=== PATIENT | female | born 1950 | race Caucasian/White ===

== ENCOUNTER 2016-09-20 08:07 | Emergency (ER) | payer MEDICARE, BC ==
[2016-09-20] MEDS ORDERED: diPHENhydraMINE IV* 50 MG/ML 1 ml VIAL (BENADRYL) IV ONE (08:41)
[2016-09-20] MEDS ORDERED: Ketorolac INJ* 30 MG/ML 1 ML VIAL IV ONE (08:41)
[2016-09-20] MEDS ORDERED: NS 0.9% 1000 ML* 1,000 ML IV ONE (08:41)
[2016-09-20] MEDS ORDERED: Metoclopramide IV* 5 MG/ML 2 ML VIAL IV ONE (08:42)
--- NOTE | 2016-09-20 08:45 | ED ---
Headache - HPI Summary HPI Summary: 65 F w/ PMH of migraine presents with migraine for 2 days. The migraine is in its usually location in the front of the head and radiates to the neck which she states is typically of her headaches. She denies any neck stiffness or fever. She took toradol and benadryl at home last night which did not help. She denies any weakness, dizziness, photophobia, sinus pain, or ear pain. She states that the toradol usually helps but it did not last night. She states noises make it worst. She is followed by dr. Curtis for neurology. - History Of Current Complaint Chief Complaint: EDHeadache Stated Complaint: MIGRAINE Time Seen by Provider: 09/20/16 08:31 Hx Last Menstrual Period: post - Allergies/Home Medications Allergies/Adverse Reactions: Allergies Allergy/AdvReac Type Severity Reaction Status Date / Time Heparin Allergy Unknown See Comment Verified 09/20/16 08:23 Chlorpromazine AdvReac Severe Altered Verified 09/20/16 08:23 [From Thorazine] Mental Status Erythromycin AdvReac Intermediate Diarrhea Verified 09/20/16 08:23 Valproic Acid [From Depakote] AdvReac Intermediate Altered Verified 09/20/16 08: 23 Mental Status Cephalexin [From Keflex] AdvReac Mild Muscle Ache Verified 09/20/16 08:23 PMH/Surg Hx/FS Hx/Imm Hx Endocrine/Hematology History: Denies: Hx Diabetes, Hx Thyroid Disease Cardiovascular History: Reports: Hx Hypercholesterolemia, Hx Hypertension, Other Cardiovascular Problems/Disorders - heart burn Respiratory History: Denies: Hx Asthma, Hx Chronic Obstructive Pulmonary Disease (COPD) GI History: Reports: Hx Gastroesophageal Reflux Disease Denies: Hx Ulcer Musculoskeletal History: Reports: Hx Arthritis Sensory History: Reports: Hx Contacts or Glasses Denies: Hx Hearing Aid Opthamlomology History: Reports: Hx Contacts or Glasses Neurological History: Reports: Hx Migraine - Chronic migraine disease, Hx Seizures Psychiatric History: Reports: Hx Anxiety, Hx Depression - Cancer History Hx Chemotherapy: No Hx Radiation Therapy: No - Surgical History Surgery Procedure, Year, and Place: 1974, 1976, 1978 3 C Sections [place]. 1986 right elbow surgery [place]. LEFT breast biopsy [facility] [place]. 1999s x2 sinus surgery [facility]. 2006 appendectomy, [facility]. 2005 bladder surgery ( spot in bladder), [facility]. 2006 bilateral meniscus surgery, [facility]. 2005 OVARY REMOVED [facility]. 1981 HYSTERECTOMY,[facility]. 07/2013 LEFT TOE SURGERY [facility]. total replacement right knee; endoscopy left knee Hx Anesthesia Reactions: Yes - required mechanical ventilation for oversedation - Immunization History Date of Tetanus Vaccine: within the last 10 years Date of Influenza Vaccine: Fall 2014 Infectious Disease History: No Infectious Disease History: Reports: Hx Shingles - 2011, Traveled Outside the [place] in Last 30 Days - JOHN Denies: Hx Clostridium Difficile, Hx Hepatitis, Hx Human Immunodeficiency Virus (HIV), Hx of Known/Suspected MRSA, Hx Tuberculosis, Hx Known/Suspected VRE , Hx Known/Suspected VRSA, History Other Infectious Disease - Family History Known Family History: Positive: None - reviewed & noncontributory, Unknown, Cardiac Disease, Hypertension, Other - stroke: mom Negative: Diabetes - Social History Alcohol Use: Rare Alcohol Amount: 1 GLASS/MONTH Hx Substance Use: No Substance Use Type: Reports: None, Prescribed Substance Use Comment - Amount & Last Used: PERCOCET as needed for knee pain Hx Tobacco Use: No Smoking Status (MU): Never Smoked Tobacco Have You Smoked in the Last Year: No Review of Systems Negative: Fever Negative: Photophobia, Blurred Vision, Diplopia Negative: Chest Pain Negative: Shortness Of Breath Positive: Headache. Negative: Weakness All Other Systems Reviewed And Are Negative: Yes Physical Exam Triage Information Reviewed: Yes Vital Signs On Initial Exam: Initial Vitals Temp Pulse Resp BP Pulse Ox 98 F 63 15 126/79 100 09/20/16 08:17 09/20/16 08:17 09/20/16 08:17 09/20/16 08:17 09/20/16 08:17 Vital Signs Reviewed: Yes Appearance: Positive: Well-Appearing Skin: Positive: Warm, Dry Head/Face: Positive: Normal Head/Face Inspection Eyes: Positive: Normal, EOMI, [place], Conjunctiva Clear ENT: Positive: Normal ENT inspection, Pharynx normal, TMs normal Neck: Positive: Supple, No Lymphadenopathy, Other: - neg kernig or brudzenkis, tenderness to paraspinal muscle of neck. Negative: Nuchal Rigidity Respiratory/Lung Sounds: Positive: Clear to Auscultation, Breath Sounds Present Cardiovascular: Positive: Normal, RRR Neurological: Positive: Sensory/Motor Intact, Alert, Oriented to Person Place, Time, CN Intact II-III Diagnostics - Vital Signs Vital Signs Temp Pulse Resp BP Pulse Ox 09/20/16 08:17 98 F 63 15 126/79 100 - Laboratory Result Diagrams: 09/20/16 08:40 09/20/16 08:40 Lab Statement: Any lab studies that have been ordered have been reviewed, and results considered in the medical decision making process. Re-Evaluation - Re-Evaluation First Eval Re-Evaluation Time: 09:33 Change: Improved Comment: headache is resolved but states she still has typically neck pain that gets, full ROM of neck with no menigneal signs, tender to palpation of paraspinal muscles, requesting muscle relaxer Second Eval Re-Evaluation Time: 10:18 Change: Improved Comment: patient states neck pain resolved, requesting soma to go home with Headache Course/Dx - Course Course Of Treatment: 65 F presents with her typical migraine for 2 days. pain started in front of head and radiates to neck which is her typical symptoms, no meningitis signs on exam, neuro exam normal, will treat with normal medication uses when comes to ER, labs normal, states headache resolved with medication but still some mild neck pain that is typical of her migraine, request muscle relaxer which after taking states that neck pain resolved, requesting soma for at home states works best for her for neck pain, discussed that highly addicting and patient understands but states it has worked the best for her in the past, will return if headache returns and can not manage at home or if develop mengingeal symptoms, patient agrees with plan - Diagnoses Differential Diagnosis/HQI/PQRI: Meningitis, Migraine, Sinus Headache, Viral Syndrome Provider Diagnoses: Headache, Neck pain Discharge - Discharge Plan Condition: Good Disposition: HOME Prescriptions: Carisoprodol TAB* [Soma TAB*] 350 mg PO TID PRN #6 tab MDD 3 PRN Reason: Pain Patient Education Materials: Migraine Headache (ED) Referrals: Sherron Hood MD [Primary Care Provider] - Additional Instructions: Take muscle relaxers three times a day for 2 days as needed for neck pain Use ibuprofen or Tylenol for pain every 6 hours ice/heat neck, move as much as possible Follow up with neurology as scheduled Return to ED if develop any fever, neck stiffness, change in vision or develop any new or worsening symptoms
[2016-09-20 08:50] LABS: Hematocrit 40 % (35-47); Hemoglobin 13.3 g/dl (12.0-16.0); Mean Corpuscular HGB Conc 34 g/dl (31-36); Mean Corpuscular Hemoglobin 35 pg (27-31); Mean Corpuscular Volume 103 fL (80-97); Mean Platelet Volume 8 um3 (7.4-10.4); Red Blood Count 3.84 10^6/ul (4.0-5.4); Red Cell Distribution Width 13 % (10.5-15); White Blood Count 5.9 10^3/ul (3.5-10.8)
[2016-09-20 09:06] LABS: BUN/Creatinine Ratio 34.6 (8-20); Calcium 9.2 mg/dL (8.6-10.3); EGFR Non-African American 70.7 (>60); Globulin 2.7 g/dL (2-4); Potassium 4.4 mmol/L (3.5-5.0); Total Bilirubin 0.4 mg/dL (0.2-1.0); Total Protein 6.7 g/dL (6.4-8.9)
[2016-09-20] MEDS ORDERED: Cyclobenzaprine TAB* 10 MG PO ONE (09:32)
[2016-09-20 11:22] VITALS: BP 128/71
== END 2016-09-20 11:19 | disposition home or self-care (01) ==
LOC: ED 08:07
DX: G43.909 Migraine, unspecified, not intractable, without status migrainosus (principal); M54.2 Cervicalgia; I10 Essential (primary) hypertension; E78.00 Pure hypercholesterolemia, unspecified; K21.9 Gastro-esophageal reflux disease without esophagitis; F41.9 Anxiety disorder, unspecified; F32.9 Major depressive disorder, single episode, unspecified
CPT/HCPCS: 36415; 80053; 85025; 96360; 96365; 96374; 96375; 99284; A9270-GY; J1200; J1885; J2765

== ENCOUNTER 2016-10-07 11:02 | Emergency (ER) | payer MEDICARE, BC ==
[2016-10-07] MEDS ORDERED: Metoclopramide IV* 5 MG/ML 2 ML VIAL IV ONE (16:23)
[2016-10-07] MEDS ORDERED: diPHENhydraMINE IV* 50 MG/ML 1 ml VIAL (BENADRYL) IV ONE (16:23)
[2016-10-07] MEDS ORDERED: Ketorolac INJ* 30 MG/ML 1 ML VIAL IV ONE (16:23)
[2016-10-07 16:37] VITALS: BP 139/83
[2016-10-07 16:48] LABS: Urine Bilirubin Negative (Negative); Urine Glucose Negative (Negative); Urine Nitrite Negative (Negative)
[2016-10-07 16:50] LABS: Hematocrit 39 % (35-47); Hemoglobin 13.4 g/dl (12.0-16.0); Mean Corpuscular HGB Conc 34 g/dl (31-36); Mean Corpuscular Hemoglobin 34 pg (27-31); Mean Corpuscular Volume 101 fL (80-97); Mean Platelet Volume 8 um3 (7.4-10.4); Red Cell Distribution Width 12 % (10.5-15); White Blood Count 8.7 10^3/ul (3.5-10.8)
[2016-10-07 16:58] LABS: Albumin 4.2 g/dL (3.2-5.2); BUN/Creatinine Ratio 22.5 (8-20); Calcium 9.4 mg/dL (8.6-10.3); EGFR African American 105.9 (>60); EGFR Non-African American 82.4 (>60); Globulin 2.5 g/dL (2-4); Total Bilirubin 0.5 mg/dL (0.2-1.0); Total Protein 6.7 g/dL (6.4-8.9)
[2016-10-07 17:12] LABS: Potassium 4.1 mmol/L (3.5-5.0)
[2016-10-07 18:01] LABS: Erythrocyte Sed Rate 11 mm/Hr (0-40)
--- NOTE | 2016-10-07 22:29 | ED ---
Randal Collado Rebecca, scribed for Tony De La Rosa MD on 10/07/16 at 1603 . Headache - HPI Summary HPI Summary: Pt is a 65 y/o F who presents to ED c/o CASTRO. CASTRO began suddenly 3 days ago and has been constant since onset. Pain is diffuse, characterized as a typical migraine and currently ranked 7/10. Sx aggravated and alleviated by nothing. Additionally c/o malodorous urine. Denies fever, vomiting, numbness, tingling, weakness. Denies dysuria, hematuria, abd pain and back pain. PMHx migraines. Current episode is similar to prior episodes of migraines, which are typically resolved by administration of Benadryl, Toradol and Reglan. - History Of Current Complaint Chief Complaint: EDHeadache Stated Complaint: MIGRAINE HEADACHE Time Seen by Provider: 10/07/16 15:59 Hx Obtained From: Patient Hx Last Menstrual Period: post Onset/Duration: Sudden Onset, Started days ago - 3 days Initially Headache Was: Moderate Currently Pain Is: Current Pain Scale(0-10)= - 7/10, Moderate Timing: Constant Character: Migraine Location of Headache: Diffuse Aggravating Factor: Nothing Allevating Factors: Nothing Associated Signs And Symptoms: Other (Noted In Comments) - Malodorous urine Related History: Similar Episode/DX As: - Prior migraines - Allergies/Home Medications Allergies/Adverse Reactions: Allergies Allergy/AdvReac Type Severity Reaction Status Date / Time Heparin Allergy Unknown See Comment Verified 10/07/16 11:08 Chlorpromazine AdvReac Severe Altered Verified 10/07/16 11:08 [From Thorazine] Mental Status Erythromycin AdvReac Intermediate Diarrhea Verified 10/07/16 11:08 Valproic Acid [From Depakote] AdvReac Intermediate Altered Verified 10/07/16 11: 08 Mental Status Cephalexin [From Keflex] AdvReac Mild Muscle Ache Verified 10/07/16 11:08 PMH/Surg Hx/FS Hx/Imm Hx Endocrine/Hematology History: Denies: Hx Diabetes, Hx Thyroid Disease Cardiovascular History: Reports: Hx Hypercholesterolemia, Hx Hypertension, Other Cardiovascular Problems/Disorders - heart burn Respiratory History: Denies: Hx Asthma, Hx Chronic Obstructive Pulmonary Disease (COPD) GI History: Reports: Hx Gastroesophageal Reflux Disease Denies: Hx Ulcer Musculoskeletal History: Reports: Hx Arthritis Sensory History: Reports: Hx Contacts or Glasses Denies: Hx Hearing Aid Opthamlomology History: Reports: Hx Contacts or Glasses Neurological History: Reports: Hx Migraine - Chronic migraine disease, Hx Seizures Psychiatric History: Reports: Hx Anxiety, Hx Depression - Cancer History Hx Chemotherapy: No Hx Radiation Therapy: No - Surgical History Surgery Procedure, Year, and Place: 1974, 1976, 1978 3 C Sections [place]. 1986 right elbow surgery [place]. 1999s LEFT breast biopsy [facility] [place]. 1999s x2 sinus surgery [facility] [facility] [place]. 2006 appendectomy, [facility] [place]. 2004 bladder surgery ( spot in bladder), [facility] 2006 bilateral meniscus surgery, [facility]. 2004 OVARY REMOVED [facility]. 1980 HYSTERECTOMY,[facility]. 07/2013 LEFT TOE SURGERY [facility]. total replacement right knee; endoscopy left knee Hx Anesthesia Reactions: Yes - required mechanical ventilation for oversedation - Immunization History Date of Tetanus Vaccine: within the last 10 years Date of Influenza Vaccine: Fall 2014 Infectious Disease History: No Infectious Disease History: Reports: Hx Shingles - 2011 Denies: Hx Clostridium Difficile, Hx Hepatitis, Hx Human Immunodeficiency Virus (HIV), Hx of Known/Suspected MRSA, Hx Tuberculosis, Hx Known/Suspected VRE , Hx Known/Suspected VRSA, History Other Infectious Disease, Traveled Outside the in Last 30 Days - Family History Known Family History: Positive: Cardiac Disease, Hypertension, Other - stroke: mom Negative: Diabetes - Social History Alcohol Use: Rare Alcohol Amount: 1 GLASS/MONTH Hx Substance Use: No Substance Use Type: Reports: None, Prescribed Substance Use Comment - Amount & Last Used: PERCOCET as needed for knee pain Hx Tobacco Use: No Smoking Status (MU): Never Smoked Tobacco Have You Smoked in the Last Year: No Review of Systems Negative: Fever Negative: Abdominal Pain, Vomiting Positive: other - Malodorous urine. Negative: dysuria, hematuria Positive: Arthralgia - Denies back pain Neurological: Other - Denies tingling Positive: Headache - Migraine. Negative: Weakness, Numbness All Other Systems Reviewed And Are Negative: Yes Physical Exam - Summary Physical Exam Summary: General: Comfortable, pleasant, alert, NAD HEENT: Moist mucosa, PERRL Neck: soft, supple, no adenopathy, no edema, FROM, no nuchal rigidity Heart: S1, S2, RRR, no murmurs, rubs, or gallops Lungs: Clear to auscultation, breathing comfortable, no wheezes or rales Abdominal: Soft, flat, nontender, no suprapubic tenderness Extremities: No edema, no calf tenderness, no CVA tenderness Neuro: Alert and oriented x 3, no focal neurological deficits Psych: Logical, coherent Triage Information Reviewed: Yes Vital Signs On Initial Exam: Initial Vitals Temp Pulse Resp BP Pulse Ox 97.7 F 72 17 145/79 100 10/07/16 11:04 10/07/16 11:04 10/07/16 11:04 10/07/16 11:04 10/07/16 11:04 Vital Signs Reviewed: Yes Diagnostics - Vital Signs Vital Signs Temp Pulse Resp BP Pulse Ox 10/07/16 15:01 98.3 F 79 16 158/91 98 10/07/16 14:03 98.3 F 77 16 149/96 98 10/07/16 13:21 99 F 74 16 153/91 99 10/07/16 12:17 99 F 67 16 158/89 99 10/07/16 11:04 97.7 F 72 17 145/79 100 - Laboratory Lab Results: Lab Results 10/07/16 10/07/16 10/07/16 Range/Units 12:20 16:30 16:30 WBC 8.7 (3.5-10.8) 10^3/ul RBC 3.90 L (4.0-5.4) 10^6/ul Hgb 13.4 (12.0-16.0) g/dl Hct 39 (35-47) % MCV 101 H (80-97) fL MCH 34 H (27-31) pg MCHC 34 (31-36) g/dl RDW 12 (10.5-15) % Plt Count 238 (150-450) 10^3/ul MPV 8 (7.4-10.4) um3 Neut % (Auto) 55.0 (38-83) % Lymph % (Auto) 36.7 (25-47) % Gaines % (Auto) 4.5 (1-9) % Eos % (Auto) 2.8 (0-6) % Baso % (Auto) 1.0 (0-2) % Absolute Neuts (auto) 4.8 (1.5-7.7) 10^3/ul Absolute Lymphs (auto) 3.2 (1.0-4.8) 10^3/ul Absolute Monos (auto) 0.4 (0-0.8) 10^3/ul Absolute Eos (auto) 0.2 (0-0.6) 10^3/ul Absolute Basos (auto) 0.1 (0-0.2) 10^3/ul Absolute Nucleated RBC 0.02 10^3/ul Nucleated RBC % 0.3 ESR 11 (0-40) mm/Hr Sodium 139 (133-145) mmol/L Potassium 4.1 (3.5-5.0) mmol/L Chloride 107 (101-111) mmol/L Carbon Dioxide 25 (22-32) mmol/L Anion Gap 7 (2-11) mmol/L BUN 16 (6-24) mg/dL Creatinine 0.71 (0.51-0.95) mg/dL Est GFR ( Amer) 105.9 (>60) Est GFR (Non-Af Amer) 82.4 (>60) BUN/Creatinine Ratio 22.5 H (8-20) Glucose 95 (70-100) mg/dL Calcium 9.4 (8.6-10.3) mg/dL Total Bilirubin 0.50 (0.2-1.0) mg/dL AST 17 (13-39) U/L ALT 17 (7-52) U/L Alkaline Phosphatase 54 (34-104) U/L Total Protein 6.7 (6.4-8.9) g/dL Albumin 4.2 (3.2-5.2) g/dL Globulin 2.5 (2-4) g/dL Albumin/Globulin Ratio 1.7 (1-3) Urine Color Yellow Urine Appearance Clear Urine pH 5.0 (5-9) Ur Specific [place] 1.009 L (1.010-1.030) Urine Protein Negative (Negative) Urine Ketones Negative (Negative) Urine Blood Negative (Negative) Urine Nitrate Negative (Negative) Urine Bilirubin Negative (Negative) Urine Urobilinogen Negative (Negative) Ur Leukocyte Esterase Negative (Negative) Urine Glucose Negative (Negative) Result Diagrams: 10/07/16 16:30 10/07/16 16:30 Lab Statement: Any lab studies that have been ordered have been reviewed, and results considered in the medical decision making process. Headache Course/Dx - Course Assessment/Plan: We will place the p/t as a d/c disposition, as her CASTRO is similar to prior. She has no neurologic deficits, no signs of infection. We will await her lab work, but I doubt this is temporal arteritis. UA appears quite clean. She simply reported an abnormal odor. - Diagnoses Differential Diagnosis/HQI/PQRI: Epidural Hematoma, Subdural Hematoma, Meningitis, Migraine, Sinus Headache, Subarachnoid Hemorrhage, Temporal Arteritis, Tension Headache, Viral Syndrome Provider Diagnoses: Headache Discharge - Discharge Plan Condition: Good Disposition: HOME Patient Education Materials: General Headache (ED) Referrals: Sherron Hood MD [Primary Care Provider] - If Needed The documentation as recorded by the Randal ness Rebecca accurately reflects the service I personally performed and the decisions made by me, Tony De La Rosa MD.
== END 2016-10-07 17:58 | disposition home or self-care (01) ==
LOC: ED 11:02
DX: R51 Headache (principal)
CPT/HCPCS: 36415; 80053; 81003; 85025; 85652; 96374; 96375; 99283; J1200; J1885; J2765

== ENCOUNTER 2016-11-12 10:50 | Emergency (ER) | payer MEDICARE, BC ==
[2016-11-12 10:54] VITALS: BP 135/78
[2016-11-12] MEDS ORDERED: Ondansetron INJ* 2 MG/ML VIAL IV ONE (12:38)
[2016-11-12] MEDS ORDERED: diPHENhydraMINE IV* 50 MG/ML 1 ml VIAL (BENADRYL) IV ONE (12:38)
[2016-11-12] MEDS ORDERED: Ketorolac INJ* 30 MG/ML 1 ML VIAL IV PUSH ONE (12:38)
[2016-11-12] MEDS ORDERED: NS 0.9% 1000 ML* 1,000 ML IV ONE (12:39)
--- NOTE | 2016-11-12 13:07 | ED ---
Ricardo Collado Billy, scribed for Sandee Ponce MD on 11/12/16 at 1243 . Headache - HPI Summary HPI Summary: Patient is a 66 year-old female with a history of recurrent, frequent migraines coming to [facility] presenting with a migraine for the last 3 days. Patient was driven to the ED by her via private car. She states that her symptoms today feel typical of previous migraines. She describes a frontal headache that radiates to the occipital region. She also reports earache and photophobia; denies fevers, chills, or drainage from the ears. No fevers, chills, rash. She states that she has taken ibuprofen today and Toradol last night without improvement. Her last dose of Toradol was taken yesterday, and only ibuprofen was taken for her symptoms prior to arrival today. In the past, her migraines have been effectively treated with Toradol, Benadryl, and Zofran. Patient has had 2 previous migraines this month. Patient sees Dr. Curtis for her headaches; patient was seen by one of Dr. Curtis's associates approximately 6 weeks ago, and has scheduled her next appointment in 2 months. She denies any other complaints or symptoms at this time. - History Of Current Complaint Chief Complaint: EDHeadache Stated Complaint: MIGRAINE Time Seen by Provider: 11/12/16 12:03 Hx Obtained From: Patient Hx Last Menstrual Period: post Onset/Duration: Gradual Onset, Started days ago, Still Present Initially Headache Was: Moderate Currently Pain Is: Moderate Timing: Constant Character: Migraine Location of Headache: Frontal Radiates to: occipital Aggravating Factor: Bright Lights Allevating Factors: Rest Associated Signs And Symptoms: Other (Noted In Comments) - earache - Allergies/Home Medications Allergies/Adverse Reactions: Allergies Allergy/AdvReac Type Severity Reaction Status Date / Time Heparin Allergy Unknown See Comment Verified 10/07/16 11:08 Chlorpromazine AdvReac Severe Altered Verified 10/07/16 11:08 [From Thorazine] Mental Status Erythromycin AdvReac Intermediate Diarrhea Verified 10/07/16 11:08 Valproic Acid [From Depakote] AdvReac Intermediate Altered Verified 10/07/16 11: 08 Mental Status Cephalexin [From Keflex] AdvReac Mild Muscle Ache Verified 10/07/16 11:08 PMH/Surg Hx/FS Hx/Imm Hx Previously Healthy: Yes Endocrine/Hematology History: Denies: Hx Anticoagulant Therapy, Hx Diabetes, Hx Thyroid Disease Cardiovascular History: Reports: Hx Hypercholesterolemia, Hx Hypertension, Other Cardiovascular Problems/Disorders - heart burn Respiratory History: Denies: Hx Asthma, Hx Chronic Obstructive Pulmonary Disease (COPD) GI History: Reports: Hx Gastroesophageal Reflux Disease Denies: Hx Ulcer Musculoskeletal History: Reports: Hx Arthritis Sensory History: Reports: Hx Contacts or Glasses Denies: Hx Hearing Aid Opthamlomology History: Reports: Hx Contacts or Glasses Neurological History: Reports: Hx Migraine - Chronic migraine disease, Hx Seizures Psychiatric History: Reports: Hx Anxiety, Hx Depression - Cancer History Hx Chemotherapy: No Hx Radiation Therapy: No - Surgical History Surgery Procedure, Year, and Place: 1974, 1976, 1978 3 C Sections [place]. 1986 right elbow surgery [place]. LEFT breast biopsy [facility]. 1999s x2 sinus surgery [facility] [place]. 2006 appendectomy, [facility]. 2004 bladder surgery ( spot in bladder), [facility]. 2005 bilateral meniscus surgery, [facility]. 2004 OVARY REMOVED [facility]. 1980 HYSTERECTOMY,[facility]. 07/2013 LEFT TOE SURGERY [facility]. total replacement right knee; endoscopy left knee Hx Anesthesia Reactions: Yes - required mechanical ventilation for oversedation - Immunization History Date of Tetanus Vaccine: within the last 10 years Date of Influenza Vaccine: Fall 2014 Infectious Disease History: No Infectious Disease History: Reports: Hx Shingles - 2011 Denies: Hx Clostridium Difficile, Hx Hepatitis, Hx Human Immunodeficiency Virus (HIV), Hx of Known/Suspected MRSA, Hx Tuberculosis, Hx Known/Suspected VRE , Hx Known/Suspected VRSA, History Other Infectious Disease, Traveled Outside the in Last 30 Days - Family History Known Family History: Positive: Cardiac Disease, Hypertension, Other - stroke: mom Negative: Diabetes - Social History 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 Negative: Sore Throat, Nasal Discharge Negative: Chest Pain Negative: Shortness Of Breath Negative: Abdominal Pain, Vomiting, Diarrhea, Nausea Negative: Rash Positive: Headache Psychological: Normal All Other Systems Reviewed And Are Negative: Yes Physical Exam Triage Information Reviewed: Yes Vital Signs On Initial Exam: Initial Vitals Temp Pulse Resp BP Pulse Ox 97.7 F 75 18 135/78 97 11/12/16 10:50 11/12/16 10:50 11/12/16 10:50 11/12/16 10:50 11/12/16 10:50 Vital Signs Reviewed: Yes Appearance: Positive: Well-Appearing, No Pain Distress, Well-Nourished Skin: Positive: Warm, Skin Color Reflects Adequate Perfusion, Dry Eyes: Positive: Normal, EOMI ENT: Positive: Normal ENT inspection, Pharynx normal, TMs normal Neck: Positive: Supple, Nontender, No Lymphadenopathy Respiratory/Lung Sounds: Positive: Clear to Auscultation, Breath Sounds Present , Wheezes Cardiovascular: Positive: Normal, RRR, Murmur Abdomen Description: Positive: Nontender, No Organomegaly, Soft Bowel Sounds: Positive: Present Musculoskeletal: Positive: Normal, Strength/ROM Intact Neurological: Positive: Normal, Sensory/Motor Intact, Alert, Oriented to Person Place, Time Psychiatric: Positive: Normal AVPU Assessment: Alert - [place] Coma Scale Best Eye Response: 4 - Spontaneous Best Motor Response: 6 - Obeys Commands Best Verbal Response: 5 - Oriented Diagnostics - Vital Signs Vital Signs Temp Pulse Resp BP Pulse Ox 11/12/16 10:50 97.7 F 75 18 135/78 97 - Laboratory Lab Statement: Any lab studies that have been ordered have been reviewed, and results considered in the medical decision making process. Re-Evaluation - Re-Evaluation First Eval Re-Evaluation Time: 13:55 Change: Improved Comment: Pt states feel improved - requesting flexeril to help neck muscle relax. CASTRO resolved. at bedside will d/c home Headache Course/Dx - Course Assessment/Plan: Pt with recurrent migraine headache. will give toradol, benadryl, and zofran. no labs. non concerning exam - Diagnoses Provider Diagnoses: Migraine headache Discharge - Discharge Plan Condition: Improved Disposition: HOME Patient Education Materials: Migraine Headache (ED) Referrals: Sherron Hood MD [Primary Care Provider] - Additional Instructions: - stay well hydrated. Drink plenty of non-alcoholic, non-caffinated beverages - take your medications at home as previously prescribed for headaches - Contact your doctor to schedule a follow-up appointment. Contact your doctor or return with questions or concerns The documentation as recorded by the Ricardo ness Billy accurately reflects the service I personally performed and the decisions made by me, Sandee Ponce MD.
[2016-11-12] MEDS ORDERED: Cyclobenzaprine TAB* 10 MG PO ONE (13:56)
== END 2016-11-12 14:18 | disposition home or self-care (01) ==
LOC: ED 10:50
DX: G43.901 Migraine, unspecified, not intractable, with status migrainosus (principal); H92.09 Otalgia, unspecified ear
CPT/HCPCS: 96374; 96375; 99282; A9270-GY; J1200; J1885; J2405

== ENCOUNTER 2016-11-14 14:50 | Emergency (ER) | payer MEDICARE, BC ==
[2016-11-14] MEDS ORDERED: Ketorolac INJ* 30 MG/ML 1 ML VIAL IV PUSH ONE (15:28)
[2016-11-14] MEDS ORDERED: diPHENhydraMINE IV* 50 MG/ML 1 ml VIAL (BENADRYL) SLOW PUSH ONE (15:28)
[2016-11-14] MEDS ORDERED: Ondansetron INJ* 2 MG/ML VIAL IV ONE (15:28)
[2016-11-14] MEDS ORDERED: NS 0.9% 1000 ML* 1,000 ML IV ONE (15:28)
--- NOTE | 2016-11-14 15:48 | ED ---
Headache - HPI Summary HPI Summary: 66F presents with migraine. She states there is nothing different about this migraine. She states is starts behind her eyes and radiates down her neck. She has full ROM of her neck. She has tried toradol at home without relief yesterday. She has a treatment plan in place by her neurologist that does not include narcotics. She states she has had this migraine for a week. She is also requesting a muscle relaxer for her neck. She admits to photophobia. She denies any weakness, change in vision, or fevers. She denies any recent illness or neck stiffness. - History Of Current Complaint Chief Complaint: EDHeadache Stated Complaint: HEADACHE Time Seen by Provider: 11/14/16 15:21 Hx Last Menstrual Period: post - Allergies/Home Medications Allergies/Adverse Reactions: Allergies Allergy/AdvReac Type Severity Reaction Status Date / Time Heparin Allergy Unknown See Comment Verified 11/14/16 14:52 Chlorpromazine AdvReac Severe Altered Verified 11/14/16 14:52 [From Thorazine] Mental Status Erythromycin AdvReac Intermediate Diarrhea Verified 11/14/16 14:52 Valproic Acid [From Depakote] AdvReac Intermediate Altered Verified 11/14/16 14: 52 Mental Status Cephalexin [From Keflex] AdvReac Mild Muscle Ache Verified 11/14/16 14:52 PMH/Surg Hx/FS Hx/Imm Hx Endocrine/Hematology History: Denies: Hx Anticoagulant Therapy, Hx Diabetes, Hx Thyroid Disease Cardiovascular History: Reports: Hx Hypercholesterolemia, Hx Hypertension, Other Cardiovascular Problems/Disorders - heart burn Respiratory History: Denies: Hx Asthma, Hx Chronic Obstructive Pulmonary Disease (COPD) GI History: Reports: Hx Gastroesophageal Reflux Disease Denies: Hx Ulcer Musculoskeletal History: Reports: Hx Arthritis Sensory History: Reports: Hx Contacts or Glasses Denies: Hx Hearing Aid Opthamlomology History: Reports: Hx Contacts or Glasses Neurological History: Reports: Hx Migraine - Chronic migraine disease, Hx Seizures Psychiatric History: Reports: Hx Anxiety, Hx Depression - Cancer History Hx Chemotherapy: No Hx Radiation Therapy: No - Surgical History Surgery Procedure, Year, and Place: 1974, 1976, 1978 3 C Sections [place]. 1987 right elbow surgery [place]. LEFT breast [place] [facility] [place] 1999[place] x2 sinus surgery [facility] [place]. 2006 appendectomy, [facility] [place] 2005 bladder surgery ( spot in bladder), [facility]. 2006 bilateral meniscus surgery, [facility]. 2005 OVARY REMOVED [facility]. 1981 HYSTERECTOMY,PEDRIT[place]. 07/2013 LEFT TOE SURGERY [facility]. total replacement right knee; endoscopy left knee Hx Anesthesia Reactions: Yes - required mechanical ventilation for oversedation - Immunization History Date of Tetanus Vaccine: within the last 10 years Date of Influenza Vaccine: Fall 2014 Infectious Disease History: No Infectious Disease History: Reports: Hx Shingles - 2011 Denies: Hx Clostridium Difficile, Hx Hepatitis, Hx Human Immunodeficiency Virus (HIV), Hx of Known/Suspected MRSA, Hx Tuberculosis, Hx Known/Suspected VRE , Hx Known/Suspected VRSA, History Other Infectious Disease, Traveled Outside the [place] in Last 30 Days - Family History Known Family History: Positive: None - reviewed & noncontributory, Unknown, Cardiac Disease, Hypertension, Other - stroke: mom Negative: Diabetes - Social History Alcohol Use: Rare Alcohol Amount: 1 GLASS/MONTH Hx Substance Use: No Substance Use Type: Reports: None, Prescribed Substance Use Comment - Amount & Last Used: PERCOCET as needed for knee pain Hx Tobacco Use: No Smoking Status (MU): Never Smoked Tobacco Have You Smoked in the Last Year: No Review of Systems Negative: Fever Positive: Photophobia. Negative: Diplopia Negative: Chest Pain Negative: Shortness Of Breath Positive: Headache All Other Systems Reviewed And Are Negative: Yes Physical Exam Triage Information Reviewed: Yes Vital Signs On Initial Exam: Initial Vitals Temp Pulse Resp BP Pulse Ox 96.9 F 66 18 185/90 100 11/14/16 14:52 11/14/16 14:52 11/14/16 14:52 11/14/16 14:52 11/14/16 14:52 Vital Signs Reviewed: Yes Appearance: Positive: Well-Appearing Skin: Positive: Warm, Dry Head/Face: Positive: Normal Head/Face Inspection Eyes: Positive: Normal, EOMI, [place], Conjunctiva Clear ENT: Positive: Normal ENT inspection, Pharynx normal, TMs normal Neck: Positive: Supple, Nontender, No Lymphadenopathy Respiratory/Lung Sounds: Positive: Clear to Auscultation, Breath Sounds Present Cardiovascular: Positive: Normal, RRR Neurological: Positive: Sensory/Motor Intact, Alert, Oriented to Person Place, Time, CN Intact II-III - [place] Coma Scale Best Eye Response: 4 - Spontaneous Best Motor Response: 6 - Obeys Commands Best Verbal Response: 5 - Oriented Coma Scale Total: 15 Diagnostics - Vital Signs Vital Signs Temp Pulse Resp BP Pulse Ox 11/14/16 14:52 96.9 F 66 18 185/90 100 - Laboratory Result Diagrams: 11/14/16 17:00 11/14/16 17:00 Lab Statement: Any lab studies that have been ordered have been reviewed, and results considered in the medical decision making process. Re-Evaluation - Re-Evaluation First Eval Re-Evaluation Time: 17:48 Change: Improved Comment: patient feels better and would like to go home. would like muscle relaxer for neck pain Headache Course/Dx - Course Course Of Treatment: 66F presents with migraine for a week. she has taken her normal zofran and oral toradol without relieg yesterday. nothing is different about this migraine than her normal migraines. denies any weakness or change in vision, neuro exam normal. labs normal. gave toradol, zofran, and bendaryl and headache resolved. patient requesting muscle relaxer which gave. told to follow up with neurology. patient understands and agrees with plan - Diagnoses Differential Diagnosis/HQI/PQRI: Migraine, Sinus Headache, Tension Headache Provider Diagnoses: Headache Discharge - Discharge Plan Condition: Good Disposition: HOME Prescriptions: Cyclobenzaprine TAB* [Flexeril 10 MG TAB*] 10 mg PO TID PRN #9 tab PRN Reason: Pain Patient Education Materials: Migraine Headache (ED) Referrals: Sherron Hood MD [Primary Care Provider] - Additional Instructions: Take toradol, zofran and Benadryl if headache returns Take muscle relaxer three times a day for 3 days Follow up with neurology Return to ED if develop any new or worsening symptoms
[2016-11-14 17:12] LABS: Hematocrit 40 % (35-47); Hemoglobin 13.4 g/dl (12.0-16.0); Mean Corpuscular HGB Conc 34 g/dl (31-36); Mean Corpuscular Hemoglobin 34 pg (27-31); Mean Corpuscular Volume 101 fL (80-97); Mean Platelet Volume 8 um3 (7.4-10.4); Red Blood Count 3.93 10^6/ul (4.0-5.4); Red Cell Distribution Width 12 % (10.5-15); White Blood Count 6.4 10^3/ul (3.5-10.8)
[2016-11-14 17:27] LABS: Albumin 4.3 g/dL (3.2-5.2); BUN/Creatinine Ratio 17.6 (8-20); Calcium 9.9 mg/dL (8.6-10.3); EGFR African American 100.7 (>60); EGFR Non-African American 78.3 (>60); Potassium 3.8 mmol/L (3.5-5.0); Total Bilirubin 0.7 mg/dL (0.2-1.0); Total Protein 7.3 g/dL (6.4-8.9)
[2016-11-14] MEDS ORDERED: Cyclobenzaprine TAB* 10 MG PO ONE (17:46)
[2016-11-14 18:22] VITALS: BP 132/64
== END 2016-11-14 18:28 | disposition home or self-care (01) ==
LOC: ED 14:50
DX: R51 Headache (principal); I10 Essential (primary) hypertension; E78.00 Pure hypercholesterolemia, unspecified; K21.9 Gastro-esophageal reflux disease without esophagitis; F41.9 Anxiety disorder, unspecified
CPT/HCPCS: 36415; 80053; 85025; 96360; 96374; 96375; 99283; A9270-GY; J1200; J1885; J2405

== ENCOUNTER 2016-12-08 17:41 | Emergency (ER) | payer MEDICARE, BC ==
[2016-12-08] MEDS ORDERED: Ondansetron INJ* 2 MG/ML VIAL IV ONE (19:12)
[2016-12-08] MEDS ORDERED: NS 0.9% 1000 ML* 1,000 ML IV ONE (19:12)
[2016-12-08] MEDS ORDERED: diPHENhydraMINE IV* 50 MG/ML 1 ml VIAL (BENADRYL) IV ONE (19:12)
[2016-12-08] MEDS ORDERED: Ketorolac INJ* 30 MG/ML 1 ML VIAL IV ONE (19:12)
[2016-12-08] MEDS ORDERED: Cyclobenzaprine TAB* 10 MG PO ONE (19:13)
[2016-12-08 20:57] VITALS: BP 140/79
--- NOTE | 2016-12-08 21:01 | ED ---
Heaven, Doctor,Kristina, scribed for Carlotta Jauregui MD on 12/08/16 at 1923 . Headache - HPI Summary HPI Summary: 66 year old female arrived to [facility] c/o migraine beginning this morning. She describes her migraine as beginning under the eyes and in the middle of the forehead, and spreading down to the neck. She denies any vomiting. She has had multiple similar episodes in the past and her symptoms have been alleviated with medication; she has PMHx of hypertension as well. She lives with her and does not smoke or use drugs. - History Of Current Complaint Chief Complaint: EDHeadache Stated Complaint: HEADACHE Time Seen by Provider: 12/08/16 19:00 Hx Obtained From: Patient Hx Last Menstrual Period: post Onset/Duration: Gradual Onset Initially Headache Was: Moderate Currently Pain Is: Moderate Timing: Constant Character: Typical Headache, Migraine Location of Headache: Frontal - Allergies/Home Medications Allergies/Adverse Reactions: Allergies Allergy/AdvReac Type Severity Reaction Status Date / Time Heparin Allergy Unknown See Comment Verified 11/14/16 14:52 Chlorpromazine AdvReac Severe Altered Verified 11/14/16 14:52 [From Thorazine] Mental Status Erythromycin AdvReac Intermediate Diarrhea Verified 11/14/16 14:52 Valproic Acid [From Depakote] AdvReac Intermediate Altered Verified 11/14/16 14: 52 Mental Status Cephalexin [From Keflex] AdvReac Mild Muscle Ache Verified 11/14/16 14:52 PMH/Surg Hx/FS Hx/Imm Hx Endocrine/Hematology History: Denies: Hx Anticoagulant Therapy, Hx Diabetes, Hx Thyroid Disease Cardiovascular History: Reports: Hx Hypercholesterolemia, Hx Hypertension, Other Cardiovascular Problems/Disorders - heart burn Respiratory History: Denies: Hx Asthma, Hx Chronic Obstructive Pulmonary Disease (COPD) GI History: Reports: Hx Gastroesophageal Reflux Disease Denies: Hx Ulcer Musculoskeletal History: Reports: Hx Arthritis Sensory History: Reports: Hx Contacts or Glasses Denies: Hx Hearing Aid Opthamlomology History: Reports: Hx Contacts or Glasses Neurological History: Reports: Hx Migraine - Chronic migraine disease, Hx Seizures Psychiatric History: Reports: Hx Anxiety, Hx Depression - Cancer History Hx Chemotherapy: No Hx Radiation Therapy: No - Surgical History Surgery Procedure, Year, and Place: 1974, 1976, 1978 3 C Sections [place]. 1986 right elbow surgery [place]. 2000s LEFT breast biopsy [facility] [place]. 2000s x2 sinus surgery [facility] [place] 2006 appendectomy, [facility] [place]. 2005 bladder surgery ( spot in bladder), [facility] [place]. 2006 bilateral meniscus surgery, [facility] [place]. 2005 OVARY REMOVED [facility] [place]. 1981 HYSTERECTOMY,PEDRITO. 07/2013 LEFT TOE SURGERY [facility] [place]. total replacement right knee; endoscopy left knee Hx Anesthesia Reactions: Yes - required mechanical ventilation for oversedation - Immunization History Date of Tetanus Vaccine: within the last 10 years Date of Influenza Vaccine: Fall 2014 Infectious Disease History: Reports: Hx Shingles - 2011 Denies: Hx Clostridium Difficile, Hx Hepatitis, Hx Human Immunodeficiency Virus (HIV), Hx of Known/Suspected MRSA, Hx Tuberculosis, Hx Known/Suspected VRE , Hx Known/Suspected VRSA, History Other Infectious Disease, Traveled Outside the [place] in Last 30 Days - Family History Known Family History: Positive: Cardiac Disease, Hypertension, Other - stroke: mom; migraines Negative: Diabetes - Social History Occupation: Retired Lives: With Family - with Alcohol Use: Rare Alcohol Amount: 1 GLASS/MONTH Hx Substance Use: No Substance Use Type: Reports: None, Prescribed Substance Use Comment - Amount & Last Used: PERCOCET as needed for knee pain Hx Tobacco Use: No Smoking Status (MU): Never Smoked Tobacco Have You Smoked in the Last Year: No Review of Systems Negative: Fever Negative: Vomiting Positive: Other - headache that spread to the neck Positive: Headache All Other Systems Reviewed And Are Negative: Yes Physical Exam Triage Information Reviewed: Yes Vital Signs On Initial Exam: Initial Vitals Temp Pulse Resp BP Pulse Ox 98.2 F 69 16 155/87 100 12/08/16 17:43 12/08/16 17:43 12/08/16 17:43 12/08/16 17:43 12/08/16 17:43 Vital Signs Reviewed: Yes Appearance: Positive: Well-Appearing, No Pain Distress Skin: Positive: Warm, Skin Color Reflects Adequate Perfusion, Dry Eyes: Positive: EOMI, [place] ENT: Positive: Pharynx normal, TMs normal Neck: Positive: Supple, Nontender Respiratory/Lung Sounds: Positive: Clear to Auscultation, Breath Sounds Present. Negative: Rales, Rhonchi, Wheezes Cardiovascular: Positive: RRR. Negative: Murmur, Rub Abdomen Description: Positive: Nontender, Soft. Negative: Distended, Guarding Bowel Sounds: Positive: Present Musculoskeletal: Positive: Strength/ROM Intact. Negative: Edema Left, Edema Right Neurological: Positive: Sensory/Motor Intact, Alert, Oriented to Person Place, Time, CN Intact II-III Psychiatric: Positive: Affect/Mood Appropriate Diagnostics - Vital Signs Vital Signs Temp Pulse Resp BP Pulse Ox 12/08/16 17:43 98.2 F 69 16 155/87 100 - Laboratory Lab Statement: Any lab studies that have been ordered have been reviewed, and results considered in the medical decision making process. Headache Course/Dx - Course Course Of Treatment: pt comes in with migraine like her typical migraine with normal neurological exam, she describes doing well with iv toradol,benadryl and zofran and asked for a muscle relaxer which has been sent to her pharmacy. - Diagnoses Provider Diagnoses: Migraine, Headache Discharge - Discharge Plan Condition: Stable Disposition: HOME Prescriptions: Cyclobenzaprine TAB* [Flexeril 10 MG TAB*] 10 mg PO TID PRN #14 tab PRN Reason: Headache Patient Education Materials: Migraine Headache (ED) Referrals: Sherron Hood MD [Primary Care Provider] - The documentation as recorded by the Doctor ness Tahera accurately reflects the service I personally performed and the decisions made by me, Carlotta Jauregui MD.
[2016-12-08] MEDS ORDERED: Ondansetron ODT TAB* 4 MG PO ONE (21:16)
== END 2016-12-08 22:12 | disposition home or self-care (01) ==
LOC: ED 17:41
DX: R51 Headache (principal); Z53.21 Procedure and treatment not carried out due to patient leaving prior to being seen by health care provider
CPT/HCPCS: 99281; A9270-GY; J1200; J1885; J2405

== ENCOUNTER 2017-01-26 15:34 | Emergency (ER) | payer MEDICARE, BC ==
[2017-01-26 15:42] VITALS: BP 149/87
[2017-01-26] MEDS ORDERED: Ondansetron INJ* 2 MG/ML VIAL IV ONE (17:37)
[2017-01-26] MEDS ORDERED: Ketorolac INJ* 30 MG/ML 1 ML VIAL IV PUSH ONE (17:37)
[2017-01-26] MEDS ORDERED: NS 0.9% 1000 ML* 1,000 ML IV ONE (17:37)
[2017-01-26] MEDS ORDERED: diPHENhydraMINE IV* 50 MG/ML 1 ml VIAL (BENADRYL) IV ONE (17:37)
--- NOTE | 2017-01-26 18:35 | ED ---
I, Oh,Jo, scribed for Carlotta Jauregui MD on 01/26/17 at 1714 . Headache - HPI Summary HPI Summary: This 66 y/o female presents to ED for migraine CASTRO since yesterday. CASTRO is located parietal/occipital and has been constant. Positive photophobia. Negative focal weakness. PMHx does includes known migraine, HTN, and anxiety/ depression. Pt decided to visit ED when CASTRO persists on her second day and pt became concerned. Primary care involves Dr. Hood. - History Of Current Complaint Chief Complaint: EDHeadache Stated Complaint: MIGRAINE Time Seen by Provider: 01/26/17 16:20 Hx Obtained From: Patient, Medical Records Hx Last Menstrual Period: post Onset/Duration: Gradual Onset, Still Present Timing: Constant Character: Dull Location of Headache: Parietal, Occipital Aggravating Factor: Bright Lights Allevating Factors: Nothing - Allergies/Home Medications Allergies/Adverse Reactions: Allergies Allergy/AdvReac Type Severity Reaction Status Date / Time Heparin Allergy Unknown See Comment Verified 01/26/17 15:40 Chlorpromazine AdvReac Severe Altered Verified 01/26/17 15:40 [From Thorazine] Mental Status Erythromycin AdvReac Intermediate Diarrhea Verified 01/26/17 15:40 Valproic Acid [From Depakote] AdvReac Intermediate Altered Verified 01/26/17 15: 40 Mental Status Cephalexin [From Keflex] AdvReac Mild Muscle Ache Verified 01/26/17 15:40 PMH/Surg Hx/FS Hx/Imm Hx Endocrine/Hematology History: Denies: Hx Anticoagulant Therapy, Hx Diabetes, Hx Thyroid Disease Cardiovascular History: Reports: Hx Hypercholesterolemia, Hx Hypertension, Other Cardiovascular Problems/Disorders - heart burn Respiratory History: Denies: Hx Asthma, Hx Chronic Obstructive Pulmonary Disease (COPD) GI History: Reports: Hx Gastroesophageal Reflux Disease Denies: Hx Ulcer Musculoskeletal History: Reports: Hx Arthritis Sensory History: Reports: Hx Contacts or Glasses Denies: Hx Hearing Aid Opthamlomology History: Reports: Hx Contacts or Glasses Neurological History: Reports: Hx Migraine - Chronic migraine disease, Hx Seizures Psychiatric History: Reports: Hx Anxiety, Hx Depression - Cancer History Hx Chemotherapy: No Hx Radiation Therapy: No - Surgical History Surgery Procedure, Year, and Place: 1974, 1976, 1978 3 C Sections [place]. 1986 right elbow surgery [place]. LEFT breast biopsy [facility] [place] [place]. 2000s x2 sinus surgery [facility] [place] [place]. 2006 appendectomy, [facility] [place] [place]. 2005 bladder surgery ( spot in bladder), [facility] [place] [place] 2006 bilateral meniscus surgery, [facility] [place] [place]. 2005 OVARY REMOVED [facility] [place] [place]. 1981 HYSTERECTOMY,[place]RIT[place]. 07/2013 LEFT TOE SURGERY [facility] [place] [place]. total replacement right knee; endoscopy left knee Hx Anesthesia Reactions: Yes - required mechanical ventilation for oversedation - Immunization History Date of Tetanus Vaccine: within the last 10 years Date of Influenza Vaccine: Fall 2014 Infectious Disease History: No Infectious Disease History: Reports: Hx Shingles - 2011 Denies: Hx Clostridium Difficile, Hx Hepatitis, Hx Human Immunodeficiency Virus (HIV), Hx of Known/Suspected MRSA, Hx Tuberculosis, Hx Known/Suspected VRE , Hx Known/Suspected VRSA, History Other Infectious Disease, Traveled Outside the [place] in Last 30 Days - Family History Known Family History: Positive: Cardiac Disease, Hypertension, Other - stroke: mom; migraines Negative: Diabetes - Social History Alcohol Use: Rare Alcohol Amount: 1 GLASS/MONTH Hx Substance Use: No Substance Use Type: Reports: None, Prescribed Substance Use Comment - Amount & Last Used: PERCOCET as needed for knee pain Hx Tobacco Use: No Smoking Status (MU): Never Smoked Tobacco Have You Smoked in the Last Year: No Review of Systems Negative: Fever Positive: Photophobia Negative: Weakness All Other Systems Reviewed And Are Negative: Yes Physical Exam Triage Information Reviewed: Yes Vital Signs On Initial Exam: Initial Vitals Temp Pulse Resp BP Pulse Ox 98.6 F 64 16 149/87 99 01/26/17 15:40 01/26/17 15:40 01/26/17 15:40 01/26/17 15:40 01/26/17 15:40 Vital Signs Reviewed: Yes Appearance: Positive: Well-Appearing, No Pain Distress Skin: Positive: Warm, Skin Color Reflects Adequate Perfusion, Dry Head/Face: Positive: Normal Head/Face Inspection Eyes: Positive: EOMI, [place] Neck: Positive: Supple, Nontender Respiratory/Lung Sounds: Positive: Clear to Auscultation, Breath Sounds Present Cardiovascular: Positive: RRR, Pulses are Symmetrical in both Upper and Lower Extremities Musculoskeletal: Positive: Strength/ROM Intact Neurological: Positive: Sensory/Motor Intact, Alert, Oriented to Person Place, Time Psychiatric: Positive: Affect/Mood Appropriate AVPU Assessment: Alert - [place] Coma Scale Coma Scale Total: 15 Diagnostics - Vital Signs Vital Signs Temp Pulse Resp BP Pulse Ox 05/29/17 15:40 98.6 F 64 16 149/87 99 - Laboratory Lab Statement: Any lab studies that have been ordered have been reviewed, and results considered in the medical decision making process. Headache Course/Dx - Course Course Of Treatment: pt with her typical headache feels much better after meds - Diagnoses Provider Diagnoses: Intractable migraine Discharge - Discharge Plan Condition: Stable Disposition: HOME Patient Education Materials: Migraine Headache (ED) Referrals: Sherron Hood MD [Primary Care Provider] - 2 Days The documentation as recorded by the Maciej ness Soohyun accurately reflects the service I personally performed and the decisions made by , Carlotta Jauregui MD.
== END 2017-01-26 18:57 | disposition home or self-care (01) ==
LOC: ED 15:34
DX: G43.919 Migraine, unspecified, intractable, without status migrainosus (principal); I10 Essential (primary) hypertension; E78.00 Pure hypercholesterolemia, unspecified; K21.9 Gastro-esophageal reflux disease without esophagitis; Z88.8 Allergy status to other drugs, medicaments and biological substances
CPT/HCPCS: 96361; 96374; 96375; 99282; J1200; J1885; J2405

== ENCOUNTER 2017-02-06 17:04 | Emergency (ER) | payer MEDICARE, BC ==
[2017-02-06] MEDS ORDERED: NS 0.9% 1000 ML* 2,000 ML IV ONE (19:16)
[2017-02-06] MEDS ORDERED: Ketorolac INJ* 30 MG/ML 1 ML VIAL IV PUSH ONE (19:20)
[2017-02-06] MEDS ORDERED: diPHENhydraMINE IV* 50 MG/ML 1 ml VIAL (BENADRYL) IV ONE (19:20)
[2017-02-06] MEDS ORDERED: Metoclopramide IV* 5 MG/ML 2 ML VIAL IV ONE (19:20)
[2017-02-06] MEDS ORDERED: Metoclopramide IV* 5 MG/ML 2 ML VIAL ONE (20:08)
[2017-02-06] MEDS ORDERED: Cyclobenzaprine TAB* 10 MG PO ONE (20:48)
[2017-02-06 22:08] VITALS: BP 120/65
--- NOTE | 2017-02-07 03:00 | ED ---
Lisseth Collado Alok, scribed for Lai Coppola MD on 02/06/17 at 1953 . Headache - HPI Summary HPI Summary: 66F presents to the ED with a constant CASTRO since 3 days ago. Pt CASTRO is described as typical, and she states it began at the forehead before progressing to the top of the head and back of the neck. Pt took ibuprofen and toradol to alleviate pain with no effect. Pt notes photophobia. Pt denies nausea. Pt denies slurred speech or weakness of the arms or legs. Pt denies sinus tenderness. - History Of Current Complaint Chief Complaint: EDHeadache Stated Complaint: MIGRAINE Time Seen by Provider: 02/06/17 19:12 Hx Obtained From: Patient Hx Last Menstrual Period: post Onset/Duration: Started days ago, Still Present Initially Headache Was: Moderate Currently Pain Is: Moderate Timing: Constant Character: Typical Headache Location of Headache: Frontal, Occipital Aggravating Factor: Bright Lights Allevating Factors: Nothing - Allergies/Home Medications Allergies/Adverse Reactions: Allergies Allergy/AdvReac Type Severity Reaction Status Date / Time Heparin Allergy Unknown See Comment Verified 02/06/17 20:06 Chlorpromazine AdvReac Severe Altered Verified 02/06/17 20:06 [From Thorazine] Mental Status Erythromycin AdvReac Intermediate Diarrhea Verified 02/06/17 20:06 Valproic Acid [From Depakote] AdvReac Intermediate Altered Verified 02/06/17 20: 06 Mental Status Cephalexin [From Keflex] AdvReac Mild Muscle Ache Verified 02/06/17 20:06 PMH/Surg Hx/FS Hx/Imm Hx Endocrine/Hematology History: Denies: Hx Anticoagulant Therapy, Hx Diabetes, Hx Thyroid Disease Cardiovascular History: Reports: Hx Hypercholesterolemia, Hx Hypertension, Other Cardiovascular Problems/Disorders - heart burn Respiratory History: Denies: Hx Asthma, Hx Chronic Obstructive Pulmonary Disease (COPD) GI History: Reports: Hx Gastroesophageal Reflux Disease Denies: Hx Ulcer Musculoskeletal History: Reports: Hx Arthritis Sensory History: Reports: Hx Contacts or Glasses Denies: Hx Hearing Aid Opthamlomology History: Reports: Hx Contacts or Glasses Neurological History: Reports: Hx Migraine - Chronic migraine disease, Hx Seizures Psychiatric History: Reports: Hx Anxiety, Hx Depression - Cancer History Hx Chemotherapy: No Hx Radiation Therapy: No - Surgical History Surgery Procedure, Year, and Place: 1974, 1976, 1978 3 C Sections [place]. 1986 right elbow surgery [place]. 1999s LEFT breast biopsy [facility] [place]. 2000s x2 sinus surgery [facility] [place] [facility] [place]. 2005 appendectomy, [facility] [place]. 2004 bladder surgery ( spot in bladder), [facility] [place]. 2005 bilateral meniscus surgery, [facility] [place]. 2004 OVARY REMOVED [facility] [place]. 1981 HYSTERECTOMY,PEDRITO. 07/2013 LEFT TOE SURGERY [facility] [place]. total replacement right knee; endoscopy left knee Hx Anesthesia Reactions: Yes - required mechanical ventilation for oversedation - Immunization History Date of Tetanus Vaccine: within the last 10 years Date of Influenza Vaccine: Fall 2014 Infectious Disease History: No Infectious Disease History: Reports: Hx Shingles - 2011 Denies: Hx Clostridium Difficile, Hx Hepatitis, Hx Human Immunodeficiency Virus (HIV), Hx of Known/Suspected MRSA, Hx Tuberculosis, Hx Known/Suspected VRE , Hx Known/Suspected VRSA, History Other Infectious Disease, Traveled Outside the in Last 30 Days - Family History Known Family History: Positive: Cardiac Disease, Hypertension, Other - stroke: mom; migraines Negative: Diabetes - Social History Occupation: Retired Lives: With Family Alcohol Use: Rare Alcohol Amount: 1 GLASS/MONTH Hx Substance Use: No Substance Use Type: Reports: None, Prescribed Substance Use Comment - Amount & Last Used: PERCOCET as needed for knee pain Hx Tobacco Use: No Smoking Status (MU): Never Smoked Tobacco Have You Smoked in the Last Year: No Review of Systems Negative: Fever Positive: Photophobia Negative: Nasal Discharge Negative: Nausea Positive: Headache. Negative: Weakness, Slurred Speech All Other Systems Reviewed And Are Negative: Yes Physical Exam - Summary Physical Exam Summary: The patient is well-nourished in no acute distress and in no acute pain. The skin is warm and dry. The pt appears pale. HEENT: The head is normocephalic and atraumatic. The pupils are equal and reactive. The conjunctivae are clear and without drainage. Nares are patent and without drainage. Mouth reveals moist mucous membranes and the throat is without erythema and exudate. No rhinorrhea. No sinus tenderness. Neck is supple with full range of motion and non-tender. There are no carotid bruits. There is no neck vein distension. Respiratory: Chest is non-tender. Lungs are clear to auscultation and breath sounds are symmetrical and equal. Cardiovascular: Hear is regular rate and rhythm. There is no murmur or rub auscultated. There is no peripheral edema and pulses are symmetrical and equal. Abdomen: The abdomen is soft and non-tender. There are normal bowel sounds heard in all four quadrants and there is no organomegaly palpated. Musculoskeletal: There is no back pain noted. Extremities are non-tender with full range of motion. There is good capillary refill. There is no peripheral edema or calf tenderness elicited. Neurological: Patient is alert and oriented to person, place and time. The patient has symmetrical motor strength in all four extremities. Cranial nerves are grossly intact. Deep tendon reflexes are symmetrical and equal in all four extremities. Psychiatric: The patient appears flat affect and somewhat depressed. Triage Information Reviewed: Yes Vital Signs On Initial Exam: Initial Vitals Temp Pulse Resp BP Pulse Ox 98.6 F 64 20 124/88 100 02/06/17 17:10 02/06/17 17:10 02/06/17 17:10 02/06/17 17:10 02/06/17 17:10 Vital Signs Reviewed: Yes Diagnostics - Vital Signs Vital Signs Temp Pulse Resp BP Pulse Ox 02/06/17 17:12 98.0 F 63 20 124/88 100 02/06/17 17:10 98.6 F 64 20 124/88 100 - Laboratory Lab Statement: Any lab studies that have been ordered have been reviewed, and results considered in the medical decision making process. Re-Evaluation - Re-Evaluation First Eval Re-Evaluation Time: 20:48 Change: Improved Comment: Pt feels much improved following toradol/raglan/IV fluid treatment Headache Course/Dx - Course Course Of Treatment: Pt presents with typical headache. Will administer 30mg toradol, 10mg Raglan, and 2L IV fluid. Pt feels much improved following treatment and will discharge home with 10mg flexeril for 5 days. - Diagnoses Differential Diagnosis/HQI/PQRI: Migraine, Other - anxiety, acute cervical strain and sprain Provider Diagnoses: Chronic headache, Cervical muscle strain Discharge - Discharge Plan Condition: Stable Disposition: HOME Prescriptions: Cyclobenzaprine TAB* [Flexeril 10 MG TAB*] 10 mg PO TID PRN #15 tab PRN Reason: pain Patient Education Materials: General Headache (ED) Referrals: Sherron Hood MD [Primary Care Provider] - Additional Instructions: Please follow up with your primary care physician. The documentation as recorded by the Lisseth ness Alok accurately reflects the service I personally performed and the decisions made by me, Lai Coppola MD.
== END 2017-02-06 21:40 | disposition home or self-care (01) ==
LOC: ED 17:04
DX: S16.1XXA Strain of muscle, fascia and tendon at neck level, initial encounter (principal); R51 Headache; X58.XXXA Exposure to other specified factors, initial encounter; Y93.9 Activity, unspecified; Y92.9 Unspecified place or not applicable
CPT/HCPCS: 96374; 96375; 99283; A9270-GY; J1200; J1885

== ENCOUNTER 2017-02-09 16:42 | Emergency (ER) | payer MEDICARE, BC ==
[2017-02-09] MEDS ORDERED: NS 0.9% 1000 ML* 1,000 ML IV ONE (18:29)
[2017-02-09] MEDS ORDERED: Ketorolac INJ* 30 MG/ML 1 ML VIAL IV PUSH ONE (18:29)
[2017-02-09] MEDS ORDERED: Ondansetron INJ* 2 MG/ML VIAL IV ONE (18:29)
[2017-02-09] MEDS ORDERED: diPHENhydraMINE IV* 50 MG/ML 1 ml VIAL (BENADRYL) IV ONE (18:29)
--- NOTE | 2017-02-09 19:24 | ED ---
Headache - HPI Summary HPI Summary: 66F presents with typical migraine since Thursday. She states there is nothing different about this migraine except that it keeps persisting. She states that is goes across her entire head and into her neck. She has taken toradol, ibuprofen, and flexeril this morning. She has full ROM of her neck. She has a treatment plan in place by her neurologist that does not include narcotics. She states she has had this migraine for a week. She denies any photophobia. She denies any weakness, change in vision, or fevers. She denies any recent illness or neck stiffness. She denies any sinus pressure. - History Of Current Complaint Chief Complaint: EDHeadache Stated Complaint: MIGRAINE Time Seen by Provider: 02/09/17 18:28 Hx Last Menstrual Period: post - Allergies/Home Medications Allergies/Adverse Reactions: Allergies Allergy/AdvReac Type Severity Reaction Status Date / Time Heparin Allergy Unknown See Comment Verified 02/06/17 20:06 Chlorpromazine AdvReac Severe Altered Verified 02/06/17 20:06 [From Thorazine] Mental Status Erythromycin AdvReac Intermediate Diarrhea Verified 02/06/17 20:06 Valproic Acid [From Depakote] AdvReac Intermediate Altered Verified 02/06/17 20: 06 Mental Status Cephalexin [From Keflex] AdvReac Mild Muscle Ache Verified 02/06/17 20:06 PMH/Surg Hx/FS Hx/Imm Hx Endocrine/Hematology History: Denies: Hx Anticoagulant Therapy, Hx Diabetes, Hx Thyroid Disease Cardiovascular History: Reports: Hx Hypercholesterolemia, Hx Hypertension, Other Cardiovascular Problems/Disorders - heart burn Respiratory History: Denies: Hx Asthma, Hx Chronic Obstructive Pulmonary Disease (COPD) GI History: Reports: Hx Gastroesophageal Reflux Disease Denies: Hx Ulcer Musculoskeletal History: Reports: Hx Arthritis Sensory History: Reports: Hx Contacts or Glasses Denies: Hx Hearing Aid Opthamlomology History: Reports: Hx Contacts or Glasses Neurological History: Reports: Hx Migraine - Chronic migraine disease, Hx Seizures Psychiatric History: Reports: Hx Anxiety, Hx Depression - Cancer History Hx Chemotherapy: No Hx Radiation Therapy: No - Surgical History Surgery Procedure, Year, and Place: 1974, 1976, 1978 3 C Sections [place]. 1986 right elbow surgery [place]. LEFT breast biopsy [facility] [place]. 1999s x2 sinus surgery [facility] [place] [facility] [place]. 2006 appendectomy, [facility]. 2005 bladder surgery ( spot in bladder), [facility]. 2006 bilateral meniscus surgery, [facility]. 2005 OVARY REMOVED [facility]. 1981 HYSTERECTOMY,[facility]. 07/2013 LEFT TOE SURGERY [facility]. total replacement right knee; endoscopy left knee Hx Anesthesia Reactions: Yes - required mechanical ventilation for oversedation - Immunization History Date of Tetanus Vaccine: within the last 10 years Date of Influenza Vaccine: Fall 2014 Infectious Disease History: No Infectious Disease History: Reports: Hx Shingles - 2011 Denies: Hx Clostridium Difficile, Hx Hepatitis, Hx Human Immunodeficiency Virus (HIV), Hx of Known/Suspected MRSA, Hx Tuberculosis, Hx Known/Suspected VRE , Hx Known/Suspected VRSA, History Other Infectious Disease, Traveled Outside the [place] in Last 30 Days - Family History Known Family History: Positive: None - reviewed & noncontributory, Unknown, Cardiac Disease, Hypertension, Other - stroke: mom; migraines Negative: Diabetes - Social History Alcohol Use: Rare Alcohol Amount: 1 GLASS/MONTH Hx Substance Use: No Substance Use Type: Reports: None, Prescribed Substance Use Comment - Amount & Last Used: PERCOCET as needed for knee pain Hx Tobacco Use: No Smoking Status (MU): Never Smoked Tobacco Have You Smoked in the Last Year: No Review of Systems Negative: Fever Negative: Photophobia Negative: Chest Pain Negative: Shortness Of Breath Positive: Headache All Other Systems Reviewed And Are Negative: Yes Physical Exam Triage Information Reviewed: Yes Vital Signs On Initial Exam: Initial Vitals Temp Pulse Resp BP Pulse Ox 97.9 F 62 20 141/82 100 02/09/17 16:44 02/09/17 16:44 02/09/17 16:44 02/09/17 16:44 02/09/17 16:44 Vital Signs Reviewed: Yes Appearance: Positive: Well-Appearing Skin: Positive: Warm, Dry Head/Face: Positive: Normal Head/Face Inspection Eyes: Positive: Normal, EOMI, [place], Conjunctiva Clear ENT: Positive: Normal ENT inspection, Pharynx normal, TMs normal Respiratory/Lung Sounds: Positive: Clear to Auscultation, Breath Sounds Present Cardiovascular: Positive: Normal, RRR Neurological: Positive: Sensory/Motor Intact, Alert, Oriented to Person Place, Time, CN Intact II-III - [place] Coma Scale Best Eye Response: 4 - Spontaneous Best Motor Response: 6 - Obeys Commands Best Verbal Response: 5 - Oriented Diagnostics - Vital Signs Vital Signs Temp Pulse Resp BP Pulse Ox 02/09/17 17:51 98.4 F 65 20 137/78 98 02/09/17 16:46 97.4 F 65 20 141/82 99 02/09/17 16:44 97.9 F 62 20 141/82 100 - Laboratory Lab Statement: Any lab studies that have been ordered have been reviewed, and results considered in the medical decision making process. Re-Evaluation - Re-Evaluation First Eval Re-Evaluation Time: 20:00 Change: Improved Comment: feeling better Headache Course/Dx - Course Course Of Treatment: 66F presents with typical migraine. nothing different about the migraine except lenght of time presents. states not worst headache life. no fever. normal neuro exam. gave toradol, benadryl, and zofran and migraine resolved. told to follow up with primary/neurology. patient understands and agrees with plan - Diagnoses Differential Diagnosis/HQI/PQRI: Migraine, Sinus Headache, Tension Headache Provider Diagnoses: Migraine Discharge - Discharge Plan Condition: Good Disposition: HOME Patient Education Materials: Migraine Headache (ED) Referrals: Sherron Hood MD [Primary Care Provider] - Additional Instructions: Follow up with primary within 5 days Take toradol, Benadryl and zofran if headache returns Return to ED if develop any new or worsening symptoms
[2017-02-09 21:05] VITALS: BP 139/74
== END 2017-02-09 21:04 | disposition home or self-care (01) ==
LOC: ED 16:42
DX: G43.909 Migraine, unspecified, not intractable, without status migrainosus (principal)
CPT/HCPCS: 96361; 96374; 96375; 99282; J1200; J1885; J2405

== ENCOUNTER 2017-03-28 08:23 | Emergency (ER) | payer MEDICARE, BC ==
[2017-03-28] MEDS ORDERED: NS 0.9% 1000 ML* 2,000 ML IV ONE (08:52)
[2017-03-28] MEDS ORDERED: Ketorolac INJ* 30 MG/ML 1 ML VIAL IV PUSH ONE (08:52)
[2017-03-28] MEDS ORDERED: diPHENhydraMINE IV* 50 MG/ML 1 ml VIAL (BENADRYL) IV ONE (08:53)
[2017-03-28] MEDS ORDERED: Metoclopramide IV* 5 MG/ML 2 ML VIAL IV ONE (08:54)
[2017-03-28] MEDS ORDERED: Cyclobenzaprine TAB* 10 MG PO ONE (09:45)
[2017-03-28 11:39] VITALS: BP 125/76
--- NOTE | 2017-03-28 19:32 | ED ---
Eben Collado Auryana, scribed for Lai Coppola MD on 03/28/17 at 0912 . Headache - HPI Summary HPI Summary: 66 year old female presents with headache starting 3 days ago. She reports that the pain is located in the frontal area, radiates around the head and down to the neck/shoulders. She denies any vomiting. 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 Patient reports that this is her typical headache - reports 1 headache/month and improvement with Botox treatment. PMHx is significant for migraines (Dr. Cardenas). She is currently retired and in the process of selling her home. - History Of Current Complaint Chief Complaint: EDHeadache Stated Complaint: HEADACHE Time Seen by Provider: 03/28/17 09:29 Hx Obtained From: Patient Hx Last Menstrual Period: post Onset/Duration: Gradual Onset, Started days ago - 3, Still Present Initially Headache Was: Moderate Currently Pain Is: Moderate Timing: Constant Character: Typical Headache Location of Headache: Frontal Radiates to: to the back of the hea and down the neck/shoulder Allevating Factors: Nothing Associated Signs And Symptoms: Negative Related History: Similar Episode/DX As: - history of migraine CASTRO - Allergies/Home Medications Allergies/Adverse Reactions: Allergies Allergy/AdvReac Type Severity Reaction Status Date / Time Heparin Allergy Unknown See Comment Verified 03/28/17 08:35 Chlorpromazine AdvReac Severe Altered Verified 03/28/17 08:35 [From Thorazine] Mental Status Erythromycin AdvReac Intermediate Diarrhea Verified 03/28/17 08:35 Valproic Acid [From Depakote] AdvReac Intermediate Altered Verified 03/28/17 08: 35 Mental Status Cephalexin [From Keflex] AdvReac Mild Muscle Ache Verified 03/28/17 08:35 PMH/Surg Hx/FS Hx/Imm Hx Endocrine/Hematology History: Denies: Hx Anticoagulant Therapy, Hx Diabetes, Hx Thyroid Disease Cardiovascular History: Reports: Hx Hypercholesterolemia, Hx Hypertension, Other Cardiovascular Problems/Disorders - heart burn Respiratory History: Denies: Hx Asthma, Hx Chronic Obstructive Pulmonary Disease (COPD) GI History: Reports: Hx Gastroesophageal Reflux Disease Denies: Hx Ulcer Musculoskeletal History: Reports: Hx Arthritis Sensory History: Reports: Hx Contacts or Glasses Denies: Hx Hearing Aid Opthamlomology History: Reports: Hx Contacts or Glasses Neurological History: Reports: Hx Migraine - Chronic migraine disease, Hx Seizures Psychiatric History: Reports: Hx Anxiety, Hx Depression - Cancer History Hx Chemotherapy: No Hx Radiation Therapy: No - Surgical History Surgery Procedure, Year, and Place: 1974, 1976, 1978 3 C Sections [facility]. 1986 right elbow surgery [place]. LEFT breast biopsy [facility] [place]. 1999[place] x2 sinus surgery [facility] [place] [facility] [place]. 2006 appendectomy, [facility] [place] 2004 bladder surgery ( spot in bladder), [facility] [place]. 2005 bilateral meniscus surgery, [facility] [place]. 2004 OVARY REMOVED [facility] [place]. 1980 HYSTERECTOMY,[place]. 07/2013 LEFT TOE SURGERY [facility] [place]. total replacement right knee; endoscopy left knee Hx Anesthesia Reactions: Yes - required mechanical ventilation for oversedation - Immunization History Date of Tetanus Vaccine: within the last 10 years Date of Influenza Vaccine: Fall 2014 Infectious Disease History: No Infectious Disease History: Reports: Hx Shingles - 2011 Denies: Hx Clostridium Difficile, Hx Hepatitis, Hx Human Immunodeficiency Virus (HIV), Hx of Known/Suspected MRSA, Hx Tuberculosis, Hx Known/Suspected VRE , Hx Known/Suspected VRSA, History Other Infectious Disease, Traveled Outside the in Last 30 Days - Family History Known Family History: Positive: Cardiac Disease, Hypertension, Other - stroke: mom; migraines Negative: Diabetes - Social History Alcohol Use: Rare Alcohol Amount: 1 GLASS/MONTH Hx Substance Use: No Substance Use Type: Reports: None, Prescribed Substance Use Comment - Amount & Last Used: PERCOCET as needed for knee pain Hx Tobacco Use: No Smoking Status (MU): Never Smoked Tobacco Have You Smoked in the Last Year: No Review of Systems Constitutional: Negative Negative: Fever Eyes: Negative ENT: Negative Cardiovascular: Negative Respiratory: Negative Gastrointestinal: Negative Negative: Vomiting Genitourinary: Negative Musculoskeletal: Negative Skin: Negative Positive: Headache Psychological: Normal All Other Systems Reviewed And Are Negative: Yes Physical Exam - Summary Physical Exam Summary: The patient is well-nourished in no acute distress and in no acute pain. The skin is warm and dry and skin color reflects adequate perfusion. HEENT: The head is normocephalic and atraumatic. The pupils are equal and reactive. The conjunctivae are clear and without drainage. Nares are patent and without drainage. Mouth reveals moist mucous membranes and the throat is without erythema and exudate. The external ears are intact. The ear canals are patent and without drainage. The tympanic membranes are intact. Neck is supple with full range of motion and with mild tenderness. There are no carotid bruits. There is no neck vein distension. Respiratory: Chest is non-tender. Lungs are clear to auscultation and breath sounds are symmetrical and equal. Cardiovascular: Hear is regular rate and rhythm. There is no murmur or rub auscultated. There is no peripheral edema and pulses are symmetrical and equal. Abdomen: The abdomen is soft and non-tender. There are normal bowel sounds heard in all four quadrants and there is no organomegaly palpated. Musculoskeletal: There is no back pain noted. Extremities are non-tender with full range of motion. There is good capillary refill. There is no peripheral edema or calf tenderness elicited. Neurological: Patient is alert and oriented to person, place and time. The patient has symmetrical motor strength in all four extremities. Cranial nerves are grossly intact. Deep tendon reflexes are symmetrical and equal in all four extremities. Psychiatric: The patient has an appropriate affect and does not exhibit any anxiety or depression. Triage Information Reviewed: Yes Vital Signs On Initial Exam: Initial Vitals Temp Pulse Resp BP Pulse Ox 98.3 F 62 16 113/75 98 03/28/17 08:35 03/28/17 08:35 03/28/17 08:35 03/28/17 08:35 03/28/17 08:35 Vital Signs Reviewed: Yes Diagnostics - Vital Signs Vital Signs Temp Pulse Resp BP Pulse Ox 03/28/17 08:35 98.3 F 62 16 113/75 98 - Laboratory Lab Statement: Any lab studies that have been ordered have been reviewed, and results considered in the medical decision making process. Re-Evaluation - Re-Evaluation First Eval Re-Evaluation Time: 10:29 Change: Improved - reports improvement of symptoms Headache Course/Dx - Course Assessment/Plan: 66 year old female presents with headache starting 3 days ago. She reports that the pain is located in the frontal area, radiates around the head and down to the neck/shoulders. She denies any vomiting. 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 Patient reports that this is her typical headache - reports 1 headache/month and improvement with Botox treatment. PMHx is significant for migraines (Dr. Cardenas). She is currently retired and in the process of selling her home. In ED course, patient was given IV fluids, Toradol, Reglan, and Benadryl. On re-evaluation, the patient reports improvement of her symptoms and would like a prescription for Flexeril. Patient will be discharged home with flexeril prescription and diagnosis of acute exacerbation of chronic headache. Patient agrees with plan. Dx: acute exacerbation of chronic headache - Diagnoses Differential Diagnosis/HQI/PQRI: Migraine Provider Diagnoses: acute exacerbation of chronic headache Discharge - Discharge Plan Condition: Stable Disposition: HOME Prescriptions: Cyclobenzaprine TAB* [Flexeril 10 MG TAB*] 10 mg PO TID PRN #15 tab PRN Reason: spasm Patient Education Materials: Acute Headache (ED) Referrals: Sherron Hood MD [Primary Care Provider] - 2 Days The documentation as recorded by the Eben ness Auryana accurately reflects the service I personally performed and the decisions made by Abdon barry Drew, MD.
== END 2017-03-28 11:39 | disposition home or self-care (01) ==
LOC: ED 08:23
DX: R51 Headache (principal); G89.29 Other chronic pain; E78.00 Pure hypercholesterolemia, unspecified; I10 Essential (primary) hypertension; K21.9 Gastro-esophageal reflux disease without esophagitis; F41.9 Anxiety disorder, unspecified; F32.9 Major depressive disorder, single episode, unspecified
CPT/HCPCS: 96360; 96374; 96375; 99283; A9270-GY; J1200; J1885

== ENCOUNTER 2017-04-26 16:01 | Emergency (ER) | payer MEDICARE, BC ==
[2017-04-26] MEDS ORDERED: diPHENhydraMINE IV* 50 MG in NS 0.9% 50 ML* 50 ML IVPB ONE (16:38)
[2017-04-26] MEDS ORDERED: Ketorolac INJ* 30 MG/ML 1 ML VIAL IV PUSH ONE (16:38)
[2017-04-26] MEDS ORDERED: NS 0.9% 1000 ML* 1,000 ML IV ONE (16:38)
[2017-04-26] MEDS ORDERED: Metoclopramide IV* 5 MG/ML 2 ML VIAL IV SLOW PU ONE (16:38)
[2017-04-26] MEDS ORDERED: Magnesium Sulfate 2 GM IV* 2 GM/50 ML BAG IVPB ONE (18:03)
[2017-04-26] MEDS ORDERED: Dexamethasone IV* 4 MG/ML 1 ML (4 MG) IV SLOW PU ONE (18:03)
[2017-04-26] MEDS ORDERED: Cyclobenzaprine TAB* 10 MG PO ONE (18:03)
[2017-04-26 20:28] VITALS: BP 132/74
--- NOTE | 2017-05-02 21:54 | ED ---
Stephanie Collado Alfonso scribed for Camilo Holly MD on 04/26/17 at 1636 . Headache - HPI Summary HPI Summary: This patient is a 66 year old F presenting to [facility] with a chief complaint of migraine since 2 days ago. She states this is my usual migraine headache. The migraine starts in the front and then goes down to her neck. The patient rates the pain 7/10 in severity. Symptoms aggravated by light and noise. Symptoms alleviated by nothing. Patient denies neck stiffness and fever. PMHx include migraines, anxiety, and depression. - History Of Current Complaint Chief Complaint: EDHeadache Stated Complaint: HEADACHE Time Seen by Provider: 04/26/17 16:28 Hx Obtained From: Patient Onset/Duration: Sudden Onset, Started days ago - 2, Still Present Currently Pain Is: Current Pain Scale(0-10)= - 7/10 Timing: Constant Character: Migraine Location of Headache: Frontal - Then goes down to neck. Aggravating Factor: Bright Lights, Other - Noise Allevating Factors: Nothing Associated Signs And Symptoms: Negative - Allergies/Home Medications Allergies/Adverse Reactions: Allergies Allergy/AdvReac Type Severity Reaction Status Date / Time Heparin Allergy Unknown See Comment Verified 04/26/17 16:12 Chlorpromazine AdvReac Severe Altered Verified 04/26/17 16:12 [From Thorazine] Mental Status Erythromycin AdvReac Intermediate Diarrhea Verified 04/26/17 16:12 Valproic Acid [From Depakote] AdvReac Intermediate Altered Verified 04/26/17 16: 12 Mental Status Cephalexin [From Keflex] AdvReac Mild Muscle Ache Verified 04/26/17 16:12 PMH/Surg Hx/FS Hx/Imm Hx Endocrine/Hematology History: Denies: Hx Anticoagulant Therapy, Hx Diabetes, Hx Thyroid Disease Cardiovascular History: Reports: Hx Hypercholesterolemia, Hx Hypertension, Other Cardiovascular Problems/Disorders - heart burn Respiratory History: Denies: Hx Asthma, Hx Chronic Obstructive Pulmonary Disease (COPD) GI History: Reports: Hx Gastroesophageal Reflux Disease Denies: Hx Ulcer Musculoskeletal History: Reports: Hx Arthritis Sensory History: Reports: Hx Contacts or Glasses Denies: Hx Hearing Aid Opthamlomology History: Reports: Hx Contacts or Glasses Neurological History: Reports: Hx Migraine - Chronic migraine disease, Hx Seizures Psychiatric History: Reports: Hx Anxiety, Hx Depression - Cancer History Hx Chemotherapy: No Hx Radiation Therapy: No - Surgical History Surgery Procedure, Year, and Place: 1974, 1976, 1978 3 C Sections [place]. 1986 right elbow surgery [place]. 1999s LEFT breast biopsy [facility]. 1999s x2 sinus surgery [facility] [facility] [place]. 2005 appendectomy, [facility] 2004 bladder surgery ( spot in bladder), [facility]. 2006 bilateral meniscus surgery, [facility]. 2004 OVARY REMOVED [facility]. 1981 HYSTERECTOMY,PEDRITO. 07/2013 LEFT TOE SURGERY [facility]. total replacement right knee; endoscopy left knee Hx Anesthesia Reactions: Yes - required mechanical ventilation for oversedation - Immunization History Date of Tetanus Vaccine: within the last 10 years Date of Influenza Vaccine: Fall 2014 Infectious Disease History: No Infectious Disease History: Reports: Hx Shingles - 2011 Denies: Hx Clostridium Difficile, Hx Hepatitis, Hx Human Immunodeficiency Virus (HIV), Hx of Known/Suspected MRSA, Hx Tuberculosis, Hx Known/Suspected VRE , Hx Known/Suspected VRSA, History Other Infectious Disease, Traveled Outside the in Last 30 Days - Family History Known Family History: Positive: Cardiac Disease, Hypertension, Other - stroke: mom; migraines Negative: Diabetes - Social History Alcohol Use: Rare Alcohol Amount: 1 GLASS/MONTH Hx Substance Use: No Substance Use Type: Reports: None, Prescribed Substance Use Comment - Amount & Last Used: PERCOCET as needed for knee pain Hx Tobacco Use: No Smoking Status (MU): Never Smoked Tobacco Have You Smoked in the Last Year: No Review of Systems Negative: Fever, Chills Negative: Erythema Negative: Sore Throat Negative: Chest Pain Negative: Shortness Of Breath, Cough Negative: Abdominal Pain, Vomiting, Nausea Negative: dysuria, hematuria Positive: Other - Negative neck stiffness.. Negative: Myalgia, Edema Negative: Rash Neurological: Other - Migraine; Negative dizziness Psychological: Other All Other Systems Reviewed And Are Negative: Yes Physical Exam Triage Information Reviewed: Yes Vital Signs On Initial Exam: Initial Vitals Temp Pulse Resp BP Pulse Ox 98.3 F 65 16 152/87 100 04/26/17 16:12 04/26/17 16:12 04/26/17 16:12 04/26/17 16:12 04/26/17 16:12 Vital Signs Reviewed: Yes Appearance: Positive: Well-Appearing, No Pain Distress, Well-Nourished Skin: Positive: Warm, Dry Head/Face: Positive: Normal Head/Face Inspection Eyes: Positive: Other: - Photophobic. Negative: Conjunctiva Clear Neck: Positive: Other: - Musculoskeletal ROM normal neck. (-) JVD, (-) Stridor, (-) Tracheal deviation Respiratory/Lung Sounds: Positive: Other - Effort normal. (-) Respiratory distress, (-) Wheezes, (-) Rales Cardiovascular: Positive: Other - Rhythm regular, rate normal, Heart sounds normal; Intact distal pulses; The pedal pulses are 2+ and symmetric. Radial pulses are 2+ and symmetric. (-) Murmur Abdomen Description: Positive: Nontender, Soft, Other: - No rebound. Negative: Distended, Guarding Neurological: Positive: Other - Alert, Oriented x3, Strength normal, Cranial nerves II-XII are grossly intact. (-) Dysmetria, (-) Nystagmus, (-) Ataxia by finger to nose testing, (-) Sensory deficit. Psychiatric: Positive: Affect/Mood Appropriate Diagnostics - Vital Signs Vital Signs Temp Pulse Resp BP Pulse Ox 04/26/17 16:14 98.3 F 57 16 152/87 99 04/26/17 16:12 98.3 F 65 16 152/87 100 - Laboratory Lab Statement: Any lab studies that have been ordered have been reviewed, and results considered in the medical decision making process. Re-Evaluation - Re-Evaluation First Eval Re-Evaluation Time: 18:57 Change: Improved Comment: Pt migraine has resolved. Pt and her understand and agree with plan for discharge home and follow up. Headache Course/Dx - Course Assessment/Plan: This patient is a 66 year old F presenting to [facility] with a chief complaint of migraine since 2 days ago. She states this is my usual migraine headache. The migraine starts in the front and then goes down to her neck. The patient rates the pain 7/10 in severity. Symptoms aggravated by light and noise. Symptoms alleviated by nothing. Patient denies neck stiffness and fever. PMHx include migraines, anxiety, and depression. Patient will be discharged with prescriptions follow up from PCP. The patient is agreeable with this plan. - Diagnoses Provider Diagnoses: Migraine Discharge - Discharge Plan Condition: Stable Disposition: HOME Prescriptions: Cyclobenzaprine TAB* [Flexeril 10 MG TAB*] 10 mg PO TID PRN #15 tab PRN Reason: pain Ketorolac TAB * [Toradol TAB *] 10 mg PO Q6H PRN #20 tab PRN Reason: Pain Metoclopramide TAB* [Reglan TAB*] 10 mg PO Q8H PRN #15 tab MDD 3 PRN Reason: Headache/Discomfort Patient Education Materials: Migraine Headache (ED) Referrals: Sherron Hood MD [Primary Care Provider] - 3 Days Additional Instructions: RETURN TO THE EMERGENCY DEPARTMENT FOR CHANGING OR WORSENING SYMPTOMS The documentation as recorded by the Stephanie ness Alfonso accurately reflects the service I personally performed and the decisions made by Avni barry Jerry, MD.
== END 2017-04-26 20:25 | disposition home or self-care (01) ==
LOC: ED 16:01
DX: G43.909 Migraine, unspecified, not intractable, without status migrainosus (principal); F41.8 Other specified anxiety disorders
CPT/HCPCS: 96360; 96374; 96375; 99282; A9270-GY; J1100; J1200; J1885; J2765; J3475

== ENCOUNTER 2017-05-13 07:54 | Emergency (ER) | payer MEDICARE, BC ==
[2017-05-13] MEDS ORDERED: Metoclopramide IV* 5 MG/ML 2 ML VIAL IV ONE (08:08)
[2017-05-13] MEDS ORDERED: Ketorolac INJ* 30 MG/ML 1 ML VIAL IV ONE (08:08)
[2017-05-13] MEDS ORDERED: diPHENhydraMINE IV* 50 MG/ML 1 ml VIAL (BENADRYL) IV ONE (08:08)
[2017-05-13] MEDS ORDERED: NS 0.9% 1000 ML* 2,000 ML IV ONE (08:08)
[2017-05-13] MEDS ORDERED: Cyclobenzaprine TAB* 10 MG PO ONE (09:06)
[2017-05-13 10:00] VITALS: BP 108/54
--- NOTE | 2017-05-13 15:56 | ED ---
Bam Collado Angela, scribed for Lai Coppola MD on 05/13/17 at 0907 . Headache - HPI Summary HPI Summary: This pt is a 66 y/[facility]. Pt reports taking Toradol and Ibuprofen with no relief. She endorses photophobia and neck pain, which is typical when she gets migraines. Pt denies nausea, chest pain, SOB, abd pain. She states she usually get 2 headaches a month. Last time she was here in the ED was 3 weeks ago. - History Of Current Complaint Chief Complaint: EDHeadache Stated Complaint: HEADACHE Time Seen by Provider: 05/13/17 08:59 Hx Obtained From: Patient Hx Last Menstrual Period: post Onset/Duration: Started days ago Timing: Days Character: Migraine Associated Signs And Symptoms: Neck Pain - Allergies/Home Medications Allergies/Adverse Reactions: Allergies Allergy/AdvReac Type Severity Reaction Status Date / Time Heparin Allergy Unknown See Comment Verified 05/13/17 07:57 Chlorpromazine AdvReac Severe Altered Verified 05/13/17 07:57 [From Thorazine] Mental Status Erythromycin AdvReac Intermediate Diarrhea Verified 05/13/17 07:57 Valproic Acid [From Depakote] AdvReac Intermediate Altered Verified 05/13/17 07: 57 Mental Status Cephalexin [From Keflex] AdvReac Mild Muscle Ache Verified 05/13/17 07:57 PMH/Surg Hx/FS Hx/Imm Hx Endocrine/Hematology History: Denies: Hx Anticoagulant Therapy, Hx Diabetes, Hx Thyroid Disease Cardiovascular History: Reports: Hx Hypercholesterolemia, Hx Hypertension, Other Cardiovascular Problems/Disorders - heart burn Respiratory History: Denies: Hx Asthma, Hx Chronic Obstructive Pulmonary Disease (COPD) GI History: Reports: Hx Gastroesophageal Reflux Disease Denies: Hx Ulcer Musculoskeletal History: Reports: Hx Arthritis Sensory History: Reports: Hx Contacts or Glasses Denies: Hx Hearing Aid Opthamlomology History: Reports: Hx Contacts or Glasses Neurological History: Reports: Hx Migraine - Chronic migraine disease, Hx Seizures Psychiatric History: Reports: Hx Anxiety, Hx Depression - Cancer History Hx Chemotherapy: No Hx Radiation Therapy: No - Surgical History Surgery Procedure, Year, and Place: 1974, 1976, 1978 3 C Sections [place]. 1986 right elbow surgery [place]. LEFT breast biopsy [facility]. x2 sinus surgery [facility] [place]. 2006 appendectomy, [facility]. 2005 bladder surgery ( spot in bladder), [facility]. 2006 bilateral meniscus surgery, [facility]. 2005 OVARY REMOVED [facility]. 1981 HYSTERECTOMY,[place]. 07/2013 LEFT TOE SURGERY [facility]. total replacement right knee; endoscopy left knee Hx Anesthesia Reactions: Yes - required mechanical ventilation for oversedation - Immunization History Date of Tetanus Vaccine: within the last 10 years Date of Influenza Vaccine: Fall 2014 Infectious Disease History: No Infectious Disease History: Reports: Hx Shingles - 2011 Denies: Hx Clostridium Difficile, Hx Hepatitis, Hx Human Immunodeficiency Virus (HIV), Hx of Known/Suspected MRSA, Hx Tuberculosis, Hx Known/Suspected VRE , Hx Known/Suspected VRSA, History Other Infectious Disease, Traveled Outside the [place] in Last 30 Days - Family History Known Family History: Positive: Unknown, Cardiac Disease, Hypertension, Other - stroke: mom; migraines Negative: Diabetes - Social History Alcohol Use: Rare Alcohol Amount: 1 GLASS/MONTH Hx Substance Use: No Substance Use Type: Reports: None, Sedatives Substance Use Comment - Amount & Last Used: Valium - Anxiety Hx Tobacco Use: No Smoking Status (MU): Never Smoked Tobacco Have You Smoked in the Last Year: No Review of Systems Negative: Fever, Chills Positive: Photophobia ENT: Negative Cardiovascular: Negative Negative: Chest Pain Negative: Shortness Of Breath, Cough Negative: Abdominal Pain, Vomiting, Diarrhea, Nausea Genitourinary: Negative Positive: Other - neck pain Skin: Negative Neurological: Negative Positive: Headache All Other Systems Reviewed And Are Negative: Yes Physical Exam - Summary Physical Exam Summary: The patient is well-nourished in no acute distress and in no acute pain. The skin is warm and dry and skin color reflects adequate perfusion. HEENT: The head is normocephalic and atraumatic. The pupils are equal and reactive. The conjunctivae are clear and without drainage. Nares are patent and without drainage. Mouth reveals moist mucous membranes and the throat is without erythema and exudate. Neck is supple with full range of motion . There is tenderness over the spinal processes C6-C7. No nuchal rigidity. Respiratory: Chest is non-tender. Lungs are clear to auscultation and breath sounds are symmetrical and equal. Cardiovascular: Hear is regular rate and rhythm. There is no murmur or rub auscultated. There is no peripheral edema and pulses are symmetrical and equal. Abdomen: The abdomen is soft and non-tender. There are normal bowel sounds heard in all four quadrants and there is no organomegaly palpated. Musculoskeletal: There is no back pain noted. Extremities are non-tender with full range of motion. There is good capillary refill. There is no peripheral edema or calf tenderness elicited. Neurological: Patient is alert and oriented to person, place and time. The patient has symmetrical motor strength in all four extremities. There is motor strength weakness noted. Psychiatric: The patient has an appropriate affect and does not exhibit any anxiety or depression. Triage Information Reviewed: Yes Vital Signs On Initial Exam: Initial Vitals Temp Pulse Resp BP Pulse Ox 97.9 F 56 16 115/75 95 05/13/17 07:57 05/13/17 07:57 05/13/17 07:57 05/13/17 07:57 05/13/17 07:57 Vital Signs Reviewed: Yes - [place] Coma Scale Coma Scale Total: 15 Diagnostics - Vital Signs Vital Signs Temp Pulse Resp BP Pulse Ox 05/13/17 08:04 56 95 05/13/17 08:03 99.0 F 55 16 107/68 99 05/13/17 07:57 97.9 F 56 16 115/75 95 - Laboratory Lab Statement: Any lab studies that have been ordered have been reviewed, and results considered in the medical decision making process. Re-Evaluation - Re-Evaluation First Eval Re-Evaluation Time: 09:36 Comment: Pt is feeling much better. Headache Course/Dx - Course Assessment/Plan: Pt is a 66 y/o female [facility] x2 days. Pt reports taking Toradol and Ibuprofen with no relief. In the ED course pt was given IV fluids, Toradol, Reglan, Flexeril, and Benadryl. On re- evaluation, pt reports feeling much better. Pt will be discharged with rx Flexeril and Toradol. - Diagnoses Provider Diagnoses: Headache Discharge - Discharge Plan Condition: Stable Disposition: HOME Prescriptions: Cyclobenzaprine TAB* [Flexeril 10 MG TAB*] 10 mg PO TID PRN #15 tab PRN Reason: muscle spasm Ketorolac TAB * [Toradol TAB *] 10 mg PO Q6H #20 tab Patient Education Materials: General Headache (ED) Referrals: Sherron Hood MD [Primary Care Provider] - Additional Instructions: Please follow up with your primary care provider, Dr. Hood. The documentation as recorded by the Bam ness Angela accurately reflects the service I personally performed and the decisions made by me, Lai Coppola MD.
== END 2017-05-13 09:58 | disposition home or self-care (01) ==
LOC: ED 07:54
DX: H53.149 Visual discomfort, unspecified (principal); M54.2 Cervicalgia; R51 Headache
CPT/HCPCS: 96374; 96375; 99284; A9270-GY; J1200; J1885; J2765

== ENCOUNTER 2017-05-24 08:27 | Emergency (ER) | payer MEDICARE, BC ==
[2017-05-24] MEDS ORDERED: NS 0.9% 1000 ML* 1,000 ML IV ONE (08:57)
[2017-05-24] MEDS ORDERED: Ketorolac INJ* 30 MG/ML 1 ML VIAL IV ONE (08:57)
[2017-05-24] MEDS ORDERED: diPHENhydraMINE IV* 50 MG/ML 1 ml VIAL (BENADRYL) IV ONE (08:57)
[2017-05-24] MEDS ORDERED: Metoclopramide IV* 5 MG/ML 2 ML VIAL IV ONE (09:00)
[2017-05-24 09:35] LABS: Hematocrit 36 % (35-47); Hemoglobin 12.4 g/dl (12.0-16.0); Mean Corpuscular HGB Conc 34 g/dl (31-36); Mean Corpuscular Hemoglobin 35 pg (27-31); Mean Corpuscular Volume 103 fL (80-97); Mean Platelet Volume 8 um3 (7.4-10.4); Red Blood Count 3.54 10^6/ul (4.0-5.4); Red Cell Distribution Width 13 % (10.5-15); White Blood Count 4.9 10^3/ul (3.5-10.8)
[2017-05-24 09:52] LABS: Albumin 3.8 g/dL (3.2-5.2); BUN/Creatinine Ratio 26.3 (8-20); Calcium 8.8 mg/dL (8.6-10.3); EGFR Non-African American 71.5 (>60); Globulin 2.5 g/dL (2-4); Potassium 4.2 mmol/L (3.5-5.0); Total Bilirubin 0.4 mg/dL (0.2-1.0); Total Protein 6.3 g/dL (6.4-8.9)
[2017-05-24 10:42] VITALS: BP 112/69
[2017-05-24 11:38] LABS: Erythrocyte Sed Rate 11 mm/Hr (0-40)
--- NOTE | 2017-05-24 16:04 | ED ---
Stephanie Collado Alfonso, scribed for Shade Vicente MD on 05/24/17 at 0838 . Headache - HPI Summary HPI Summary: This patient is a 66 year old F presenting to [facility] accompanied by with a chief complaint of a migraine CASTRO since 3 days ago. The CC is described as similar to previous migraines, starting at the front and radiating to her posterior neck. The patient rates the pain 7/10 in severity. Symptoms aggravated by nothing. Symptoms alleviated by nothing. Patient reports neck pain. Patient denies N/V, blurry vision, and fever. - History Of Current Complaint Chief Complaint: EDHeadache Stated Complaint: HEADACHE Time Seen by Provider: 05/24/17 08:34 Hx Obtained From: Patient Hx Last Menstrual Period: post Onset/Duration: Sudden Onset, Started days ago - 3, Still Present Currently Pain Is: Current Pain Scale(0-10)= - 7, Moderate Timing: Constant Character: Migraine Location of Headache: Frontal Radiates to: posterior neck Aggravating Factor: Nothing Allevating Factors: Nothing Associated Signs And Symptoms: Other (Noted In Comments) - neck pain. Patient denies N/V, blurry vision, and fever. - Allergies/Home Medications Allergies/Adverse Reactions: Allergies Allergy/AdvReac Type Severity Reaction Status Date / Time Heparin Allergy Unknown See Comment Verified 05/24/17 08:31 Chlorpromazine AdvReac Severe Altered Verified 05/24/17 08:31 [From Thorazine] Mental Status Erythromycin AdvReac Intermediate Diarrhea Verified 05/24/17 08:31 Valproic Acid [From Depakote] AdvReac Intermediate Altered Verified 05/24/17 08: 31 Mental Status Cephalexin [From Keflex] AdvReac Mild Muscle Ache Verified 05/24/17 08:31 PMH/Surg Hx/FS Hx/Imm Hx Endocrine/Hematology History: Denies: Hx Anticoagulant Therapy, Hx Diabetes, Hx Thyroid Disease Cardiovascular History: Reports: Hx Hypercholesterolemia, Hx Hypertension, Other Cardiovascular Problems/Disorders - heart burn Respiratory History: Denies: Hx Asthma, Hx Chronic Obstructive Pulmonary Disease (COPD) GI History: Reports: Hx Gastroesophageal Reflux Disease Denies: Hx Ulcer Musculoskeletal History: Reports: Hx Arthritis Sensory History: Reports: Hx Contacts or Glasses Denies: Hx Hearing Aid Opthamlomology History: Reports: Hx Contacts or Glasses Neurological History: Reports: Hx Migraine - Chronic migraine disease, Hx Seizures Psychiatric History: Reports: Hx Anxiety, Hx Depression - Cancer History Hx Chemotherapy: No Hx Radiation Therapy: No - Surgical History Surgery Procedure, Year, and Place: 1974, 1976, 1978 3 C Sections [facility]. 1986 right elbow surgery [place]. LEFT breast [place] [facility] [place]. 1999[place] x2 sinus surgery [facility] [place] [facility] [place]. 2006 appendectomy, [facility] [place] 2004 bladder surgery ( spot in bladder), [facility] [place] 2005 bilateral meniscus surgery, [facility] [place] 2004 OVARY REMOVED [facility] [place]. 1980 HYSTERECTOMY,PEDRTIO. 07/2013 LEFT TOE SURGERY [facility] [place] total replacement right knee; endoscopy left knee Hx Anesthesia Reactions: Yes - required mechanical ventilation for oversedation - Immunization History Date of Tetanus Vaccine: within the last 10 years Date of Influenza Vaccine: Fall 2014 Infectious Disease History: No Infectious Disease History: Reports: Hx Shingles - 2011 Denies: Hx Clostridium Difficile, Hx Hepatitis, Hx Human Immunodeficiency Virus (HIV), Hx of Known/Suspected MRSA, Hx Tuberculosis, Hx Known/Suspected VRE , Hx Known/Suspected VRSA, History Other Infectious Disease, Traveled Outside the in Last 30 Days - Family History Known Family History: Positive: Cardiac Disease, Hypertension, Other - stroke: mom; migraines Negative: Diabetes - Social History Alcohol Use: Rare Alcohol Amount: 1 GLASS/MONTH Hx Substance Use: No Substance Use Type: Reports: None, Sedatives Substance Use Comment - Amount & Last Used: Valium - Anxiety Hx Tobacco Use: No Smoking Status (MU): Never Smoked Tobacco Have You Smoked in the Last Year: No Review of Systems Negative: Fever Negative: Blurred Vision Negative: Vomiting, Nausea Positive: Other - neck pain Positive: Headache All Other Systems Reviewed And Are Negative: Yes Physical Exam - Summary Physical Exam Summary: VITAL SIGNS: Reviewed. GENERAL: Patient is a well-developed and nourished FEMALE who is lying comfortable in the stretcher. Patient is not in any acute respiratory distress. HEAD AND FACE: No signs of trauma. No ecchymosis, hematomas or skull depressions. No sinus tenderness. EYES: PERRLA, EOMI x 2, No injected conjunctiva, no nystagmus. No photophobia. EARS: Hearing grossly intact. Ear canals and tympanic membranes are within normal limits. MOUTH: Oropharynx within normal limits. NECK: Supple, trachea is midline, no adenopathy, no JVD, no carotid bruit, no c- spine tenderness, neck with full ROM. No meningeal signs, no Kernig's or brudzinskis signs. CHEST: Symmetric, no tenderness at palpation LUNGS: Clear to auscultation bilaterally. No wheezing or crackles. CVS: Regular rate and rhythm, S1 and S2 present, no murmurs or gallops appreciated. ABDOMEN: Soft, non-tender. No signs of distention. No rebound no guarding, and no masses palpated. Bowel sounds are normal. EXTREMITIES: FROM in all major joints, no edema, no cyanosis or clubbing. NEURO: Alert and oriented x 3. No acute neurological deficits. Speech is normal and follows commands. SKIN: Dry and warm GCS: 15 Triage Information Reviewed: Yes Vital Signs On Initial Exam: Initial Vitals Temp Pulse Resp BP Pulse Ox 98.1 F 72 14 110/75 97 05/24/17 08:29 05/24/17 08:29 05/24/17 08:29 05/24/17 08:29 05/24/17 08:29 Vital Signs Reviewed: Yes Diagnostics - Vital Signs Vital Signs Temp Pulse Resp BP Pulse Ox 05/24/17 08:29 98.1 F 72 14 110/75 97 - Laboratory Lab Results: Lab Results 05/24/17 05/24/17 05/24/17 Range/Units 09:21 09:21 09:21 WBC 4.9 (3.5-10.8) 10^3/ul RBC 3.54 L (4.0-5.4) 10^6/ul Hgb 12.4 (12.0-16.0) g/dl Hct 36 (35-47) % MCV 103 H (80-97) fL MCH 35 H (27-31) pg MCHC 34 (31-36) g/dl RDW 13 (10.5-15) % Plt Count 232 (150-450) 10^3/ul MPV 8 (7.4-10.4) um3 Neut % (Auto) 46.0 (38-83) % Lymph % (Auto) 40.7 (25-47) % Morgan % (Auto) 8.8 (1-9) % Eos % (Auto) 3.7 (0-6) % Baso % (Auto) 0.8 (0-2) % Absolute Neuts (auto) 2.3 (1.5-7.7) 10^3/ul Absolute Lymphs (auto) 2.0 (1.0-4.8) 10^3/ul Absolute Monos (auto) 0.4 (0-0.8) 10^3/ul Absolute Eos (auto) 0.2 (0-0.6) 10^3/ul Absolute Basos (auto) 0 (0-0.2) 10^3/ul Absolute Nucleated RBC 0.01 10^3/ul Nucleated RBC % 0.1 ESR 11 (0-40) mm/Hr Carbon Monoxide Screen (<4.0) % Sodium 137 (133-145) mmol/L Potassium 4.2 (3.5-5.0) mmol/L Chloride 108 (101-111) mmol/L Carbon Dioxide 22 (22-32) mmol/L Anion Gap 7 (2-11) mmol/L BUN 21 (6-24) mg/dL Creatinine 0.80 (0.51-0.95) mg/dL Est GFR ( Amer) 92.0 (>60) Est GFR (Non-Af Amer) 71.5 (>60) BUN/Creatinine Ratio 26.3 H (8-20) Glucose 100 (70-100) mg/dL Lactic Acid 1.0 (0.5-2.0) mmol/L Calcium 8.8 (8.6-10.3) mg/dL Total Bilirubin 0.40 (0.2-1.0) mg/dL AST 19 (13-39) U/L ALT 19 (7-52) U/L Alkaline Phosphatase 60 (34-104) U/L Total Protein 6.3 L (6.4-8.9) g/dL Albumin 3.8 (3.2-5.2) g/dL Globulin 2.5 (2-4) g/dL Albumin/Globulin Ratio 1.5 (1-3) 05/24/17 Range/Units 10:00 WBC (3.5-10.8) 10^3/ul RBC (4.0-5.4) 10^6/ul Hgb (12.0-16.0) g/dl Hct (35-47) % MCV (80-97) fL MCH (27-31) pg MCHC (31-36) g/dl RDW (10.5-15) % Plt Count (150-450) 10^3/ul MPV (7.4-10.4) um3 Neut % (Auto) (38-83) % Lymph % (Auto) (25-47) % Morgan % (Auto) (1-9) % Eos % (Auto) (0-6) % Baso % (Auto) (0-2) % Absolute Neuts (auto) (1.5-7.7) 10^3/ul Absolute Lymphs (auto) (1.0-4.8) 10^3/ul Absolute Monos (auto) (0-0.8) 10^3/ul Absolute Eos (auto) (0-0.6) 10^3/ul Absolute Basos (auto) (0-0.2) 10^3/ul Absolute Nucleated RBC 10^3/ul Nucleated RBC % ESR (0-40) mm/Hr Carbon Monoxide Screen < 4 (<4.0) % Sodium (133-145) mmol/L Potassium (3.5-5.0) mmol/L Chloride (101-111) mmol/L Carbon Dioxide (22-32) mmol/L Anion Gap (2-11) mmol/L BUN (6-24) mg/dL Creatinine (0.51-0.95) mg/dL Est GFR ( Amer) (>60) Est GFR (Non-Af Amer) (>60) BUN/Creatinine Ratio (8-20) Glucose (70-100) mg/dL Lactic Acid (0.5-2.0) mmol/L Calcium (8.6-10.3) mg/dL Total Bilirubin (0.2-1.0) mg/dL AST (13-39) U/L ALT (7-52) U/L Alkaline Phosphatase (34-104) U/L Total Protein (6.4-8.9) g/dL Albumin (3.2-5.2) g/dL Globulin (2-4) g/dL Albumin/Globulin Ratio (1-3) Result Diagrams: 05/24/17 09:21 05/24/17 09:21 Lab Statement: Any lab studies that have been ordered have been reviewed, and results considered in the medical decision making process. Re-Evaluation - Re-Evaluation First Eval Re-Evaluation Time: 10:25 Change: Improved Comment: Headache is fully resolved. Headache Course/Dx - Course Assessment/Plan: This patient is a 66 year old F presenting to [facility] accompanied by with a chief complaint of a migraine CASTRO since 3 days ago. The CC is described as similar to previous migraines, starting at the front and radiating to her posterior neck. The patient rates the pain 7/10 in severity. Symptoms aggravated by nothing. Symptoms alleviated by nothing. Patient reports neck pain. Patient denies N/V, blurry vision, and fever. In the ED course the patient was given IV fluids, Toradol, Reglan, and Benadryl. The migraine has resolved in the ED course. Therefore, the patient will be discharged to home with PCP follow up. The patient is hemodynamically stable, alert and oriented x3. - Diagnoses Differential Diagnosis/HQI/PQRI: Migraine, Sinus Headache, Tension Headache Provider Diagnoses: Migraine Discharge - Discharge Plan Condition: Stable Disposition: HOME Patient Education Materials: Migraine Headache (ED) Referrals: Sherron Hood MD [Primary Care Provider] - 3 Days Additional Instructions: RETURN TO THE EMERGENCY DEPARTMENT FOR CHANGING OR WORSENING SYMPTOMS. The documentation as recorded by the Stephanie ness Alfonso accurately reflects the service I personally performed and the decisions made by , Shade Vicente MD.
== END 2017-05-24 11:00 | disposition home or self-care (01) ==
LOC: ED 08:27
DX: G43.909 Migraine, unspecified, not intractable, without status migrainosus (principal); M54.2 Cervicalgia
CPT/HCPCS: 36415; 80053; 82375; 83605; 85025; 85652; 96374; 96375; 99282; J1200; J1885; J2765

== ENCOUNTER 2017-06-10 10:42 | Emergency (ER) | payer MEDICARE, BC ==
[2017-06-10 11:13] VITALS: BP 120/70
--- NOTE | 2017-06-10 11:57 | RAD ---
Indication: Right knee injury and pain. 4 views of the right knee demonstrates bipolar right knee replacement in satisfactory position. No evidence of periprosthetic fracture or loosening is noted. IMPRESSION: Bipolar right knee replacement in satisfactory position without loosening or periprosthetic fracture.
--- NOTE | 2017-06-10 12:13 | UC ---
Knee Pain HPI - HPI Summary HPI Summary: RIGHT KNEE REPLACEMENT 2016, TWO WEEKS AGO FELL ON KNEE HAD PAIN AND INSTABILITY. FELL AGAIN THREE DAYS AGO. HAS APPOINTMENT WITH ORTHOPEDICS IN [place] PT REFERRAL NEXT WEEK. HOWEVER, PAIN IS WORSE SINCE SECOND INJURY AND WOULD LIKE TO GET IT CHECKED OUT. - History of Current Complaint Chief Complaint: UCLowerExtremity Stated Complaint: KNEE PAIN Time Seen by Provider: 06/10/17 11:22 Hx Obtained From: Patient Hx Last Menstrual Period: post Onset/Duration: Gradual Onset, Lasting Weeks, Worse Since - 3 DAYS AGO Severity Initially: Moderate Severity Currently: Moderate Character: Dull, Aching Aggravating Factor(s): Movement, Weight Bearing Associated Signs And Symptoms: Positive: Negative Able to Bear Weight: Yes - Risk Factors Septic Arthritis Risk Factor: Negative Gout Risk Factor: Negative - Allergies/Home Medications Allergies/Adverse Reactions: Allergies Allergy/AdvReac Type Severity Reaction Status Date / Time Heparin Allergy Unknown See Comment Verified 06/10/17 11:08 Chlorpromazine AdvReac Severe Altered Verified 06/10/17 11:08 [From Thorazine] Mental Status Erythromycin AdvReac Intermediate Diarrhea Verified 06/10/17 11:08 Valproic Acid [From Depakote] AdvReac Intermediate Altered Verified 06/10/17 11: 08 Mental Status Cephalexin [From Keflex] AdvReac Mild Muscle Ache Verified 06/10/17 11:08 PMH/Surg Hx/FS Hx/Imm Hx Previously Healthy: Yes Other History Of: Negative For: Anticoagulant Therapy - Surgical History Surgical History: Yes Surgery Procedure, Year, and Place: 1974, 1976, 1978 3 C Sections [place]. 1986 right elbow surgery [place]. LEFT breast [place] [facility] [place] x2 sinus surgery [facility] [place] [facility] [place] 2006 appendectomy, [facility] [place]. 2005 bladder surgery ( spot in bladder), [facility] [place] 2006 bilateral meniscus surgery, [facility] [place]. 2005 OVARY REMOVED [facility] [place]. 1980 HYSTERECTOMY,PEDRITO. 07/2013 LEFT TOE SURGERY [facility] [place]. total replacement right knee; endoscopy left knee - Family History Known Family History: Positive: None - reviewed & noncontributory, Unknown, Cardiac Disease, Hypertension, Other - stroke: mom; migraines Negative: Diabetes - Social History Occupation: Retired Lives: With Family Alcohol Use: Rare Alcohol Amount: 1 GLASS/MONTH Substance Use Type: None, Sedatives Substance Use Comment - Amount & Last Used: Valium - Anxiety Smoking Status (MU): Never Smoked Tobacco Have You Smoked in the Last Year: No - Immunization History Most Recent Influenza Vaccination: FALL 2015 Most Recent Tetanus Shot: at least 10 years ago per patient Most Recent Pneumonia Vaccination: 2003 Review of Systems Constitutional: Negative Skin: Negative Eyes: Negative ENT: Negative Respiratory: Negative Cardiovascular: Negative Gastrointestinal: Negative Genitourinary: Negative Motor: Negative Neurovascular: Negative Musculoskeletal: Arthralgia, Myalgia Neurological: Negative Psychological: Negative All Other Systems Reviewed And Are Negative: Yes Physical Exam Triage Information Reviewed: Yes Appearance: Well-Appearing, No Pain Distress, Well-Nourished Vital Signs: Initial Vital Signs Temp 98.8 F 06/10/17 11:09 Pulse 66 06/10/17 11:09 Resp 16 06/10/17 11:09 BP 120/70 06/10/17 11:09 Pulse Ox 100 06/10/17 11:09 Vital Signs Reviewed: Yes Eye Exam: Normal ENT Exam: Normal ENT: Positive: Normal ENT inspection Dental Exam: Normal Neck exam: Normal Neck: Positive: Supple, Nontender, No Lymphadenopathy Respiratory Exam: Normal Respiratory: Positive: Chest non-tender, Lungs clear, Normal breath sounds, No respiratory distress, No accessory muscle use Cardiovascular Exam: Normal Cardiovascular: Positive: RRR, No Murmur, Pulses Normal, Brisk Capillary Refill Abdominal Exam: Normal Musculoskeletal: Positive: No Edema, Strength Limited @ - RIGHT KNEE, ROM Limited @ - RIGHT KNEE Neurological Exam: Normal Psychological Exam: Normal Skin Exam: Normal Knee Pain Course/Dx - Differential Dx/Diagnosis Differential Diagnosis/HQI/PQRI: Fracture (Closed), Internal Derangement Of Knee , Sprain, Strain Provider Diagnoses: RIGHT KNEE SPRAIN; HISTORY OF RIGHT KNEE SURGERY Discharge - Discharge Plan Condition: Stable Disposition: HOME Patient Education Materials: Knee Sprain (ED), Knee Pain (ED) Referrals: Sherron Hood MD [Primary Care Provider] - Additional Instructions: PHYSICAL THERAPY REFERRAL: You have been prescribed physical therapy. Treatments may include stretching, exercise, application of heat or cold, and other modalities. After an injury, PT can reduce swelling and pain. In recovery, PT is used to restore mobility and strength. Your specific treatment goals are: Reduction of Swelling (EGS, US, ice as needed) _x____ Pain Reduction (EGS, US, ice as needed) TENS Pack Fitting and Instruction Wound Hydrotherapy ___x__ Preservation of Mobility _x____ Adventism of Mobility ___x__ Strength Adventism __x___ Work or Sports Hardening This instruction sheet also serves as your PHYSICAL THERAPY REFERRAL! Please take it with you to the therapist, so he/she will be aware of your diagnosis and treatment plan. You may see the physical therapist of your choice for these treatments, but may wish to check with your insurance to be sure the provider you select is covered. It's important to see the doctor to whom you have been referred for follow up.
== END 2017-06-10 12:14 | disposition home or self-care (01) ==
LOC: UCEAST 10:42
DX: S83.91XA Sprain of unspecified site of right knee, initial encounter (principal); W19.XXXA Unspecified fall, initial encounter; Y92.9 Unspecified place or not applicable
CPT/HCPCS: 99211; G0463

== ENCOUNTER → 2017-06-12 05:43 | Emergency (ER) | payer MEDICARE, BC ==
[~2017-06-12 05:43] MED LIST: Ketorolac INJ* 30 MG/ML 1 ML VIAL IV PUSH ONE; NS 0.9% 1000 ML* 1,000 ML IV ONE; PROCHLORPERAZINE INJ 5 MG/ML 2 ML VIAL IV ONE; PROCHLORPERAZINE INJ 5 MG/ML 2 ML VIAL IV PRN; diPHENhydraMINE IV* 50 MG/ML 1 ml VIAL (BENADRYL) IV ONE
[2017-06-12 09:14] VITALS: BP 125/67
--- NOTE | 2017-06-13 00:45 | ED ---
Bam Collado Angela, scribed for Kayla Jackson MD on 06/12/17 at 0642 . Headache - HPI Summary HPI Summary: This pt is a 66 y/o female presenting to [facility] c/o migraine headache since last night. Pt reports difficulty sleeping secondary to pain. She states her pain is aggravated by sitting up and bright lights. Her pain is alleviated when laying down. Pt has a PMHx of migraines. She denies seizure disorder. Pt notes she has chronic neck pain. She denies fever, chills, blurry vision, double vision. Pt states she comes to the ED once a month for migraines. She denies tobacco use. Allergies: keflex, Depakote, erythromycin, thorazine, heparin. PMHx: HTN, right knee surgery - History Of Current Complaint Chief Complaint: EDHeadache Stated Complaint: HEADACHE Hx Obtained From: Patient Hx Last Menstrual Period: post Onset/Duration: Started hours ago Initially Headache Was: Moderate Currently Pain Is: Moderate Timing: Hours Character: Migraine Location of Headache: Diffuse Aggravating Factor: Bright Lights, Other - sitting up Allevating Factors: Other (Noted In Comments) - laying down - Allergies/Home Medications Allergies/Adverse Reactions: Allergies Allergy/AdvReac Type Severity Reaction Status Date / Time Heparin Allergy Unknown See Comment Verified 06/12/17 05:50 Chlorpromazine AdvReac Severe Altered Verified 06/12/17 05:50 [From Thorazine] Mental Status Erythromycin AdvReac Intermediate Diarrhea Verified 06/12/17 05:50 Valproic Acid [From Depakote] AdvReac Intermediate Altered Verified 06/12/17 05: 50 Mental Status Cephalexin [From Keflex] AdvReac Mild Muscle Ache Verified 06/12/17 05:50 PMH/Surg Hx/FS Hx/Imm Hx Endocrine/Hematology History: Denies: Hx Anticoagulant Therapy, Hx Diabetes, Hx Thyroid Disease Cardiovascular History: Reports: Hx Hypercholesterolemia, Hx Hypertension, Other Cardiovascular Problems/Disorders - heart burn Respiratory History: Denies: Hx Asthma, Hx Chronic Obstructive Pulmonary Disease (COPD) GI History: Reports: Hx Gastroesophageal Reflux Disease Denies: Hx Ulcer Musculoskeletal History: Reports: Hx Arthritis Sensory History: Reports: Hx Contacts or Glasses Denies: Hx Hearing Aid Opthamlomology History: Reports: Hx Contacts or Glasses Neurological History: Reports: Hx Migraine - Chronic migraine disease, Hx Seizures Psychiatric History: Reports: Hx Anxiety, Hx Depression - Cancer History Hx Chemotherapy: No Hx Radiation Therapy: No - Surgical History Surgery Procedure, Year, and Place: 1974, 1976, 1978 3 C Sections [facility]. 1986 right elbow surgery [place]. [place] [facility] [place] [facility] [place] 2006 appendectomy[place] [facility] [place] bladder [place] ( spot in bladder[place] [facility] [place] bilateral [place] [facility] [place] [facility] [place] 1980 HYSTERECTOMY,[place]RIT[place]. 07/2013 [place] [facility] [place]; endoscopy left knee Hx Anesthesia Reactions: Yes - required mechanical ventilation for oversedation - Immunization History Date of Tetanus Vaccine: 2011 Date of Influenza Vaccine: 05/2017 Infectious Disease History: No Infectious Disease History: Reports: Hx Shingles - 2011 Denies: Hx Clostridium Difficile, Hx Hepatitis, Hx Human Immunodeficiency Virus (HIV), Hx of Known/Suspected MRSA, Hx Tuberculosis, Hx Known/Suspected VRE , Hx Known/Suspected VRSA, History Other Infectious Disease, Traveled Outside the in Last 30 Days - Family History Known Family History: Positive: Cardiac Disease, Hypertension, Other - stroke: mom; migraines Negative: Diabetes - Social History Alcohol Use: Rare Alcohol Amount: 1 GLASS/MONTH Hx Substance Use: No Substance Use Type: Reports: None, Sedatives Substance Use Comment - Amount & Last Used: Valium - Anxiety Hx Tobacco Use: No Smoking Status (MU): Never Smoked Tobacco Have You Smoked in the Last Year: No Review of Systems Negative: Fever, Chills Positive: Photophobia. Negative: Blurred Vision, Other - double vision Positive: Other - chronic neck pain Positive: Headache - migraine All Other Systems Reviewed And Are Negative: Yes Physical Exam Triage Information Reviewed: Yes Vital Signs On Initial Exam: Initial Vitals Temp Pulse Resp BP Pulse Ox 97.2 F 67 18 93/68 98 06/12/17 05:46 06/12/17 05:46 06/12/17 05:46 06/12/17 05:46 06/12/17 05:46 Vital Signs Reviewed: Yes Appearance: Positive: Well-Appearing, Well-Nourished Skin: Positive: Warm, Skin Color Reflects Adequate Perfusion, Dry Head/Face: Positive: Normal Head/Face Inspection Eyes: Positive: Normal ENT: Positive: Normal ENT inspection, Other - oral mucosa is dry Neck: Positive: Supple, Nontender Respiratory/Lung Sounds: Positive: Clear to Auscultation, Breath Sounds Present Cardiovascular: Positive: Normal, RRR Musculoskeletal: Positive: Normal Neurological: Positive: Normal, Sensory/Motor Intact, Alert, Oriented to Person Place, Time Psychiatric: Positive: Normal - [place] Coma Scale Coma Scale Total: 15 Diagnostics - Vital Signs Vital Signs Temp Pulse Resp BP Pulse Ox 06/12/17 05:46 97.2 F 67 18 93/68 98 - Laboratory Lab Statement: Any lab studies that have been ordered have been reviewed, and results considered in the medical decision making process. Headache Course/Dx - Course Assessment/Plan: Pt is a 66 y/o female who presents with migraine headache since last night. Pt has a hx of migraine headaches. In the ED course, the pt was given Benadryl, Compazine, toradol and IV fluids. Pt will be signed out to Dr. Vicente, pending disposition, awaiting re-evaluation. - Diagnoses Provider Diagnoses: Migraine Discharge - Discharge Plan Condition: Stable Disposition: OTHER Discharge Disposition Comment: signed out to Dr. Vicente, pending dispo, awaiting re-eval The documentation as recorded by the Bam ness Angela accurately reflects the service I personally performed and the decisions made by , Kayla Jackson MD.
--- NOTE | 2017-06-13 18:38 | ED ---
Tavo Collado Thomas, amadoribed for Shade Vicente MD on 06/12/17 at 0721 . Progress - Progress Note Progress Note: The patient is a sign out from Dr. Jackson at shift change pending re-evaluation and awaiting disposition. Her chief complaint is a migraine headache. At re-evaluation at 07:20, the patient is feeling a little better. She tells me that for her previous migraine exacerbations, she feels better with Toradol 3mg , Benadryl 50mg, and anti-nausea medication. PHYSICAL EXAM: VITAL SIGNS: Reviewed. GENERAL: Patient is a well-developed and nourished female is lying comfortable in the stretcher. Patient is not in any acute respiratory distress. HEAD AND FACE: No signs of trauma. No ecchymosis, hematomas or skull depressions. No sinus tenderness. EYES: PERRLA, EOMI x 2, No injected conjunctiva, no nystagmus. EARS: Hearing grossly intact. Ear canals and tympanic membranes are within normal limits. MOUTH: Oropharynx within normal limits. NECK: Supple, trachea is midline, no adenopathy, no JVD, no carotid bruit, no c- spine tenderness, neck with full ROM. CHEST: Symmetric, no tenderness at palpation LUNGS: Clear to auscultation bilaterally. No wheezing or crackles. CVS: Regular rate and rhythm, S1 and S2 present, no murmurs or gallops appreciated. ABDOMEN: Soft, non-tender. No signs of distention. No rebound no guarding, and no masses palpated. Bowel sounds are normal. EXTREMITIES: FROM in all major joints, no edema, no cyanosis or clubbing. NEURO: Alert and oriented x 3. No acute neurological deficits. Speech is normal and follows commands. SKIN: Dry and warm The patient is a sign out from Dr. Jackson. The patient came in with a migraine headache similar to her previous migraine headaches. In the ED course, the patient was hydrated, given Toradol, Compazine, and Benadryl. After these medications, the patient's symptoms improved and she requested to be discharged. The patient will be discharged home with follow up by primary care. The patient is stable. Course/Dx - Course Course Of Treatment: D/C home with F/U of PMD - Diagnoses Provider Diagnoses: Migraine headache The documentation as recorded by the Tavo ness Thomas accurately reflects the service I personally performed and the decisions made by me, Shade Vicente MD.
== END ==
LOC: ED 05:43
DX: G43.909 Migraine, unspecified, not intractable, without status migrainosus (principal); H53.149 Visual discomfort, unspecified
CPT/HCPCS: 96374; 96375; 99283; J0780; J1200; J1885

== ENCOUNTER 2017-06-14 20:49 | Emergency (ER) | payer MEDICARE, BC ==
[2017-06-14] MEDS ORDERED: NS 0.9% 1000 ML* 2,000 ML IV ONE (21:17)
[2017-06-14] MEDS ORDERED: Ketorolac INJ* 30 MG/ML 1 ML VIAL IV ONE (21:17)
[2017-06-14] MEDS ORDERED: diPHENhydraMINE IV* 50 MG/ML 1 ml VIAL (BENADRYL) IV ONE (21:17)
[2017-06-14] MEDS ORDERED: Cyclobenzaprine TAB* 10 MG PO ONE (21:18)
[2017-06-14] MEDS ORDERED: Metoclopramide IV* 5 MG/ML 2 ML VIAL IV SLOW PU ONE (21:18)
[2017-06-14 23:44] VITALS: BP 138/86
--- NOTE | 2017-06-15 00:07 | ED ---
Kimani Collado Nikita, scribed for Abdias Agee MD on 06/14/17 at 2120 . Headache - HPI Summary HPI Summary: This patient is a 66 year old F presenting to ED with a chief complaint of migraine CASTRO since yesterday. The CC is described as intermittent (yesterday, this morning and afternoon). The patient rates the pain 7-8/10 in severity. Symptoms aggravated by light, sound, and smells. Symptoms alleviated by Fioricet , Benadryl, and Toradol. Patient reports ear pain, neck pain, and nausea. Patient denies weakness, numbness, vomiting, chills, and fever. - History Of Current Complaint Chief Complaint: EDHeadache Stated Complaint: HEADACHE Time Seen by Provider: 06/14/17 21:10 Hx Obtained From: Patient Hx Last Menstrual Period: post Onset/Duration: Sudden Onset, Started days ago - yesterday, Still Present Currently Pain Is: Current Pain Scale(0-10)= - 7, Moderate Timing: Intermittent, Lasting: - since yesterday Character: Migraine Aggravating Factor: Bright Lights, Other - sound, smells Allevating Factors: Medication - Fioricet, Benadryl, and Toradol Associated Signs And Symptoms: Other (Noted In Comments) - Patient reports ear pain, neck pain, and nausea. Patient denies weakness, numbness, vomiting, chills , and fever. - Allergies/Home Medications Allergies/Adverse Reactions: Allergies Allergy/AdvReac Type Severity Reaction Status Date / Time Heparin Allergy Unknown See Comment Verified 06/12/17 05:50 Chlorpromazine AdvReac Severe Altered Verified 06/12/17 05:50 [From Thorazine] Mental Status Erythromycin AdvReac Intermediate Diarrhea Verified 06/12/17 05:50 Valproic Acid [From Depakote] AdvReac Intermediate Altered Verified 06/12/17 05: 50 Mental Status Cephalexin [From Keflex] AdvReac Mild Muscle Ache Verified 06/12/17 05:50 PMH/Surg Hx/FS Hx/Imm Hx Endocrine/Hematology History: Denies: Hx Anticoagulant Therapy, Hx Diabetes, Hx Thyroid Disease Cardiovascular History: Reports: Hx Hypercholesterolemia, Hx Hypertension, Other Cardiovascular Problems/Disorders - heart burn Respiratory History: Denies: Hx Asthma, Hx Chronic Obstructive Pulmonary Disease (COPD) GI History: Reports: Hx Gastroesophageal Reflux Disease Denies: Hx Ulcer Musculoskeletal History: Reports: Hx Arthritis Sensory History: Reports: Hx Contacts or Glasses Denies: Hx Hearing Aid Opthamlomology History: Reports: Hx Contacts or Glasses Neurological History: Reports: Hx Migraine - Chronic migraine disease, Hx Seizures Psychiatric History: Reports: Hx Anxiety, Hx Depression - Cancer History Hx Chemotherapy: No Hx Radiation Therapy: No - Surgical History Surgery Procedure, Year, and Place: 1974, 1976, 1978 3 C Sections [place]. 1986 right elbow surgery [place]. [place] [facility] [place] 1999[place] x2 sinus [place] [facility] [place] [facility] [place]. 2006 appendectomy, [facility] [place] 2005 bladder surgery ( spot in bladder), [facility] [place] 2006 bilateral meniscus surgery, [facility] [place] 2004 OVARY REMOVED [facility] [place]. 1980 HYSTERECTOMY,PEDRITO. 07/2013 LEFT [place]E SURG[place] [facility] [place]. total replacement right knee; endoscopy left knee Hx Anesthesia Reactions: Yes - required mechanical ventilation for oversedation - Immunization History Date of Tetanus Vaccine: within the last 10 years Date of Influenza Vaccine: Fall 2014 Infectious Disease History: No Infectious Disease History: Reports: Hx Shingles - 2011 Denies: Hx Clostridium Difficile, Hx Hepatitis, Hx Human Immunodeficiency Virus (HIV), Hx of Known/Suspected MRSA, Hx Tuberculosis, Hx Known/Suspected VRE , Hx Known/Suspected VRSA, History Other Infectious Disease, Traveled Outside the in Last 30 Days - Family History Known Family History: Positive: Cardiac Disease, Hypertension, Other - stroke: mom; migraines Negative: Diabetes - Social History Alcohol Use: Rare Alcohol Amount: 1 GLASS/MONTH Hx Substance Use: No Substance Use Type: Reports: None, Sedatives Substance Use Comment - Amount & Last Used: Valium - Anxiety Hx Tobacco Use: No Smoking Status (MU): Never Smoked Tobacco Have You Smoked in the Last Year: No Review of Systems Negative: Fever, Chills Positive: Other - neck pain, ear pain Positive: Nausea. Negative: Vomiting Positive: Headache. Negative: Weakness, Numbness All Other Systems Reviewed And Are Negative: Yes Physical Exam Triage Information Reviewed: Yes Vital Signs On Initial Exam: Initial Vitals Temp Pulse Resp BP Pulse Ox 97.5 F 65 16 146/94 94 06/14/17 20:57 06/14/17 20:57 06/14/17 20:57 06/14/17 20:57 06/14/17 20:57 Vital Signs Reviewed: Yes Appearance: Positive: Well-Appearing, No Pain Distress Skin: Positive: Warm, Skin Color Reflects Adequate Perfusion, Dry Head/Face: Positive: Normal Head/Face Inspection Eyes: Positive: EOMI, [place] ENT: Positive: Normal ENT inspection Neck: Positive: Supple, Nontender Respiratory/Lung Sounds: Positive: Clear to Auscultation, Breath Sounds Present Cardiovascular: Positive: RRR Abdomen Description: Positive: Nontender, Soft Bowel Sounds: Positive: Present Musculoskeletal: Positive: Normal, Strength/ROM Intact Neurological: Positive: Normal, Sensory/Motor Intact, Alert, Oriented to Person Place, Time, CN Intact II-III Psychiatric: Positive: Affect/Mood Appropriate Diagnostics - Vital Signs Vital Signs Temp Pulse Resp BP Pulse Ox 06/14/17 20:57 97.5 F 65 16 146/94 94 - Laboratory Lab Statement: Any lab studies that have been ordered have been reviewed, and results considered in the medical decision making process. Headache Course/Dx - Course Assessment/Plan: This patient is a 66 year old F presenting to ED with a chief complaint of migraine CASTRO since yesterday. The CC is described as intermittent ( yesterday, this morning and afternoon). The patient rates the pain 7-8/10 in severity. Symptoms aggravated by light, sound, and smells. Symptoms alleviated by Fioricet, Benadryl, and Toradol. Patient reports ear pain, neck pain, and nausea. Patient denies weakness, numbness, vomiting, chills, and fever. In the ED course, pt was given pain medication, nausea medication, and fluids. Medications reviewed. Allergies noted. BP noted and advised to follow up with PCP. Pt will be discharged. Pt is agreeable with this plan. IMPROVED IN ED WITH IVF, TORADOL 30MG, BENADRYL 50MG AND FLEXERIL 10MG. THE FLEXERIL IS FOR NECK PAIN. F/U PMD; RETURN IF WORSE. - Diagnoses Provider Diagnoses: Headache Discharge - Discharge Plan Condition: Stable Disposition: HOME Patient Education Materials: Migraine Headache (ED), Acute Neck Pain (ED) Referrals: Sherron Hood MD [Primary Care Provider] - Additional Instructions: FOLLOW UP WITH YOUR DOCTOR. RETURN TO THE EMERGENCY DEPARTMENT FOR ANY WORSENING OF YOUR CONDITION OR QUESTIONS OR CONCERNS. The documentation as recorded by the Kimani ness Nikita accurately reflects the service I personally performed and the decisions made by , Abdias Agee MD.
== END 2017-06-14 23:42 | disposition home or self-care (01) ==
LOC: ED 20:49
DX: R51 Headache (principal); H92.09 Otalgia, unspecified ear; M54.2 Cervicalgia; R11.0 Nausea; Z88.1 Allergy status to other antibiotic agents; Z88.8 Allergy status to other drugs, medicaments and biological substances; E78.00 Pure hypercholesterolemia, unspecified; I10 Essential (primary) hypertension; K21.9 Gastro-esophageal reflux disease without esophagitis; F41.9 Anxiety disorder, unspecified; F32.9 Major depressive disorder, single episode, unspecified
CPT/HCPCS: 96361; 96374; 96375; 99282; A9270-GY; J1200; J1885; J2765

== ENCOUNTER 2017-06-16 07:06 | Emergency (ER) | payer MEDICARE, BC ==
[2017-06-16] MEDS ORDERED: diPHENhydraMINE IV* 50 MG/ML 1 ml VIAL (BENADRYL) IV ONE (07:42)
[2017-06-16] MEDS ORDERED: Metoclopramide IV* 5 MG/ML 2 ML VIAL IV ONE (07:42)
[2017-06-16] MEDS ORDERED: NS 0.9% 1000 ML* 1,000 ML IV ONE (07:42)
[2017-06-16 08:32] LABS: Hematocrit 38 % (35-47); Hemoglobin 13.1 g/dl (12.0-16.0); Mean Corpuscular HGB Conc 34 g/dl (31-36); Mean Corpuscular Hemoglobin 35 pg (27-31); Mean Corpuscular Volume 102 fL (80-97); Mean Platelet Volume 7 um3 (7.4-10.4); Red Blood Count 3.74 10^6/ul (4.0-5.4); Red Cell Distribution Width 13 % (10.5-15); White Blood Count 5.9 10^3/ul (3.5-10.8)
[2017-06-16 08:50] LABS: ALT 22 U/L (7-52); Albumin 3.9 g/dL (3.2-5.2); Alkaline Phosphatase 55 U/L (34-104); BUN/Creatinine Ratio 25.9 (8-20); Blood Urea Nitrogen 22 mg/dL (6-24); CO2 Carbon Dioxide 23 mmol/L (22-32); Calcium 8.6 mg/dL (8.6-10.3); Chloride 107 mmol/L (101-111); EGFR African American 85.8 (>60); EGFR Non-African American 66.7 (>60); Globulin 2.7 g/dL (2-4); Glucose 116 mg/dL (70-100); Sodium 136 mmol/L (133-145); Total Protein 6.6 g/dL (6.4-8.9)
[2017-06-16 09:40] LABS: Erythrocyte Sed Rate 12 mm/Hr (0-40)
[2017-06-16 09:46] LABS: Anion Gap 6 mmol/L (2-11)
[2017-06-16 10:39] VITALS: BP 117/60
--- NOTE | 2017-06-17 18:47 | ED ---
Tavo Collado Thomas, scribed for Shade Vicente MD on 06/16/17 at 0744 . Headache - HPI Summary HPI Summary: The pt is a 66 y/o F presenting to the ED c/o a migraine headache. The pain is described as her typical migraine pain. The headache is located frontally and radiates across her head and into her neck. The pain is rated 7/10. The pain is aggravated by smells and light. It is alleviated by nothing. The patient has treated the pain with Toradol yesterday to no relief. Pt denies fevers. The patients neurologist is Dr. Cardenas. The patient is accompanied by her . 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 Hx Last Menstrual Period: post Onset/Duration: Still Present Currently Pain Is: Current Pain Scale(0-10)= - 7 Timing: Constant Character: Migraine Location of Headache: Frontal Radiates to: across head and into neck Aggravating Factor: Bright Lights, Other - Smells Allevating Factors: Nothing Associated Signs And Symptoms: Negative - Allergies/Home Medications Allergies/Adverse Reactions: Allergies Allergy/AdvReac Type Severity Reaction Status Date / Time Heparin Allergy Unknown See Comment Verified 06/12/17 05:50 Chlorpromazine AdvReac Severe Altered Verified 06/12/17 05:50 [From Thorazine] Mental Status Erythromycin AdvReac Intermediate Diarrhea Verified 06/12/17 05:50 Valproic Acid [From Depakote] AdvReac Intermediate Altered Verified 06/12/17 05: 50 Mental Status Cephalexin [From Keflex] AdvReac Mild Muscle Ache Verified 06/12/17 05:50 PMH/Surg Hx/FS Hx/Imm Hx Previously Healthy: No Endocrine/Hematology History: Denies: Hx Anticoagulant Therapy, Hx Diabetes, Hx Thyroid Disease Cardiovascular History: Reports: Hx Hypercholesterolemia, Hx Hypertension, Other Cardiovascular Problems/Disorders - heart burn Respiratory History: Denies: Hx Asthma, Hx Chronic Obstructive Pulmonary Disease (COPD) GI History: Reports: Hx Gastroesophageal Reflux Disease Denies: Hx Ulcer Musculoskeletal History: Reports: Hx Arthritis Sensory History: Reports: Hx Contacts or Glasses Denies: Hx Hearing Aid Opthamlomology History: Reports: Hx Contacts or Glasses Neurological History: Reports: Hx Migraine - Chronic migraine disease, Hx Seizures Psychiatric History: Reports: Hx Anxiety, Hx Depression - Cancer History Hx Chemotherapy: No Hx Radiation Therapy: No - Surgical History Surgery Procedure, Year, and Place: 1974, 1976, 1978 3 C Sections [facility]. 1986 right elbow surgery [place]. LEFT breast biopsy [facility] [place]. 1999s x2 sinus surgery [facility] [place] [facility] [place]. 2005 appendectomy, [facility] [place]. 2004 bladder surgery ( spot in bladder), [facility] [place]. 2005 bilateral meniscus surgery, [facility] [place]. 2004 OVARY REMOVED [facility] [place]. 1980 HYSTERECTOMY,PEDRITO. 07/2013 LEFT TOE SURGERY [facility] [place]. total replacement right knee; endoscopy left knee Hx Anesthesia Reactions: Yes - required mechanical ventilation for oversedation - Immunization History Date of Tetanus Vaccine: within the last 10 years Date of Influenza Vaccine: Fall 2014 Infectious Disease History: No Infectious Disease History: Reports: Hx Shingles - 2011 Denies: Hx Clostridium Difficile, Hx Hepatitis, Hx Human Immunodeficiency Virus (HIV), Hx of Known/Suspected MRSA, Hx Tuberculosis, Hx Known/Suspected VRE , Hx Known/Suspected VRSA, History Other Infectious Disease, Traveled Outside the in Last 30 Days - Family History Known Family History: Positive: Unknown, Cardiac Disease, Hypertension, Other - stroke: mom; migraines Negative: Diabetes - Social History Lives: With Family Alcohol Use: Rare Alcohol Amount: 1 GLASS/MONTH Hx Substance Use: No Substance Use Type: Reports: None, Sedatives Substance Use Comment - Amount & Last Used: Valium - Anxiety Hx Tobacco Use: No Smoking Status (MU): Never Smoked Tobacco Have You Smoked in the Last Year: No Review of Systems Negative: Fever Positive: Headache - migraine headache All Other Systems Reviewed And Are Negative: Yes Physical Exam - Summary Physical Exam Summary: VITAL SIGNS: Reviewed. GENERAL: Patient is a well-developed and nourished female who is lying comfortable in the stretcher. Patient is not in any acute respiratory distress. HEAD AND FACE: No signs of trauma. No ecchymosis, hematomas or skull depressions. No sinus tenderness. EYES: PERRLA, EOMI x 2, No injected conjunctiva, no nystagmus. EARS: Hearing grossly intact. Ear canals and tympanic membranes are within normal limits. MOUTH: Oropharynx within normal limits. NECK: Supple, trachea is midline, no adenopathy, no JVD, no carotid bruit, no c- spine tenderness, neck with full ROM. CHEST: Symmetric, no tenderness at palpation LUNGS: Clear to auscultation bilaterally. No wheezing or crackles. CVS: Regular rate and rhythm, S1 and S2 present, no murmurs or gallops appreciated. ABDOMEN: Soft, non-tender. No signs of distention. No rebound no guarding, and no masses palpated. Bowel sounds are normal. EXTREMITIES: FROM in all major joints, no edema, no cyanosis or clubbing. NEURO: Alert and oriented x 3. No acute neurological deficits. Speech is normal and follows commands. SKIN: Dry and warm Triage Information Reviewed: Yes Vital Signs On Initial Exam: Initial Vitals Temp Pulse Resp BP Pulse Ox 97.2 F 61 20 128/90 99 06/16/17 07:13 06/16/17 07:13 06/16/17 07:13 06/16/17 07:13 06/16/17 07:13 Vital Signs Reviewed: Yes - [place] Coma Scale Coma Scale Total: 15 Diagnostics - Vital Signs Vital Signs Temp Pulse Resp BP Pulse Ox 06/16/17 07:13 97.2 F 61 20 128/90 99 - Laboratory Result Diagrams: 06/16/17 08:20 06/16/17 08:20 Lab Statement: Any lab studies that have been ordered have been reviewed, and results considered in the medical decision making process. Headache Course/Dx - Course Assessment/Plan: The pt is a 66 y/o F presenting to the ED c/o a migraine headache. The pain is described as her typical migraine pain. The headache is located frontally and radiates across her head and into her neck. The pain is rated 7/10. The pain is aggravated by smells and light. It is alleviated by nothing. The patient has treated the pain with Toradol yesterday to no relief. Pt denies fevers. The patients neurologist is Dr. Cardenas. The patient is accompanied by her . Test results are without significant abnormality. In the ED course the patient was given IV fluids, Toradol, Reglan, and Benadryl , and her symptoms improved. At this point, the patient is asymptomatic and wants to go home. The neurological exam at discharge is normal; therefore, the patient will be discharged home with follow up with primary care. The patient is hemodynamically stable and alert and oriented x 3. - Diagnoses Provider Diagnoses: Migraine headache Discharge - Discharge Plan Condition: Stable Disposition: HOME Patient Education Materials: Acute Headache (ED) Referrals: Sherron Hood MD [Primary Care Provider] - 3 Days Additional Instructions: Follow up with your primary care provider in 2-3 days. Return to the emergency department for any new or worsening symptoms. The documentation as recorded by the Tavo ness Thomas accurately reflects the service I personally performed and the decisions made by , Shade Vicente MD.
== END 2017-06-16 10:38 | disposition home or self-care (01) ==
LOC: ED 07:06
DX: G43.909 Migraine, unspecified, not intractable, without status migrainosus (principal)
CPT/HCPCS: 36415; 80053; 82375; 85025; 85652; 96374; 96375; 99283; J1200; J2765

== ENCOUNTER 2017-09-03 13:50 | Emergency (ER) | payer MEDICARE, BC ==
--- OUTSIDE RECORDS SUMMARY | 2017-09-03 14:57 | XMS REPORT ---
:1950 External Reference #:[id number] Author Organization [facility] Address [address] [address] Phone [phone] Care Team Providers Name Role Phone Sherron Hood MD Primary Care Physician Unavailable Payers Type Date Identification Numbers Payment Provider Subscriber Medicare Primary Effective: Policy Number: Medicare Tatiana Ponce 2014 [id number] PayID: [id number] [address] [place] [address] Medigap Part B Effective: 2012 Policy Number: BS Facets Tatiana Ponce [id number] PayID: [id number] [address] [address] [place] [address] Problems Date Description Provider Status Onset: 09/11/2014 Spasm Manisha Cardenas M.D. Active Onset: 09/11/2014 Refractory migraine Manisha Cardenas M.D. Active Onset: 01/31/2015 Enthesopathy of knee Paulino Ramirez M.D. Active Onset: 02/07/2015 Anxiety disorder Manisha Cardenas M.D. 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 hours as needed for migraine. take with food. Cyclobenzaprine 01/09 Active Tablets 10mg 42tab take 1 Manisha HCL s tablet by Cowdery, mouth M.D. every 8 hours as need for muscle spasm Ondansetron HCL 07/18 Active Tablets 4mg 40tab one to two G43.919 Manisha s by mouth Cowdery, every 8 M.D. hours as needed for nausea, or severe migraine Botox 11/14 Active Solution 100Unit injected q Rec 3 months Cowdertom, for M.D. intractabl e migraines Tizanidine HCL 11/10 Active Capsules 4mg 60cap take 2 by Ana Lilia s mouth qhs. MD Mal[place] Cymbalta Active Caps DR 60mg 30cap 2 po qd Unknown /0000 Part s Topiramate Active Tablets 100mg 180ta 2 po qam Ramsey S. / bs Brooks Banda Lipitor Active Tablets 20mg 30tab one tab po Unknown /0000 s qam Nadolol Active Tablets 80mg 135ta take 1.5 Manisha / bs by mouth Cowdery, every M.D. morning Protonix Active Tablets DR 40mg 1 by mouth Unknown /0000 every day Diazepam Active Tablets 5mg 1 by mouth Unknown /0000 three times daily prn Ditropan XL Active Tablets ER 10mg 1 by mouth Unknown /0000 24HR every day Buspirone HCL Active Tablets 30mg 1 tab po Unknown /0000 qd Abilify Active Tablets 10mg 1 tab po Alejandro, /0000 qd MD Henok Onzetra Xsail 06/23 Hx Exhp 11mg/Nose 32uni 1 cap in pc ts each Gareth Banda nostril x1 M.D. 06/23 : december repeat dose x1 after 2 hours. Do not use more than 2x weekly. Onzetra Xsail 06/23 Hx Exhp 11mg/Nose 16uni Administer G43.919 pc ts 1 cap Gema, - intranasal MD 09/01 ly in each nostril x1 . December repeat dose x1. Tramadol HCL 08/09 Hx Tablets 50mg 10tab 1 tablets Manisha s every 6 Cowdery, - hours as M.D. 06/22 needed for severe migraine; not to exceed more than 2 doses a day, maximum 2 times a week Voltaren 03/27 Hx Gel 1% 1tube apply to 726.60 the knee Ashley, - as needed M.D. 09/01 for pain, maximum 3 times a day Prednisone 12/04 Hx Tablets 20mg 20tab 60mg by Jennifer s mouth x 3 Gnadt, LOCKER ROOM CLERK - days, then 12/12 40mg by mouth x 3 days, then 20mg x 3 days, then 10mg by mouth x 3 days, then stop. [place] 07/07 Hx Tablets 5-325mg 60tab take 1-2 s tabs at Ashley, - bedtime M.D. 09/01 for sleep Neurontin 03/10 Hx Capsules 300mg 60cap 2 by mouth s every Ashley, - night at M.D. 09/10 bedtime Ultram 01/25 Hx Tablets 50mg 40tab 1 tab po s bid prn Ashley, - M.D. 02/22 Percocet 12/09 Hx Tablets 5-325mg 60tab 1 to 2 s tabs by Ashley, - mouth once M.D. 09/06 a day as needed for pain Percocet 11/11 Hx Tablets 5-325mg 90tab take 1-2 s tabs po Ashley, - q4-6 hours M.D. 11/14 prn pain Coumadin 11/11 Hx Tablets 2.5mg 90tab 1-3 po s daily as Ashley, - directed M.D. 11/14 by doctor /2013 through visiting nurse orders [place] 11/11 Hx Tablets 5-325mg 60tab 1-2 tabs s by mouth q Ashley, - 4-6 hours M.D. 02/22 prn pain /2013 Hydrocodone/Acetam 07/04 Hx Tablets 5-500mg 60tab 2 tabs po s qhs prn Ashley, - pain M.D. 11/11 Prednisone 12/16 Hx Tablets 20mg 20tab take 3 po s qam x Ronald, - 3days, M.D. 02/10 then 2 po qam x3 days then 1 po qam x3 days then 1/2 po qam x3 days (take in am with food) Percocet 10/28 Hx Tablets 5-325mg 30tab 1-2 po bid s prn pain Ashley, - M.D. 02/10 Nadolol 08/12 Hx Tablets 80mg 60tab take 2 po s qday Ronald, - M.D. 07/06 Tizanidine HCL 07/02 Hx Tablets 2mg 120ta take 1 po bs qhs. December Ronald, - increase M.D. 11/10 by tablet q7 days to maximum 4 tablets po qhs Ketorolac 05/27 Hx Tablets 10mg 5tabs take 1 by Ramsey Taveras Tromethamine mouth Veronika, - every 8 M.D. /24 hours needed for migraine. take with food. maximum 2 days a week. do not take with other nsaid's Celebrex 04/09 Hx Capsules 200mg 60cap Take 1 s Capsule By Ashley, - Mouth M.D. 02/23 Twice Daily as Needed *Max 2/Day* Percocet 01/26 Hx Tablets 5-325mg 40tab 1-2 tab by s mouth Ashley, - every 4 M.D. 03/16 hours needed Vicodin 01/15 Hx Tablets 5-500mg 40tab 1-2 by s mouth qhs Ashley, - as needed M.D. 05/23 for pain Cardizem CD 01/18 Hx Capsules 180mg 30cap One qd s - 02/10 Hydrochlorothiazid 01/18 Hx Tablets 25mg 30tab Take One Unknown s Tablet - Daily 02/10 Prilosec 01/18 Hx Capsules 20mg 60cap One qd prn s - 11/11 Premarin 01/18 Hx Tablets 0.625mg 30tab One qd s - 02/10 Ditropan XL 01/18 Hx Tablets 2.5mg 60tab One tab po s qd - 02/23 Paxil 01/18 Hx Tablets 40mg 30tab One qd s - 02/10 Daniela Tabs 01/18 Hx Tablets 180mg 30tab One qd s - 02/10 Zyrtec 01/18 Hx Tablets 10mg 30tab One QHS s - 02/10 Cozaar 01/18 Hx 50mg 30uni One Daily ts - 02/10 Abilify 00/00 Hx Tablets 15mg 30tab 1 po qd Unknown / s - 01/09 Clonazepam 00/00 Hx Tablets 1mg 90tab 1 po tid Unknown /0000 s prn - 11/11 Vitamin D 00/00 Hx 1200mg 1 po daily Unknown / - 09/01 SMZ-TMP DS 0000 Hx Tablets 800-160mg 20tab 1 po bid Unknown /0000 s - 11/14 Vitamin B-12 CR 00/00 Hx Tablets ER 1000mcg 1 po qd Unknown /0000 - 06/22 Clonazepam 00/00 Hx Tablets 1mg 30tab take 1 po Unknown /0000 s tid, prn - anxiety 01/30 Buspirone HCL 00/00 Hx Tablets 15mg take one Unknown /0000 tablet by - mouth 02/23 twice a /2015 day Abilify 00/00 Hx Tablets 10mg 1 by mouth Unknown /0000 each day - 01/08 Injection Active Injection Manisha Richmondulinumtoxin / Gertrude Cardenas, 1 Unit M.D. Medications Administered in Office Medication Date Status Form Strength Qnty SIG Indications Ordering Provider Injection 05/01 Administered Injection Manisha Richmondulinumtoxin /2016 Gertrude Cardenas, 1 Unit M.D. Injection 01/09 Administered Injection Manisha Onabotulinumtoxin /2016 Cowdery, A, 1 Unit M.D. Injection 09/29 Administered Injection Ramsey S. Onabotulinumtoxin /2016 Veronika, A, 1 Unit M.D. Injection 06/23 Administered Injection Ramsey S. Onabotulinumtoxin /2015 Lawtons, A, 1 Unit M.D. Injection 02/24 Administered Injection Manisha Onabotulinumtoxin /2015 Cowdery, A, 1 Unit M.D. Injection 11/05 Administered Injection Manisha Onabotulinumtoxin /2015 Cowdery, A, 1 Unit M.D. Depomedrol 40MG 09/06 Administered Injection Tabitha /2016 TORO Luna Depomedrol 80MG 06/27 Administered Injection Tabitha TORO Luna Injection 06/27 Administered Injection Jennifer Onabotulinumtoxin /2014 Gnadt, LOCKER ROOM CLERK A, 1 Unit Injection 03/28 Administered Injection Jennifer Onabotulinumtoxin /2014 Gnadt, LOCKER ROOM CLERK A, 1 Unit Injection 12/13 Administered Injection Jennifer Onabotulinumtoxin /2014 Gnadt, LOCKER ROOM CLERK A, 1 Unit Injection 09/11 Administered Injection Manisha Onabotulinumtoxin /2014 Cowdery, A, 1 Unit M.D. Depomedrol 80MG 07/07 Administered Injection Tabitha /2014 TORO Luna Injection 06/29 Administered Injection Manisha Onabotulinumtoxin /2013 Cowdery, A, 1 Unit M.D. Injection 02/22 Administered Injection Manisha Onabotulinumtoxin /2013 Cowdery, A, 1 Unit M.D. Injection 11/14 Administered Injection Manisha Onabotulinumtoxin /2013 Cowdery, A, 1 Unit M.D. Synvisc Or 08/11 Administered Injection Paulino Synvisc-One Ashley, Injection 1 MG M.D. Synvisc Or 07/20 Administered Injection Kody Synvisc-One H. Injection 1 MG Mckeithen, R.P.A.-C Injection 05/23 Administered Injection Manisha Onabotulinumtoxin /2012 Cowdery, A, 1 Unit M.D. Depomedrol 80MG 03/16 Administered Injection Ashley, M.D. Depomedrol 80MG 03/16 Administered Injection Brooks Ramirez Injection 02/10 Administered Injection Manisha Onabotulinumtoxin /2012 Cowdery, A, 1 Unit M.DKendy Injection 11/10 Administered Injection Manisha Onabotulinumtoxin /2012 Cowdery, A, 1 Unit M.D. Depomedrol 80MG 10/28 Administered Injection Brooks Ramirez Depomedrol 80MG 10/28 Administered Injection Brooks Ramirez Injection 08/12 Administered Injection Manisha Onabotulinumtoxin /2011 Cowdery, A, 1 Unit M.D. Depomedrol 80MG 06/16 Administered Injection Brooks Ramirez Depomedrol 80MG 12/11 Administered Injection Yara Alvarez Depomedrol 80MG 06/25 Administered Injection Radha ANIBAL Oneil Depomedrol 80MG 06/03 Administered Injection Brooks Ramirez Depomedrol 80MG 03/04 Administered Injection Radha ANIBAL Oneil Vital Signs Date Vital Result Comment 08/05/2017 Height 62 inches 5'2" Weight 160.00 lb Heart Rate 72 /min BP Systolic Sitting 112 mmHg BP Diastolic Sitting 70 mmHg Respiratory Rate 16 /min BMI (Body Mass Index) 29.3 kg/m2 06/17/2017 Height 62 inches 5'2" Weight 160.00 lb Heart Rate 62 /min BP Systolic Sitting 162 mmHg BP Diastolic Sitting 98 mmHg Respiratory Rate 16 /min BMI (Body Mass Index) 29.3 kg/m2 05/01/2017 Height 62 inches 5'2" Weight 155.25 lb Heart Rate 60 /min BP Systolic 102 mmHg BP Diastolic 60 mmHg BMI (Body Mass Index) 28.4 kg/m2 01/09/2017 Height 62 inches 5'2" Weight 161.00 lb Heart Rate 72 /min BP Systolic Sitting 132 mmHg BP Diastolic Sitting 84 mmHg Respiratory Rate 14 /min BMI (Body Mass Index) 29.4 kg/m2 09/29/2016 Height 62 inches 5'2" Weight 150.00 lb Heart Rate 78 /min BP Systolic Sitting 120 mmHg BP Diastolic Sitting 80 mmHg Respiratory Rate 17 /min BMI (Body Mass Index) 27.4 kg/m2 06/23/2016 Height 62 inches 5'2" Weight 157.00 lb Heart Rate 78 /min BP Systolic Sitting 118 mmHg BP Diastolic Sitting 78 mmHg BMI (Body Mass Index) 28.7 kg/m2 02/25/2016 Height 62 inches 5'2" Weight 170.00 lb Heart Rate 64 /min BP Systolic Sitting 132 mmHg BP Diastolic Sitting 84 mmHg Respiratory Rate 16 /min BMI (Body Mass Index) 31.1 kg/m2 11/06/2015 Height 62 inches 5'2" Weight 160.00 lb Heart Rate 64 /min BP Systolic Sitting 132 mmHg BP Diastolic Sitting 88 mmHg BMI (Body Mass Index) 29.3 kg/m2 09/06/2015 Height 62 inches 5'2" Weight 162.00 lb Pain Level 6 BMI (Body Mass Index) 29.6 kg/m2 07/18/2015 Height 62 inches 5'2" Weight 166.00 lb Heart Rate 76 /min BP Systolic Sitting 128 mmHg BP Diastolic Sitting 74 mmHg Respiratory Rate 16 /min BMI (Body Mass Index) 30.4 kg/m2 06/27/2015 Height 62 inches 5'2" Weight 162.00 lb Heart Rate 68 /min BP Systolic Sitting 134 mmHg BP Diastolic Sitting 76 mmHg Respiratory Rate 16 /min BMI (Body Mass Index) 29.6 kg/m2 06/27/2015 Height 62 inches 5'2" Weight 162.00 lb Pain Level 6 BMI (Body Mass Index) 29.6 kg/m2 03/28/2015 Height 62 inches 5'2" Weight 160.00 lb Heart Rate 80 /min BP Systolic Sitting 140 mmHg BP Diastolic Sitting 80 mmHg Respiratory Rate 17 /min BMI (Body Mass Index) 29.3 kg/m2 03/27/2015 Height 62 inches 5'2" Weight 160.00 lb Pain Level 7 BMI (Body Mass Index) 29.3 kg/m2 02/07/2015 Height 62 inches 5'2" Weight 160.00 lb Heart Rate 66 /min BP Systolic Sitting 120 mmHg BP Diastolic Sitting 80 mmHg Respiratory Rate 17 /min BMI (Body Mass Index) 29.3 kg/m2 01/31/2015 Height 62 inches 5'2" Weight 160.00 lb Pain Level 7 mainly when active/increases at night BMI (Body Mass Index) 29.3 kg/m2 12/13/2014 Height 62 inches 5'2" Heart Rate 68 /min BP Systolic Sitting 126 mmHg BP Diastolic Sitting 72 mmHg Respiratory Rate 16 /min 12/06/2014 Height 62 inches 5'2" Weight 160.00 lb Pain Level 5 BMI (Body Mass Index) 29.3 kg/m2 09/11/2014 Height 62 inches 5'2" Weight 162.00 lb Heart Rate 60 /min BP Systolic Sitting 120 mmHg BP Diastolic Sitting 72 mmHg Respiratory Rate 16 /min BMI (Body Mass Index) 29.6 kg/m2 09/06/2014 Height 62 inches 5'2" Heart Rate 63 /min BP Systolic 132 mmHg BP Diastolic 91 mmHg 07/07/2014 Height 62 inches 5'2" Heart Rate 60 /min BP Systolic 159 mmHg BP Diastolic 92 mmHg 07/05/2014 Height 62 inches 5'2" Heart Rate 55 /min BP Systolic 63 mmHg BP Diastolic 48 mmHg 06/29/2014 Height 62 inches 5'2" Weight 155.00 lb Heart Rate 60 /min BP Systolic Sitting 118 mmHg BP Diastolic Sitting 80 mmHg Respiratory Rate 16 /min BMI (Body Mass Index) 28.3 kg/m2 05/19/2014 Height 62 inches 5'2" Heart Rate 58 /min BP Systolic 150 mmHg BP Diastolic 88 mmHg 04/28/2014 Height 62 inches 5'2" Weight 160.00 lb Heart Rate 57 /min BP Systolic 115 mmHg BP Diastolic 86 mmHg BMI (Body Mass Index) 29.3 kg/m2 03/24/2014 Height 62 inches 5'2" Heart Rate 70 /min BP Systolic 122 mmHg BP Diastolic 84 mmHg 03/10/2014 Height 62 inches 5'2" Heart Rate 59 /min BP Systolic 154 mmHg BP Diastolic 113 mmHg 02/22/2014 Height 62 inches 5'2" Weight 160.00 lb Heart Rate 68 /min BP Systolic Sitting 112 mmHg BP Diastolic Sitting 78 mmHg Respiratory Rate 16 /min BMI (Body Mass Index) 29.3 kg/m2 02/22/2014 Height 62 inches 5'2" Weight 180.00 lb Heart Rate 67 /min BMI (Body Mass Index) 32.9 kg/m2 02/01/2014 Height 62 inches 5'2" Heart Rate 70 /min BP Systolic 123 mmHg BP Diastolic 83 mmHg 12/21/2013 Height 62 inches 5'2" Heart Rate 84 /min BP Systolic 165 mmHg BP Diastolic 103 mmHg 11/14/2013 Heart Rate 66 /min BP Systolic Sitting 120 mmHg BP Diastolic Sitting 70 mmHg Respiratory Rate 16 /min 11/11/2013 Height 62 inches 5'2" Weight 180.00 lb Heart Rate 60 /min BP Systolic 139 mmHg BP Diastolic 105 mmHg BMI (Body Mass Index) 32.9 kg/m2 10/21/2013 Heart Rate 59 /min BP Systolic 159 mmHg BP Diastolic 99 mmHg 05/23/2013 Heart Rate 64 /min BP Systolic Sitting 118 mmHg BP Diastolic Sitting 76 mmHg Respiratory Rate 12 /min 02/10/2013 Heart Rate 60 /min BP Systolic Sitting 122 mmHg BP Diastolic Sitting 80 mmHg Respiratory Rate 12 /min 11/26/2010 Height 62 inches 5'2" Weight 170.00 lb Heart Rate 63 /min BP Systolic 123 mmHg BP Diastolic 85 mmHg BMI (Body Mass Index) 31.1 kg/m2 Results Test Date Test Result H/L Range Note CBC Auto Diff 12/03/2015 White Blood Count 6.1 10^3/uL 3.5-10.8 Red Blood Count 3.74 10^6/uL Low 4.0-5.4 Hemoglobin 13.0 g/dL 12.0-16.0 Hematocrit 38 % 35-47 Mean Corpuscular Volume 102 fL High 80-97 Mean Corpuscular Hemoglobin 35 pg High 27-31 Mean Corpuscular HGB Conc 34 g/dL 31-36 Red Cell Distribution Width 13 % 10.5-15 Platelet Count 252 10^3/uL 150-450 Mean Platelet Volume 8 um3 7.4-10.4 Abs Neutrophils 3.1 10^3/uL 1.5-7.7 Abs Lymphocytes 2.3 10^3/uL 1.0-4.8 Abs Monocytes 0.5 10^3/uL 0-0.8 Abs Eosinophils 0.1 10^3/uL 0-0.6 Abs Basophils 0 10^3/uL 0-0.2 Abs Nucleated RBC 0.01 10^3/uL Granulocyte % 50.6 % 38-83 Lymphocyte % 37.9 % 25-47 Monocyte % 8.5 % 1-9 Eosinophil % 2.2 % 0-6 Basophil % 0.8 % 0-2 Nucleated Red Blood Cells % 0.1 Comp Metabolic Panel 12/03/2015 Sodium 138 mmol/L 133-145 Potassium 3.8 mmol/L 3.5-5.0 Chloride 108 mmol/L 101-111 Co2 Carbon Dioxide 24 mmol/L 22-32 Anion Gap 6 mmol/L 2-11 Glucose 113 mg/dL High 70-100 Blood Urea Nitrogen 19 mg/dL 6-24 Creatinine 0.93 mg/dL 0.51-0.95 BUN/Creatinine Ratio 20.4 High 8-20 Calcium 9.2 mg/dL 8.6-10.3 Total Protein 6.7 g/dL 6.4-8.9 Albumin 4.1 g/dL 3.2-5.2 Globulin 2.6 g/dL 2-4 Albumin/Globulin Ratio 1.6 1-3 Total Bilirubin 0.50 mg/dL 0.2-1.0 Alkaline Phosphatase 55 U/L 34-104 Alt 11 U/L 7-52 Ast 12 U/L Low 13-39 Egfr Non- 60.3 >60 Egfr 77.6 >60 1 Laboratory test finding 12/03/2015 Vitamin B12 340 pg/mL 180-914 2 Hemoglobin A1c (Glyco HGB) 5.6 % Less than 6.0 3 CBC Auto Diff 11/19/2015 White Blood Count 4.3 10^3/uL 3.5-10.8 Red Blood Count 3.59 10^6/uL Low 4.0-5.4 Hemoglobin 12.4 g/dL 12.0-16.0 Hematocrit 38 % 35-47 Mean Corpuscular Volume 105 fL High 80-97 Mean Corpuscular Hemoglobin 35 pg High 27-31 Mean Corpuscular HGB Conc 33 g/dL 31-36 Red Cell Distribution Width 13 % 10.5-15 Platelet Count 275 10^3/uL 150-450 Mean Platelet Volume 8 um3 7.4-10.4 Abs Neutrophils 2.2 10^3/uL 1.5-7.7 Abs Lymphocytes 1.7 10^3/uL 1.0-4.8 Abs Monocytes 0.3 10^3/uL 0-0.8 Abs Eosinophils 0.1 10^3/uL 0-0.6 Abs Basophils 0 10^3/uL 0-0.2 Abs Nucleated RBC 0 10^3/uL Granulocyte % 52.0 % 38-83 Lymphocyte % 38.9 % 25-47 Monocyte % 6.1 % 1-9 Eosinophil % 2.1 % 0-6 Basophil % 0.9 % 0-2 Nucleated Red Blood Cells % 0.1 Comp Metabolic Panel 11/19/2015 Sodium 138 mmol/L 133-145 Potassium 4.4 mmol/L 3.5-5.0 Chloride 108 mmol/L 101-111 Co2 Carbon Dioxide 23 mmol/L 22-32 Anion Gap 7 mmol/L 2-11 Glucose 87 mg/dL 70-100 Blood Urea Nitrogen 21 mg/dL 6-24 Creatinine 0.87 mg/dL 0.51-0.95 BUN/Creatinine Ratio 24.1 High 8-20 Calcium 9.5 mg/dL 8.6-10.3 Total Protein 6.6 g/dL 6.4-8.9 Albumin 4.3 g/dL 3.2-5.2 Globulin 2.3 g/dL 2-4 Albumin/Globulin Ratio 1.9 1-3 Total Bilirubin 0.40 mg/dL 0.2-1.0 Alkaline Phosphatase 57 U/L 34-104 Alt 13 U/L 7-52 Ast 13 U/L 13-39 Egfr Non- 65.1 >60 Egfr 83.8 >60 4 Lipid Profile (Trig/Chol/HDL) 11/19/2015 Triglycerides 127 mg/dL 5 Cholesterol 165 mg/dL 6 HDL Cholesterol 56.4 mg/dL 7 LDL Cholesterol 83 mg/dL 8 Laboratory test finding 11/19/2015 Creatine Kinase(CK) 62 U/L 10-223 TSH (Thyroid Stim Horm) 1.17 ?IU/mL 0.34-5.60 Free T4 (Free Thyroxine) 0.85 ng/dL 0.61-1.12 Vitamin B12 387 pg/mL 180-914 9 Vitamin D Total 25(Oh) 19.9 ng/mL Low 30-50 Hemoglobin A1c 5.8 % Less than 6.0 10 Laboratory test finding 01/08/2015 TSH (Thyroid Stimulating 1.39 ?IU/mL 0.34-5.60 Horm) Vitamin B12 456 pg/mL 180-914 11 Vitamin D Total 25(Oh) 18.4 ng/mL Low 30-50 Hemoglobin A1c 5.8 % Less than 6.0 12 Lipid Profile (Trig/Chol/HDL) 01/08/2015 Triglycerides 141 mg/dL 13 Cholesterol 183 mg/dL 14 HDL Cholesterol 57.6 mg/dL 15 LDL Cholesterol 97 mg/dL 16 Comp Metabolic Panel 01/08/2015 Sodium 137 mmol/L 133-145 Potassium 4.2 mmol/L 3.5-5.0 Chloride 106 mmol/L 101-111 Co2 Carbon Dioxide 22 mmol/L 22-32 Anion Gap 9 mmol/L 2-11 Glucose 101 mg/dL High 70-100 Blood Urea Nitrogen 17 mg/dL 6-24 Creatinine 0.78 mg/dL 0.51-0.95 BUN/Creatinine Ratio 21.8 High 8-20 Calcium 9.7 mg/dL 8.6-10.3 Total Protein 6.9 g/dL 6.4-8.9 Albumin 4.6 g/dL 3.2-5.2 Globulin 2.3 g/dL 2-4 Albumin/Globulin Ratio 2.0 1-3 Total Bilirubin 0.60 mg/dL 0.2-1.0 Alkaline Phosphatase 71 U/L 34-104 Alt 20 U/L 7-52 Ast 15 U/L 13-39 Egfr Non- 74.1 >60 Egfr 95.3 >60 17 CBC Auto Diff 01/08/2015 White Blood Count 7.3 10^3/uL 4.8-10.8 Red Blood Count 4.12 10^6/uL 4.0-5.4 Hemoglobin 14.3 g/dL 12.0-16.0 Hematocrit 43 % 35-47 Mean Corpuscular Volume 104 fL High 80-97 Mean Corpuscular Hemoglobin 35 pg High 27-31 Mean Corpuscular HGB Conc 33 g/dL 31-36 Red Cell Distribution Width 13 % 10.5-15 Platelet Count 347 10^3/uL 150-450 Mean Platelet Volume 8 um3 7.4-10.4 Abs Neutrophils 4.5 10^3/uL 1.5-7.7 Abs Lymphocytes 2.2 10^3/uL 1.0-4.8 Abs Monocytes 0.5 10^3/uL 0-0.8 Abs Eosinophils 0.1 10^3/uL 0-0.6 Abs Basophils 0 10^3/uL 0-0.2 Abs Nucleated RBC 0.02 10^3/uL Granulocyte % 61.0 % 38-83 Lymphocyte % 29.8 % 25-47 Monocyte % 6.8 % 1-9 Eosinophil % 1.9 % 0-6 Basophil % 0.5 % 0-2 Nucleated Red Blood Cells % 0.2 Urinalysis 11/11/2013 Urine Color Yellow Urine Appearance Clear Urine Specific [place] 1.010 1.010-1.030 Urine Esterase Trace Negative Urine Nitrate Negative Negative Urine Urobilinogen Negative E.U./dL Negative Urine Protein Negative mg/dL Negative Urine pH 7.0 5-9 Urine Blood Negative Negative Urine Ketones Negative mg/dL Negative Urine Bilirubin Negative Negative Urine Glucose Negative mg/dL Negative Urine Microscopic 11/11/2013 Urine WBC 1+ (<10 /hpf) None Seen Urine RBC None Seen None Seen Urine Epithelial Cells 1+ Squamous /hpf None Seen Bacteria Urine 3+ None Seen CBC No Diff 11/11/2013 White Blood Count 7.0 10^3/uL 4.8-10.8 Red Blood Count 3.84 10^6/uL Low 4.0-5.4 Hemoglobin 13.0 g/dL 12.0-16.0 Hematocrit 39 % 35-47 Mean Corpuscular Volume 101 fL High 80-97 Mean Corpuscular Hemoglobin 34 pg High 27-31 Mean Corpuscular HGB Conc 33 g/dL 31-36 Red Cell Distribution Width 13 % 10.5-15 Platelet Count 264 10^3/uL 150-450 Mean Platelet Volume 8 um3 7.4-10.4 Basic Metabolic Panel 11/11/2013 Sodium 139 mmol/L 133-145 Potassium 4.1 mmol/L 3.7-5.6 Chloride 107 mmol/L 101-111 Co2 Carbon Dioxide 25 mmol/L 22-32 Anion Gap 7 mmol/L 2-11 Glucose 88 mg/dL 70-100 Blood Urea Nitrogen 19 mg/dL 6-24 Creatinine 0.83 mg/dL 0.51-0.95 BUN/Creatinine Ratio 22.9 High 8-20 Calcium 9.3 mg/dL 8.6-10.3 Egfr Non- 69.2 >60 Egfr 89.0 >60 18 Type & Screen 11/11/2013 Patient Blood Type O Negative Antibody Screen NEGATIVE Comp Metabolic Panel 12/18/2012 Sodium 139 mmol/L 133-145 Potassium 4.1 mmol/L 3.5-5.0 Chloride 113 mmol/L High 101-111 Co2 Carbon Dioxide 20.0 mmol/L Low 22-32 Anion Gap 6.0 mmol/L 2-11 Glucose 98 mg/dL 70-100 Blood Urea Nitrogen 16 mg/dL 6-24 Creatinine 1.00 mg/dL 0.50-1.40 BUN/Creatinine Ratio 16.0 8-20 Calcium 8.8 mg/dL 8.1-9.9 Total Protein 6.1 g/dL Low 6.2-8.1 Albumin 3.6 g/dL 3.2-5.2 Globulin 2.5 g/dL 2-4 Albumin/Globulin Ratio 1.4 1-3 Total Bilirubin 0.7 mg/dL 0.4-1.5 Alkaline Phosphatase 49 U/L 30-110 Alt 20 U/L 14-54 Ast 21 U/L 12-42 Egfr Non- 56.0 >60 Egfr 72.0 >60 19 Urine Culture & 02/04/2012 M <SEE 20 Sensitivi NOTE> Myasthenia Gravis 02/03/2012 Ach Receptor 0.00 nmol/L <=0.0 (MG), Adult Binding AB 2 Ach Receptor Modulating AB 0 % () 21 Striational AB Negative titer <1:60 22 1 Because ethnic data is not always readily available, this report includes an eGFR for both -Americans and non- Americans. The National Kidney Disease Education Program (NKDEP) does not endorse the use of the MDRD equation for patients that are not between the ages of 18 and 70, are , have extremes of body size, muscle mass, or nutritional status, or are non- or non-. According to the National Kidney Foundation, irrespective of diagnosis, the stage of the disease is based on the level of kidney function: Stage Description GFR(mL/min/1.73 m(2)) 1 Kidney damage with normal or decreased GFR 90 2 Kidney damage with mild decrease in GFR 60-89 3 Moderate decrease in GFR 30-59 4 Severe decrease in GFR 15-29 5 Kidney failure <15 (or dialysis) 2 Normal Range 180 to 914 Indeterminate Range 145 to 180 Deficient Range <145 3 Therapeutic target for the treatment of diabetes Mellitus patients is <7% HBA1C, and in selective patients <6.0%.Please refer to [place] [employer] Diabetic care guidelines for further information. 4 Because ethnic data is not always readily available, this report includes an eGFR for both -Americans and non- Americans. The National Kidney Disease Education Program (NKDEP) does not endorse the use of the MDRD equation for patients that are not between the ages of 18 and 70, are , have extremes of body size, muscle mass, or nutritional status, or are non- or non-. According to the National Kidney Foundation, irrespective of diagnosis, the stage of the disease is based on the level of kidney function: Stage Description GFR(mL/min/1.73 m(2)) 1 Kidney damage with normal or decreased GFR 90 2 Kidney damage with mild decrease in GFR 60-89 3 Moderate decrease in GFR 30-59 4 Severe decrease in GFR 15-29 5 Kidney failure <15 (or dialysis) 5 Desirable <150 Borderline high 150-199 High 200-499 Very High >500 6 Desirable <200 Borderline high 200-239 High >239 7 Low <40 Desirable: 40-60 High: >60 8 Desirable: <100 mg/dL Near Optimal: 100-129 mg/dL Borderline High: 130-159 mg/dL High: 160-189 mg/dL Very High: >189 mg/dL 9 Normal Range 180 to 914 Indeterminate Range 145 to 180 Deficient Range <145 10 Therapeutic target for the treatment of diabetes Mellitus patients is <7% HBA1C, and in selective patients <6.0%.Please refer to [place] [employer] Diabetic care guidelines for further information. 11 Normal Range 180 to 914 Indeterminate Range 145 to 180 Deficient Range <145 12 Therapeutic target for the treatment of diabetes Mellitus patients is <7% HBA1C, and in selective patients <6.0%.Please refer to [place] [employer] Diabetic care guidelines for further information. 13 Desirable <150 Borderline high 150-199 High 200-499 Very High >500 14 Desirable <200 Borderline high 200-239 High >239 15 Low <40 Desirable: 40-60 High: >60 16 Desirable: <100 mg/dL Near Optimal: 100-129 mg/dL Borderline High: 130-159 mg/dL High: 160-189 mg/dL Very High: >189 mg/dL 17 Because ethnic data is not always readily available, this report includes an eGFR for both -Americans and non- Americans. The National Kidney Disease Education Program (NKDEP) does not endorse the use of the MDRD equation for patients that are not between the ages of 18 and 70, are , have extremes of body size, muscle mass, or nutritional status, or are non- or non-. According to the National Kidney Foundation, irrespective of diagnosis, the stage of the disease is based on the level of kidney function: Stage Description GFR(mL/min/1.73 m(2)) 1 Kidney damage with normal or decreased GFR 90 2 Kidney damage with mild decrease in GFR 60-89 3 Moderate decrease in GFR 30-59 4 Severe decrease in GFR 15-29 5 Kidney failure <15 (or dialysis) 18 Because ethnic data is not always readily available, this report includes an eGFR for both -Americans and non- Americans. The National Kidney Disease Education Program (NKDEP) does not endorse the use of the MDRD equation for patients that are not between the ages of 18 and 70, are , have extremes of body size, muscle mass, or nutritional status, or are non- or non-. According to the National Kidney Foundation, irrespective of diagnosis, the stage of the disease is based on the level of kidney function: Stage Description GFR(mL/min/1.73 m(2)) 1 Kidney damage with normal or decreased GFR 90 2 Kidney damage with mild decrease in GFR 60-89 3 Moderate decrease in GFR 30-59 4 Severe decrease in GFR 15-29 5 Kidney failure <15 (or dialysis) 19 Because ethnic data is not always readily available, this report includes an eGFR for both -Americans and non- Americans. The National Kidney Disease Education Program (NKDEP) does not endorse the use of the MDRD equation for patients that are not between the ages of 18 and 70, are , have extremes of body size, muscle mass, or nutritional status, or are non- or non-. According to the National Kidney Foundation, irrespective of diagnosis, the stage of the disease is based on the level of kidney function: Stage Description GFR(mL/min/1.73 m(2)) 1 Kidney damage with normal or decreased GFR 90 2 Kidney damage with mild decrease in GFR 60-89 3 Moderate decrease in GFR 30-59 4 Severe decrease in GFR 15-29 5 Kidney failure <15 (or dialysis) 20 RUN DATE: 02/06/12 [facility] NMI LIVE PAGE 1 RUN TIME: 837 Specimen Inquiry RUN USER: INTERFACE Name: SHAHLATATIANA Schroeder Status: DIS IN Re02/01/12 Age/Sex: 61/F Unit#: [id number] Location: [address] [place] [address]. : 48 SPEC #: [id number] JAH: 02/04/12 STATUS: COMP REQ #: [id number] RECD: 02/04/[address] [facility] [address]: Milana SILVERMAN,Pola Rodriguez SOURCE: URINE ENTR: 02/04/[address] [facility] [address]: Erwin [facility]ILVERMAN, [facility]ccurdy DO ORDERED: URINE C S Procedure Result Verified Site > URINE CULTURE SENSITIVI Final -0838 ML Organism 1 ESCHERICHIA COLI COLONY COUNT >100,000 ORGANISMS/ML (MANY) 1. ESCHERICHIA COLI RX ------ PIPERACILLIN/TAZOBACTAM KB S 1. ESCHERICHIA COLI RX M.I.C. ------ --------- AMIKACIN S <=2 LEVOFLOXACIN R >=8 AMPICILLIN R >=32 CEFAZOLIN S <=4 CEFTRIAXONE S <=1 CIPROFLOXACIN R >=4 GENTAMICIN S <=1 TIGECYCLINE S <=0.5 CEFTAZIDIME S <=1 IMIPENEM S <=1 NITROFURANTOIN S <=16 TRIMETH-SULFA R >=320 *These antibiotics are not available in the [facility] Formulary. Contact the Microbiology Department for any additional antibiotic reporting. [facility] State Permit #[id number] [address] [place] [id number] DEPARTMENT OF PATHOLOGY, [address] [place] [id number] [facility] Permit #[id number] Graham Lacy M.D. Director Bradley Lennon M.D. Gate Cutter 21 -- REFERENCE VALUE -- 0-20% (reported as _% loss of AChR) 22 Test Performed by: [address] [address] Shrimp Header: Calin Solorio III, M.D. Procedures Date CPT Code Description Status 05/01/2017 60043 Chemodenervation Of Muscles Innervated By Facial Completed Nerves, Bilat 01/09/2017 24773 Chemodenervation Of Muscles Innervated By Facial Completed Nerves, Bilat 09/29/2016 43888 Chemodenervation Of Muscles Innervated By Facial Completed Nerves, Bilat 06/23/2016 06664 Chemodenervation Of Muscles Innervated By Facial Completed Nerves, Bilat 02/25/2016 73186 Chemodenervation Of Muscles Innervated By Facial Completed Nerves, Bilat 11/06/2015 71914 Chemodenervation Of Muscles Innervated By Facial Completed Nerves, Bilat 09/06/2015 40604 Inject/Drain Joint/Bursa Major Completed 06/27/2015 94274 Chemodenervation Of Muscles Innervated By Facial Completed Nerves, Bilat 06/27/2015 64049 Inject/Drain Joint/Bursa Major Completed 03/28/2015 47209 Chemodenervation Of Muscles Innervated By Facial Completed Nerves, Bilat 12/13/2014 30673 Chemodenervation Of Muscles Innervated By Facial Completed Nerves, Bilat 09/11/2014 77514 Chemodenervation Of Muscles Innervated By Facial Completed Nerves, Bilat 07/07/2014 15925 Inject/Drain Joint/Bursa Major Completed 06/29/2014 78556 Chemodenervation Of Muscles Innervated By Facial Completed Nerves, Bilat 02/22/2014 68379 Chemodenervation Of Muscles Innervated By Facial Completed Nerves, Bilat 12/21/2013 98141 Xray Knee 3 Views Completed 11/24/2013 49497 Open TX Of Tibial FX,Proximal Plateau;Unicondylar Incl Completed Fixation 11/24/2013 56898 TKR Total Knee Replacement Completed 11/24/2013 14015 TKR Total Knee Replacement Completed 11/14/2013 16563 Chemodenervation Of Muscles Innervated By Facial Completed Nerves, Bilat 10/21/2013 01992 Xray Knee 3 Views Completed 10/21/2013 31027 Xray Knee 3 Views Completed 08/11/201389090 Inject/Drain Joint/Bursa Major Completed 07/20/201376180 Inject/Drain Joint/Bursa Major Completed 05/23/2013 74192 Chemodenervation Of Muscles Innervated By Facial Completed Nerves, Bilat 03/16/201344002 Inject/Drain Joint/Bursa Major Completed 03/16/2013 Inject/Drain Joint/Bursa Intermediate Completed 03/16/2013 Inject/Drain Joint/Bursa Intermediate Completed 02/10/2013 64476 Chemodenervation Of Muscles Innervated By Facial Completed Nerves, Bilat 12/15/2012 44963 Rad Exam; Knee, Ap&L Completed 12/15/2012 54514 Rad Exam; Knee, Ap&L Completed 12/15/2012 67313 Xray Knee 3 Views Completed 12/15/2012 13835 Xray Knee 3 Views Completed 11/10/2012 63578 Chemodenervation Of Muscles Innervated By Facial Completed Nerves, Bilat 10/28/201297480 Inject/Drain Joint/Bursa Major Completed 10/28/201213731 Inject/Drain Joint/Bursa Major Completed 08/12/2012 86306 Destruction W/Neurolytic Agent,Neck Muscles Completed 08/12/2012 54810 Destruction W/Neurolytic Agent, Facial Nerve Muscle, Completed Unilateral 06/16/2012 Inject/Drain Joint/Bursa Major Completed 06/16/2012 Inject/Drain Joint/Bursa Major Completed 12/12/2011 Inject/Drain Joint/Bursa Major Completed 12/12/2011 Inject/Drain Joint/Bursa Major Completed 08/17/2011 08465 EKG, Interpretation Only Completed 06/25/2011 Inject/Drain Joint/Bursa Major Completed 06/03/2011 Inject/Drain Joint/Bursa Major Completed 06/03/2011 36011 Xray Knee 3 Views Completed 03/04/2011 Inject/Drain Joint/Bursa Major Completed 12/30/2010 52110 Arthroscopy,Knee,Meniscectomy Medial Or Lateral Completed 12/30/2010 50627 Arthroscopy,Knee,Meniscectomy Medial Or Lateral Completed 11/26/2010 37673 Xray Knee 3 Views Completed 01/04/2008 39660 Color Flow Doppler/Interp & Reprt Completed 01/04/2008 55011 Pulse Wave/Continuous-Interp.RPT Completed 01/04/2008 72347 Pulse Wave/Continuous-Interp.RPT Completed 01/04/2008 38913 Echocardiogram Completed 03/27/2005 00136 EKG, Interpretation Only Completed 12/27/2002 47086 Treadmill Interp/Report Only Completed 12/27/2002 56708 Stress Test Supervsn W/Out I/R Completed 12/08/2002 55351 Color Doppler Completed 12/08/2002 33959 Pulse Doppler & Continuous Wave Completed 12/08/2002 47396 Echocardiogram Completed Encounters Type Date Location Provider CPT E/M Dx Office Visit 06/17/2017 [facility] Manisha Cardenas M.D. 02671 G43.919 8:15a Services Of Senior Estimator Office Visit 01/09/2017 [facility] Manisha Cardenas M.D. 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 ANP-C M17.12 Office Visit 07/18/2015 11:00a [facility] Manisha Cardenas M.D. 56858 G43.919 Services Of Senior Estimator G21.11 Office Visit 03/27/2015 9:00a [facility] Of Tabitha Luna, 04366 726.60 C.M.A. ANP-C Office Visit 02/07/2015 2:00p [facility] Manisha Cardenas M.D. 80695 346.91 Services Of Senior Estimator 300.00 Office Visit 01/31/2015 11:30a [facility] Of Paulino Ramirez, 64175 726.60 C.M.A. M.Marco Antonio 728.89 V43.65 Office Visit 12/06/2014 2:00p [facility] Of Tabitha Luna, 48081 715.96 C.M.A. ANP-C Office Visit 09/06/2014 10:45a [facility] Paulino Ramirez, 64664 719.46 C.M.A. M.D. Office Visit 07/07/2014 8:45a [facility] Of Tabitha Luna 11241 719.46 C.M.A. ANP-C 715.96 V54.81 V43.65 Office Visit 05/19/2014 2:45p [facility] Of Paulino Ramirez 86418 715.96 C.M.A. M.D. Office Visit 04/28/2014 11:15a [facility] Of Tabitha Luna 02845 715.96 C.M.A. ANP-C Office Visit 03/10/2014 10:00a [facility] Of Paulino Ramirez 87983 715.96 C.M.A. M.D. Office Visit 11/27/2013 3:34p [facility] Assoc,pc Aisha Abdi, 09959 458.9 Hospitalists Brooks 285.1 453.9 V43.65 Office Visit 11/26/2013 3:33p [facility], Aisha Abdi, 08468 458.9 Hospitalists Brooks 285.1 V43.65 Office Visit 11/14/2013 1:00p [facility] Manisha Cardenas M.D. 12347 346.91 Services Of Senior Estimator 780.09 E935.2 Office Visit 10/21/2013 3:45p [facility] Paulino Ramirez M.D. 72688 715.96 Of C.M.A. Office Visit 05/18/2013 9:30a [facility] Paulino Ramirez M.D. 82795 715.96 Of C.M.A. Office Visit 03/16/2013 8:45a [facility] Paulino Ramirez M.D. 51298 715.96 Of C.M.A. Office Visit 12/15/2012 8:15a [facility] Kody Rodriguez 26921 715.96 Of Yara Segovia Office Visit 11/10/2012 11:15a [facility] Manisha Cardenas M.D. 12255 346.91 Services Of Senior Estimator Office Visit 10/28/2012 8:30a [facility] Paulino Ramirez M.D. 35781 715.96 Of C.M.A. Office Visit 08/12/2012 8:30a [facility] Manisha Cardenas M.D. 28660 346.91 Services Of Senior Estimator 793.0 Office Visit 06/16/2012 8:30a [facility] Paulino Ramirez M.D. 62340 715.96 Of C.M.A. Office Visit 05/26/2012 3:30p [facility] Manisha Cardenas M.D. 94574 346.91 Services Of Senior Estimator Office Visit 12/12/2011 1:30p [facility] Kody Rodriguez 99812 715.96 Of Kavitha SegoviaC 716.96 Office Visit 06/25/2011 2:00p [facility] ANIBAL Castillo 13882 715.96 Of C.MKendyAKendy 716.96 Office Visit 06/03/2011 10:00a [facility] Of Paulino Ramirez, 92205 715.96 C.M.A. M.D. Office Visit 04/29/2011 9:30a [facility] Paulino Ramirez, 12182 719.46 C.M.A. M.D. Office Visit 12/27/2010 9:00a [facility] Paulino Ramirez, 23042 836.0 C.M.A. M.D. Office Visit 11/26/2010 10:45a [facility] Ramirez, 36165 717.3 C.M.A. M.D. Office Visit 02/01/2010 1:30a [facility], Miladis Castaneda, 88266 784.0 Hospitalists M.D. Office Visit 02/01/2010 12:15a [facility], Jose Guerrero, 27943 346.91 Hospitalists M.DKendy 345.90 530.81 311 Office Visit 01/31/2010 2:[facility]a [facility], Jose Guerrero, 48671 784.0 Hospitalists M.DKendy 345.90 311 Office Visit 01/12/2010 1:45a [facility] Jose Guerrero, 24473 786.50 Assoc, Hospitalists MBeth 300.00 Office Visit 01/11/2010 3:00a [facility], Raffi Dow M.D. 01325 786.50 Hospitalists 346.91 Office Visit 09/27/2009 1:30a [facility] Matthew Dillon, 85788 346.90 Assoc, Hospitalists M.D. Office Visit 09/26/2009 1:00a [facility] Matthew Dillon, 99422 346.90 Assoc, Hospitalists M.D. Office Visit 09/25/2009 1:00a [facility] Nydia Kevin, 71875 346.90 Assoc, Hospitalists M.D. Office Visit 03/02/2009 2:00a [facility] Juan Pablo Stanton, 83905 346.91 Assoc, Hospitalists M.D. Office Visit 03/01/2009 12:30a [facility] Garett Cahse M.D. 43259 346.91 Assoc, Hospitalists Plan of Care Future Appointment(s):02/10/2018 9:00 am - Manisha Cardenas M.D. at [facility]11/06/2017 10:00 am - Manisha Cardenas M.D. at [facility]08/05/2017 - Manisha Cardenas M.D.G43.919 Migraine, unsp , intractable, without status migrainosusFollow up:3 months botox.
[2017-09-03 14:58] VITALS: BP 125/84
--- OUTSIDE RECORDS SUMMARY | 2017-09-03 14:58 | XMS REPORT ---
:1950 External Reference #:[id number] Author Organization [facility] Address [address] [address] Phone [phone] Care Team Providers Name Role Phone Sherron Hood MD Primary Care Physician Unavailable Payers Type Date Identification Numbers Payment Provider Subscriber Medicare Primary Effective: Policy Number: Medicare Tatiana Ponce 2014 [id number] PayID: [id number] [address] [place] [address] Medigap Part B Effective: 2012 Policy Number: BS Facets Tatiana Ponce [id number] PayID: [id number] [address] [address] [place] [address] Problems Date Description Provider Status Onset: 09/11/2014 [...] by Jennifer s mouth x 3 Gnadt, DOWEL INSPECTOR - days, then 12/12 40mg by mouth x 3 days, then 20mg x 3 days, then 10mg by mouth x 3 days, then stop. [place] 07/07 Hx Tablets 5-325mg 60tab take 1-2 [...] by doctor /2013 through visiting nurse orders Brow[place] 11/11 Hx Tablets 5-325mg 60tab 1-2 tabs s by mouth q Ashley, - 4-6 hours M.D. 02/22 prn pain /2013 Hydrocodone/Acetam 07/04 Hx Tablets 5-500mg 60tab 2 tabs po s qhs prn Ashley, - pain M.D. 11/11 Prednisone 12/16 Hx Tablets 20mg 20tab take 3 po s qam x Ronadl, - 3days, M.D. 02/10 then 2 po [...] 06/23 Administered Injection Ramsey S. Onabotulinumtoxin /2015 [place], A, 1 Unit M.D. Injection 02/24 Administered Injection Manisha Onabotulinumtoxin /2015 [place], A, 1 Unit M.D. Injection 11/05 Administered Injection Manisha Onabotulinumtoxin /2015 [place], A, 1 Unit M.D. Depomedrol 40MG 09/06 Administered Injection Tabitha /2016 TORO Luna Depomedrol 80MG 06/27 Administered Injection Tabitha TORO Luna Injection 06/27 Administered Injection Jennifer Onabotulinumtoxin /2014 Gnadt, DOWEL INSPECTOR A, 1 Unit Injection 03/28 Administered Injection Jennifer Onabotulinumtoxin /2014 Gnadt, DOWEL INSPECTOR A, 1 Unit Injection 12/13 Administered Injection Jennifer Onabotulinumtoxin /2014 Gnadt, DOWEL INSPECTOR A, 1 Unit Injection 09/11 Administered Injection [...] Color Yellow Urine Appearance Clear Urine Specific [place] 1.010 1.010-1.030 Urine Esterase Trace Negative Urine [...] and in selective patients <6.0%.Please refer to [place] [employer] Diabetic care guidelines for further [...] and in selective patients <6.0%.Please refer to [place] [employer] Diabetic care guidelines for further information. 11 Normal Range 180 to 914 Indeterminate Range 145 to 180 Deficient Range <145 12 Therapeutic target for the treatment of diabetes Mellitus patients is <7% HBA1C, and in selective patients <6.0%.Please refer to [place] [employer] Diabetic care guidelines for further [...] <15 (or dialysis) 20 RUN DATE: 02/06/12 [facility] NMI LIVE PAGE 1 RUN TIME: 837 Specimen Inquiry RUN USER: INTERFACE Name: SHAHLATATIANA Schroeder Status: DIS IN Re02/01/12 Age/Sex: 61/F Unit#: [id number] Location: [address] [place] [address]. : 48 SPEC #: [id number] JAH: 02/04/12 STATUS: COMP REQ #: [id number] RECD: 02/04/[address] [facility] [address]: Milana SILVERMAN,Pola Rodriguez SOURCE: URINE ENTR: 02/04/12 [facility] DR: Erwin SILVERMAN, [facility] James Mccurdy DO ORDERED: URINE [...] *These antibiotics are not available in the [facility] Formulary. Contact the Microbiology Department for any additional antibiotic reporting. [facility] State Permit #[id number] [address] [place] [address] DEPARTMENT OF PATHOLOGY, [address] [place] [address] [facility] Permit #[id number] Graham Lacy M.D. Director Bradley Lennon M.D. Engineer Automated Equipment 21 -- REFERENCE VALUE -- 0-20% (reported as _% loss of AChR) 22 Test Performed by: [address] [address] Medical Data Analyst: Calin Solorio III, M.D. Procedures Date CPT Code Description Status 05/01/2017 76436 Chemodenervation Of Muscles Innervated By Facial Completed Nerves, Bilat 01/09/2017 50980 Chemodenervation Of Muscles Innervated By Facial Completed Nerves, Bilat 09/29/2016 82986 Chemodenervation Of Muscles Innervated By Facial Completed Nerves, Bilat 06/23/2016 35369 Chemodenervation Of Muscles Innervated By Facial Completed Nerves, Bilat 02/25/2016 12879 Chemodenervation Of Muscles Innervated By Facial Completed Nerves, Bilat 11/06/2015 21050 Chemodenervation Of Muscles Innervated By Facial Completed Nerves, Bilat 09/06/2015 65549 Inject/Drain Joint/Bursa Major Completed 06/27/2015 69956 Chemodenervation Of Muscles Innervated By Facial Completed Nerves, Bilat 06/27/2015 35984 Inject/Drain Joint/Bursa Major Completed 03/28/2015 98891 Chemodenervation Of Muscles Innervated By Facial Completed Nerves, Bilat 12/13/2014 08072 Chemodenervation Of Muscles Innervated By Facial Completed Nerves, Bilat 09/11/2014 83820 Chemodenervation Of Muscles Innervated By Facial Completed Nerves, Bilat 07/07/2014 88676 Inject/Drain Joint/Bursa Major Completed 06/29/2014 23198 Chemodenervation Of Muscles Innervated By Facial Completed Nerves, Bilat 02/22/2014 40985 Chemodenervation Of Muscles Innervated By Facial Completed Nerves, Bilat 12/21/2013 74141 Xray Knee 3 Views Completed 11/24/2013 11231 Open TX Of Tibial FX,Proximal Plateau;Unicondylar Incl Completed Fixation 11/24/2013 61188 TKR Total Knee Replacement Completed 11/24/2013 67459 TKR Total Knee Replacement Completed 11/14/2013 27795 Chemodenervation Of Muscles Innervated By Facial Completed Nerves, Bilat 10/21/2013 30277 Xray Knee 3 Views Completed 10/21/2013 30084 Xray Knee 3 Views Completed 08/11/201314775 Inject/Drain Joint/Bursa Major Completed 07/20/201386555 Inject/Drain Joint/Bursa Major Completed 05/23/2013 12741 Chemodenervation Of Muscles Innervated By Facial Completed Nerves, Bilat 03/16/201370581 Inject/Drain Joint/Bursa Major Completed 03/16/2013 Inject/Drain Joint/Bursa Intermediate Completed 03/16/2013 Inject/Drain Joint/Bursa Intermediate Completed 02/10/2013 45679 Chemodenervation Of Muscles Innervated By Facial Completed Nerves, Bilat 12/15/2012 55113 Rad Exam; Knee, Ap&L Completed 12/15/2012 06772 Rad Exam; Knee, Ap&L Completed 12/15/2012 96796 Xray Knee 3 Views Completed 12/15/2012 22339 Xray Knee 3 Views Completed 11/10/2012 62200 Chemodenervation Of Muscles Innervated By Facial Completed Nerves, Bilat 10/28/201208864 Inject/Drain Joint/Bursa Major Completed 10/28/201252002 Inject/Drain Joint/Bursa Major Completed 08/12/2012 49745 Destruction W/Neurolytic Agent,Neck Muscles Completed 08/12/2012 12367 Destruction W/Neurolytic Agent, Facial Nerve Muscle, Completed Unilateral 06/16/2012 Inject/Drain Joint/Bursa Major Completed 06/16/2012 Inject/Drain Joint/Bursa Major Completed 12/12/2011 Inject/Drain Joint/Bursa Major Completed 12/12/2011 Inject/Drain Joint/Bursa Major Completed 08/17/2011 99607 EKG, Interpretation Only Completed 06/25/2011 Inject/Drain Joint/Bursa Major Completed 06/03/2011 Inject/Drain Joint/Bursa Major Completed 06/03/2011 82106 Xray Knee 3 Views Completed 03/04/2011 Inject/Drain Joint/Bursa Major Completed 12/30/2010 35498 Arthroscopy,Knee,Meniscectomy Medial Or Lateral Completed 12/30/2010 11313 Arthroscopy,Knee,Meniscectomy Medial Or Lateral Completed 11/26/2010 28290 Xray Knee 3 Views Completed 01/04/2008 97668 Color Flow Doppler/Interp & Reprt Completed 01/04/2008 91529 Pulse Wave/Continuous-Interp.RPT Completed 01/04/2008 54663 Pulse Wave/Continuous-Interp.RPT Completed 01/04/2008 12259 Echocardiogram Completed 03/27/2005 06421 EKG, Interpretation Only Completed 12/27/2002 42789 Treadmill Interp/Report Only Completed 12/27/2002 88896 Stress Test Supervsn W/Out I/R Completed 12/08/2002 87333 Color Doppler Completed 12/08/2002 80008 Pulse Doppler & Continuous Wave Completed 12/08/2002 17870 Echocardiogram Completed Encounters Type Date Location Provider CPT E/M Dx Office Visit 06/17/2017 [facility] Manisha Cardenas M.D. 40385 G43.919 8:15a Services Of Clerical Car Checker Office Visit 01/09/2017 [facility] Manisha Cardenas M.D. 72593 G43.919 1:30p Services Of Clerical Car Checker G21.11 Office Visit 12/05/2015 [facility] Leanne Green, 91478 G43.811 1:44p Assoc,pc DOWEL INSPECTOR Hospitalists F41.9 E66.9 Office Visit 12/03/2015 1:42p [facility] Celeste Starks, 80736 G43.811 Assoc,pc Hospitalists DOWEL INSPECTOR F41.9 E66.9 Office Visit 09/06/2015 10:[facility]a [facility] Tabitha Luna, 83645 Z96.651 Of C.M.A. ANP-C M17.12 Office Visit 07/18/2015 11:00a [facility] Manisha Cardenas M.D. 20956 G43.919 Services Of Clerical Car Checker G21.11 Office Visit 03/27/2015 9:00a [facility] Of Tabitha Luna, 30230 726.60 C.M.A. ANP-C Office Visit 02/07/2015 2:00p [facility] Manisha Cardenas M.D. 38851 346.91 Services Of Clerical Car Checker 300.00 Office Visit 01/31/2015 11:30a [facility] Of Paulino Ramirez, 91295 726.60 C.M.A. M.Marco Antonio 728.89 V43.65 Office Visit 12/06/2014 2:00p [facility] Of Tabitha Luna, 01645 715.96 C.M.A. ANP-C Office Visit 09/06/2014 10:45a [facility] Of Paulino Ramirez, 39848 719.46 C.M.A. M.D. Office Visit 07/07/2014 8:45a [facility] Of Tabitha Luna 83750 719.46 C.M.A. ANP-C 715.96 V54.81 V43.65 Office Visit 05/19/2014 2:45p [facility] Of Paulino Ramirez 57805 715.96 C.M.A. M.D. Office Visit 04/28/2014 11:15a [facility] Of Tabitha Luna 26283 715.96 C.M.A. ANP-C Office Visit 03/10/2014 10:00a [facility] Of Paulino Ramirez 36349 715.96 C.M.A. M.D. Office Visit 11/27/2013 3:34p [facility] Assoc,pc Aisha Abdi, 89208 458.9 Hospitalists [place] 285.1 453.9 V43.65 Office Visit 11/26/2013 3:33p [facility]oc, Aisha Abdi, 80992 458.9 Hospitalists [place] 285.1 V43.65 Office Visit 11/14/2013 1:00p [facility] Manisha Cardenas M.D. 84700 346.91 Services Of Clerical Car Checker 780.09 E935.2 Office Visit 10/21/2013 3:45p [facility] Paulino Ramirez M.D. 69413 715.96 Of C.M.A. Office Visit 05/18/2013 9:30a [facility] Paulino Ramirez M.D. 46214 715.96 Of C.M.A. Office Visit 03/16/2013 8:45a [facility] Paulino Ramirez M.D. 50128 715.96 Of C.M.A. Office Visit 12/15/2012 8:15a [facility] Kody Rodriguez 79602 715.96 Of Yara Segovia Office Visit 11/10/2012 11:15a [facility] Mansiha Cardenas M.D. 93926 346.91 Services Of Clerical Car Checker Office Visit 10/28/2012 8:30a [facility] Paulino Ramirez M.D. 45753 715.96 Of C.M.A. Office Visit 08/12/2012 8:30a [facility] Manisha Cardenas M.D. 86426 346.91 Services Of Clerical Car Checker 793.0 Office Visit 06/16/2012 8:30a [facility] Paulino Ramirez M.D. 69032 715.96 Of C.M.A. Office Visit 05/26/2012 3:30p [facility] Manisha Cardenas M.D. 20584 346.91 Services Of Clerical Car Checker Office Visit 12/12/2011 1:30p [facility] Kody Rodriguez 06703 715.96 Of Kavitha SegoviaC 716.96 Office Visit 06/25/2011 2:00p [facility] ANIBAL Castillo 52281 715.96 Of C.MKendyAKendy 716.96 Office Visit 06/03/2011 10:00a [facility] Of Paulino Ramirez, 59634 715.96 C.M.A. M.D. Office Visit 04/29/2011 9:30a [facility] Paulino Ramirez, 89632 719.46 C.M.A. M.D. Office Visit 12/27/2010 9:00a [facility] Paulino Ramirez, 93760 836.0 C.M.A. M.D. Office Visit 11/26/2010 10:45a [facility] Paulino Ramirez, 87896 717.3 C.M.A. M.D. Office Visit 02/01/2010 1:30a [facility] Assoc, Miladis Castaneda, 67950 784.0 Hospitalists M.D. Office Visit 02/01/2010 12:15a [facility] Assoc, Jose Guerrero, 37303 346.91 Hospitalists M.DKendy 345.90 530.81 311 [facility]2010 [facility] 05385 784.0 Hospitalists M.DKendy 345.90 311 Office Visit 01/12/2010 1:45a [facility] Jose Guerrero, 70054 786.50 Assoc, Hospitalists MBeth 300.00 Office Visit 01/11/2010 [facility] Raffi Dow M.[facility]. 94444 786.50 Hospitalists 346.91 Office Visit 09/27/2009 1:30a [facility] Matthew Dillon, 52552 346.90 Assoc, Hospitalists M.D. Office Visit 09/26/2009 1:00a [facility] Matthew Dillon, 88623 346.90 Assoc, Hospitalists M.D. Office Visit 09/25/2009 1:00a [facility] Nydia Kevin, 81576 346.90 Assoc, Hospitalists M.D. Office Visit 03/02/2009 2:00a [facility] Juan Pablo Stanton, 94857 346.91 Assoc, Hospitalists M.D. Office Visit 03/01/2009 12:30a [facility] Garett Chase M.D. 26039 346.91 Assoc, Hospitalists Plan of Care Future Appointment(s):11/06/2017 10:00 am - Manisha Cardenas M.D. at [facility]08/05/2017 - Manisha Cardenas M.D.G43.919 Migraine, unsp , intractable, without status migrainosusFollow up:3 months botox.
--- NOTE | 2017-09-03 16:09 | UC ---
Respiratory Complaint HPI - HPI Summary HPI Summary: 66yo NA female c/o dry cough but worsening cough x 1 week after flu-like sx have resolved. - History of Current Complaint Chief Complaint: UCRespiratory Stated Complaint: CONGESTION COUGH Time Seen by Provider: 09/03/17 15:17 Hx Obtained From: Patient Hx Last Menstrual Period: post ?: No Onset/Duration: Gradual Onset Timing: Intermittent Episodes Severity Initially: Moderate Severity Currently: Moderate Pain Intensity: 0 Pain Scale Used: 0-10 Numeric Character: Cough: Nonproductive Aggravating Factors: Nothing Associated Signs And Symptoms: Positive: Negative. Negative: Dyspnea, Fever, Chills, Pleuritic Chest Pain - Allergies/Home Medications Allergies/Adverse Reactions: Allergies Allergy/AdvReac Type Severity Reaction Status Date / Time Heparin Allergy Unknown See Comment Verified 09/03/17 14:58 Chlorpromazine AdvReac Severe Altered Verified 09/03/17 14:58 [From Thorazine] Mental Status Erythromycin AdvReac Intermediate Diarrhea Verified 09/03/17 14:58 Valproic Acid [From Depakote] AdvReac Intermediate Altered Verified 09/03/17 14: 58 Mental Status Cephalexin [From Keflex] AdvReac Mild Muscle Ache Verified 09/03/17 14:58 PMH/Surg Hx/FS Hx/Imm Hx Other History Of: Negative For: Anticoagulant Therapy - Surgical History Surgical History: Yes Surgery Procedure, Year, and Place: 1974, 1976, 1978 3 C Sections [place]. 1986 right elbow surgery [place]. 1999s LEFT breast biopsy [facility] [place] 1999[place] x2 sinus surgery [facility] [place] 2006 appendectomy, [facility] [place] 2005 bladder surgery ( spot in bladder), [facility] [place] 2006 bilateral meniscus surgery, [facility] [place] 2004 OVARY REMOVED [facility] [place]. 07/2013 LEFT TOE SURGERY [facility] [place]. total replacement right knee; endoscopy left knee - Family History Known Family History: Positive: None - reviewed & noncontributory, Unknown, Cardiac Disease, Hypertension, Other - stroke: mom; migraines Negative: Diabetes - Social History Alcohol Use: Rare Alcohol Amount: 1 GLASS/MONTH Substance Use Type: None Substance Use Comment - Amount & Last Used: Valium - Anxiety Smoking Status (MU): Never Smoked Tobacco Have You Smoked in the Last Year: No - Immunization History Most Recent Influenza Vaccination: FALL 2015 Most Recent Tetanus Shot: at least 10 years ago per patient Most Recent Pneumonia Vaccination: 2003 Review of Systems Constitutional: Negative Skin: Negative Eyes: Negative ENT: Negative Respiratory: Cough - DRY Cardiovascular: Negative Gastrointestinal: Negative Genitourinary: Negative Motor: Negative Neurovascular: Negative Musculoskeletal: Negative Neurological: Negative Psychological: Negative All Other Systems Reviewed And Are Negative: Yes Physical Exam Triage Information Reviewed: Yes Appearance: No Pain Distress Vital Signs: Initial Vital Signs Temp 36.9 C 09/03/17 14:50 Pulse 70 09/03/17 14:50 Resp 18 09/03/17 14:50 BP 125/84 09/03/17 14:50 Pulse Ox 100 09/03/17 14:50 Eye Exam: Normal ENT Exam: Normal Dental Exam: Normal Neck exam: Normal Neck: Positive: 1 Respiratory: Positive: Lungs clear. Negative: Crackles, Rhonchi, Stridor, Wheezing Cardiovascular Exam: Normal Abdominal Exam: Normal Musculoskeletal Exam: Normal Neurological Exam: Normal Psychological Exam: Normal Skin Exam: Normal UC Diagnostic Evaluation - Laboratory O2 Sat by Pulse Oximetry: 100 Respiratory Course/Dx - Differential Dx/Diagnosis Provider Diagnoses: upper airway cough syndrome Discharge - Discharge Plan Condition: Stable Disposition: HOME Prescriptions: Guaifenesin/DM (SUGAR FREE)* [Diabetic Tussin DM*] 10 ml PO Q6H 6 Days #240 ml Patient Education Materials: Cold Symptoms (ED) Referrals: Sherron Hood MD [Primary Care Provider] - Additional Instructions: as tolerated
== END 2017-09-03 16:01 | disposition home or self-care (01) ==
LOC: UCEAST 13:50
DX: R09.82 Postnasal drip (principal); R05 Cough; Z88.8 Allergy status to other drugs, medicaments and biological substances; Z88.1 Allergy status to other antibiotic agents
CPT/HCPCS: 99212; G0463

== ENCOUNTER 2017-09-06 09:05 | Emergency (ER) | payer MEDICARE, BC ==
--- NOTE | 2017-09-06 09:20 | ED ---
Throat Pain/Nasal Congestion - HPI Summary HPI Summary: 66 female presents to ED with complaints of sore throat, headache and cough that has been ongoing for the past 2 days. Sore throat and cough have been ongoing for a week, headache for 2 days. States she has chronic headaches and has at home medications however has run out of some of her meds, including toradol that she takes as needed for headache. Patient denies vision changes, abnormal symptoms, trauma/injury, nausea, vomiting and aura. Patient states her headache is 7/10 and nothing makes it better or worse. Took 800mg of toradol yesterday, has not taken anything today. States throat is sore when swallowing. Denies fever/chills. Cough is productive at times. Has been taking OTC cough medication without significant relief. PMHX includes HTN. No other complaints. States there is a protocol here for patients headache treatment. - History of Current Complaint Chief Complaint: EDThroatPain Time Seen by Provider: 09/06/17 09:18 Hx Obtained From: Patient Onset/Duration: Sudden Onset Severity: Mild Associated Signs And Symptoms: Positive: Dysphagia, Nasal Discharge Cough: Productive - Allergies/Home Medications Allergies/Adverse Reactions: Allergies Allergy/AdvReac Type Severity Reaction Status Date / Time Heparin Allergy Unknown See Comment Verified 09/06/17 09:12 Chlorpromazine AdvReac Severe Altered Verified 09/06/17 09:12 [From Thorazine] Mental Status Erythromycin AdvReac Intermediate Diarrhea Verified 09/06/17 09:12 Valproic Acid [From Depakote] AdvReac Intermediate Altered Verified 09/06/17 09: 12 Mental Status Cephalexin [From Keflex] AdvReac Mild Muscle Ache Verified 09/06/17 09:12 PMH/Surg Hx/FS Hx/Imm Hx Endocrine/Hematology History: Denies: Hx Anticoagulant Therapy, Hx Diabetes, Hx Thyroid Disease Cardiovascular History: Reports: Hx Hypercholesterolemia, Hx Hypertension, Other Cardiovascular Problems/Disorders - heart burn Respiratory History: Denies: Hx Asthma, Hx Chronic Obstructive Pulmonary Disease (COPD) GI History: Reports: Hx Gastroesophageal Reflux Disease Denies: Hx Ulcer Musculoskeletal History: Reports: Hx Arthritis Sensory History: Reports: Hx Contacts or Glasses Denies: Hx Hearing Aid Opthamlomology History: Reports: Hx Contacts or Glasses Neurological History: Reports: Hx Migraine - Chronic migraine disease, Hx Seizures Psychiatric History: Reports: Hx Anxiety, Hx Depression - Cancer History Hx Chemotherapy: No Hx Radiation Therapy: No - Surgical History Surgery Procedure, Year, and Place: 1974, 1976, 1978 3 C Sections [facility]. 1986 right elbow surgery [place]. LEFT breast biopsy [facility] [place]. 1999s x2 sinus surgery [facility] [place] [facility] [place]. 2006 appendectomy, [facility] [place]. 2005 bladder surgery ( spot in bladder), [facility] [place]. 2006 bilateral meniscus surgery, [facility] [place]. 2004 OVARY REMOVED [facility] [place]. 1980 HYSTERECTOMY,PEDRITO. 07/2013 LEFT TOE SURGERY [facility] [place]. total replacement right knee; endoscopy left knee Hx Anesthesia Reactions: Yes - required mechanical ventilation for oversedation - Immunization History Date of Tetanus Vaccine: within the last 10 years Date of Influenza Vaccine: Fall 2014 Infectious Disease History: No Infectious Disease History: Reports: Hx Shingles - 2011 Denies: Hx Clostridium Difficile, Hx Hepatitis, Hx Human Immunodeficiency Virus (HIV), Hx of Known/Suspected MRSA, Hx Tuberculosis, Hx Known/Suspected VRE , Hx Known/Suspected VRSA, History Other Infectious Disease, Traveled Outside the in Last 30 Days - Family History Known Family History: Positive: None - reviewed & noncontributory, Unknown, Cardiac Disease, Hypertension, Other - stroke: mom; migraines Negative: Diabetes - Social History Alcohol Use: Rare Alcohol Amount: 1 GLASS/MONTH Hx Substance Use: No Substance Use Type: Reports: None Substance Use Comment - Amount & Last Used: Valium - Anxiety Hx Tobacco Use: No Smoking Status (MU): Never Smoked Tobacco Have You Smoked in the Last Year: No Review of Systems Constitutional: Negative Eyes: Negative Positive: Sore Throat, Nasal Discharge Cardiovascular: Negative Positive: Cough Gastrointestinal: Negative Musculoskeletal: Negative Skin: Negative Positive: Headache All Other Systems Reviewed And Are Negative: Yes Physical Exam Triage Information Reviewed: Yes Vital Signs On Initial Exam: Initial Vitals Temp Pulse Resp BP Pulse Ox 98.1 F 65 16 113/73 100 09/06/17 09:10 09/06/17 09:10 09/06/17 09:10 09/06/17 09:10 09/06/17 09:10 Vital Signs Reviewed: Yes Appearance: Positive: Well-Appearing, No Pain Distress, Well-Nourished Skin: Positive: Warm, Skin Color Reflects Adequate Perfusion, Dry. Negative: Cold, Cyanosis @, Pale, Erythema @ Head/Face: Positive: Normal Head/Face Inspection. Negative: Scalp Eyes: Positive: Normal, EOMI, [place], Conjunctiva Clear ENT: Positive: Normal ENT inspection, Hearing grossly normal, Pharyngeal erythema, Nasal congestion, TMs normal, Uvula midline - no sign of peritonsillar abscess, airway patent. Negative: Tonsillar swelling, Tonsillar exudate Neck: Positive: Supple, Nontender, No Lymphadenopathy Respiratory/Lung Sounds: Positive: Clear to Auscultation, Breath Sounds Present. Negative: Rales, Rhonchi, Wheezes Cardiovascular: Positive: Normal, RRR, Pulses are Symmetrical in both Upper and Lower Extremities. Negative: Murmur, Rub Abdomen Description: Positive: Nontender, Soft Bowel Sounds: Positive: Present Musculoskeletal: Positive: Normal, Strength/ROM Intact. Negative: Limited @, Interruption @, Abnormal @, Pain @ Neurological: Positive: Normal - memory and concentration intact, normal neuro exam, Sensory/Motor Intact, Alert, Oriented to Person Place, Time, CN Intact II- III, Reflexes Intact, NV Bundle Intact Distally, Normal Gait, Finger to Nose - normal, Facial Symmetry, Speech Normal Psychiatric: Positive: Affect/Mood Appropriate - [place] Coma Scale Best Eye Response: 4 - Spontaneous Best Motor Response: 6 - Obeys Commands Best Verbal Response: 5 - Oriented Diagnostics - Vital Signs Vital Signs Temp Pulse Resp BP Pulse Ox 09/06/17 09:10 98.1 F 65 16 113/73 100 - Laboratory Lab Statement: Any lab studies that have been ordered have been reviewed, and results considered in the medical decision making process. Re-Evaluation - Re-Evaluation First Eval Re-Evaluation Time: 11:30 Change: Improved - had relief after medications, updated on plan, ready to be d.c EENT Course/Dx - Course Course Of Treatment: patient is here frequently for her chronic headaches. protocol written for patient due to frequent visits for headache relief. given fluids, toradol, reglan and benadryl. patient had relief. rest, increase fluid intake. follow up with PCP. will give tessalon pearls to help with cough, encouraged OTC symptomatic relief such as decongestants for sore throat/cough. Chloraseptic spray. Aware of new/worsening symptoms. Normal vitals throughout stay. No other concerns/etiologies at this time. Strep culture negative. - Differential Diagnoses Differential Diagnoses: Pharyngitis, Sinusitis, Tonsilitis, URI/Bronchitis, Other - headache, migraine - Diagnoses Provider Diagnoses: Chronic headaches, URI (upper respiratory infection) Discharge - Discharge Plan Condition: Stable Disposition: HOME Patient Education Materials: Upper Respiratory Infection (ED), Acute Headache ( ED) Referrals: Sherron Hood MD [Primary Care Provider] - Additional Instructions: Take prescribed medication to help with cough, especially at bedtime. Increase fluid intake, try OTC decongestants such as mucinex. Chloraseptic spray to soothe sore throat. Rest, salt water gargles. Hot showers, humidifier and warm compresses. Already prescribed medication for chronic headaches. Follow up with PCP/neuro for recheck and refills. Any new or worsening symptoms please seek medical attention promptly, as discussed.
[2017-09-06] MEDS ORDERED: Ketorolac INJ* 30 MG/ML 1 ML VIAL IV PUSH ONE (09:50)
[2017-09-06] MEDS ORDERED: Metoclopramide IV* 5 MG/ML 2 ML VIAL IV ONE (09:50)
[2017-09-06] MEDS ORDERED: diPHENhydraMINE IV* 50 MG/ML 1 ml VIAL (BENADRYL) IV ONE (09:50)
[2017-09-06] MEDS ORDERED: diPHENhydraMINE IV* 50 MG in NS 0.9% 50 ML* 50 ML IVPB ONE (09:50)
[2017-09-06] MEDS ORDERED: NS 0.9% 1000 ML* 1,000 ML IV ONE (09:55)
[2017-09-06 13:27] VITALS: BP 125/73
== END 2017-09-06 13:26 | disposition home or self-care (01) ==
LOC: ED 09:05
DX: J06.9 Acute upper respiratory infection, unspecified (principal); J02.9 Acute pharyngitis, unspecified; R51 Headache; R05 Cough; R13.10 Dysphagia, unspecified
CPT/HCPCS: 87651; 96374; 96375; 99283; J1200; J1885; J2765

== ENCOUNTER 2017-09-13 13:19 | Emergency (ER) | payer MEDICARE, BC ==
[2017-09-13 14:24] VITALS: BP 135/94
--- NOTE | 2017-09-13 14:30 | ED ---
Throat Pain/Nasal Congestion - HPI Summary HPI Summary: 66 YO F C/O SORE THROAT X 2 WEEKS. ALSO YELLOW RHINORRHEA AND FRONTAL SINUS PRESSURE. DENIES WHEEZING/CHEST CONGESTION. - History of Current Complaint Chief Complaint: UCRespiratory Time Seen by Provider: 09/13/17 14:16 Hx Obtained From: Patient Onset/Duration: Lasting Weeks Severity: Mild Associated Signs And Symptoms: Positive: Sinus Discomfort, Nasal Discharge Cough: Nonproductive - Epiglottits Risk Factors Epiglottis Risk Factors: Negative - Allergies/Home Medications Allergies/Adverse Reactions: Allergies Allergy/AdvReac Type Severity Reaction Status Date / Time Heparin Allergy Unknown See Comment Verified 09/13/17 14:14 Chlorpromazine AdvReac Severe Altered Verified 09/13/17 14:14 [From Thorazine] Mental Status Erythromycin AdvReac Intermediate Diarrhea Verified 09/13/17 14:14 Valproic Acid [From Depakote] AdvReac Intermediate Altered Verified 09/13/17 14: 14 Mental Status Cephalexin [From Keflex] AdvReac Mild Muscle Ache Verified 09/13/17 14:14 PMH/Surg Hx/FS Hx/Imm Hx Previously Healthy: No Endocrine/Hematology History: Denies: Hx Anticoagulant Therapy, Hx Diabetes, Hx Thyroid Disease Cardiovascular History: Reports: Hx Hypercholesterolemia, Hx Hypertension, Other Cardiovascular Problems/Disorders - heart burn Respiratory History: Denies: Hx Asthma, Hx Chronic Obstructive Pulmonary Disease (COPD) GI History: Reports: Hx Gastroesophageal Reflux Disease Denies: Hx Ulcer Musculoskeletal History: Reports: Hx Arthritis Sensory History: Reports: Hx Contacts or Glasses Denies: Hx Hearing Aid Opthamlomology History: Reports: Hx Contacts or Glasses Neurological History: Reports: Hx Migraine - Chronic migraine disease, Hx Seizures Psychiatric History: Reports: Hx Anxiety, Hx Depression - Cancer History Hx Chemotherapy: No Hx Radiation Therapy: No - Surgical History Surgery Procedure, Year, and Place: 1974, 1976, 1978 3 C Sections [place]. 1986 right elbow surgery [place]. LEFT breast biopsy [facility] [place]. 1999s x2 sinus surgery [facility] [place] [facility] [place]. 2006 appendectomy, [facility] [place]. 2005 bladder surgery ( spot in bladder), [facility] [place] 2006 bilateral meniscus surgery, [facility] [place]. 2005 OVARY REMOVED [facility] [place]. 1980 HYSTERECTOMY,[place]. 07/2013 LEFT TOE SURGERY [facility] [place]. total replacement right knee; endoscopy left knee Hx Anesthesia Reactions: Yes - required mechanical ventilation for oversedation - Immunization History Date of Tetanus Vaccine: within the last 10 years Date of Influenza Vaccine: Fall 2014 Infectious Disease History: No Infectious Disease History: Reports: Hx Shingles - 2011, Traveled Outside the [place] in Last 30 Days - [place] Denies: Hx Clostridium Difficile, Hx Hepatitis, Hx Human Immunodeficiency Virus (HIV), Hx of Known/Suspected MRSA, Hx Tuberculosis, Hx Known/Suspected VRE , Hx Known/Suspected VRSA, History Other Infectious Disease - Family History Known Family History: Positive: None - reviewed & noncontributory, Unknown, Cardiac Disease, Hypertension, Other - stroke: mom; migraines Negative: Diabetes - Social History Alcohol Use: Rare Alcohol Amount: 1 GLASS/MONTH Hx Substance Use: No Substance Use Type: Reports: None Substance Use Comment - Amount & Last Used: Valium - Anxiety Hx Tobacco Use: No Smoking Status (MU): Never Smoked Tobacco Have You Smoked in the Last Year: No Review of Systems Positive: Fatigue Eyes: Negative Positive: Sore Throat, Nasal Discharge Cardiovascular: Negative Respiratory: Negative Gastrointestinal: Negative Genitourinary: Negative Musculoskeletal: Negative Skin: Negative Neurological: Negative Psychological: Normal All Other Systems Reviewed And Are Negative: Yes Physical Exam Triage Information Reviewed: Yes Vital Signs On Initial Exam: Initial Vitals Temp Pulse Resp BP Pulse Ox 99.3 F 72 18 135/94 97 09/13/17 14:19 09/13/17 14:19 09/13/17 14:19 09/13/17 14:19 09/13/17 14:19 Vital Signs Reviewed: Yes Appearance: Positive: Well-Appearing, No Pain Distress Skin: Positive: Warm, Skin Color Reflects Adequate Perfusion Eyes: Positive: EOMI, [place], Conjunctiva Clear ENT: Positive: Pharyngeal erythema, Nasal congestion, Nasal drainage, TMs normal Neck: Positive: Supple, Nontender, No Lymphadenopathy Respiratory/Lung Sounds: Positive: Clear to Auscultation Cardiovascular: Positive: RRR Abdomen Description: Positive: Nontender Bowel Sounds: Positive: Present Musculoskeletal: Positive: Normal Neurological: Positive: Normal Psychiatric: Positive: Normal AVPU Assessment: Alert Diagnostics - Vital Signs Vital Signs Temp Pulse Resp BP Pulse Ox 09/13/17 14:19 99.3 F 72 18 135/94 97 - Laboratory Lab Statement: Any lab studies that have been ordered have been reviewed, and results considered in the medical decision making process. EENT Course/Dx - Diagnoses Provider Diagnoses: Sinusitis, Hypertension Discharge - Discharge Plan Condition: Stable Disposition: HOME Prescriptions: Amoxicillin/Clavulanate TAB* [Augmentin TAB 875*] 875 mg PO BID #20 tab Patient Education Materials: Sinusitis (ED), Hypertension (ED) Referrals: Sherron Hood MD [Primary Care Provider] - Additional Instructions: FOLLOW UP WITH YOUR DOCTOR. GET RECHECKED FOR ANY WORSENING OF YOUR CONDITION OR QUESTIONS OR CONCERNS.
== END 2017-09-13 14:30 | disposition home or self-care (01) ==
LOC: UCEAST 13:19
DX: J32.9 Chronic sinusitis, unspecified (principal); I10 Essential (primary) hypertension; Z77.22 Contact with and (suspected) exposure to environmental tobacco smoke (acute) (chronic); F19.10 Other psychoactive substance abuse, uncomplicated
CPT/HCPCS: 99212; G0463

== ENCOUNTER 2017-09-21 18:09 | Emergency (ER) | payer MEDICARE, BC ==
[2017-09-21] MEDS ORDERED: diPHENhydraMINE IV* 50 MG/ML 1 ml VIAL (BENADRYL) IV ONE (22:04)
[2017-09-21] MEDS ORDERED: Ketorolac INJ* 30 MG/ML 1 ML VIAL IM ONE (22:04)
[2017-09-21] MEDS ORDERED: Metoclopramide IV* 5 MG/ML 2 ML VIAL IV ONE (22:04)
[2017-09-21] MEDS ORDERED: NS 0.9% 1000 ML* 1,000 ML IV ONE (22:05)
--- NOTE | 2017-09-21 22:06 | ED ---
Headache - HPI Summary HPI Summary: 66 female presents to ED with complaints of headache that has been ongoing for the past 7 days intermittently. States she has been suffering from a sinus infection and has a lot of pressure behind her eyes triggering headache. Has been taking augmentin for sinus infection with relief. States she has chronic headaches and has at home medications however has run out of some of her meds, including toradol that she takes as needed for headache. Does have flexeril that Dr Hauser sent however does not have toradol. Patient denies vision changes , abnormal symptoms, trauma/injury, nausea, vomiting and aura. Admits to light and smell sensitivity. Patient states her headache is 7/10 and nothing makes it better or worse. It comes and goes randomly. Took ibuprofen today with last dose at noon without relief, has not taken anything else today. Denies fever/ chills. PMHX includes HTN. No other complaints. States there is a protocol here for her headache treatment. - History Of Current Complaint Chief Complaint: EDHeadache Stated Complaint: MIGRAINE Time Seen by Provider: 09/21/17 21:12 Hx Obtained From: Patient Hx Last Menstrual Period: post Onset/Duration: Sudden Onset, Started weeks ago - 1, Still Present Initially Headache Was: Initial Pain Scale(0-10)= - 7 Currently Pain Is: Current Pain Scale(0-10)= - 7 Timing: Intermittent, Lasting: - minutes to hours Character: Pressure, Typical Headache, Migraine Location of Headache: Diffuse Aggravating Factor: Bright Lights Allevating Factors: Nothing Associated Signs And Symptoms: Sinus Pressure, Other (Noted In Comments) - photosensitivy, sensitive to smells - Allergies/Home Medications Allergies/Adverse Reactions: Allergies Allergy/AdvReac Type Severity Reaction Status Date / Time Heparin Allergy Unknown See Comment Verified 09/13/17 14:14 Chlorpromazine AdvReac Severe Altered Verified 09/13/17 14:14 [From Thorazine] Mental Status Erythromycin AdvReac Intermediate Diarrhea Verified 09/13/17 14:14 Valproic Acid [From Depakote] AdvReac Intermediate Altered Verified 09/13/17 14: 14 Mental Status Cephalexin [From Keflex] AdvReac Mild Muscle Ache Verified 09/13/17 14:14 PMH/Surg Hx/FS Hx/Imm Hx Endocrine/Hematology History: Denies: Hx Anticoagulant Therapy, Hx Diabetes, Hx Thyroid Disease Cardiovascular History: Reports: Hx Hypercholesterolemia, Hx Hypertension, Other Cardiovascular Problems/Disorders - heart burn Respiratory History: Denies: Hx Asthma, Hx Chronic Obstructive Pulmonary Disease (COPD) GI History: Reports: Hx Gastroesophageal Reflux Disease Denies: Hx Ulcer Musculoskeletal History: Reports: Hx Arthritis Sensory History: Reports: Hx Contacts or Glasses Opthamlomology History: Reports: Hx Contacts or Glasses Neurological History: Reports: Hx Migraine - Chronic migraine disease, Hx Seizures Psychiatric History: Reports: Hx Anxiety, Hx Depression - Cancer History Hx Chemotherapy: No Hx Radiation Therapy: No - Surgical History Surgery Procedure, Year, and Place: 1974, 1976, 1978 3 C Sections [place]. 1986 right elbow surgery [place]. LEFT breast biopsy [facility] [place]. x2 sinus surgery [facility] [place] [facility] [place]. 2005 appendectomy, [facility] [place]. 2004 bladder surgery ( spot in bladder), [facility] [place] 2005 bilateral meniscus surgery, [facility] [place]. 2004 OVARY REMOVED [facility] [place]. 1980 HYSTERECTOMY,[facility]. 07/2013 LEFT TOE SURGERY [facility] [place]. total replacement right knee; endoscopy left knee Hx Anesthesia Reactions: Yes - required mechanical ventilation for oversedation - Immunization History Date of Tetanus Vaccine: within the last 10 years Date of Influenza Vaccine: Fall 2014 Infectious Disease History: No Infectious Disease History: Reports: Hx Shingles - 2011 Denies: Hx Clostridium Difficile, Hx Hepatitis, Hx Human Immunodeficiency Virus (HIV), Hx of Known/Suspected MRSA, Hx Tuberculosis, Hx Known/Suspected VRE , Hx Known/Suspected VRSA, History Other Infectious Disease, Traveled Outside the in Last 30 Days - Family History Known Family History: Positive: None - reviewed & noncontributory, Unknown, Cardiac Disease, Hypertension, Other - stroke: mom; migraines Negative: Diabetes - Social History Alcohol Use: Rare Alcohol Amount: 1 GLASS/MONTH Hx Substance Use: No Substance Use Type: Reports: None Substance Use Comment - Amount & Last Used: Valium - Anxiety Hx Tobacco Use: No Smoking Status (MU): Never Smoked Tobacco Have You Smoked in the Last Year: No Review of Systems Constitutional: Negative Positive: Nasal Discharge Cardiovascular: Negative Respiratory: Negative Positive: Headache All Other Systems Reviewed And Are Negative: Yes Physical Exam Triage Information Reviewed: Yes Vital Signs On Initial Exam: Initial Vitals Temp Pulse Resp BP Pulse Ox 97.2 F 72 18 140/93 95 09/21/17 18:13 09/21/17 18:13 09/21/17 18:13 09/21/17 18:13 09/21/17 18:13 Vital Signs Reviewed: Yes Appearance: Positive: Well-Appearing - lying comfortably in stretcher, No Pain Distress, Well-Nourished Skin: Positive: Warm, Skin Color Reflects Adequate Perfusion, Dry, Cold. Negative: Numb, Tender, Cyanosis @ Head/Face: Positive: Normal Head/Face Inspection. Negative: Scalp Eyes: Positive: Normal, EOMI, [place], Conjunctiva Clear ENT: Positive: Hearing grossly normal, Pharynx normal, TMs normal Dental: Positive: Percussion Tenderness @ - maxillary b/l Neck: Positive: Supple, Nontender, No Lymphadenopathy Respiratory/Lung Sounds: Positive: Clear to Auscultation, Breath Sounds Present. Negative: Rales, Rhonchi, Wheezes Cardiovascular: Positive: Normal, RRR, Pulses are Symmetrical in both Upper and Lower Extremities. Negative: Murmur, Rub Abdomen Description: Positive: Nontender, No Organomegaly, Soft Bowel Sounds: Positive: Present Musculoskeletal: Positive: Normal, Strength/ROM Intact Neurological: Positive: Normal - memory and cocentration intact, no new or abnormal symptoms, normal neuro exam, Sensory/Motor Intact, Alert, Oriented to Person Place, Time, CN Intact II-III, Reflexes Intact, NV Bundle Intact Distally , Normal Gait Psychiatric: Positive: Affect/Mood Appropriate - [place] Coma Scale Best Eye Response: 4 - Spontaneous Best Motor Response: 6 - Obeys Commands Best Verbal Response: 5 - Oriented Coma Scale Total: 15 Diagnostics - Vital Signs Vital Signs Temp Pulse Resp BP Pulse Ox 09/21/17 21:30 65 139/93 95 09/21/17 21:16 66 96 09/21/17 21:14 153/87 09/21/17 18:13 97.2 F 72 18 140/93 95 - Laboratory Lab Statement: Any lab studies that have been ordered have been reviewed, and results considered in the medical decision making process. Re-Evaluation - Re-Evaluation First Eval Re-Evaluation Time: 23:00 Change: Improved - had little relief after first dose of medication Second Eval Re-Evaluation Time: 00:00 Change: Improved - had relief patient ready to be d/c Headache Course/Dx - Course Course Of Treatment: given migraine protocol medications including reglan, toradol, fluids and benadryl. patient had relief. no other complaints. no other concerns. appears sinusitis is exacerbating headache. normal vitals and physical exam. no abnormal symptoms, patient states symptoms are typical. no trauma or injury. no need for further work up at this time. patient just ran out of her toradol and needed it to abort migraine. symptoms improved. will be d /c with close follow up and calling neurolgist, dr hauser for medication. aware of worsening signs and symptoms to watch out for. - Diagnoses Differential Diagnosis/HQI/PQRI: Migraine, Sinus Headache Provider Diagnoses: Chronic migraine Discharge - Discharge Plan Condition: Stable Disposition: HOME Patient Education Materials: Migraine Headache (ED) Referrals: Sherron Hood MD [Primary Care Provider] - Additional Instructions: Already prescribed medication for chronic headaches. Follow up with PCP/neuro for recheck and refills. Any new or worsening symptoms please seek medical attention promptly, as discussed.
[2017-09-21] MEDS ORDERED: Ketorolac INJ* 30 MG/ML 1 ML VIAL IV PUSH ONE ×2 (22:26→23:09)
[2017-09-21] MEDS ORDERED: diPHENhydraMINE IV* 25 MG in NS 0.9% 50 ML* 50 ML IVPB ONE (23:09)
[2017-09-22 00:08] VITALS: BP 125/86
== END 2017-09-22 | disposition home or self-care (01) ==
LOC: ED 18:09
DX: G43.709 Chronic migraine without aura, not intractable, without status migrainosus (principal); E78.00 Pure hypercholesterolemia, unspecified; I10 Essential (primary) hypertension; K21.9 Gastro-esophageal reflux disease without esophagitis; M19.90 Unspecified osteoarthritis, unspecified site; F41.9 Anxiety disorder, unspecified; F32.9 Major depressive disorder, single episode, unspecified; Z90.89 Acquired absence of other organs; Z90.710 Acquired absence of both cervix and uterus; Z96.651 Presence of right artificial knee joint; Z88.1 Allergy status to other antibiotic agents; Z88.8 Allergy status to other drugs, medicaments and biological substances
CPT/HCPCS: 96374; 96375; 96376; 99282; J1200; J1885; J2765

== ENCOUNTER 2017-10-16 08:00 | Emergency (ER) | payer MEDICARE, BC ==
[2017-10-16] MEDS ORDERED: NS 0.9% 1000 ML* 1,000 ML IV ONE (08:26)
[2017-10-16] MEDS ORDERED: Metoclopramide IV* 5 MG/ML 2 ML VIAL IV ONE (08:26)
[2017-10-16] MEDS ORDERED: diPHENhydraMINE IV* 50 MG/ML 1 ml VIAL (BENADRYL) IV ONE (08:26)
[2017-10-16] MEDS ORDERED: Ketorolac INJ* 30 MG/ML 1 ML VIAL IV ONE (08:26)
[2017-10-16 08:57] LABS: ABS Basophils 0.1 10^3/ul (0-0.2); ABS Eosinophils 0.2 10^3/ul (0-0.6); ABS Lymphocytes 2.1 10^3/ul (1.0-4.8); ABS Monocytes 0.3 10^3/ul (0-0.8); ABS Neutrophils 2.2 10^3/ul (1.5-7.7); ABS Nucleated RBC 0 10^3/ul; Eosinophil % 4.5 % (0-6); Hematocrit 40 % (35-47); Hemoglobin 13.4 g/dl (12.0-16.0); Lymphocyte % 42.6 % (25-47); Mean Corpuscular HGB Conc 33 g/dl (31-36); Mean Corpuscular Hemoglobin 34 pg (27-31); Mean Corpuscular Volume 103 fL (80-97); Mean Platelet Volume 8 um3 (7.4-10.4); Nucleated Red Blood Cells % 0.1; Platelet Count 231 10^3/ul (150-450); Red Blood Count 3.91 10^6/ul (4.0-5.4); Red Cell Distribution Width 13 % (10.5-15); White Blood Count 4.9 10^3/ul (3.5-10.8)
[2017-10-16 09:08] LABS: EGFR Non-African American 65.8 (>60)
[2017-10-16 09:24] LABS: Urine Appearance Clear; Urine Blood Negative (Negative); Urine Color Straw; Urine Ketones Negative (Negative); Urine Protein Negative (Negative); Urine Specific Gravity 1.004 (1.010-1.030); Urine Urobilinogen Negative (Negative)
[2017-10-16] MEDS ORDERED: diPHENhydraMINE PO* 25 MG PO ONE (10:16)
[2017-10-16] MEDS ORDERED: methylPREDNISolone 125 MG* 2 ML VIAL IV ONE (10:16)
[2017-10-16 10:56] VITALS: BP 137/85
--- NOTE | 2017-10-16 17:01 | ED ---
Tavo Colldao Thomas, scribed for Shade Vicente MD on 10/16/17 at 0823 . Headache - HPI Summary HPI Summary: The patient is a 66 year old female with a history of migraine headaches complaining of a migraine headache that began last night. She says this is her normal headache. The patient rates the pain 8/10. She took prescribed Toradol yesterday at 21:0. The patient additionally complains of photophobia and neck pain. The patient denies fevers, nausea, and vomiting. - History Of Current Complaint Chief Complaint: EDHeadache Stated Complaint: HEADACHE Hx Obtained From: Patient Hx Last Menstrual Period: post Onset/Duration: Started days ago - 1, Still Present Currently Pain Is: Current Pain Scale(0-10)= - 8, Severe Timing: Constant Character: Migraine Allevating Factors: Nothing Associated Signs And Symptoms: Negative - fever, nausea, vomiting, Other (Noted In Comments) - Photophobia, neck pain Related History: Similar Episode/DX As: - prior migraines - Allergies/Home Medications Allergies/Adverse Reactions: Allergies Allergy/AdvReac Type Severity Reaction Status Date / Time heparin Allergy See Comment Verified 10/16/17 09:25 chlorpromazine AdvReac Intermediate Altered Verified 10/16/17 09:25 Mental Status erythromycin base AdvReac Intermediate Diarrhea Verified 10/16/17 09:25 valproic acid AdvReac Intermediate Altered Verified 10/16/17 09:25 Mental Status cephalexin AdvReac Mild Muscle Ache Verified 10/16/17 09:25 PMH/Surg Hx/FS Hx/Imm Hx Endocrine/Hematology History: Denies: Hx Anticoagulant Therapy, Hx Diabetes, Hx Thyroid Disease Cardiovascular History: Reports: Hx Hypercholesterolemia, Hx Hypertension, Other Cardiovascular Problems/Disorders - heart burn Respiratory History: Denies: Hx Asthma, Hx Chronic Obstructive Pulmonary Disease (COPD) GI History: Reports: Hx Gastroesophageal Reflux Disease Denies: Hx Ulcer Musculoskeletal History: Reports: Hx Arthritis Sensory History: Reports: Hx Contacts or Glasses Opthamlomology History: Reports: Hx Contacts or Glasses Neurological History: Reports: Hx Migraine - Chronic migraine disease, Hx Seizures Psychiatric History: Reports: Hx Anxiety, Hx Depression - Cancer History Hx Chemotherapy: No Hx Radiation Therapy: No - Surgical History Surgery Procedure, Year, and Place: 1974, 1976, 1978 3 C Sections [place]. 1986 right elbow surgery [place]. [place] [facility] [place] x2 sinus surgery [facility] [place] [facility] [place] 2006 appendectomy, [facility] [place] 2004 bladder surgery ( spot in bladder), [facility] [place] 2005 bilateral meniscus surgery, [facility] [place] 2004 OVARY REMOVED [facility] [place]. 1980 HYSTERECTOMY,PEDRITO. 07/2013 LEFT TOE SURGERY [facility] [place] right knee; endoscopy left knee Hx Anesthesia Reactions: Yes - required mechanical ventilation for oversedation - Immunization History Date of Tetanus Vaccine: within the last 10 years Date of Influenza Vaccine: Fall 2014 Infectious Disease History: No Infectious Disease History: Reports: Hx Shingles - 2011 Denies: Hx Clostridium Difficile, Hx Hepatitis, Hx Human Immunodeficiency Virus (HIV), Hx of Known/Suspected MRSA, Hx Tuberculosis, Hx Known/Suspected VRE , Hx Known/Suspected VRSA, History Other Infectious Disease, Traveled Outside the in Last 30 Days - Family History Known Family History: Positive: Cardiac Disease, Hypertension, Other - stroke: mom; migraines Negative: Diabetes - Social History Alcohol Use: Rare Alcohol Amount: 1 GLASS/MONTH Hx Substance Use: No Substance Use Type: Reports: None Substance Use Comment - Amount & Last Used: Valium - Anxiety Hx Tobacco Use: No Smoking Status (MU): Never Smoked Tobacco Have You Smoked in the Last Year: No Review of Systems Negative: Fever Positive: Photophobia Negative: Vomiting, Nausea Positive: Other - Neck pain Positive: Headache - migraine All Other Systems Reviewed And Are Negative: Yes Physical Exam - Summary Physical Exam Summary: VITAL SIGNS: Reviewed. GENERAL: Patient is a well-developed and nourished female who is lying comfortable in the stretcher. Patient is not in any acute respiratory distress. HEAD AND FACE: No signs of trauma. No ecchymosis, hematomas or skull depressions. No sinus tenderness. EYES: PERRLA, EOMI x 2, No injected conjunctiva, no nystagmus. EARS: Hearing grossly intact. Ear canals and tympanic membranes are within normal limits. MOUTH: Oropharynx within normal limits. NECK: Supple, trachea is midline, no adenopathy, no JVD, no carotid bruit, no c- spine tenderness, neck with full ROM. CHEST: Symmetric, no tenderness at palpation LUNGS: Clear to auscultation bilaterally. No wheezing or crackles. CVS: Regular rate and rhythm, S1 and S2 present, no murmurs or gallops appreciated. ABDOMEN: Soft, non-tender. No signs of distention. No rebound no guarding, and no masses palpated. Bowel sounds are normal. EXTREMITIES: FROM in all major joints, no edema, no cyanosis or clubbing. NEURO: Alert and oriented x 3. No acute neurological deficits. Speech is normal and follows commands. SKIN: Dry and warm Triage Information Reviewed: Yes Vital Signs On Initial Exam: Initial Vitals Temp Pulse Resp BP Pulse Ox 97.5 F 66 20 159/89 97 10/16/17 08:01 10/16/17 08:01 10/16/17 08:01 10/16/17 08:01 10/16/17 08:01 Vital Signs Reviewed: Yes Diagnostics - Vital Signs Vital Signs Temp Pulse Resp BP Pulse Ox 10/16/17 08:11 66 98 10/16/17 08:09 138/75 10/16/17 08:01 97.5 F 66 20 159/89 97 - Laboratory Result Diagrams: 10/16/17 08:44 10/16/17 08:44 Lab Statement: Any lab studies that have been ordered have been reviewed, and results considered in the medical decision making process. Headache Course/Dx - Course Assessment/Plan: The patient is a 66 year old female with a history of migraine headaches complaining of a migraine headache that began last night. She says this is her normal headache. The patient rates the pain 8/10. She took prescribed Toradol yesterday at 21:0. The patient additionally complains of photophobia and neck pain. Test results are without significant abnormalities. Urinalysis is negative for UTI. Urine toxicology is positive for barbiturates and benzodiazepines. The patient was given Solu-Medrol, IV fluids, Benadryl, Reglan, and Toradol for the pain. After these medications, the patients symptoms improved. The patient will be discharged home to follow up with primary care. The patient is hemodynamically stable and alert and oriented x 3. Her pain is 0/10. - Diagnoses Provider Diagnoses: Migraine headache Discharge - Discharge Plan Condition: Stable Disposition: HOME Patient Education Materials: Migraine Headache (ED) Referrals: Sherron Hood MD [Primary Care Provider] - 3 Days Additional Instructions: Follow up with your primary care physician in three days. Return to the emergency department for any new or worsening symptoms. The documentation as recorded by the Tavo ness Thomas accurately reflects the service I personally performed and the decisions made by me, Shade Vicente MD.
== END 2017-10-16 10:56 | disposition home or self-care (01) ==
LOC: ED 08:00
DX: G43.909 Migraine, unspecified, not intractable, without status migrainosus (principal); Z88.3 Allergy status to other anti-infective agents; Z88.8 Allergy status to other drugs, medicaments and biological substances
CPT/HCPCS: 36415; 80053; 80307; 81003; 81015; 82375; 83605; 85025; 85652; 87086; 96361; 96374; 96375; 99283; A9270-GY; J1200; J1885; J2765; J2930

== ENCOUNTER 2017-10-22 18:05 | Emergency (ER) | payer MEDICARE, BC ==
[2017-10-22] MEDS ORDERED: Ketorolac INJ* 30 MG/ML 1 ML VIAL IV ONE (20:36)
[2017-10-22] MEDS ORDERED: NS 0.9% 1000 ML* 1,000 ML IV ONE (20:36)
[2017-10-22 20:47] LABS: ABS Basophils 0.1 10^3/ul (0-0.2); ABS Eosinophils 0.3 10^3/ul (0-0.6); ABS Lymphocytes 3.2 10^3/ul (1.0-4.8); ABS Monocytes 0.6 10^3/ul (0-0.8); ABS Neutrophils 3.4 10^3/ul (1.5-7.7); ABS Nucleated RBC 0 10^3/ul; Eosinophil % 3.4 % (0-6); Hematocrit 40 % (35-47); Hemoglobin 13.5 g/dl (12.0-16.0); Lymphocyte % 42.1 % (25-47); Mean Corpuscular HGB Conc 34 g/dl (31-36); Mean Corpuscular Hemoglobin 35 pg (27-31); Mean Corpuscular Volume 102 fL (80-97); Mean Platelet Volume 7 um3 (7.4-10.4); Nucleated Red Blood Cells % 0.1; Platelet Count 277 10^3/ul (150-450); Red Cell Distribution Width 13 % (10.5-15); White Blood Count 7.6 10^3/ul (3.5-10.8)
[2017-10-22] MEDS ORDERED: diPHENhydraMINE IV* 50 MG in NS 0.9% 50 ML* 50 ML IVPB ONE (20:47)
[2017-10-22] MEDS ORDERED: diPHENhydraMINE IV* 50 MG/ML 1 ml VIAL (BENADRYL) ONE (20:49)
[2017-10-22 21:02] LABS: EGFR Non-African American 67.6 (>60)
[2017-10-22 21:06] LABS: INR 0.87 (0.77-1.02)
--- NOTE | 2017-10-22 21:38 | RAD ---
INDICATION: Headaches COMPARISON: CT brain February 28, 2012 TECHNIQUE: Noncontrast axial source images were acquired from the skull base to the vertex. FINDINGS: Ventricles/sulci: The ventricles and cisterns are normal in size and configuration for age. Brain parenchyma: There is no acute focal parenchymal finding, evidence of intracranial mass, or intracranial mass effect. There is a tiny, remote lacunar type infarct in the right lentiform nucleus. Intracranial hemorrhage:None. Extra-axial spaces: There are no abnormal extra axial fluid collections or evidence of extra-axial mass. Calvarium: There is no calvarial fracture or other calvarial abnormality. Scalp: There is no evidence of scalp or extracalvarial soft tissue abnormality. Paranasal sinuses/mastoid: The frontal cells are hypoplastic. There is chronic right maxillary and right ethmoid sinusitis, unchanged. Other: None. IMPRESSION: No acute intracranial findings sinusitis.
[2017-10-22] MEDS ORDERED: diPHENhydraMINE IV* 50 MG/ML 1 ml VIAL (BENADRYL) IV ONE (21:57)
[2017-10-22] MEDS ORDERED: Butalb/Acetamin/Caff TAB* 1 TAB PO ONE (21:57)
--- NOTE | 2017-10-22 22:41 | ED ---
Bam Collado Angela, scribed for Erik Sims on 10/22/17 at 2034 . Headache - HPI Summary HPI Summary: This pt is a 66 y/o female [facility] c/o headache since yesterday afternoon. Pt reports her headache has been constant. She additionally notes intermittent double vision. She has a history of migraine and this headache feels like one. Pt states this is not the worst headache of her life. Pt denies neck stiffness, fever, chest pain, SOB. She does not know when was her last cat scan. Pt is not anticoagulated. - History Of Current Complaint Chief Complaint: EDHeadache Stated Complaint: HEADACHE Time Seen by Provider: 10/22/17 20:24 Hx Obtained From: Patient Hx Last Menstrual Period: post Onset/Duration: Started days ago, Still Present Currently Pain Is: Moderate Timing: Constant Character: Migraine Location of Headache: Diffuse Aggravating Factor: Nothing Allevating Factors: Nothing Associated Signs And Symptoms: Visual Changes - double vision intermittently - Allergies/Home Medications Allergies/Adverse Reactions: Allergies Allergy/AdvReac Type Severity Reaction Status Date / Time heparin Allergy See Comment Verified 10/16/17 09:25 chlorpromazine AdvReac Intermediate Altered Verified 10/16/17 09:25 Mental Status erythromycin base AdvReac Intermediate Diarrhea Verified 10/16/17 09:25 valproic acid AdvReac Intermediate Altered Verified 10/16/17 09:25 Mental Status cephalexin AdvReac Mild Muscle Ache Verified 10/16/17 09:25 PMH/Surg Hx/FS Hx/Imm Hx Endocrine/Hematology History: Denies: Hx Anticoagulant Therapy, Hx Diabetes, Hx Thyroid Disease Cardiovascular History: Reports: Hx Hypercholesterolemia, Hx Hypertension, Other Cardiovascular Problems/Disorders - heart burn Respiratory History: Denies: Hx Asthma, Hx Chronic Obstructive Pulmonary Disease (COPD) GI History: Reports: Hx Gastroesophageal Reflux Disease Denies: Hx Ulcer Musculoskeletal History: Reports: Hx Arthritis Sensory History: Reports: Hx Contacts or Glasses Opthamlomology History: Reports: Hx Contacts or Glasses Neurological History: Reports: Hx Migraine - Chronic migraine disease, Hx Seizures Psychiatric History: Reports: Hx Anxiety, Hx Depression - Cancer History Hx Chemotherapy: No Hx Radiation Therapy: No - Surgical History Surgery Procedure, Year, and Place: 1974, 1976, 1978 3 C [facility]. 1986 right elbow surgery [place]. 2000s LEFT breast biopsy [facility] [place]. 2000s x2 sinus surgery [facility] [facility] [place]. 2006 appendectomy, [facility]. 2005 bladder surgery ( spot in bladder), [facility] [place] 2006 bilateral meniscus surgery, [facility] [place]. [address] [facility] [place]. 1980 HYSTERECTOMY,PEDRITO. 07/2013 LEFT TOE SURGERY [facility]. total replacement right knee; endoscopy left knee Hx Anesthesia Reactions: Yes - required mechanical ventilation for oversedation - Immunization History Date of Tetanus Vaccine: within the last 10 years Date of Influenza Vaccine: Fall 2014 Infectious Disease History: No Infectious Disease History: Reports: Hx Shingles - 2011 Denies: Hx Clostridium Difficile, Hx Hepatitis, Hx Human Immunodeficiency Virus (HIV), Hx of Known/Suspected MRSA, Hx Tuberculosis, Hx Known/Suspected VRE , Hx Known/Suspected VRSA, History Other Infectious Disease, Traveled Outside the [place] in Last 30 Days - Family History Known Family History: Positive: Cardiac Disease, Hypertension, Other - stroke: mom; migraines Negative: Diabetes - Social History Alcohol Use: Rare Alcohol Amount: 1 GLASS/MONTH Hx Substance Use: No Substance Use Type: Reports: None Substance Use Comment - Amount & Last Used: Valium - Anxiety Hx Tobacco Use: No Smoking Status (MU): Never Smoked Tobacco Have You Smoked in the Last Year: No Review of Systems Negative: Fever, Chills Positive: Diplopia - intermittently Negative: Chest Pain Negative: Shortness Of Breath Negative: Other - neck stiffness Positive: Headache All Other Systems Reviewed And Are Negative: Yes Physical Exam - Summary Physical Exam Summary: Appearance: Well appearing, no pain distress Skin: warm, dry, reflects adequate perfusion Head/face: normal Eyes: EOMI, [place] ENT: normal Neck: supple, nontender Respiratory: CTA, breath sounds present Cardiovascular: RRR, pulses symmetrical Abdomen: nontender, soft Bowel: present Musculoskeletal: normal, strength/ROM intact Neuro: normal, sensory motor intact, A&Ox3 Triage Information Reviewed: Yes Vital Signs On Initial Exam: Initial Vitals Temp Pulse Resp BP Pulse Ox 98.7 F 67 16 136/88 98 10/22/17 18:31 10/22/17 18:31 10/22/17 18:31 10/22/17 18:31 10/22/17 18:31 Vital Signs Reviewed: Yes - [place] Coma Scale Best Eye Response: 4 - Spontaneous Best Motor Response: 6 - Obeys Commands Best Verbal Response: 5 - Oriented Coma Scale Total: 15 Diagnostics - Vital Signs Vital Signs Temp Pulse Resp BP Pulse Ox 10/22/17 18:31 98.7 F 67 16 136/88 98 - Laboratory Lab Results: Lab Results 10/22/17 10/22/17 10/22/17 Range/Units 20:31 20:31 20:31 WBC 7.6 (3.5-10.8) 10^3/ul RBC 3.90 L (4.0-5.4) 10^6/ul Hgb 13.5 (12.0-16.0) g/dl Hct 40 (35-47) % MCV 102 H (80-97) fL MCH 35 H (27-31) pg MCHC 34 (31-36) g/dl RDW 13 (10.5-15) % Plt Count 277 (150-450) 10^3/ul MPV 7 L (7.4-10.4) um3 Neut % (Auto) 45.5 (38-83) % Lymph % (Auto) 42.1 (25-47) % [place] % (Auto) 8.0 H (0-7) % Eos % (Auto) 3.4 (0-6) % Baso % (Auto) 1.0 (0-2) % Absolute Neuts (auto) 3.4 (1.5-7.7) 10^3/ul Absolute Lymphs (auto) 3.2 (1.0-4.8) 10^3/ul Absolute Monos (auto) 0.6 (0-0.8) 10^3/ul Absolute Eos (auto) 0.3 (0-0.6) 10^3/ul Absolute Basos (auto) 0.1 (0-0.2) 10^3/ul Absolute Nucleated RBC 0 10^3/ul Nucleated RBC % 0.1 INR (Anticoag Therapy) 0.87 (0.77-1.02) APTT 31.3 (26.0-36.3) seconds Sodium 137 (133-145) mmol/L Potassium 4.0 (3.5-5.0) mmol/L Chloride 106 (101-111) mmol/L Carbon Dioxide 24 (22-32) mmol/L Anion Gap 7 (2-11) mmol/L BUN 23 (6-24) mg/dL Creatinine 0.84 (0.51-0.95) mg/dL Est GFR ( Amer) 87.0 (>60) Est GFR (Non-Af Amer) 67.6 (>60) BUN/Creatinine Ratio 27.4 H (8-20) Glucose 97 (70-100) mg/dL Calcium 9.7 (8.6-10.3) mg/dL Total Bilirubin 0.40 (0.2-1.0) mg/dL AST 16 (13-39) U/L ALT 16 (7-52) U/L Alkaline Phosphatase 66 (34-104) U/L Total Protein 7.7 (6.4-8.9) g/dL Albumin 4.5 (3.2-5.2) g/dL Globulin 3.2 (2-4) g/dL Albumin/Globulin Ratio 1.4 (1-3) Result Diagrams: 10/22/17 20:31 10/22/17 20:31 Lab Statement: Any lab studies that have been ordered have been reviewed, and results considered in the medical decision making process. - CT Brain CT CT Interpretation: No Acute Changes - IMPRESSION: No acute intracranial findings. Sinusitis. Dr. Sims has reviewed this radiology report. CT Interpretation Completed By: Radiologist Re-Evaluation - Re-Evaluation First Eval Re-Evaluation Time: 21:52 Comment: I reviewed the CT results with the pt. She reports she feels better after medications. Headache Course/Dx - Course Course Of Treatment: Pt is a 66 y/o female, with hx of migraines, who presents with a headache since yesterday afternoon. She additionally reports intermittent double vision. Bloodwork and CT brain were obtained. Brain CT is negative. In the ED course the pt was given Benadryl, Fioricet, and Toradol. She states she feels better after medications. Pt will be discharged to home. She will be given a prescription for Fioricet and Bactrim. - Diagnoses Differential Diagnosis/HQI/PQRI: Epidural Hematoma, Subdural Hematoma, Migraine , Sinus Headache, Tension Headache Provider Diagnoses: Headache, Sinusitis Discharge - Discharge Plan Condition: Stable Disposition: HOME Prescriptions: Butalb/Acetamin/Caff TAB* [Fioricet TAB*] 1 tab PO Q6H PRN #15 tab MDD 3 PRN Reason: Pain Sulfamethox/Trimethoprim DS* [Bactrim DS 800/160 TAB*] 1 tab PO BID #20 tab Patient Education Materials: Sinusitis (ED), General Headache (ED) Referrals: Sherron Hood MD [Primary Care Provider] - 3 Days Additional Instructions: Please follow up with your primary care provider in 3 days. RETURN TO THE ED FOR ANY WORSENING SYMPTOMS. The documentation as recorded by the Bam ness Angela accurately reflects the service I personally performed and the decisions made by Bethany barry Emmanuel.
[2017-10-22 23:09] VITALS: BP 128/67
== END 2017-10-22 23:10 | disposition home or self-care (01) ==
LOC: ED 18:05
DX: R51 Headache (principal); J32.9 Chronic sinusitis, unspecified; Z88.3 Allergy status to other anti-infective agents; Z88.8 Allergy status to other drugs, medicaments and biological substances
CPT/HCPCS: 36415; 70450; 80053; 85025; 85610; 85730; 96361; 96374; 96375; 99283; A9270-GY; J1200; J1885

== ENCOUNTER 2017-10-28 16:17 | Emergency (ER) | payer MEDICARE, BC ==
[2017-10-28] MEDS ORDERED: NS 0.9% 1000 ML* 1,000 ML IV ONE (19:35)
[2017-10-28] MEDS ORDERED: Ondansetron INJ* 2 MG/ML VIAL IV ONE (19:35)
[2017-10-28] MEDS ORDERED: Ketorolac INJ* 30 MG/ML 1 ML VIAL IV ONE (19:35)
[2017-10-28] MEDS ORDERED: diPHENhydraMINE IV* 50 MG/ML 1 ml VIAL (BENADRYL) IV ONE ×2 (19:35→21:08)
[2017-10-28] MEDS ORDERED: Metoclopramide IV* 5 MG/ML 2 ML VIAL IV ONE (21:08)
--- NOTE | 2017-10-28 21:15 | ED ---
Tavo Collado Thomas, scribed for Abdias Agee MD on 10/28/17 at 1952 . Headache - HPI Summary HPI Summary: The patient is a 66 year old female presenting to the emergency department complaining of a migraine headache. The headache is located frontally and radiates back, which is her normal headache. The pain is rated 8/10. She denies nausea, fever, chills, focal weakness, and numbness. The pain is aggravated by lights and smells. The patient notes she has been stressed recently because she is moving soon. This is her fifth visit in two weeks to [facility] for migraine headaches. - History Of Current Complaint Chief Complaint: EDHeadache Stated Complaint: HEADACHE Time Seen by Provider: 10/28/17 19:10 Hx Obtained From: Patient Hx Last Menstrual Period: post Onset/Duration: Still Present Currently Pain Is: Current Pain Scale(0-10)= - 8 Timing: Constant Character: Migraine Location of Headache: Frontal Radiates to: Back Aggravating Factor: Bright Lights, Other - Smells Allevating Factors: Nothing Associated Signs And Symptoms: Negative - nausea, fever, chills, focal weakness , numbness - Allergies/Home Medications Allergies/Adverse Reactions: Allergies Allergy/AdvReac Type Severity Reaction Status Date / Time heparin Allergy See Comment Verified 10/16/17 09:25 chlorpromazine AdvReac Intermediate Altered Verified 10/16/17 09:25 Mental Status erythromycin base AdvReac Intermediate Diarrhea Verified 10/16/17 09:25 valproic acid AdvReac Intermediate Altered Verified 10/16/17 09:25 Mental Status cephalexin AdvReac Mild Muscle Ache Verified 10/16/17 09:25 PMH/Surg Hx/FS Hx/Imm Hx Endocrine/Hematology History: Denies: Hx Anticoagulant Therapy, Hx Diabetes, Hx Thyroid Disease Cardiovascular History: Reports: Hx Hypercholesterolemia, Hx Hypertension, Other Cardiovascular Problems/Disorders - heart burn Respiratory History: Denies: Hx Asthma, Hx Chronic Obstructive Pulmonary Disease (COPD) GI History: Reports: Hx Gastroesophageal Reflux Disease Denies: Hx Ulcer Musculoskeletal History: Reports: Hx Arthritis Sensory History: Reports: Hx Contacts or Glasses Opthamlomology History: Reports: Hx Contacts or Glasses Neurological History: Reports: Hx Migraine - Chronic migraine disease, Hx Seizures Psychiatric History: Reports: Hx Anxiety, Hx Depression - Cancer History Hx Chemotherapy: No Hx Radiation Therapy: No - Surgical History Surgery Procedure, Year, and Place: 1974, 1976, 1978 3 C [facility]. 1986 right elbow surgery [place]. 1999[place] LEFT breast [place] [facility] [place] x2 sinus [place] [facility] [place] [facility] [place] 2006 appendectomy, [facility] [place] 2004 bladder surgery ( spot in bladder), [facility] [place]. 2006 bilateral meniscus surgery, [facility] [place]. 2004 OVARY REMOVED [facility] [place]. 1981 HYSTERECTOMY,[place]. 07/2013 LEFT TOE SURGERY [facility] [place]. total replacement right knee; endoscopy left knee Hx Anesthesia Reactions: Yes - required mechanical ventilation for oversedation - Immunization History Date of Tetanus Vaccine: within the last 10 years Date of Influenza Vaccine: Fall 2014 Infectious Disease History: No Infectious Disease History: Reports: Hx Shingles - 2011 Denies: Hx Clostridium Difficile, Hx Hepatitis, Hx Human Immunodeficiency Virus (HIV), Hx of Known/Suspected MRSA, Hx Tuberculosis, Hx Known/Suspected VRE , Hx Known/Suspected VRSA, History Other Infectious Disease, Traveled Outside the in Last 30 Days - Family History Known Family History: Positive: Cardiac Disease, Hypertension, Other - stroke: mom; migraines Negative: Diabetes - Social History Alcohol Use: Rare Alcohol Amount: 1 GLASS/MONTH Hx Substance Use: No Substance Use Type: Reports: None Substance Use Comment - Amount & Last Used: Valium - Anxiety Hx Tobacco Use: No Smoking Status (MU): Never Smoked Tobacco Have You Smoked in the Last Year: No Review of Systems Negative: Fever, Chills Negative: Nausea Positive: Headache. Negative: Weakness - focal, Numbness All Other Systems Reviewed And Are Negative: Yes Physical Exam - Summary Physical Exam Summary: General: well-appearing, no pain distress Skin: warm, color reflects adequate perfusion, dry Head: normal Eyes: EOMI, [place] ENT: normal Neck: supple, nontender Respiratory: CTA, breath sounds present Cardiovascular: RRR Abdomen: soft, nontender Bowel: present Musculoskeletal: normal, strength/ROM intact Neurological: normal, sensory/motor intact, A&O x3 Psychological: affect/mood appropriate Triage Information Reviewed: Yes Vital Signs On Initial Exam: Initial Vitals Temp Pulse Resp BP Pulse Ox 97.8 F 70 15 169/92 99 10/28/17 16:42 10/28/17 16:42 10/28/17 16:42 10/28/17 16:42 10/28/17 16:42 Vital Signs Reviewed: Yes Diagnostics - Vital Signs Vital Signs Temp Pulse Resp BP Pulse Ox 10/28/17 18:16 98.3 F 74 14 168/91 99 10/28/17 16:42 97.8 F 70 15 169/92 99 - Laboratory Lab Statement: Any lab studies that have been ordered have been reviewed, and results considered in the medical decision making process. Headache Course/Dx - Course Course Of Treatment: Medications reviewed. Allergies noted. BP noted and patient urged to follow up with primary care. CASTRO IMPROVED IN ED - Diagnoses Provider Diagnoses: Uncontrolled hypertension, Migraine headache Discharge - Discharge Plan Condition: Stable Disposition: HOME Patient Education Materials: Migraine Headache (ED) Referrals: Sherron Hood MD [Primary Care Provider] - Manisha Cardenas MD [Medical Doctor] - Additional Instructions: FOLLOW UP WITH YOUR DOCTOR. RETURN TO THE EMERGENCY DEPARTMENT FOR ANY WORSENING OF YOUR CONDITION OR QUESTIONS OR CONCERNS. YOUR BLOOD PRESSURE WAS ELEVATED TODAY; FOLLOW UP WITH YOUR PRIMARY CARE DOCTOR WITHIN THE NEXT 1 WEEK. The documentation as recorded by the Tavo ness Thomas accurately reflects the service I personally performed and the decisions made by , Abdias Agee MD.
[2017-10-28 21:54] VITALS: BP 127/76
== END 2017-10-28 21:54 | disposition home or self-care (01) ==
LOC: ED 16:17
DX: G43.909 Migraine, unspecified, not intractable, without status migrainosus (principal); I10 Essential (primary) hypertension
CPT/HCPCS: 99282; J1200; J1885; J2405; J2765

== ENCOUNTER 2017-10-31 08:06 | Observation (INO) | payer MEDICARE, BC ==
[2017-10-31] MEDS ORDERED: Ketorolac INJ* 30 MG/ML 1 ML VIAL IV ONE (08:48)
[2017-10-31] MEDS ORDERED: Metoclopramide IV* 5 MG/ML 2 ML VIAL IV ONE (08:48)
[2017-10-31] MEDS ORDERED: NS 0.9% 1000 ML* 1,000 ML IV ONE (08:48)
[2017-10-31] MEDS: diPHENhydraMINE PO* 50 MG PO ONE ×2 (09:21→09:25)
[2017-10-31] MEDS ORDERED: diPHENhydraMINE IV* 50 MG/ML 1 ml VIAL (BENADRYL) IV ONE (09:24)
[2017-10-31] MEDS ORDERED: LORazepam INJ* 2 MG/ML 1 ML VIAL IV ONE (11:28)
[2017-10-31] MEDS ORDERED: Magnesium Sulfate 1 GM IV* 1 GM/100 ML BAG IV ONE (11:28)
[2017-10-31] MEDS ORDERED: Acetaminophen TAB* 325 MG PO PRN (14:39)
[2017-10-31] MEDS ORDERED: Cyclobenzaprine TAB* 10 MG PO PRN (14:41)
--- NOTE | 2017-10-31 15:42 | ED ---
Jose Collado Stephanie, scribed for Dandre Olea MD on 10/31/17 at 0859 . Headache - HPI Summary HPI Summary: The pt is a 66 y/o F presenting to the ED with c/o migraine that began on at 19:00. The pt was advised to take Toradol and Tylenol for CASTRO after visit to [facility] on 10/28/17. The pt states this is a typical migraine. She states a hx of migraines. The pt has had treatment with Botox which has helped alleviate migraines in the past. The pt states her CASTRO have become accustomed to Benadryl. - History Of Current Complaint Chief Complaint: EDHeadache Stated Complaint: HEADACHE Time Seen by Provider: 10/31/17 08:31 Hx Obtained From: Patient Hx Last Menstrual Period: post Onset/Duration: Gradual Onset, Started days ago - 2, Still Present Timing: Constant Character: Migraine Location of Headache: Diffuse Aggravating Factor: Nothing Allevating Factors: Nothing - Allergies/Home Medications Allergies/Adverse Reactions: Allergies Allergy/AdvReac Type Severity Reaction Status Date / Time sulfamethoxazole Allergy Intermediate GI Upset Verified 10/31/17 08:13 [From Bactrim] trimethoprim [From Bactrim] Allergy Intermediate GI Upset Verified 10/31/17 08: 13 heparin Allergy See Comment Verified 10/31/17 08:13 chlorpromazine AdvReac Intermediate Altered Verified 10/31/17 08:13 Mental Status erythromycin base AdvReac Intermediate Diarrhea Verified 10/31/17 08:13 valproic acid AdvReac Intermediate Altered Verified 10/31/17 08:13 Mental Status cephalexin AdvReac Mild Muscle Ache Verified 10/31/17 08:13 Home Medications: Home Medications ARIPiprazole TAB* [Abilify TAB*] 10 mg PO DAILY 10/31/17 [History Confirmed 11/15] DULoxetine DR CAP* [Cymbalta CAP*] 60 mg PO DAILY 10/31/17 [History Confirmed ] busPIRone TAB* [Buspar *] 30 mg PO QAM 10/31/17 [History Confirmed 10/31/17] celeCOXIB CAP* [CeleBREX CAP*] 200 mg PO DAILY PRN 10/31/17 [History Confirmed 10/31/17] PMH/Surg Hx/FS Hx/Imm Hx Endocrine/Hematology History: Denies: Hx Anticoagulant Therapy, Hx Diabetes, Hx Thyroid Disease Cardiovascular History: Reports: Hx Hypercholesterolemia, Hx Hypertension, Other Cardiovascular Problems/Disorders - heart burn Respiratory History: Denies: Hx Asthma, Hx Chronic Obstructive Pulmonary Disease (COPD) GI History: Reports: Hx Gastroesophageal Reflux Disease Denies: Hx Ulcer Musculoskeletal History: Reports: Hx Arthritis Sensory History: Reports: Hx Contacts or Glasses Opthamlomology History: Reports: Hx Contacts or Glasses Neurological History: Reports: Hx Migraine - Chronic migraine disease, Hx Seizures Psychiatric History: Reports: Hx Anxiety, Hx Depression - Cancer History Hx Chemotherapy: No Hx Radiation Therapy: No - Surgical History Surgery Procedure, Year, and Place: 1974, 1976, 1978 3 C Sections [facility]. 1986 right elbow surgery [place]. LEFT breast biopsy [facility] [place]. x2 sinus surgery [facility] [place] [facility]. 2005 appendectomy, [facility] [place]. 2004 bladder surgery ( spot in bladder), [facility] [place] 2006 bilateral meniscus surgery, [facility] [place]. 2004 OVARY REMOVED [facility] [place]. 1980 HYSTERECTOMY,PEDRITO. 07/2013 LEFT TOE SURGERY [facility] [place]. total replacement right knee; endoscopy left knee Hx Anesthesia Reactions: Yes - required mechanical ventilation for oversedation - Immunization History Date of Tetanus Vaccine: within the last 10 years Date of Influenza Vaccine: Fall 2014 Infectious Disease History: No Infectious Disease History: Reports: Hx Shingles - 2011 Denies: Hx Clostridium Difficile, Hx Hepatitis, Hx Human Immunodeficiency Virus (HIV), Hx of Known/Suspected MRSA, Hx Tuberculosis, Hx Known/Suspected VRE , Hx Known/Suspected VRSA, History Other Infectious Disease, Traveled Outside the in Last 30 Days - Family History Known Family History: Positive: Cardiac Disease, Hypertension, Other - stroke: mom; migraines Negative: Diabetes - Social History Occupation: Retired Lives: With Family Alcohol Use: Rare Alcohol Amount: 1 GLASS/MONTH Hx Substance Use: No Substance Use Type: Reports: None Substance Use Comment - Amount & Last Used: Valium - Anxiety Hx Tobacco Use: No Smoking Status (MU): Never Smoked Tobacco Have You Smoked in the Last Year: No Review of Systems Negative: Fever Positive: Headache - migraine All Other Systems Reviewed And Are Negative: Yes Physical Exam - Summary Physical Exam Summary: Appearance: The patient is well-nourished in no acute distress and in no acute pain. Skin: The skin is warm and dry and skin color reflects adequate perfusion. HEENT: The head is normocephalic and atraumatic. The pupils are equal and reactive. The conjunctivae are clear and without drainage. Nares are patent and without drainage. Mouth reveals moist mucous membranes and the throat is without erythema and exudate. The external ears are intact. The ear canals are patent and without drainage. The tympanic membranes are intact. Neck: the neck is supple with full range of motion and non-tender. There are no carotid bruits. There is no neck vein distension. Respiratory: Chest is non-tender. Lungs are clear to auscultation and breath sounds are symmetrical and equal. Cardiovascular: Heart is regular rate and rhythm. There is no murmur or rub auscultated. There is no peripheral edema and pulses are symmetrical and equal. Abdomen: The abdomen is soft and non-tender. There are normal bowel sounds heard in all four quadrants and there is no organomegaly palpated. Musculoskeletal: There is no back tenderness noted. Extremities are non-tender with full range of motion. There is good capillary refill. There is no peripheral edema or calf tenderness elicited. Neurological: Patient is alert and oriented to person, place and time. The patient has symmetrical motor strength in all four extremities. Cranial nerves are grossly intact. Deep tendon reflexes are symmetrical and equal in all four extremities. Psychiatric: The patient has an appropriate affect and does not exhibit any anxiety or depression. Triage Information Reviewed: Yes Vital Signs On Initial Exam: Initial Vitals Temp Pulse Resp BP Pulse Ox 97.3 F 71 14 138/80 98 10/31/17 08:08 10/31/17 08:08 10/31/17 08:08 10/31/17 08:08 10/31/17 08:08 Vital Signs Reviewed: Yes Diagnostics - Vital Signs Vital Signs Temp Pulse Resp BP Pulse Ox 10/31/17 08:08 97.3 F 71 14 138/80 98 - Laboratory Lab Statement: Any lab studies that have been ordered have been reviewed, and results considered in the medical decision making process. Headache Course/Dx - Course Course Of Treatment: Ms. Ponce presented with an intractable migraine. We tried a GI cocktail here without much relief and then ativan and magnesium with no real change. I spoke with Dr. Cardenas who recommended admission. - Diagnoses Provider Diagnoses: Intractable migraine Discharge - Discharge Plan Condition: Stable Disposition: ADMITTED TO [facility] Referrals: Sherron Hood MD [Primary Care Provider] - The documentation as recorded by the Jose ness Stephanie accurately reflects the service I personally performed and the decisions made by me, Dandre Olea MD.
[2017-10-31 15:56] LABS: ABS Basophils 0.1 10^3/ul (0-0.2); ABS Eosinophils 0.2 10^3/ul (0-0.6); ABS Lymphocytes 2.5 10^3/ul (1.0-4.8); ABS Monocytes 0.4 10^3/ul (0-0.8); ABS Neutrophils 2.4 10^3/ul (1.5-7.7); ABS Nucleated RBC 0 10^3/ul; Eosinophil % 3.3 % (0-6); Hematocrit 36 % (35-47); Hemoglobin 12.3 g/dl (12.0-16.0); Lymphocyte % 45.4 % (25-47); Mean Corpuscular HGB Conc 34 g/dl (31-36); Mean Corpuscular Hemoglobin 35 pg (27-31); Mean Corpuscular Volume 101 fL (80-97); Mean Platelet Volume 7 um3 (7.4-10.4); Nucleated Red Blood Cells % 0.1; Platelet Count 204 10^3/ul (150-450); Red Blood Count 3.54 10^6/ul (4.0-5.4); Red Cell Distribution Width 13 % (10.5-15); White Blood Count 5.4 10^3/ul (3.5-10.8)
[2017-10-31 16:20] LABS: EGFR Non-African American 66.7 (>60)
[2017-10-31] MEDS: diPHENhydraMINE IV* 50 MG/ML 1 ml VIAL (BENADRYL) IV SCH ×2 (16:58→23:27)
[2017-10-31] MEDS: Ketorolac INJ* 30 MG/ML 1 ML VIAL IV PUSH PRN ×2 (16:58→23:28)
[2017-10-31] MEDS: NS 0.9% 1000 ML* 1,000 ML IV SCH (16:59)
[2017-10-31] MEDS: Enoxaparin(*) 40 MG/0.4 ML SYR SUBCUT SCH (17:42)
[2017-10-31] MEDS ORDERED: Ondansetron TAB* 4 MG PO PRN (18:24)
[2017-10-31] MEDS: Topiramate TAB(*) 100 MG PO SCH (20:26)
[2017-10-31] MEDS: LORazepam INJ* 2 MG/ML 1 ML VIAL IV PUSH PRN (20:27)
[2017-10-31] MEDS ORDERED: tiZANidine TAB* 2 MG PO SCH (21:00)
[2017-10-31] MEDS ORDERED: Heparin VIAL(*) 5000 UNITS/ML VIAL (FIVE THOUSAND) SUBCUT SCH (22:00)
--- NOTE | 2017-10-31 23:23 | HP ---
CC: Dr. Cardenas; Dr. Hood* HISTORY AND PHYSICAL: DATE OF ADMISSION: 10/31/17 PRIMARY CARE PROVIDER: Dr. Hood. CHIEF COMPLAINT: Headache. HISTORY OF PRESENT ILLNESS: Tatiana Ponce is a 66-year-old female with history of chronic migraines, who had been seen in the emergency department for migraine 8 times for the past 2 months only. Patient also stated that in addition to the 8 times being seen this hospital, she was seen multiple times in the hospital in [place] and another hospital in [place]. She stated that the headache had been continuing and in the past, she had good results with Toradol and Benadryl at 75 mg every 8 hours. The patient also is in the process of moving in her house, is being placed in the market. Apparently for the time being, she does not have an alternative location for housing and she is very stressed out about it. She is going to be placed on overnight observation with a diagnosis of injectable migraine. PAST MEDICAL HISTORY: 1. Intractable migraines and chronic migraine disorder with multiple hospitalizations and ER visits in the past. 2. History of obesity. 3. History of seizure disorder. Last seizure was several years ago, approximately 10 years ago. 4. Gastroesophageal reflux disease. 5. Hypertension. 6. Anxiety. 7. Depression. 8. History of recent upper respiratory infection syndrome/sinusitis for which she was placed on azithromycin. The last dose she received a couple of days ago. 9. Depression. 10. History of acute respiratory failure secondary to oversedation with benzodiazepines and narcotics while being treated for migraine headache in 2011. 11. Peripheral vascular disease. 12. Hyperlipidemia. 13. The patient has a history of ischemic CVA noted in the past on an MRI, but never was actually clinically diagnosed of CVA or had symptoms of such. MEDICATIONS: Current medications at home include: 1. Celebrex 200 mg daily p.r.n. 2. BuSpar 30 mg daily. 3. Fioricet on a p.r.n. basis. 4. Lipitor 20 mg daily. 5. Abilify 10 mg daily. 6. Toradol 10 mg every 6 hours p.r.n. 7. Ibuprofen 800 mg every 8 hours p.r.n. 8. Valium 5 mg up to 4 times a day p.r.n. 9. Cymbalta 60 mg daily. 10. Flexeril 10 mg 3 times a day p.r.n. 11. Zanaflex 8 mg at bedtime. 12. Topamax 100 mg daily. 13. Protonix 40 mg daily. 14. Ditropan XL 10 mg daily. 15. Nadolol 120 mg daily. 16. Reglan 10 mg every 8 hours p.r.n. ALLERGIES: BACTRIM causes GI upset. HEPARIN, the patient does not have a real allergy to, but she stated that her brother of complications of HIT after heparin was used for heart attack for him. Apparently, her sister is also allergic to heparin and on the basis of that, patient requested not to get heparin. CHLORPROMAZINE causes altered mental status. ERYTHROMYCIN causes diarrhea. VALPROIC ACID causes altered mental status. CEPHALEXIN causes muscle aches. FAMILY HISTORY: Positive for coronary artery disease in both parents. Brother of a heart attack at the age of 60 and from this what patient explained was the allergy to heparin. I suspect it was heparin-induced thrombocytopenia. SOCIAL HISTORY: The patient denies any alcohol, tobacco use, or drug use. 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 Currently , she is in the process of moving. REVIEW OF SYSTEMS: Please see history of present illness. In addition to the above mentioned, the patient stated that her ankles had been swollen more for the past several weeks. She stated that she gets diplopia with her headache from time to time. Her headache is frontal and then radiates to the back her neck. She usually gets Botox injections for her migraine and last Botox she received was 3 months ago. She is due for it in 5 days. All the remaining 12 systems were reviewed with the patient and were otherwise negative. PHYSICAL EXAMINATION GENERAL: The patient is a very pleasant 66-year-old female, who is in no acute distress. Alert, awake, and oriented x3. VITAL SIGNS: Blood pressure of 153/83, heart rate of 72 and regular, respiratory rate 16, oxygen saturation 94% on room air, temperature 97.3. HEENT: Head: Atraumatic, normocephalic. Eyes: Pupils equal, round, and reactive to light and accommodation. Oropharynx clear. Mucosa moist. NECK: Supple. No JVD. No bruits bilaterally. RESPIRATORY: Clear to auscultation bilaterally. CARDIOVASCULAR: Regular rate and rhythm. No murmur. ABDOMEN: Soft, nontender. Bowel sounds presents in all 4 quadrants. EXTREMITIES: There is no edema. Pulses +2 bilaterally. No clubbing, cyanosis. NEUROLOGIC: Speech clear. Cranial nerves II through XII grossly intact. Motor strength is 5/5 bilaterally. SKIN: On evaluation of the skin, no ecchymotic areas or rashes noted. DIAGNOSTIC STUDIES/LABORATORY DATA: Laboratory data was not performed currently. Laboratory data from 10/22/17 was reviewed, was grossly unremarkable. ASSESSMENT AND PLAN: 1. For intractable migraine headache, the patient is going to be placed on Benadryl 75 mg IV every 8 hours together with Toradol at 30 mg every 8 hours. We will use Ativan IV on a p.r.n. basis. We will start oral non-steroidal anti - inflammatory medications for the time being. 2. For the patient's history of depression, her outpatient antidepressants are going to be continued. 3. For DVT prophylaxis, the patient will be placed on Lovenox keeping in mind, the patient has strong family of heparin-induced thrombocytopenia and heparin sensitivity. 4. For dyslipidemia, the patient is going to be continued on her statin. 5. For the patient's code status, patient's code status is full and her surrogate is her . TIME SPENT: Approximately 60 minutes were spent on admission of this patient; more than half that time was spent [id number] with the patient during the interview and physical exam. [id number]/[facility] #: [id number] MTDD
[2017-11-01] MEDS: LORazepam INJ* 2 MG/ML 1 ML VIAL IV PUSH PRN ×2 (03:12→10:13)
--- NOTE | 2017-11-01 03:31 | CONS ---
CC: Dr. Allen CONSULTATION REPORT: DATE OF CONSULT: REASON FOR CONSULT: Intractable migraine. HISTORY OF PRESENT ILLNESS: Tatiana Ponce is a 66-year-old woman with a longstanding history of intractable migraine for which she is on multiple prophylactic medications as an outpatient including Botox with superimposed mood disorder including anxiety and depression. In the past, we have noticed profound increase in headaches in the setting of destabilization of mood disorder. Tatiana has been in and out of the ER many times and recently increased both here and when she is traveling in the setting of profound stress. They are moving from the area and are putting the house in the market, and this week is the week to pack all their personal belongings away. This is very difficult for her. She has found that although the treatment in the ER has been helpful, her headache has returned. Tatiana's history with migraine is complicated. She has had focal symptoms with her migraines in the past. She had an episode of loss of consciousness. There have been nonspecific white matter changes on the MRI, previous abnormal EEG, and during course of treatment, she was found to have a new right basal ganglion gliosis consistent with stroke and therefore we avoid DHE and other vasoconstrictors. She has been seen at more than one subspecialty headache clinic. As an outpatient, a resting tremor was noted intermittently. Patient is on Abilify. She is currently on topiramate, nadolol, and Botox particularly for headache prophylaxis; however, is also on multiple mood alternating medications, which may be helpful including buspirone and Cymbalta. She also has at home muscle relaxants including tizanidine, cyclobenzaprine, ketorolac used sparingly, ondansetron for nausea. Of note, her headache on today's visit runs from the occiput to the anterior frontal region on the right hand side. It is an aching sensation and 6/10. Nausea is under good control at this time. She has noticed more difficulty in the occipital region. MEDICATIONS: Include: 1. Acetaminophen 650 mg p.o. q.4 hours p.r.n. fever or pain. 2. Abilify 10 mg p.o. q. day. 3. Lipitor 20 mg p.o. q. day. 4. BuSpar 30 mg q.a.m. 5. Flexeril 10 mg p.o. t.i.d. p.r.n. muscle spasm. 6. Benadryl 75 mg IV q.8 hours. 7. Cymbalta 60 mg p.o. q. day. 8. Lovenox 40 mg subcu q.24 hours. 9. Toradol 30 mg IV q.8 hours p.r.n. pain. 10. Ativan 0.5 mg IV push q.4 hours p.r.n. anxiety. 11. Nadolol 120 mg p.o. q. day. 12. Prilosec 20 mg p.o. q. day. 13. Zofran 4 mg p.o. q.6 hours p.r.n. nausea. 14. Ditropan 10 mg p.o. q. day. 15. Sodium chloride at 70 mL an hour. 16. Zanaflex 8 mg p.o. q.p.m. 17. Topiramate 100 mg p.o. b.i.d. REVIEW OF SYSTEMS: She is working with Dr. Allen and he is considering lithium. In the past, we have noticed some parkinsonian findings, on Abilify, none of these were noted today. She has had some double vision, she tells me in the last 2 weeks, which tends to be in far gaze, she is unclear whether it goes away when she closes one eye and she will check on this; it is intermittent. There have been some feelings of being off balance at times when she is on her feet. There has been no shortness of breath, chest pain. No recent illnesses. No Gi upset. No new change in bowel or bladder function. No new skin lesions. PHYSICAL EXAM: Tatiana's most recent temperature was 98.6 degrees Fahrenheit, her pulse was 67, respiratory rate 18, saturation was 99%, blood pressure was elevated at 166/92. She had regular cardiac rhythm. Her lungs are clear to auscultation. She appeared tired. There was no peripheral edema and peripheral pulses were intact. Her pupils were equal and responsive to light. Her fundi on the left was flat. She had full extraocular movements with no nystagmus. Full grace to confrontation. Her facial expression, sensation, hearing were equal. Palate was upgoing. Tongue was midline. Sternocleidomastoid and trapezius were 5/5 in strength. There was normal bulk and tone. No pronator drift. Full strength in the upper and lower extremities with normal finger-to- nose and mgqk-aw-jpnn movements. Reflexes were 2+ and symmetric with flexor response to the toes. Vibration was decreased by about 20 seconds in the large toes. There was no asymmetry to pinprick, cold, or light touch. Her Romberg was negative. She walked to and fro 4 steps with the IV with no difficulty. She appeared tired. LABORATORY DATA: Includes CBC with normal white count, hemoglobin, hematocrit, platelets. Complete metabolic with elevated YLS-zj-akzrebeaxn ratio at 21.2. Her MCV and MCH were elevated at 101 and 35. In looking back in her chemistry, she has vitamin B12 in March 2017, which was 404. IMPRESSION: Tatiana Ponce is a 66-year-old woman with intractable migraines, who has been followed through years and is on many different prophylactic medications including Botox for which she is due in the near future. I will suggest switching her topiramate to b.i.d. dosing to see if this helps in much better fashion. Dr. Allen's help in control of mood in this very trying period of time is very much appreciated. While in hospital, she will be hydrated, Benadryl is being provided every 8 hours at 75 mg along with ketorolac 30 mg IV, and I will make sure there is ondansetron to use as needed as well as she has Ativan to use as needed. Hopefully, with [id number]-[id number] treatment, and relief of the stress of have not having to pack this weekend, we will see breaking of this headache. Tatiana asked about medical marijuana and we spoke about the data and lack of data for dosing of medical marijuana with headaches, and we can discuss this further as an outpatient. [id number]/[facility] #: [id number] MTDD
[2017-11-01] MEDS ORDERED: Omeprazole CAP* 20 MG PO SCH (06:00)
[2017-11-01] MEDS: Ketorolac INJ* 30 MG/ML 1 ML VIAL IV PUSH PRN ×2 (06:25→14:52)
[2017-11-01] MEDS: NS 0.9% 1000 ML* 1,000 ML IV SCH (06:25)
[2017-11-01] MEDS: diPHENhydraMINE IV* 50 MG/ML 1 ml VIAL (BENADRYL) IV SCH ×2 (06:25→14:52)
[2017-11-01] MEDS ORDERED: Atorvastatin* 20 MG TAB PO SCH (09:00)
[2017-11-01] MEDS ORDERED: Oxybutynin XL TAB* 5 MG PO SCH (09:00)
[2017-11-01] MEDS ORDERED: ARIPiprazole TAB* 5 MG PO SCH (09:00)
[2017-11-01] MEDS ORDERED: Topiramate TAB(*) 100 MG PO SCH (09:00)
[2017-11-01] MEDS ORDERED: Nadolol TAB* 40 MG PO SCH (09:00)
[2017-11-01] MEDS ORDERED: busPIRone TAB* 30 MG PO SCH (09:00)
[2017-11-01] MEDS ORDERED: DULoxetine DR CAP* 60 MG CAP.DR PO SCH (09:00)
[2017-11-01] MEDS: Topiramate TAB(*) 100 MG PO SCH (09:57)
[2017-11-01] MEDS: Enoxaparin(*) 40 MG/0.4 ML SYR SUBCUT SCH (14:49)
[2017-11-01 16:02] VITALS: BP 147/81
--- NOTE | 2017-11-02 01:50 | PN ---
PROGRESS NOTE: DATE OF FOLLOWUP: 11/01/17 HISTORY OF PRESENT ILLNESS: Tatiana Ponce is a 66-year-old woman with history of intractable headaches in the setting of significant anxiety, depression, following with Dr. Allen, who has frequently been seen in the emergency room recently in the setting of profound stress. She was admitted for headache control and with regular dosing of Toradol and Benadryl has seen improvement, with this morning her headache is at 1/10, now increasing to 3/10. PHYSICAL EXAMINATION: Her blood pressure was 155/90, other blood pressures during admission through the night were improved. She had pulse of 18, saturation 98% on room air, temperature 97.4 degrees Fahrenheit. She had a regular cardiac rhythm. Her lungs were clear to auscultation. She appeared nervous. She has full extraocular movements with no nystagmus. Her facial expression was symmetric. There was no dysarthria. There is normal bulk and tone. No pronator drift. Good strength in upper and lower extremities with normal jmtjfy-el-czgx and xnqn-kj-saiq movements. MAR was reviewed and she continues on Benadryl, Toradol on a regular schedule for of headaches, has p.r.n. lorazepam. IMPRESSION: Intractable headaches, markedly improved this morning with regular dosing of Benadryl and Toradol IV. She is having some increase in headache this morning compared to initial headache and registers a component of anxiety. She is written for lorazepam and dose was given to her. She is hoping she can sleep. At home, she does get regular diazepam dosing. As an outpatient, she will be seen at the end of the week for Botox and followup care. TIME SPENT: Over 15 minutes was spent on direct vaad-gw-jlqw patient care, over 50% of the time was spent in education counseling regarding headaches, medication, medication benefit, medication side effect. All questions were answered. [id number]/[facility] #: [id number] ANTOINE
--- NOTE | 2017-11-02 02:07 | DS ---
CC: Dr. Hood; Dr. Cardenas* DISCHARGE SUMMARY: DATE OF ADMISSION: 10/31/17 DATE OF DISCHARGE: 11/01/17 PRIMARY CARE PROVIDER: Dr. Hood. NEUROLOGIST: Dr. Cardenas. DISCHARGE DIAGNOSIS: Intractable migraine headache. SECONDARY DIAGNOSES: 1. History of intractable migraines and chronic migraine disorder with multiple hospitalizations. 2. History of obesity. 3. History of seizure disorder. 4. Gastroesophageal reflux disease. 5. Hypertension. 6. Anxiety. 7. Depression. 8. History of recent upper respiratory infection syndrome with sinusitis, treated with azithromycin. 9. Depression. 10. History of acute respiratory failure secondary to oversedation with benzodiazepines and narcotics while being treated for migraine headache in 2012. 11. Peripheral vascular disease. 12. Hyperlipidemia. 13. History of ischemic CVA that was noted incidentally on MRI. MEDICATIONS AT DISCHARGE: Unchanged from admission and includes: 1. Celebrex 200 mg daily. 2. BuSpar 30 mg daily. 3. Fioricet on a p.r.n. basis. 4. Lipitor 20 mg daily. 5. Abilify 10 mg daily. 6. Toradol 10 mg every 6 hours p.r.n. The patient was given a prescription for a total of 12 tablets. 7. Ibuprofen on a p.r.n. basis. 8. Valium 5 mg every 4 hours p.r.n. 9. Cymbalta 60 mg daily. 10. Flexeril 10 mg 3 times a day p.r.n. 11. Zanaflex 8 mg at bedtime. 12. Topamax 100 mg daily. 13. Protonix 40 mg daily. 14. Ditropan XL 10 mg daily. 15. Nadolol 120 mg daily. 16. Reglan 10 mg every 8 hours p.r.n. The patient is instructed not to take ibuprofen or Celebrex while taking Toradol. HOSPITALIZATION COURSE: Tatiana Ponce is a 66-year-old female, well known to our emergency department, who presents with recurrent and intractable migraine headaches. This was her fourth time in the emergency department and she was brought in for overnight observation for treatment with Benadryl 25 mg IV every 8 hours together with Toradol 30 mg IV every [address] Cardenas saw the patient in consultation from Neurology and please refer to her consultation for further details. Shortly, the patient was observed. Her headache by the time of discharge was 1/. She feels much better. She is going to be given Toradol 12 tablets total to go home with. She is instructed not to take other nonsteroidal medications when she is taking Toradol. Her exam is unremarkable and unchanged from admission. Please note that this is a short summary of the patient's hospitalization, please refer to further medical records for details. [id number]/[facility] #: [id number] ANTOINE
== END 2017-11-01 14:25 | disposition home or self-care (01) ==
LOC: ED 08:06 → MED 14:37
PROVIDERS: ADMIT Internal Medicine; ATTEND Internal Medicine
DX: G43.909 Migraine, unspecified, not intractable, without status migrainosus (principal); E66.9 Obesity, unspecified; G40.909 Epilepsy, unspecified, not intractable, without status epilepticus; K21.9 Gastro-esophageal reflux disease without esophagitis; I10 Essential (primary) hypertension; F41.9 Anxiety disorder, unspecified; F32.9 Major depressive disorder, single episode, unspecified; I73.9 Peripheral vascular disease, unspecified; E78.5 Hyperlipidemia, unspecified; Z86.73 Personal history of transient ischemic attack (TIA), and cerebral infarction without residual deficits; Z79.899 Other long term (current) drug therapy; Z88.8 Allergy status to other drugs, medicaments and biological substances
CPT/HCPCS: 36415; 80048; 85025; 96365; 96372; 96375; 96376; 99284; A9270-GY; G0378; J1200; J1650; J1885; J2060; J2765; J3475

== ENCOUNTER 2017-12-09 06:25 | Emergency (ER) | payer MEDICARE, BC ==
[2017-12-09] MEDS ORDERED: diPHENhydraMINE IV* 50 MG/ML 1 ml VIAL (BENADRYL) IV ONE (07:17)
[2017-12-09] MEDS ORDERED: NS 0.9% 1000 ML* 1,000 ML IV ONE (07:17)
[2017-12-09] MEDS ORDERED: Ketorolac INJ* 30 MG/ML 1 ML VIAL IV ONE (07:17)
[2017-12-09 07:44] LABS: ABS Basophils 0 10^3/ul (0-0.2); ABS Eosinophils 0.2 10^3/ul (0-0.6); ABS Lymphocytes 1.8 10^3/ul (1.0-4.8); ABS Monocytes 0.4 10^3/ul (0-0.8); ABS Neutrophils 1.9 10^3/ul (1.5-7.7); ABS Nucleated RBC 0 10^3/ul; Eosinophil % 3.6 % (0-6); Hematocrit 41 % (35-47); Hemoglobin 14.4 g/dl (12.0-16.0); Lymphocyte % 41.2 % (25-47); Mean Corpuscular HGB Conc 35 g/dl (31-36); Mean Corpuscular Hemoglobin 35 pg (27-31); Mean Corpuscular Volume 101 fL (80-97); Mean Platelet Volume 7.3 um3 (7.4-10.4); Nucleated Red Blood Cells % 0.1; Platelet Count 244 10^3/ul (150-450); Red Blood Count 4.09 10^6/ul (4.0-5.4); Red Cell Distribution Width 13 % (10.5-15); White Blood Count 4.2 10^3/ul (3.5-10.8)
[2017-12-09 09:29] LABS: Urine Appearance Clear; Urine Blood Negative (Negative); Urine Color Straw; Urine Ketones Negative (Negative); Urine Protein Negative (Negative); Urine Specific Gravity 1.005 (1.010-1.030); Urine Urobilinogen Negative (Negative)
[2017-12-09 09:49] VITALS: BP 137/78
--- NOTE | 2017-12-10 11:59 | ED ---
Bam Collado Angela, scribed for Shade Vicente MD on 12/09/17 at 0745 . Headache - HPI Summary HPI Summary: This pt is a 67 y/o female presenting to [facility] c/o migraine headache x3 days. She has hx of migraine headaches. Pt reports she also has some neck pain and photophobia, similar to episodes of her migraine headaches. She states she has been taking Toradol and Benadryl without relief. Pt denies fever, nausea, vomiting, blurry vision. - History Of Current Complaint Chief Complaint: EDHeadache Stated Complaint: HEADACHE Time Seen by Provider: 12/09/17 07:17 Hx Obtained From: Patient Hx Last Menstrual Period: post Onset/Duration: Started days ago, Still Present Currently Pain Is: Current Pain Scale(0-10)= - 8, Severe Timing: Days Character: Migraine Location of Headache: Diffuse Aggravating Factor: Nothing Allevating Factors: Nothing Associated Signs And Symptoms: Neck Pain, Other (Noted In Comments) - POS: photophobia. NEG: fever, nausea, vomiting, blurry vision - Allergies/Home Medications Allergies/Adverse Reactions: Allergies Allergy/AdvReac Type Severity Reaction Status Date / Time sulfamethoxazole Allergy Intermediate GI Upset Verified 10/31/17 08:13 [From Bactrim] trimethoprim [From Bactrim] Allergy Intermediate GI Upset Verified 10/31/17 08: 13 heparin Allergy See Comment Verified 10/31/17 08:13 chlorpromazine AdvReac Intermediate Altered Verified 10/31/17 08:13 Mental Status erythromycin base AdvReac Intermediate Diarrhea Verified 10/31/17 08:13 valproic acid AdvReac Intermediate Altered Verified 10/31/17 08:13 Mental Status cephalexin AdvReac Mild Muscle Ache Verified 10/31/17 08:13 PMH/Surg Hx/FS Hx/Imm Hx Endocrine/Hematology History: Denies: Hx Anticoagulant Therapy, Hx Diabetes, Hx Thyroid Disease Cardiovascular History: Reports: Hx Hypercholesterolemia, Hx Hypertension, Other Cardiovascular Problems/Disorders - heart burn Respiratory History: Denies: Hx Asthma, Hx Chronic Obstructive Pulmonary Disease (COPD) GI History: Reports: Hx Gastroesophageal Reflux Disease Denies: Hx Ulcer Musculoskeletal History: Reports: Hx Arthritis Sensory History: Reports: Hx Contacts or Glasses Denies: Hx Hearing Aid Opthamlomology History: Reports: Hx Contacts or Glasses Neurological History: Reports: Hx Migraine - Chronic migraine disease, Hx Seizures Psychiatric History: Reports: Hx Anxiety, Hx Depression - Cancer History Hx Chemotherapy: No Hx Radiation Therapy: No - Surgical History Surgery Procedure, Year, and Place: 1974, 1976, 1978 3 C Sections [facility]. 1986 right elbow surgery [place]. LEFT breast [place] [facility] [place]. 1999s x2 sinus surgery [facility] [place]. 2005 appendectomy, [facility] [place] bladder surgery ( spot in bladder), [facility] [place] 2005 bilateral meniscus surgery, [facility] [place] 2004 OVARY REMOVED [facility] [place]. 1980 HYSTERECTOMY,PEDRITO. 07/2013 LEFT TOE SURGERY [facility] [place]. total replacement right knee; endoscopy left knee Hx Anesthesia Reactions: Yes - required mechanical ventilation for oversedation - Immunization History Date of Tetanus Vaccine: within the last 10 years Date of Influenza Vaccine: Fall 2014 Infectious Disease History: No Infectious Disease History: Reports: Hx Shingles - 2011 Denies: Hx Clostridium Difficile, Hx Hepatitis, Hx Human Immunodeficiency Virus (HIV), Hx of Known/Suspected MRSA, Hx Tuberculosis, Hx Known/Suspected VRE , Hx Known/Suspected VRSA, History Other Infectious Disease, Traveled Outside the in Last 30 Days - Family History Known Family History: Positive: Cardiac Disease, Hypertension, Other - stroke: mom; migraines Negative: Diabetes - Social History Alcohol Use: Rare Alcohol Amount: 1 GLASS/MONTH Hx Substance Use: No Substance Use Type: Reports: None Substance Use Comment - Amount & Last Used: Valium - Anxiety Hx Tobacco Use: No Smoking Status (MU): Never Smoked Tobacco Have You Smoked in the Last Year: No Review of Systems Negative: Fever, Chills Positive: Photophobia. Negative: Blurred Vision Negative: Vomiting, Nausea Musculoskeletal: Other - neck pain Positive: Headache All Other Systems Reviewed And Are Negative: Yes Physical Exam - Summary Physical Exam Summary: VITAL SIGNS: Reviewed. GENERAL: Patient is a well-developed and nourished female who is lying comfortable in the stretcher. Patient is not in any acute respiratory distress. HEAD AND FACE: No signs of trauma. No ecchymosis, hematomas or skull depressions. No sinus tenderness. EYES: PERRLA, EOMI x 2, No injected conjunctiva, no nystagmus. EARS: Hearing grossly intact. Ear canals and tympanic membranes are within normal limits. MOUTH: Oropharynx within normal limits. NECK: Supple, trachea is midline, no adenopathy, no JVD, no carotid bruit, no c- spine tenderness, neck with full ROM. CHEST: Symmetric, no tenderness at palpation LUNGS: Clear to auscultation bilaterally. No wheezing or crackles. CVS: Regular rate and rhythm, S1 and S2 present, no murmurs or gallops appreciated. ABDOMEN: Soft, non-tender. No signs of distention. No rebound no guarding, and no masses palpated. Bowel sounds are normal. EXTREMITIES: FROM in all major joints, no edema, no cyanosis or clubbing. NEURO: Alert and oriented x 3. No acute neurological deficits. Speech is normal and follows commands. SKIN: Dry and warm Triage Information Reviewed: Yes Vital Signs On Initial Exam: Initial Vitals Temp Pulse Resp BP Pulse Ox 98.4 F 81 18 148/95 99 12/09/17 06:32 12/09/17 06:32 12/09/17 06:32 12/09/17 06:32 12/09/17 06:32 Vital Signs Reviewed: Yes Diagnostics - Vital Signs Vital Signs Temp Pulse Resp BP Pulse Ox 12/09/17 06:32 98.4 F 81 18 148/95 99 - Laboratory Result Diagrams: 12/09/17 07:25 12/09/17 07:25 Lab Statement: Any lab studies that have been ordered have been reviewed, and results considered in the medical decision making process. Headache Course/Dx - Course Assessment/Plan: This pt is a 67 y/o female presenting to [facility] c/o migraine headache x3 days. She has hx of migraine headaches. Pt reports she also has some neck pain and photophobia, similar to episodes of her migraine headaches. She states she has been taking Toradol and Benadryl without relief. Pt denies fever, nausea, vomiting, blurry vision. Test results without any significant abnormalities except for glucose for 113. In the ED course the pt was given IV fluids, Benadryl and Toradol. After these medications the pt is feeling better, her headache has resolved. Therefore she will be discharged to home with follow up from her PCP. I discussed all the findings and test results with the patient. All questions were answered to patient satisfaction. There were no further complaints or concerns. She is instructed to return to the ED for any worsening or new symptoms. Pt is hemodynamically stable, alert and oriented x3. Prior to discharge pt is neurologically intact. - Diagnoses Provider Diagnoses: Migraine headache Discharge - Sign-Out/Discharge Documenting (check all that apply): Discharge - discharge to home - Discharge Plan Condition: Stable Disposition: HOME Patient Education Materials: Migraine Headache (ED) Referrals: Sherron Hood MD [Primary Care Provider] - 3 Days Additional Instructions: Please follow up with your primary care provider. RETURN TO THE ED FOR ANY NEW OR WORSENING SYMPTOMS. The documentation as recorded by the Bam ness Angela accurately reflects the service I personally performed and the decisions made by Jules barry Walter, MD.
== END 2017-12-09 09:55 | disposition home or self-care (01) ==
LOC: ED 06:25
DX: G43.909 Migraine, unspecified, not intractable, without status migrainosus (principal); I10 Essential (primary) hypertension; E78.00 Pure hypercholesterolemia, unspecified; K21.9 Gastro-esophageal reflux disease without esophagitis; F41.9 Anxiety disorder, unspecified; F32.9 Major depressive disorder, single episode, unspecified; Z88.1 Allergy status to other antibiotic agents; Z88.2 Allergy status to sulfonamides; Z88.8 Allergy status to other drugs, medicaments and biological substances
CPT/HCPCS: 36415; 80053; 81003; 81015; 82375; 85025; 87086; 96374; 96375; 99283; J1200; J1885

== ENCOUNTER 2018-01-28 18:55 | Emergency (ER) | payer MEDICARE, BC ==
[2018-01-28] MEDS ORDERED: diPHENhydraMINE IV* 50 MG/ML 1 ml VIAL (BENADRYL) IV ONE (22:01)
[2018-01-28] MEDS ORDERED: Ketorolac INJ* 30 MG/ML 1 ML VIAL IV PUSH ONE (22:01)
[2018-01-28] MEDS ORDERED: NS 0.9% 1000 ML* 1,000 ML IV ONE (22:01)
[2018-01-28] MEDS ORDERED: Dexamethasone IV* 4 MG/ML 1 ML (4 MG) IV SLOW PU ONE (22:02)
[2018-01-28] MEDS ORDERED: Metoclopramide IV* 5 MG/ML 2 ML VIAL IV SLOW PU ONE (22:02)
[2018-01-28] MEDS ORDERED: Magnesium Sulfate 2 GM IV* 2 GM/50 ML BAG IVPB ONE (22:03)
[2018-01-28] MEDS ORDERED: Carisoprodol TAB* 350 MG PO ONE ×2 (22:03→23:54)
--- NOTE | 2018-01-28 23:58 | ED ---
Ricco Collado Tiffany, scribed for Rene Real MD on 01/28/18 at 2212 . Headache - HPI Summary HPI Summary: 67 year old F presenting to [facility] complains of headache since this afternoon. Pt rates the pain 7/10 in severity. Pain radiates to neck and down her back. Symptoms aggravated by light. Symptoms alleviated by nothing. Reports nausea, photophobia, neck pain. Denies vomiting. Pt has hx migraines. Has treated the pain with Torodol, Benadryl and ibuprofen [employer]WORK[employer] without relief. - History Of Current Complaint Chief Complaint: EDHeadache Stated Complaint: HEADACHE Time Seen by Provider: 01/28/18 21:22 Hx Obtained From: Patient Hx Last Menstrual Period: post Onset/Duration: Started hours ago - this afternoon, Still Present Radiates to: Neck and down back Aggravating Factor: Bright Lights Allevating Factors: Nothing Associated Signs And Symptoms: Negative - vomiting, Other (Noted In Comments) - nausea, photophobia, neck pain - Allergies/Home Medications Allergies/Adverse Reactions: Allergies Allergy/AdvReac Type Severity Reaction Status Date / Time sulfamethoxazole Allergy Intermediate GI Upset Verified 10/31/17 08:13 [From Bactrim] trimethoprim [From Bactrim] Allergy Intermediate GI Upset Verified 10/31/17 08: 13 heparin Allergy See Comment Verified 10/31/17 08:13 morphine Allergy Headache Verified 01/28/18 19:04 chlorpromazine AdvReac Intermediate Altered Verified 10/31/17 08:13 Mental Status erythromycin base AdvReac Intermediate Diarrhea Verified 10/31/17 08:13 valproic acid AdvReac Intermediate Altered Verified 10/31/17 08:13 Mental Status cephalexin AdvReac Mild Muscle Ache Verified 10/31/17 08:13 Home Medications: Home Medications ARIPiprazole TAB* [Abilify TAB*] 10 mg PO DAILY 01/28/18 [History Confirmed ] Atorvastatin* [Lipitor*] 20 mg PO DAILY 01/28/18 [History Confirmed 01/28/18] Carisoprodol TAB* [Soma TAB*] 350 mg PO TID PRN MDD 3 tablets 01/28/18 [ History Confirmed 01/28/18] Cyclobenzaprine TAB* [Flexeril 10 MG TAB*] 10 mg PO TID PRN 01/28/18 [History Confirmed 01/28/18] Diazepam TAB(*) [Valium TAB(*)] 5 mg PO QID PRN 01/28/18 [History Confirmed ] Ibuprofen TAB* [Motrin TAB* 800 MG] 800 mg PO Q8H PRN 01/28/18 [History Confirmed 01/28/18] Ketorolac TAB * [Toradol TAB *] 10 mg PO Q8H PRN 01/28/18 [History Confirmed ] Nadolol TAB* [Corgard TAB*] 160 mg PO DAILY 01/28/18 [History Confirmed 01/28/18 ] Oxybutynin XL TAB* [Ditropan XL TAB*] 10 mg PO DAILY 01/28/18 [History Confirmed 01/28/18] Pantoprazole TAB (NF) [Protonix TAB (NF)] 40 mg PO DAILY 01/28/18 [History Confirmed 01/28/18] Topiramate TAB(*) [Topamax 100 mg tab] 100 mg PO DAILY 01/28/18 [History Confirmed 01/28/18] tiZANidine TAB* [Zanaflex TAB*] 8 mg PO BEDTIME 01/28/18 [History Confirmed ] PMH/Surg Hx/FS Hx/Imm Hx Previously Healthy: No Endocrine/Hematology History: Denies: Hx Anticoagulant Therapy, Hx Diabetes, Hx Thyroid Disease Cardiovascular History: Reports: Hx Hypercholesterolemia, Hx Hypertension, Other Cardiovascular Problems/Disorders - heart burn Respiratory History: Denies: Hx Asthma, Hx Chronic Obstructive Pulmonary Disease (COPD) GI History: Reports: Hx Gastroesophageal Reflux Disease Denies: Hx Ulcer Musculoskeletal History: Reports: Hx Arthritis Sensory History: Reports: Hx Contacts or Glasses Denies: Hx Hearing Aid Opthamlomology History: Reports: Hx Contacts or Glasses Neurological History: Reports: Hx Migraine - Chronic migraine disease, Hx Seizures Psychiatric History: Reports: Hx Anxiety, Hx Depression - Cancer History Hx Chemotherapy: No Hx Radiation Therapy: No - Surgical History Surgery Procedure, Year, and Place: 1974, 1976, 1978 3 C Sections [facility]. 1986 right elbow surgery [place]. LEFT breast biopsy [facility] [place]. 1999s x2 sinus surgery [facility] [place] [facility] [place]. 2005 appendectomy, [facility] 2004 bladder surgery ( spot in bladder), [facility] 2005 bilateral meniscus surgery, [facility]. 2004 OVARY REMOVED [facility]. 1980 HYSTERECTOMY,PEDRITO. 07/2013 LEFT TOE SURGERY [facility]. total replacement right knee; endoscopy left knee Hx Anesthesia Reactions: Yes - required mechanical ventilation for oversedation - Immunization History Date of Tetanus Vaccine: within the last 10 years Date of Influenza Vaccine: Fall 2014 Infectious Disease History: No Infectious Disease History: Reports: Hx Shingles - 2011 Denies: Hx Clostridium Difficile, Hx Hepatitis, Hx Human Immunodeficiency Virus (HIV), Hx of Known/Suspected MRSA, Hx Tuberculosis, Hx Known/Suspected VRE , Hx Known/Suspected VRSA, History Other Infectious Disease, Traveled Outside the [place] in Last 30 Days - Family History Known Family History: Positive: Cardiac Disease, Hypertension, Other - stroke: mom; migraines Negative: Diabetes - Social History Alcohol Use: Rare Alcohol Amount: 1 GLASS/MONTH Hx Substance Use: Yes Substance Use Comment - Amount & Last Used: Valium - Anxiety Hx Tobacco Use: No Smoking Status (MU): Never Smoked Tobacco Have You Smoked in the Last Year: No Review of Systems Positive: Photophobia Positive: Nausea. Negative: Vomiting Positive: Other - Neck pain Positive: Headache All Other Systems Reviewed And Are Negative: Yes Physical Exam - Summary Physical Exam Summary: VITAL SIGNS: Reviewed. GENERAL: Patient is a well-developed and nourished female who is lying comfortable in the stretcher. Patient is not in any acute respiratory distress. Pt has photophobia. HEAD AND FACE: No signs of trauma. No ecchymosis, hematomas or skull depressions. No sinus tenderness. EYES: PERRLA, EOMI x 2, No injected conjunctiva, no nystagmus. EARS: Hearing grossly intact. Ear canals and tympanic membranes are within normal limits. MOUTH: Oropharynx within normal limits. NECK: Supple, trachea is midline, no adenopathy, no JVD, no carotid bruit, no c- spine tenderness, neck with full ROM. CHEST: Symmetric, no tenderness at palpation LUNGS: Clear to auscultation bilaterally. No wheezing or crackles. CVS: Regular rate and rhythm, S1 and S2 present, no murmurs or gallops appreciated. ABDOMEN: Soft, non-tender. No signs of distention. No rebound no guarding, and no masses palpated. Bowel sounds are normal. EXTREMITIES: FROM in all major joints, no edema, no cyanosis or clubbing. NEURO: Alert and oriented x 3. No acute neurological deficits. Speech is normal and follows commands. SKIN: Dry and warm Triage Information Reviewed: Yes Vital Signs On Initial Exam: Initial Vitals Temp Pulse Resp BP Pulse Ox 97.4 F 72 16 118/77 99 01/28/18 19:00 01/28/18 19:00 01/28/18 19:00 01/28/18 19:00 01/28/18 19:00 Vital Signs Reviewed: Yes Diagnostics - Vital Signs Vital Signs Temp Pulse Resp BP Pulse Ox 01/28/18 19:00 97.4 F 72 16 118/77 99 - Laboratory Lab Statement: Any lab studies that have been ordered have been reviewed, and results considered in the medical decision making process. Re-Evaluation - Re-Evaluation First Eval Re-Evaluation Time: 23:54 Change: Improved Comment: Pt feels better after cocktail. Is agreeable to discharge. Headache Course/Dx - Course Course Of Treatment: 67 year [facility] F [facility] complains of headache since this afternoon. Pt given cocktail in ED. Feels better, would like to go home. Pt will be discharged with f/u from PCP. - Diagnoses Provider Diagnoses: Migraine Discharge - Sign-Out/Discharge Documenting (check all that apply): Discharge/Admit/Transfer - Discharge Plan Condition: Stable Disposition: HOME Patient Education Materials: Migraine Headache (ED) Referrals: Sherron Hood MD [Primary Care Provider] - 2 Days Additional Instructions: Follow up with your primary care provider in 1-2 days. Return to the Emergency Department for any new or worsening symptoms. The documentation as recorded by the Ricco ness Tiffany accurately reflects the service I personally performed and the decisions made by , Rene Real MD.
[2018-01-29 00:05] VITALS: BP 117/80
== END 2018-01-29 00:05 | disposition home or self-care (01) ==
LOC: ED 18:55
DX: G43.909 Migraine, unspecified, not intractable, without status migrainosus (principal); M54.2 Cervicalgia; H53.149 Visual discomfort, unspecified
CPT/HCPCS: 96374; 96375; 99283; A9270-GY; J1100; J1200; J1885; J2765; J3475

== ENCOUNTER 2018-02-04 06:18 | Emergency (ER) | payer MEDICARE, BC ==
[2018-02-04] MEDS ORDERED: NS 0.9% 1000 ML* 1,000 ML IV ONE (06:55)
[2018-02-04] MEDS ORDERED: Dexamethasone IV* 4 MG/ML 5 ML VIAL (20 MG) IVPB ONE (06:55)
[2018-02-04] MEDS ORDERED: Metoclopramide IV* 5 MG/ML 2 ML VIAL IV ONE (06:55)
[2018-02-04] MEDS ORDERED: diPHENhydraMINE IV* 50 MG/ML 1 ml VIAL (BENADRYL) IV ONE (06:55)
[2018-02-04] MEDS ORDERED: Ketorolac INJ* 30 MG/ML 1 ML VIAL IV PUSH ONE (06:55)
--- NOTE | 2018-02-04 07:04 | ED ---
Headache - HPI Summary HPI Summary: Patient is well known to the ED and presents with recurrence of acute migraine x 2 days. She reports 8 out of 10 pain. Her headache is felt over her central for head cold over the top of her head down into her neck and back. This is quite typical of her average migraines. She has mild photophobia and nausea however no vomiting, chest pain, shortness of breath, abdominal pain, numbness, tingling, weakness. She recently received a prescription for medical marijuana (CBD oil 2 mg per dose). She tried 4 mg in addition to her by mouth Benadryl and Toradol for rescue of migraine without relief. She is scheduled for Botox later this month. She follows with Dr. Mina. Reports she's been to many headache specialist throughout the country over her lifetime of migraines and has seen a physical therapist who prescribes neck exercises for her. She reports she's tried these as well without relief. Patient takes multiple medications, some for mental health issues. Her chart also reveals history of possible stroke/seizure. She appears to be a little groggy this morning with subtly deliberate speech but patient's reports this is baseline for her at this time of day. - History Of Current Complaint Chief Complaint: EDHeadache Stated Complaint: HEADACHE Time Seen by Provider: 02/04/18 06:35 Hx Obtained From: Patient, Family/Face Worker - Hx Last Menstrual Period: post - Allergies/Home Medications Allergies/Adverse Reactions: Allergies Allergy/AdvReac Type Severity Reaction Status Date / Time heparin Allergy See Comment Verified 02/04/18 06:33 chlorpromazine AdvReac Intermediate Altered Verified 02/04/18 06:33 Mental Status erythromycin base AdvReac Intermediate Diarrhea Verified 02/04/18 06:33 sulfamethoxazole AdvReac Intermediate GI Upset Verified 02/04/18 07:14 [From Bactrim] trimethoprim [From Bactrim] AdvReac Intermediate GI Upset Verified 02/04/18 07: 14 valproic acid AdvReac Intermediate Altered Verified 02/04/18 06:33 Mental Status cephalexin AdvReac Mild Muscle Ache Verified 02/04/18 06:33 morphine AdvReac Headache Verified 02/04/18 07:14 Home Medications: Home Medications Butalb/Acetamin/Caff TAB* [Fioricet TAB*] 1 tab PO Q6H PRN 02/04/18 [History Confirmed 02/04/18] DULoxetine DR CAP* [Cymbalta CAP*] 120 mg PO DAILY 02/04/18 [History Confirmed 02/04/18] Ergocalciferol CAP* [Drisdol CAP*] 50,000 unit PO Q7D 02/04/18 [History Confirmed 02/04/18] busPIRone TAB* [Buspar *] 30 mg PO DAILY 02/04/18 [History Confirmed 02/04/18] celeCOXIB CAP* [CeleBREX CAP*] 200 mg PO DAILY 02/04/18 [History Confirmed 02/04] PMH/Surg Hx/FS Hx/Imm Hx Previously Healthy: No - chronic migraines, polypharmacy Endocrine/Hematology History: Denies: Hx Anticoagulant Therapy, Hx Diabetes, Hx Thyroid Disease Cardiovascular History: Reports: Hx Hypercholesterolemia, Hx Hypertension, Other Cardiovascular Problems/Disorders - heart burn Respiratory History: Denies: Hx Asthma, Hx Chronic Obstructive Pulmonary Disease (COPD) GI History: Reports: Hx Gastroesophageal Reflux Disease Denies: Hx Ulcer Musculoskeletal History: Reports: Hx Arthritis Sensory History: Reports: Hx Contacts or Glasses Denies: Hx Hearing Aid Opthamlomology History: Reports: Hx Contacts or Glasses Neurological History: Reports: Hx Migraine - Chronic migraine disease, Hx Seizures Psychiatric History: Reports: Hx Anxiety, Hx Depression - Cancer History Hx Chemotherapy: No Hx Radiation Therapy: No - Surgical History Surgery Procedure, Year, and Place: 1974, 1976, 1978 3 C Sections [place]. 1986 right elbow surgery [place]. LEFT breast biopsy [facility] [place]. x2 sinus surgery [facility] [place] [facility] [place]. 2006 appendectomy, [facility] [place] 2005 bladder surgery ( spot in bladder), [facility] [place]. 2006 bilateral meniscus surgery, [facility] [place]. 2005 OVARY REMOVED [facility] [place]. 1980 HYSTERECTOMYPEDRITO. 07/2013 LEFT TOE SURGERY [facility] [place]. total replacement right knee; endoscopy left knee Hx Anesthesia Reactions: Yes - required mechanical ventilation for oversedation - Immunization History Date of Tetanus Vaccine: within the last 10 years Date of Influenza Vaccine: Fall 2014 Infectious Disease History: No Infectious Disease History: Reports: Hx Shingles - 2011 Denies: Hx Clostridium Difficile, Hx Hepatitis, Hx Human Immunodeficiency Virus (HIV), Hx of Known/Suspected MRSA, Hx Tuberculosis, Hx Known/Suspected VRE , Hx Known/Suspected VRSA, History Other Infectious Disease, Traveled Outside the [place] in Last 30 Days - Family History Known Family History: Positive: Cardiac Disease, Hypertension, Other - stroke: mom; migraines Negative: Diabetes - Social History Occupation: Retired Lives: With Family Alcohol Use: Rare Alcohol Amount: 1 GLASS/MONTH Hx Substance Use: Yes Substance Use Type: Reports: Other Substance Use Comment - Amount & Last Used: Valium - Anxiety Hx Tobacco Use: No Smoking Status (MU): Never Smoked Tobacco Have You Smoked in the Last Year: No Review of Systems Constitutional: Negative Positive: Photophobia - mild. Negative: Blurred Vision, Diplopia, Drainage, Erythema ENT: Negative Negative: Dental Pain Cardiovascular: Negative Negative: Chest Pain Respiratory: Negative Negative: Shortness Of Breath Positive: Nausea. Negative: Abdominal Pain, Vomiting, Diarrhea Genitourinary: Negative Positive: Arthralgia, Myalgia. Negative: Decreased ROM Skin: Negative Positive: Headache. Negative: Weakness, Paresthesia, Numbness, Syncope, Slurred Speech Psychological: Normal - reports anxiety may be playing a role but appears calm All Other Systems Reviewed And Are Negative: Yes Physical Exam Triage Information Reviewed: Yes Vital Signs On Initial Exam: Initial Vitals Temp Pulse Resp BP Pulse Ox 97.9 F 74 16 99/71 95 02/04/18 06:20 02/04/18 06:20 02/04/18 06:20 02/04/18 06:20 02/04/18 06:20 Vital Signs Reviewed: Yes Appearance: Positive: Well-Appearing, Well-Nourished, Pain Distress - mild Skin: Positive: Warm, Skin Color Reflects Adequate Perfusion, Dry Head/Face: Positive: Normal Head/Face Inspection Eyes: Positive: Normal, EOMI, [place] - minimally - equal B/L; no photophobia observed w/ light exam but is reported, Conjunctiva Clear. Negative: Conjunctiva Inflammed, Discharge ENT: Positive: Normal ENT inspection, Hearing grossly normal, Pharynx normal - mucosa dry, TMs normal, Uvula midline. Negative: Nasal congestion, Nasal drainage, Tonsillar swelling, Tonsillar exudate, Trismus, Muffled voice, Hoarse voice, Sinus tenderness Dental: Negative: Dental Fracture @, Abscess @ Neck: Positive: Supple, No Lymphadenopathy, Tenderness @ - paracervical mm, trapezius mm TTP Respiratory/Lung Sounds: Positive: Clear to Auscultation, Breath Sounds Present Cardiovascular: Positive: Normal, RRR, S1, S2. Negative: Murmur, Rub, Leg Edema Left, Leg Edema Right Abdomen Description: Positive: Nontender, No Organomegaly, Soft Bowel Sounds: Positive: Present Musculoskeletal: Positive: Normal, Strength/ROM Intact, Other - SLR B/L exacerbates CASTRO sx Neurological: Positive: Sensory/Motor Intact, Alert, Oriented to Person Place, Time, CN Intact II-III, Other - I can understand the pt's articulation however she is slightly deliberate w/ speech - pt's states this is baseline for her at this time of day Diagnostics - Vital Signs Vital Signs Temp Pulse Resp BP Pulse Ox 02/04/18 06:20 97.9 F 74 16 99/71 95 - Laboratory Lab Statement: Any lab studies that have been ordered have been reviewed, and results considered in the medical decision making process. Headache Course/Dx - Course Course Of Treatment: Pt presents w/ recurrent migraine presenting as frontal forehead pain going over the dome of the skull and back into her neck and shoulders. A migraine cocktail of toradol, decadron, NS and reglan was ordered and pt reports pain reduced from 8/10 to 4/10. She admits she continues to have neck pain and requested a muscle relaxer however upon reviewing her vitals, she was hypoxic at 92% on RA and still has low BP of systolic 106. Pt also continued to have deliberate speech concerning for [employer] depression on some level. We went through a series of diaphragm breathing exercises and the pt's pulse ox improved to 98% on RA. She also reported some improvement in her neck pain and appears more alert. Conversation w/ pt and about intentionally breathing exercises throughout the day as some of her medications can lead to resp depression, causing her fatigue and hypoxia. They are aware and agree w/ plan to make an effort to implement these exercises. They will also consider DO consult for OMM to better address her RUBY issues around her migraines. Pt and are interested to try this approach. And if appropriate, may consider reducing some of her med doses/discharging medications that can worsen fatigue - this needs to be done through her prescribing physician as deemed to be appropriate and safe - pt will not reduce or d/c meds on her own. Reviewed danger s/sx of when to return to the ED. - Diagnoses Provider Diagnoses: Tension headache, Cervical paraspinal muscle spasm, Stress Discharge - Sign-Out/Discharge Documenting (check all that apply): Discharge/Admit/Transfer - Discharge Plan Condition: Stable Disposition: HOME Patient Education Materials: Tension Headache (ED), Relaxation and Meditation ( ED), Breathing Techniques (ED) Referrals: Sherron Hood MD [Primary Care Provider] - Sherron Knowles DO [Doctor of Osteopathy] - Additional Instructions: Continue care with your neurologist for your migraines. You may discuss with both your neurologist and your PCP reducing or eliminating certain medications to address your depressed nervous system resulting today in reduced breathing and low oxygen level. You were able to bring your oxygen level back up with intentional diaphragm breathing, a practice you may continue throughout the day. Implement breathing in the morning before getting out of bed, during commercials while watching TV and while lying in bed before falling asleep. This may also help to reduce anxiety and muscle tightness in your neck and back. Additionally, you may benefit from a consult with an osteopathic physician as you appear to have a muscloskeletal component to your pain syndrome. Dr. Bedolla and Dr. Knowles are 2 local osteopathic physicians - contact information provided here. Call to schedule an appointment. Be sure to bring your medical history with you for safest care plan. *If you develop worsening of symptoms in the meantime, return to the ED. - Billing Disposition and Condition Condition: STABLE Disposition: Home
[2018-02-04 08:55] VITALS: BP 107/79
== END 2018-02-04 08:54 | disposition home or self-care (01) ==
LOC: ED 06:18
DX: G44.209 Tension-type headache, unspecified, not intractable (principal); M62.830 Muscle spasm of back; F43.9 Reaction to severe stress, unspecified; Z88.3 Allergy status to other anti-infective agents; Z88.2 Allergy status to sulfonamides; Z88.8 Allergy status to other drugs, medicaments and biological substances; Z88.5 Allergy status to narcotic agent
CPT/HCPCS: 96374; 96375; 99283; J1100; J1200; J1885; J2765

== ENCOUNTER 2018-02-05 17:44 | Emergency (ER) | payer MEDICARE, BC ==
[2018-02-05] MEDS ORDERED: Ketorolac INJ* 30 MG/ML 1 ML VIAL IV PUSH ONE (20:14)
[2018-02-05] MEDS ORDERED: diPHENhydraMINE IV* 50 MG/ML 1 ml VIAL (BENADRYL) IV ONE (20:14)
[2018-02-05] MEDS ORDERED: Metoclopramide IV* 5 MG/ML 2 ML VIAL IV SLOW PU ONE (20:14)
[2018-02-05] MEDS ORDERED: NS 0.9% 1000 ML* 1,000 ML IV ONE (20:15)
[2018-02-05] MEDS ORDERED: Cyclobenzaprine TAB* 10 MG PO ONE (20:15)
[2018-02-05] MEDS ORDERED: Carisoprodol TAB* 350 MG PO ONE (21:30)
[2018-02-05 22:16] VITALS: BP 140/82
--- NOTE | 2018-02-07 03:00 | ED ---
Joana Collado Jade, scribed for Rene Real MD on 02/05/18 at 2020 . Headache - HPI Summary HPI Summary: Pt is a 67 y/o female who presents to the ED c/o migraine since 17:55. She was here yesterday for the same complaint, but the migraine has not resolved and is intermittent in nature. Pt states the pain goes over her eyes, top of head, and down the back of her neck. Pt took Ibuprofen, Fioricet, and Benadryl today which mildly relieved the pain, but the headache became worse again. She has frequent visits to the ED for the same complaint and she presents requesting 75 mg Benadryl. - History Of Current Complaint Chief Complaint: EDHeadache Stated Complaint: MIGRAINE Time Seen by Provider: 02/05/18 20:07 Hx Obtained From: Patient Hx Last Menstrual Period: post Onset/Duration: Gradual Onset, Started hours ago, Still Present Currently Pain Is: Severe - 8/10 Timing: Intermittent, Lasting: - On and off Location of Headache: Other: - Over eyes, top of head, and back of neck Aggravating Factor: Bright Lights, Other - Smells Allevating Factors: Medication - Fioricet, Benedryl, Ibuprofen give mild relief - Allergies/Home Medications Allergies/Adverse Reactions: Allergies Allergy/AdvReac Type Severity Reaction Status Date / Time divalproex sodium Allergy Hallucinati Verified 02/05/18 17:54 [From Depakote] ons heparin Allergy See Comment Verified 02/05/18 17:54 chlorpromazine AdvReac Intermediate Altered Verified 02/05/18 17:54 Mental Status erythromycin base AdvReac Intermediate Diarrhea Verified 02/05/18 17:54 sulfamethoxazole AdvReac Intermediate GI Upset Verified 02/05/18 17:54 [From Bactrim] trimethoprim [From Bactrim] AdvReac Intermediate GI Upset Verified 02/05/18 17: 54 valproic acid AdvReac Intermediate Altered Verified 02/05/18 17:54 Mental Status cephalexin AdvReac Mild Muscle Ache Verified 02/05/18 17:54 morphine AdvReac Headache Verified 02/05/18 17:54 PMH/Surg Hx/FS Hx/Imm Hx Endocrine/Hematology History: Denies: Hx Anticoagulant Therapy, Hx Diabetes, Hx Thyroid Disease Cardiovascular History: Reports: Hx Hypercholesterolemia, Hx Hypertension, Other Cardiovascular Problems/Disorders - heart burn Respiratory History: Denies: Hx Asthma, Hx Chronic Obstructive Pulmonary Disease (COPD) GI History: Reports: Hx Gastroesophageal Reflux Disease Denies: Hx Ulcer Musculoskeletal History: Reports: Hx Arthritis Sensory History: Reports: Hx Contacts or Glasses Denies: Hx Hearing Aid Opthamlomology History: Reports: Hx Contacts or Glasses Neurological History: Reports: Hx Migraine - Chronic migraine disease, Hx Seizures Psychiatric History: Reports: Hx Anxiety, Hx Depression - Cancer History Hx Chemotherapy: No Hx Radiation Therapy: No - Surgical History Surgery Procedure, Year, and Place: 1974, 1976, 1978 3 C Sections [place]. 1986 right elbow surgery [place]. LEFT breast biopsy [facility] [place]. x2 sinus surgery [facility] [place]. 2005 appendectomy, [facility] [place]. 2004 bladder surgery ( spot in bladder), [facility] [place] 2005 bilateral meniscus surgery, [facility] [place]. 2004 OVARY REMOVED [facility] [place]. 1980 HYSTERECTOMY,[place]. 07/2013 LEFT TOE SURGERY [facility] [place]. total replacement right knee; endoscopy left knee Hx Anesthesia Reactions: Yes - required mechanical ventilation for oversedation - Immunization History Date of Tetanus Vaccine: within the last 10 years Date of Influenza Vaccine: Fall 2014 Infectious Disease History: No Infectious Disease History: Reports: Hx Shingles - 2011 Denies: Hx Clostridium Difficile, Hx Hepatitis, Hx Human Immunodeficiency Virus (HIV), Hx of Known/Suspected MRSA, Hx Tuberculosis, Hx Known/Suspected VRE , Hx Known/Suspected VRSA, History Other Infectious Disease, Traveled Outside the in Last 30 Days - Family History Known Family History: Positive: Cardiac Disease, Hypertension, Other - stroke: mom; migraines Negative: Diabetes - Social History Alcohol Use: Rare Alcohol Amount: 1 GLASS/MONTH Hx Substance Use: Yes Substance Use Type: Reports: Other Substance Use Comment - Amount & Last Used: Valium - Anxiety Hx Tobacco Use: No Smoking Status (MU): Never Smoked Tobacco Have You Smoked in the Last Year: No Review of Systems Negative: Fever Positive: Photophobia Positive: Headache - Over eyes, top of head, and back of neck All Other Systems Reviewed And Are Negative: Yes Physical Exam - Summary Physical Exam Summary: VITAL SIGNS: Reviewed. GENERAL: ~Patient is a well-developed and nourished female who is lying comfortable in the stretcher. Patient is not in any acute respiratory distress. HEAD AND FACE: No signs of trauma. No ecchymosis, hematomas or skull depressions. No sinus tenderness. EYES: PERRLA, EOMI x 2, No injected conjunctiva, no nystagmus. EARS: Hearing grossly intact. Ear canals and tympanic membranes are within normal limits. MOUTH: Oropharynx within normal limits. NECK: Supple, trachea is midline, no adenopathy, no JVD, no carotid bruit, no c- spine tenderness, neck with full ROM. CHEST: Symmetric, no tenderness at palpation LUNGS: Clear to auscultation bilaterally. No wheezing or crackles. CVS: Regular rate and rhythm, S1 and S2 present, no murmurs or gallops appreciated. ABDOMEN: Soft, non-tender. No signs of distention. No rebound no guarding, and no masses palpated. Bowel sounds are normal. EXTREMITIES: FROM in all major joints, no edema, no cyanosis or clubbing. NEURO: Alert and oriented x 3. No acute neurological deficits. Speech is normal and follows commands. SKIN: Dry and warm Triage Information Reviewed: Yes Vital Signs On Initial Exam: Initial Vitals Temp Pulse Resp BP Pulse Ox 97.9 F 64 16 150/85 99 02/05/18 17:54 02/05/18 17:54 02/05/18 17:54 02/05/18 17:54 02/05/18 17:54 Vital Signs Reviewed: Yes Diagnostics - Vital Signs Vital Signs Temp Pulse Resp BP Pulse Ox 02/05/18 19:24 98.7 F 67 16 141/89 95 02/05/18 17:54 97.9 F 64 16 150/85 99 - Laboratory Lab Statement: Any lab studies that have been ordered have been reviewed, and results considered in the medical decision making process. Headache Course/Dx - Course Course Of Treatment: Pt is a 67 y/o female who presents to the ED c/o intermittent migraine since 17:55, and was here yesterday for the same complaint. Pt states the pain goes over her eyes, top of head, and down the back of her neck. Pt took Ibuprofen, Fioricet, and Benadryl today which only mildly relieved the pain. She has frequent visits to the ED for the same complaint and she presents requesting 75 mg Benadryl. In the ED course, pt was given Soma, Flexeril, Benadryl, Toradol, Reglan, and fluids. Patient will be discharged with a final Dx of migraine headache. Pt is agreeable with this plan. Allergies noted. - Diagnoses Provider Diagnoses: Migraine headache Discharge - Sign-Out/Discharge Documenting (check all that apply): Discharge/Admit/Transfer - Discharge - Discharge Plan Condition: Stable Disposition: HOME Patient Education Materials: Migraine Headache (ED) Referrals: Sherron Hood MD [Primary Care Provider] - 3 Days Additional Instructions: RETURN TO EMERGENCY DEPARTMENT FOR ANY NEW OR WORSENING SYMPTOMS The documentation as recorded by the Joana ness Jade accurately reflects the service I personally performed and the decisions made by Addie barry Abdul, MD.
== END 2018-02-05 22:15 | disposition home or self-care (01) ==
LOC: ED 17:44
DX: G43.909 Migraine, unspecified, not intractable, without status migrainosus (principal); Z88.3 Allergy status to other anti-infective agents; Z88.8 Allergy status to other drugs, medicaments and biological substances; Z88.2 Allergy status to sulfonamides; Z88.5 Allergy status to narcotic agent; E78.00 Pure hypercholesterolemia, unspecified; I10 Essential (primary) hypertension; F32.9 Major depressive disorder, single episode, unspecified; E66.3 Overweight; Z79.899 Other long term (current) drug therapy
CPT/HCPCS: 96374; 96375; 99284; A9270-GY; J1200; J1885; J2765

== ENCOUNTER 2018-02-22 10:28 | Emergency (ER) | payer MEDICARE, BC ==
[2018-02-22 11:47] VITALS: BP 127/76
--- NOTE | 2018-02-22 12:01 | UC ---
Throat Pain/Nasal Dusty HPI - HPI Summary HPI Summary: Started getting sick with ST and PND 7 days ago. Saw PCP 3 days later and was diagnosed with sinusitis and prescribed augmentin. pt is here for re-eval because now she is coughing a lot and not feeling better. Continues to feel fullness in throat, unable to talk for long periods of time due to coughing. Denies fever or wheezing. Has CASTRO from all the coughing, denies facial pain. - History of Current Complaint Chief Complaint: UCRespiratory Stated Complaint: SORE THROAT Time Seen by Provider: 02/22/18 11:53 Hx Obtained From: Patient Hx Last Menstrual Period: post ?: No Onset/Duration: Gradual Onset, Lasting Days Severity: Moderate Pain Intensity: 6 Cough: Productive Associated Signs & Symptoms: Positive: Hoarseness, Nasal Discharge. Negative: Wheezing, Fever, Vomiting - Allergies/Home Medications Allergies/Adverse Reactions: Allergies Allergy/AdvReac Type Severity Reaction Status Date / Time divalproex sodium Allergy Hallucinati Verified 02/22/18 11:48 [From Depakote] ons heparin Allergy See Comment Verified 02/22/18 11:48 chlorpromazine AdvReac Intermediate Altered Verified 02/22/18 11:48 Mental Status erythromycin base AdvReac Intermediate Diarrhea Verified 02/22/18 11:48 sulfamethoxazole AdvReac Intermediate GI Upset Verified 02/22/18 11:48 [From Bactrim] trimethoprim [From Bactrim] AdvReac Intermediate GI Upset Verified 02/22/18 11: 48 valproic acid AdvReac Intermediate Altered Verified 02/22/18 11:48 Mental Status cephalexin AdvReac Mild Muscle Ache Verified 02/22/18 11:48 morphine AdvReac Headache Verified 02/22/18 11:48 Home Medications: Home Medications Amoxicillin/Clavulanate TAB* [Augmentin TAB 875*] 1 tab PO BID 02/22/18 [ History Confirmed 02/22/18] PMH/Surg Hx/FS Hx/Imm Hx Cardiovascular History: Hypertension Other Neurological History: restless leg Psychological History: Anxiety Other Psychological History: chronic pain Other History Of: Negative For: Anticoagulant Therapy - Surgical History Surgical History: Yes Surgery Procedure, Year, and Place: 1974, 1976, 1978 3 C Sections [place]. 1986 right elbow surgery [place]. LEFT [place] [facility] [place] sinus surgery [facility] [place] 2006 appendectomy, [facility] [place] bladder surgery ( spot in bladder[place] [facility] [place] bilateral meniscus surgery, [facility] [place] 2005 OVARY REMOVED [facility] [place] HYSTERECTOMY,[place]RITO. 07/2013 LEFT TOE SURGERY [facility] [place] total replacement right knee; endoscopy left knee - Family History Known Family History: Positive: Unknown, Cardiac Disease, Hypertension, Other - stroke: mom; migraines Negative: Diabetes - Social History Occupation: Retired Lives: With Family Alcohol Use: Rare Alcohol Amount: 1 GLASS/MONTH Substance Use Type: Prescribed, Other Substance Use Comment - Amount & Last Used: Valium - Anxiety Smoking Status (MU): Never Smoked Tobacco Have You Smoked in the Last Year: No - Immunization History Most Recent Influenza Vaccination: FALL 2015 Most Recent Tetanus Shot: at least 10 years ago per patient Most Recent Pneumonia Vaccination: 2003 Review of Systems Constitutional: Negative Skin: Negative Eyes: Negative ENT: Sore Throat, Nasal Discharge Respiratory: Cough Cardiovascular: Negative Gastrointestinal: Negative Genitourinary: Negative Motor: Negative Neurovascular: Negative Musculoskeletal: Negative Neurological: Headache Psychological: Negative Is Patient Immunocompromised?: No All Other Systems Reviewed And Are Negative: Yes Physical Exam Triage Information Reviewed: Yes Appearance: No Pain Distress, Obese Vital Signs: Initial Vital Signs Temp 98.3 F 02/22/18 11:44 Pulse 81 02/22/18 11:44 Resp 18 02/22/18 11:44 BP 127/76 02/22/18 11:44 Pulse Ox 99 02/22/18 11:44 Vital Signs Reviewed: Yes Eye Exam: Normal Eyes: Positive: Conjunctiva Clear ENT: Positive: Hearing grossly normal, Nasal congestion, TMs normal, Other - very dry mucus membranes. Negative: TM bulging, TM dull, TM red Neck exam: Normal Neck: Positive: Supple, Nontender, No Lymphadenopathy Respiratory Exam: Normal, Other - no cough noted Respiratory: Positive: Chest non-tender, Lungs clear, Normal breath sounds, No respiratory distress, No accessory muscle use Cardiovascular Exam: Normal Cardiovascular: Positive: RRR, No Murmur Musculoskeletal Exam: Normal Musculoskeletal: Positive: Strength Intact Neurological Exam: Normal Neurological: Positive: Alert Psychological Exam: Normal Skin Exam: Normal Throat Pain/Nasal Course/Dx - Course Course Of Treatment: Discussed continued use of augmentin, I encouraged her to finish it if it makes her feel better, but she can stop after 5 days if she wants. - Differential Dx/Diagnosis Differential Diagnosis/HQI/PQRI: Influenza, Laryngitis, URI Provider Diagnoses: URI, likely viral Discharge - Sign-Out/Discharge Documenting (check all that apply): Discharge/Admit/Transfer - Discharge Plan Condition: Stable Disposition: HOME Prescriptions: Acetaminop/Codeine 30 MG TAB* [Tylenol/Codeine 30 MG TAB*] 1 tab PO Q6H PRN #15 tab MDD 4 PRN Reason: Cough Benzonatate CAP* [Tessalon 100 MG CAP*] 100 - 200 mg PO TID PRN #40 cap PRN Reason: Cough guaiFENesin [Mucus-ER Max] 1,200 mg PO BID #20 tab.er.12h Patient Education Materials: Upper Respiratory Infection (ED) Referrals: Sherron Hood MD [Primary Care Provider] - If Needed Additional Instructions: UPPER RESPIRATORY ILLNESS: You have a viral infection of the respiratory passages -- a "cold." This common infection causes nasal congestion, drainage, and often sore throat and cough. It is highly contagious. The disease usually worsens for 3-5 days, then resolves after about 10 to 14 days. It is very common to have some residual cough or nasal congestion for another week or so. There is no "cure" for the viral infection -- it must run its course. If there is a complication, such as bacterial infection in the nose, sinuses, middle ear, or bronchial tubes, antibiotics may be required. The antibiotics won't affect the virus. Drink plenty of fluids. A humidifier may help. An expectorant medication or decongestant may make you more comfortable. Use acetaminophen or ibuprofen for fever or aches. Please call or return if you develop difficulty breathing, fever over 100F , sudden worsening, or failure to improve at all for 4 or more days. - Billing Disposition and Condition Condition: STABLE Disposition: Home
== END 2018-02-22 12:29 | disposition home or self-care (01) ==
LOC: UCEAST 10:28
DX: J06.9 Acute upper respiratory infection, unspecified (principal); I10 Essential (primary) hypertension; G89.29 Other chronic pain; Z88.8 Allergy status to other drugs, medicaments and biological substances; Z88.1 Allergy status to other antibiotic agents; Z88.2 Allergy status to sulfonamides; Z88.5 Allergy status to narcotic agent
CPT/HCPCS: 99212; G0463

== ENCOUNTER 2018-02-23 17:48 | Emergency (ER) | payer MEDICARE, BC ==
[2018-02-23] MEDS ORDERED: Albuterol 2.5 MG/3 ML NEB.SOL* (0.083%) INH ONE (18:16)
[2018-02-23] MEDS ORDERED: methylPREDNISolone 125 MG* 2 ML VIAL IV ONE (18:16)
[2018-02-23] MEDS ORDERED: diPHENhydraMINE IV* 50 MG/ML 1 ml VIAL (BENADRYL) IV ONE (18:21)
[2018-02-23] MEDS ORDERED: Metoclopramide IV* 5 MG/ML 2 ML VIAL IV ONE (18:22)
--- OUTSIDE RECORDS SUMMARY | 2018-02-23 18:47 | XMS REPORT ---
:1950 External Reference #:[id number] Author Organization [facility] Address [address] [place] [address] [place] [address] Phone [phone] Care Team Providers Name Role Phone Sherron Hood MD Primary Care Physician Unavailable Payers Type Date Identification Numbers Payment Provider Subscriber Medicare Primary Effective: Policy Number: Medicare Tatiana Ponce 2014 [id number] PayID: [id number] [address] [place] [address] [place] Part B Effective: 2012 Policy Number: BS Facets Tatiana Ponce [id number] PayID: [id number] [address] [address] [place] [address] Problems Date Description Provider Status Onset: 09/11/2014 [...] take 1 by Manisha Tromethamine s mouth every Cowdery, 8 hours, as M.D. needed severe migraine (take with food) Cyclobenzaprine 01/09 Active Tablets 10mg 90tab take 1 Manisha HCL s tablet by Cowdery, mouth every M.D. 8 hours as need for muscle spasm Ondansetron HCL 07/18 Active Tablets 4mg 40tab one to two G43.919 Manisha s by mouth Cowdery, every 8 M.D. hours as needed for nausea, or severe migraine Botox 11/14 Active Solution 100Unit injected q Rec 3 months Cowdery, for M.D. intractable migraines Tizanidine HCL 11/10 Active Capsules 4mg 270ca take 1 by ps mouth as Cowdery, needed for M.D. neck pain, and 2 by mouth at bedtime. Cymbalta Active Caps DR 60mg 30cap 2 po qd Part s Topiramate Active Tablets 100mg 180ta 1 by mouth Manisha bs twice a day Brooks Cardenas Lipitor Active Tablets 20mg 30tab one tab po s qam Nadolol Active Tablets 80mg 135ta take 1.5 by Manisha bs mouth every Cowder, morning M.D. Protonix Active Tablets 40mg [address] every day Diazepam Active Tablets 5mg 1 by mouth three times daily prn Ditropan XL Active Tablets 10mg 1 by mouth ER 24HR every day Buspirone HCL Active Tablets 30mg twice a day-pt unsure of dose Abilify Active Tablets 10mg 1 tab po qd Alejandro, / MD Henok Onzetra Xsail 06/23 Hx Exhp 11mg/Nose 32uni 1 cap in pc ts each Veronika, - nostril x1 M.D. 06/23 : december repeat dose x1 after 2 hours. Do not use more than 2x weekly. Onzetra Xsail 06/23 Hx Exhp 11mg/Nose 16uni Administer G43.919 pc ts 1 lacy Ribeiro, - intranasall 09/01 y in nostril x1 . December repeat dose x1. Tramadol HCL 08/09 Hx Tablets 50mg 10tab 1 tablets Manisha s every 6 Cowdery, - hours as M.D. 06/22 needed for severe migraine; not to exceed more than 2 doses a day, maximum 2 times a week Voltaren 03/27 Hx Gel 1% 1tube apply to 726.60 the knee as Ashley, - needed for M.D. 09/01 pain, maximum 3 times a day Prednisone 12/04 Hx Tablets 20mg 20tab 60mg by Jennifer s mouth x 3 Gnadt, CHART READER - days, then 12/12 40mg by mouth x 3 days, then 20mg x 3 days, then 10mg by mouth x 3 days, then stop. Thaxton 07/07 Hx Tablets 5-325mg 60tab take 1-2 s tabs at Ashley, - bedtime for M.D. 09/01 sleep Neurontin 03/10 Hx Capsules 300mg 60cap 2 by mouth s every night Ashley, - at bedtime M.D. 09/10 Ultram 01/25 Hx Tablets 50mg 40tab 1 tab po s bid prn Ashley, - M.D. 02/22 Percocet 12/09 Hx Tablets 5-325mg 60tab 1 to 2 tabs s by mouth Ashley, - once a day M.D. 09/06 as needed for pain Percocet 11/11 Hx Tablets 5-325mg 90tab take 1-2 s tabs po Ashley, - q4-6 hours M.D. 11/14 prn pain Coumadin 11/11 Hx Tablets 2.5mg 90tab 1-3 po s daily as Ashley, - directed by M.D. 11/14 doctor /2013 through visiting nurse orders Thaxton 11/11 Hx Tablets 5-325mg 60tab 1-2 tabs by s mouth q 4-6 Ashley, - hours prn M.D. 02/22 pain Hydrocodone/Acetam 07/04 Hx Tablets 5-500mg 60tab 2 tabs po s qhs prn Ashley, - pain M.D. 11/11 Prednisone 12/16 Hx Tablets 20mg 20tab take 3 po s qam x Cowdery, - 3days, then M.D. 02/10 2 po qam x3 days then 1 [...] po bs qhs. December Ronald, - increase by M.D. 11/10 1 tablet q7 days to maximum 4 tablets po qhs Ketorolac 05/27 Hx Tablets 10mg 5tabs take 1 by Ramsey Taveras Tromethamine mouth every Veronika, - 8 hours as M.D. 06/23 needed migraine. take with food. maximum 2 days a week. do not take with other nsaid's Celebrex 04/09 Hx Capsules 200mg 60cap Take 1 s Capsule By Ashley, - Mouth Twice M.D. 02/23 Daily as Needed *Max 2/Day* Percocet 01/26 Hx Tablets 5-325mg 40tab 1-2 tab by Paulino s mouth every Ashley, - 4 hours as M.D. 03/16 needed Vicodin 01/15 Hx Tablets 5-500mg 40tab [...] Tablets 15mg 30tab 1 po qd Unknown /0000 s - 01/09 Clonazepam 00/00 Hx Tablets 1mg 90tab 1 po tid Unknown /0000 s prn - 11/11 Vitamin D 00/00 Hx 1200mg 1 po daily Unknown /0000 - 09/01 SMZ-TMP DS 00/00 Hx Tablets 800-160mg 20tab 1 po bid Unknown /0000 s - 11/14 Vitamin B-12 CR 00/00 Hx Tablets 1000mcg 1 po qd Unknown /0000 ER - 06/22 Clonazepam 00/00 Hx Tablets 1mg 30tab take 1 po Unknown /0000 s tid, prn - anxiety 01/30 Buspirone HCL 00/00 Hx Tablets 15mg take one Unknown /0000 tablet by - mouth twice 02/23 a /2015 Abilify 00/00 Hx Tablets 10mg 1 by mouth Unknown /0000 each day - 01/08 Medications Administered in Office Medication Date Status Form Strength Qnty SIG Indications Ordering Provider Injection 11/06 Administered Injection Manisha Onabotulinumtoxin /Gertrude Nelson 1 Unit M.D. Injection 08/05 Administered Injection Manisha Onabotulinumtoxin /2016 Cowdery, A, 1 Unit M.D. Injection 05/01 Administered Injection Manisha Onabotulinumtoxin /2016 Cowdery, A, 1 Unit M.D. Injection 01/09 Administered Injection Manisha Onabotulinumtoxin /2016 Cowdery, A, 1 Unit M.D. Injection 09/29 Administered Injection Ramsey S. Onabotulinumtoxin /2016 Veronika, A, 1 Unit M.D. Injection 06/23 Administered Injection Ramsey S. Onabotulinumtoxin /2015 [place], A, 1 Unit M.D. Injection 02/24 Administered Injection Manisha Onabotulinumtoxin /2015 Cowdery, A, 1 Unit M.D. Injection 11/05 Administered Injection Manisha Onabotulinumtoxin /2015 Cowdery, A, 1 Unit M.D. Depomedrol 40MG 09/06 Administered Injection Tabitha /2016 ALONSO Luna-Silvia Depomedrol 80MG 06/27 Administered Injection Tabitha /2015 ALONSO Luna-Silvia Injection 06/27 Administered Injection Jennifer Onabotulinumtoxin /2014 Gnadt, CHART READER A, 1 Unit Injection 03/28 Administered Injection Jennifer Onabotulinumtoxin /2014 Gnadt, CHART READER A, 1 Unit Injection 12/13 Administered Injection Jennifer Onabotulinumtoxin /2014 Gnadt, CHART READER A, 1 Unit Injection 09/11 Administered Injection [...] Synvisc Or 07/20 Administered Injection Kody Synvisc-One /2012 H. Injection 1 MG Taylor, R.P.A.-C Injection 05/23 Administered Injection Manisha Onabotulinumtoxin /2012 Cowdery, A, 1 Unit M.D. Depomedrol 80MG 03/16 Administered Injection Brooks Ramirez Depomedrol 80MG 03/16 Administered Injection Brooks Ramirez Injection 02/10 Administered Injection Manisha Onabotulinumtoxin /2012 Cowdery, A, 1 Unit M.D. Injection 11/10 Administered Injection Manisha Onabotulinumtoxin /2012 [...] Oneil Vital Signs Date Vital Result Comment 02/10/2018 Height 62 inches 5'2" Weight 160.00 lb Declined Heart Rate 72 /min BP Systolic Sitting 132 mmHg BP Diastolic Sitting 98 mmHg Respiratory Rate 16 /min BMI (Body Mass Index) 29.3 kg/m2 11/06/2017 Height 62 inches 5'2" Weight 160.00 lb Heart Rate 76 /min BP Systolic 124 mmHg BP Diastolic 78 mmHg Respiratory Rate 16 /min BMI (Body Mass Index) 29.3 kg/m2 08/05/2017 Height 62 inches 5'2" Weight 160.00 [...] Test Date Test Result H/L Range Note Laboratory test 02/05/2018 Hemoglobin A1c (Glyco 5.6 % 4.0-5.6 1 finding HGB) Lipid Profile 02/05/2018 Triglycerides 133 mg/dL 2 (Trig/Chol/HDL) Cholesterol 194 mg/dL 3 HDL Cholesterol 54.6 mg/dL 4 LDL Cholesterol 113 mg/dL 5 Laboratory test finding 02/05/2018 TSH (Thyroid Stim Horm) 0.80 mcIU/mL 0.34-5.60 Vitamin B12 423 pg/mL 180-914 6 Vitamin D Total 25(Oh) 47.9 ng/mL 20-50 Hepatitis C Antibody Nonreactive Nonreactive CBC Auto Diff 10/31/2017 White Blood Count 5.4 10^3/uL 3.5-10.8 Red Blood Count 3.54 10^6/uL Low 4.0-5.4 Hemoglobin 12.3 g/dL 12.0-16.0 Hematocrit 36 % 35-47 Mean Corpuscular Volume 101 fL High 80-97 Mean Corpuscular Hemoglobin 35 pg High 27-31 Mean Corpuscular HGB Conc 34 g/dL 31-36 Red Cell Distribution Width 13 % 10.5-15 Platelet Count 204 10^3/uL 150-450 Mean Platelet Volume 7 um3 Low 7.4-10.4 Abs Neutrophils 2.4 10^3/uL 1.5-7.7 Abs Lymphocytes 2.5 10^3/uL 1.0-4.8 Abs Monocytes 0.4 10^3/uL 0-0.8 Abs Eosinophils 0.2 10^3/uL 0-0.6 Abs Basophils 0.1 10^3/uL 0-0.2 Abs Nucleated RBC 0 10^3/uL Granulocyte % 43.3 % 38-83 Lymphocyte % 45.4 % 25-47 Monocyte % 6.8 % 0-7 Eosinophil % 3.3 % 0-6 Basophil % 1.2 % 0-2 Nucleated Red Blood Cells % 0.1 CBC Auto Diff 12/03/2015 White Blood Count [...] Egfr Non- 60.3 >60 Egfr 77.6 >60 7 Laboratory test finding 12/03/2015 Vitamin B12 340 pg/mL 180-914 8 Hemoglobin A1c (Glyco HGB) 5.6 % Less than 6.0 9 CBC Auto Diff 11/19/2015 White Blood Count [...] Egfr Non- 65.1 >60 Egfr 83.8 >60 10 Lipid Profile (Trig/Chol/HDL) 11/19/2015 Triglycerides 127 mg/dL 11 Cholesterol 165 mg/dL 12 HDL Cholesterol 56.4 mg/dL 13 LDL Cholesterol 83 mg/dL 14 Laboratory test finding 11/19/2015 Creatine Kinase(CK) 62 U/L 10-223 TSH (Thyroid Stim Horm) 1.17 ?IU/mL 0.34-5.60 Free T4 (Free Thyroxine) 0.85 ng/dL 0.61-1.12 Vitamin B12 387 pg/mL 180-914 15 Vitamin D Total 25(Oh) 19.9 ng/mL Low 30-50 Hemoglobin A1c 5.8 % Less than 6.0 16 Laboratory test finding 01/08/2015 TSH (Thyroid Stimulating 1.39 ?IU/mL 0.34-5.60 Horm) Vitamin B12 456 pg/mL 180-914 17 Vitamin D Total 25(Oh) 18.4 ng/mL Low 30-50 Hemoglobin A1c 5.8 % Less than 6.0 18 Lipid Profile (Trig/Chol/HDL) 01/08/2015 Triglycerides 141 mg/dL 19 Cholesterol 183 mg/dL 20 HDL Cholesterol 57.6 mg/dL 21 LDL Cholesterol 97 mg/dL 22 Comp Metabolic Panel 01/08/2015 Sodium 137 mmol/L [...] Egfr Non- 74.1 >60 Egfr 95.3 >60 23 CBC Auto Diff 01/08/2015 White Blood Count [...] Color Yellow Urine Appearance Clear Urine Specific Peytona 1.010 1.010-1.030 Urine Esterase Trace Negative Urine [...] Egfr Non- 69.2 >60 Egfr 89.0 >60 24 Type & Screen 11/11/2013 Patient Blood Type [...] Egfr Non- 56.0 >60 Egfr 72.0 >60 25 Urine Culture & 02/04/2012 M <SEE 26 Sensitivi NOTE> Myasthenia Gravis 02/03/2012 Ach Receptor 0.00 nmol/L <=0.02 (MG), Adult Binding AB Ach Receptor Modulating AB 0 % () 27 Striational AB Negative titer <1:60 28 1 Therapeutic target for the treatment of diabetes mellitus patients is <7% HBA1C, and in selective patients <6.0%. Please refer to [place] [employer] diabetic care guidelines for further information. 2 Desirable: <150 Borderline High: 150-199 High: 200-499 Very High: >500 3 Desirable: <200 Borderline High: 200-239 High: >239 4 Low: <40 Desirable: 40-60 High: >60 5 Desirable: <100 Near Optimal: 100-129 Borderline High: 130-159 High: 160-189 Very High: >189 6 Normal Range 180 to 914 Indeterminate Range 145 to 180 Deficient Range <145 7 Because ethnic data is not always readily [...] 15-29 5 Kidney failure <15 (or dialysis) 8 Normal Range 180 to 914 Indeterminate Range 145 to 180 Deficient Range <145 9 Therapeutic target for the treatment of diabetes Mellitus patients is <7% HBA1C, and in selective patients <6.0%.Please refer to [place] [employer] Diabetic care guidelines for further information. 10 Because ethnic data is not always readily [...] 15-29 5 Kidney failure <15 (or dialysis) 11 Desirable <150 Borderline high 150-199 High 200-499 Very High >500 12 Desirable <200 Borderline high 200-239 High >239 13 Low <40 Desirable: 40-60 High: >60 14 Desirable: <100 mg/dL Near Optimal: 100-129 mg/dL Borderline High: 130-159 mg/dL High: 160-189 mg/dL Very High: >189 mg/dL 15 Normal Range 180 to 914 Indeterminate Range 145 to 180 Deficient Range <145 16 Therapeutic target for the treatment of diabetes Mellitus patients is <7% HBA1C, and in selective patients <6.0%.Please refer to [place] [employer] Diabetic care guidelines for further information. 17 Normal Range 180 to 914 Indeterminate Range 145 to 180 Deficient Range <145 18 Therapeutic target for the treatment of diabetes Mellitus patients is <7% HBA1C, and in selective patients <6.0%.Please refer to [place] [employer] Diabetic care guidelines for further information. 19 Desirable <150 Borderline high 150-199 High 200-499 Very High >500 20 Desirable <200 Borderline high 200-239 High >239 21 Low <40 Desirable: 40-60 High: >60 22 Desirable: <100 mg/dL Near Optimal: 100-129 mg/dL Borderline High: 130-159 mg/dL High: 160-189 mg/dL Very High: >189 mg/dL 23 Because ethnic data is not always readily [...] 15-29 5 Kidney failure <15 (or dialysis) 24 Because ethnic data is not always readily [...] 15-29 5 Kidney failure <15 (or dialysis) 25 Because ethnic data is not always readily [...] 15-29 5 Kidney failure <15 (or dialysis) 26 RUN DATE: 02/06/12 [facility] NMI LIVE PAGE 1 RUN TIME: 837 Specimen Inquiry RUN USER: INTERFACE Name: TATIANA PONCE#: [id number] Status: DIS IN Re02/01/12 Age/Sex: 61/F Unit#: [id number] Location: [facility] : 48 SPEC #: [id number] JAH: 02/04/12 STATUS: LATHA REQ #: [id number] RECD: 02/04/[address] [facility] [address]: Milana SILVERMAN,Pola Rodriguez SOURCE: URINE ENTR: 02/04/[address] [facility] [address]: Erwin SILVERMAN, Sherron [facility] James Mccurdy DO ORDERED: URINE C S Procedure Result Verified Site > URINE CULTURE SENSITIVI Final 02/06/12837 ML Organism 1 ESCHERICHIA COLI COLONY COUNT [...] *These antibiotics are not available in the [facility] Formulary. Contact the Microbiology Department for any additional antibiotic reporting. [facility] Permit #[id number] [address] [place] [address] DEPARTMENT OF PATHOLOGY, [address] [place] [address] [facility] Permit #[id number] Graham Lacy M.D. Director Bradley Lennon M.D. Jet Piercer Operator 27 -- REFERENCE VALUE -- 0-20% (reported as _% loss of AChR) 28 Test Performed by: [facility] - [address] [address] Produce Sorter: Calin Solorio III, M.D. Procedures Date CPT Code Description Status 11/06/2017 84161 Chemodenervation Of Muscles Innervated By Facial Completed Nerves, Bilat 08/05/2017 62618 Chemodenervation Of Muscles Innervated By Facial Completed Nerves, Bilat 05/01/2017 89920 Chemodenervation Of Muscles Innervated By Facial Completed Nerves, Bilat 01/09/2017 18284 Chemodenervation Of Muscles Innervated By Facial Completed Nerves, Bilat 09/29/2016 22338 Chemodenervation Of Muscles Innervated By Facial Completed Nerves, Bilat 06/23/2016 69367 Chemodenervation Of Muscles Innervated By Facial Completed Nerves, Bilat 02/25/2016 19348 Chemodenervation Of Muscles Innervated By Facial Completed Nerves, Bilat 11/06/2015 61178 Chemodenervation Of Muscles Innervated By Facial Completed Nerves, Bilat 09/06/2015 40122 Inject/Drain Joint/Bursa Major Completed 06/27/2015 07221 Chemodenervation Of Muscles Innervated By Facial Completed Nerves, Bilat 06/27/2015 30970 Inject/Drain Joint/Bursa Major Completed 03/28/2015 40487 Chemodenervation Of Muscles Innervated By Facial Completed Nerves, Bilat 12/13/2014 17490 Chemodenervation Of Muscles Innervated By Facial Completed Nerves, Bilat 09/11/2014 77236 Chemodenervation Of Muscles Innervated By Facial Completed Nerves, Bilat 07/07/2014 51845 Inject/Drain Joint/Bursa Major Completed 06/29/2014 96926 Chemodenervation Of Muscles Innervated By Facial Completed Nerves, Bilat 02/22/2014 37970 Chemodenervation Of Muscles Innervated By Facial Completed Nerves, Bilat 12/21/2013 70965 Xray Knee 3 Views Completed 11/24/2013 02154 Open TX Of Tibial FX,Proximal Plateau;Unicondylar Incl Completed Fixation 11/24/2013 61187 TKR Total Knee Replacement Completed 11/24/2013 30731 TKR Total Knee Replacement Completed 11/14/2013 21579 Chemodenervation Of Muscles Innervated By Facial Completed Nerves, Bilat 10/21/2013 45186 Xray Knee 3 Views Completed 10/21/2013 89703 Xray Knee 3 Views Completed 08/11/2013 Inject/Drain Joint/Bursa Major Completed 07/20/2013 Inject/Drain Joint/Bursa Major Completed 05/23/2013 09508 Chemodenervation Of Muscles Innervated By Facial Completed Nerves, Bilat 03/16/2013 Inject/Drain Joint/Bursa Major Completed 03/16/2013 Inject/Drain Joint/Bursa Intermediate Completed 03/16/2013 Inject/Drain Joint/Bursa Intermediate Completed 02/10/2013 73504 Chemodenervation Of Muscles Innervated By Facial Completed Nerves, Bilat 12/15/2012 92597 Rad Exam; Knee, Ap&L Completed 12/15/2012 94572 Rad Exam; Knee, Ap&L Completed 12/15/2012 90427 Xray Knee 3 Views Completed 12/15/2012 23192 Xray Knee 3 Views Completed 11/10/2012 04588 Chemodenervation Of Muscles Innervated By Facial Completed Nerves, Bilat 10/28/201295320 Inject/Drain Joint/Bursa Major Completed 10/28/2012 Inject/Drain Joint/Bursa Major Completed 08/12/2012 14061 Destruction W/Neurolytic Agent,Neck Muscles Completed 08/12/2012 56096 Destruction W/Neurolytic Agent, Facial Nerve Muscle, Completed Unilateral 06/16/2012 Inject/Drain Joint/Bursa Major Completed 06/16/2012 Inject/Drain Joint/Bursa Major Completed 12/12/2011 Inject/Drain Joint/Bursa Major Completed 12/12/2011 Inject/Drain Joint/Bursa Major Completed 08/17/2011 38398 EKG, Interpretation Only Completed 06/25/2011 Inject/Drain Joint/Bursa Major Completed 06/03/201169363 Inject/Drain Joint/Bursa Major Completed 06/03/2011 89954 Xray Knee 3 Views Completed 03/04/201149192 Inject/Drain Joint/Bursa Major Completed 12/30/2010 52681 Arthroscopy,Knee,Meniscectomy Medial Or Lateral Completed 12/30/2010 46193 Arthroscopy,Knee,Meniscectomy Medial Or Lateral Completed 11/26/2010 99661 Xray Knee 3 Views Completed 01/04/2008 44085 Color Flow Doppler/Interp & Reprt Completed 01/04/2008 09573 Pulse Wave/Continuous-Interp.RPT Completed 01/04/2008 67181 Pulse Wave/Continuous-Interp.RPT Completed 01/04/2008 20913 Echocardiogram Completed 03/27/2005 11159 EKG, Interpretation Only Completed 12/27/2002 62955 Treadmill Interp/Report Only Completed 12/27/2002 19353 Stress Test Supervsn W/Out I/R Completed 12/08/2002 44536 Color Doppler Completed 12/08/2002 30291 Pulse Doppler & Continuous Wave Completed 12/08/2002 70925 Echocardiogram Completed Encounters Type Date Location Provider CPT E/M Dx Office Visit 11/01/2017 [facility] Manisha Cardenas, 28388 G43.919 2:00p M.D. Office Visit 11/01/2017 [facility] Nydia Kevin, 38035 G43.019 10:38a Hospitalists M.D. Office Visit 10/31/2017 [facility] Manisha Ronald, 19726 G43.919 1:48p M.D. Office Visit 10/31/2017 [facility], Nydia Kevin, 57710 G43.019 10:37a Hospitalists M.D. Office Visit 06/17/2017 [facility] Manisha De La Cruzyancy, 80637 G43.919 8:15a Services Of Plug Making Operator M.D. Office Visit 01/09/2017 [facility] Manisha Jonoyancy, 81176 G43.919 1:30p Services Of Plug Making Operator M.Marco Antonio G21.11 Office Visit 12/05/2015 [facility] Leanne Green, 80222 G43.811 1:44p Assoc,pc CHART READER Hospitalists F41.9 E66.9 Office Visit 12/03/2015 1:42p [facility] Celeste Staffordch, 97414 G43.811 Assoc,pc Hospitalists CHART READER F41.9 E66.9 Office Visit 09/06/2015 10:20a [facility] Tabitha Luna 39292 Z96.651 Of Josi ANP-C M17.12 Office Visit 07/18/2015 11:00a [facility] Manisha Cardenas M.D. 96498 G43.919 Services Of Plug Making Operator G21.11 Office Visit 03/27/2015 9:00a [facility] Of Tabitha Luna 28899 726.60 CIlan ANP-C Office Visit 02/07/2015 2:00p [facility] Manisha Cardenas M.D. 55041 346.91 Services Of Plug Making Operator 300.00 Office Visit 01/31/2015 11:30a [facility] Of Paulino Ramirez 00340 726.60 C.Yosef Guy 728.89 V43.65 Office Visit 12/06/2014 2:00p [facility] Of Tabitha Luna 66231 715.96 C.M.A. ANP-C Office Visit 09/06/2014 10:45a [facility] Of Paulino Ramirez, 85801 719.46 C.M.A. M.D. Office Visit 07/07/2014 8:45a [facility] Of Tabitha Luna, 91713 719.46 C.M.A. ANP-C 715.96 V54.81 V43.65 Office Visit 05/19/2014 2:45p [facility] Of Paulino Ramirez, 16801 715.96 C.M.A. M.D. Office Visit 04/28/2014 11:15a [facility] Of Tabitha Luna, 95836 715.96 C.M.A. ANP-C Office Visit 03/10/2014 10:00a [facility] Of Paulino Ramirez, 80290 715.96 C.M.A. M.D. Office Visit 11/27/2013 3:34p [facility], Aisha Abdi, 50678 458.9 Hospitalists D.O. 285.1 453.9 V43.65 Office Visit 11/26/2013 3:33p [facility], Aisha Abdi, 33013 458.9 Hospitalists D.O. 285.1 V43.65 Office Visit 11/14/2013 1:00p [facility] Manisha Cardenas M.D. [address] [facility] 780.09 E935.2 Office Visit 10/21/2013 3:45p [facility] Paulino Ramirez M.D. 27072 715.96 Of C.M.A. Office Visit 05/18/2013 9:30a [facility] Paulino Ramirez M.D. 27692 715.96 Of C.M.A. Office Visit 03/16/2013 8:45a [facility] Paulino Ramirez M.D. 59363 715.96 Of C.M.A. Office Visit 12/15/2012 8:15a [facility] Kody Rodriguez 62989 715.96 Of C.M.AYara Meyer Office Visit 11/10/2012 11:15a [facility] Manisha Cardenas M.D. 31430 346.91 Services Of Plug Making Operator Office Visit 10/28/2012 8:30a [facility] Paulino Ramirez M.D. 63760 715.96 Of C.M.A. Office Visit 08/12/2012 8:30a [facility] Manisha Cardenas M.D. 72481 346.91 Services Of Plug Making Operator 793.0 Office Visit 06/16/2012 8:30a [facility] Paulino Ramirez M.D. 33723 715.96 Of C.M.A. Office Visit 05/26/2012 3:30p [facility] Manisha Cardenas M.D. 77322 346.91 Services Of Plug Making Operator Office Visit 12/12/2011 1:30p [facility] Kody Rodriguez 59020 715.96 Of C.M.AYara Meyer 716.96 Office Visit 06/25/2011 2:00p [facility] ANIBAL Castillo 71819 715.96 Of C.M.A. 716.96 Office Visit 06/03/2011 10:00a [facility] Of Paulino Ramirez, 12943 715.96 C.M.A. M.Marco Antonio Office Visit 04/29/2011 9:30a [facility] Of Paulino Eagleino, 92730 719.46 C.M.A. M.DKendy Office Visit 12/27/2010 9:00a [facility] Of Paulino Eagleino, 63840 836.0 C.M.Gertrude. MBeth Office Visit 11/26/2010 10:45a [facility] Of Paulino Eagleino, 84396 717.3 C.M.A. M.DKendy Office Visit 02/01/2010 1:30a [facility], Miladis Castaneda 49704 784.0 Hospitalists M.D. Office Visit 02/01/2010 12:15a [facility], Jose Guerrero, 04390 346.91 Hospitalists M.DKendy 345.90 530.81 311 Office Visit 01/31/2010 2:15a [facility], Jose Guerrero, 72613 784.0 Hospitalists M.DKendy 345.90 311 Office Visit 01/12/2010 1:45a [facility] Jose Guerrero, 65818 786.50 Assoc, Hospitalists Brooks 300.00 Office Visit 01/11/2010 3:00a [facility] ,cristopher Dow M.D. 04504 786.50 Hospitalists 346.91 Office Visit 09/27/2009 1:30a [facility] Matthew Dillon, 52510 346.90 Assoc, Hospitalists Brooks Office Visit 09/26/2009 1:00a [facility] Matthew Dillon, 80391 346.90 Assoc, Hospitalists MBeth Office Visit 09/25/2009 1:00a [facility] Nydia Kevin, 08265 346.90 Assoc, Hospitalists Brooks Office Visit 03/02/2009 2:00a [facility] Juan Pablo Rolancameron, 34870 346.91 Assoc, Hospitalists Brooks Office Visit 03/01/2009 12:30a [facility] Garett Chase M.D. 04656 346.91 Assoc, Hospitalists Plan of Care Future Appointment(s):05/21/2018 10:00 am - Manisha Cardenas M.D. at [facility]02/10/2018 - Manisha Cardenas M.D.G43.919 Migraine, unsp , intractable, without status migrainosusFollow up:as scheduled in May. Note, patient is moving out of the area, however may not have a neurologist by then. She will call and cancel if the visit is not needed.
--- NOTE | 2018-02-23 18:51 | RAD ---
Indication: Shortness of breath. Cough. Comparison: July 05, 2014 Technique: Upright AP 1829 hours Report: Mild asymmetric pulmonary opacity at the LEFT lung base without volume loss is suspicious for pneumonia given the clinical context. Grossly clear pleural spaces. Negative for pneumothorax. Upper normal heart size. Unremarkable central pulmonary vasculature. LEFT breast surgical clips noted. IMPRESSION: Suggestion of probable inflammatory infiltrate at the LEFT lung base.
[2018-02-23] MEDS ORDERED: NS 0.9% 1000 ML* 1,000 ML IV ONE (19:06)
[2018-02-23] MEDS ORDERED: Ketorolac INJ* 30 MG/ML 1 ML VIAL IV PUSH ONE (19:06)
[2018-02-23 19:29] LABS: ABS Basophils 0.1 10^3/ul (0-0.2); ABS Eosinophils 0.2 10^3/ul (0-0.6); ABS Lymphocytes 2.7 10^3/ul (1.0-4.8); ABS Monocytes 0.7 10^3/ul (0-0.8); ABS Neutrophils 4.7 10^3/ul (1.5-7.7); ABS Nucleated RBC 0 10^3/ul; Hematocrit 37 % (35-47); Hemoglobin 12.5 g/dl (12.0-16.0); Lymphocyte % 32.8 % (25-47); Mean Corpuscular HGB Conc 34 g/dl (31-36); Mean Corpuscular Hemoglobin 35 pg (27-31); Mean Corpuscular Volume 103 fL (80-97); Mean Platelet Volume 7.1 um3 (7.4-10.4); Nucleated Red Blood Cells % 0; Platelet Count 202 10^3/ul (150-450); Red Blood Count 3.55 10^6/ul (4.00-5.40); Red Cell Distribution Width 13 % (10.5-15); White Blood Count 8.3 10^3/ul (3.5-10.8)
[2018-02-23 19:36] LABS: INR 0.87 (0.77-1.02)
[2018-02-23 19:47] LABS: EGFR Non-African American 60.7 (>60)
[2018-02-23] MEDS ORDERED: Levofloxacin TAB* 500 MG PO ONE (20:14)
--- NOTE | 2018-02-23 20:21 | ED ---
Briseyda Collado Simon, scribed for Erik Sims on 02/23/18 at 1837 . Shortness of Breath - HPI Summary HPI Summary: This patient is a 67 year old F presenting to [facility] accompanied by with a chief complaint of SOB since a week ago. Endorses Rx ABx taken for 6 days, does not alleviate sx. Pt endorses productive cough, CP (secondary to cough), migraine. Pt denies fever, edema. Deep breaths aggravate sx. Pt takes Topamax and Benadryl for migraines, and notes certain CASTRO protocol. She denies smoking, alcohol use, and denies PMHx heart problems. - History of Current Complaint Chief Complaint: EDShortnessOfBreath Time Seen by Provider: 02/23/18 18:09 Hx Obtained From: Patient Onset/Duration: Gradual Onset, Lasting Days - 7, Still Present Timing: Constant Current Severity: Moderate Dyspnea At: Rest Aggrevating Factors: Deep Breaths Alleviating Factors: Other - negative: ABx Associated Signs & Symptoms: Cough (Productive), Chest Pain w/Cough - Allergy/Home Medications Allergies/Adverse Reactions: Allergies Allergy/AdvReac Type Severity Reaction Status Date / Time divalproex sodium Allergy Hallucinati Verified 02/23/18 18:07 [From Depakote] ons heparin Allergy See Comment Verified 02/23/18 18:07 chlorpromazine AdvReac Intermediate Altered Verified 02/23/18 18:07 Mental Status erythromycin base AdvReac Intermediate Diarrhea Verified 02/23/18 18:07 sulfamethoxazole AdvReac Intermediate GI Upset Verified 02/23/18 18:07 [From Bactrim] trimethoprim [From Bactrim] AdvReac Intermediate GI Upset Verified 02/23/18 18: 07 valproic acid AdvReac Intermediate Altered Verified 02/23/18 18:07 Mental Status cephalexin AdvReac Mild Muscle Ache Verified 02/23/18 18:07 morphine AdvReac Headache Verified 02/23/18 18:07 Home Medications: Home Medications DOXYcycline CAP(*) [DOXYcycline 100MG CAP(*)] 100 mg PO BID 02/23/18 [History Confirmed 02/23/18] Fluticasone NASAL SPRAY 50MCG* [Flonase NASAL SPRAY 50MCG*] 2 spray BOTH NARES DAILY 02/23/18 [History Confirmed 02/23/18] Nadolol TAB* [Corgard TAB*] 120 mg PO DAILY 02/23/18 [History Confirmed 02/23/18 ] Pantoprazole TAB (NF) [Protonix TAB (NF)] 40 mg PO DAILY 02/23/18 [History Confirmed 02/23/18] Ranitidine TAB (NF) [Zantac TAB (NF)] 150 mg PO QPM 02/23/18 [History Confirmed 02/23/18] PMH/Surg Hx/FS Hx/Imm Hx Endocrine/Hematology History: Denies: Hx Anticoagulant Therapy, Hx Diabetes, Hx Thyroid Disease Cardiovascular History: Reports: Hx Hypercholesterolemia, Hx Hypertension, Other Cardiovascular Problems/Disorders - heart burn Respiratory History: Denies: Hx Asthma, Hx Chronic Obstructive Pulmonary Disease (COPD) GI History: Reports: Hx Gastroesophageal Reflux Disease Denies: Hx Ulcer Musculoskeletal History: Reports: Hx Arthritis Sensory History: Reports: Hx Contacts or Glasses Denies: Hx Hearing Aid Opthamlomology History: Reports: Hx Contacts or Glasses Neurological History: Reports: Hx Migraine - Chronic migraine disease, Hx Seizures Psychiatric History: Reports: Hx Anxiety, Hx Depression - Cancer History Hx Chemotherapy: No Hx Radiation Therapy: No - Surgical History Surgery Procedure, Year, and Place: 1974, 1976, 1978 3 C Sections [place]. 1986 right elbow surgery [place]. LEFT breast biopsy [facility] x2 sinus surgery [facility]. 2006 appendectomy, [facility] 2004 bladder surgery ( spot in bladder), [facility] 2006 bilateral meniscus surgery, [facility] 2004 OVARY REMOVED [facility]. 1980 HYSTERECTOMY,PEDRITO. 07/2013 LEFT TOE SURGERY [facility]. total replacement right knee; endoscopy left knee Hx Anesthesia Reactions: Yes - required mechanical ventilation for oversedation - Immunization History Date of Tetanus Vaccine: within the last 10 years Date of Influenza Vaccine: Fall 2014 Infectious Disease History: No Infectious Disease History: Reports: Hx Shingles - 2011 Denies: Hx Clostridium Difficile, Hx Hepatitis, Hx Human Immunodeficiency Virus (HIV), Hx of Known/Suspected MRSA, Hx Tuberculosis, Hx Known/Suspected VRE , Hx Known/Suspected VRSA, History Other Infectious Disease, Traveled Outside the in Last 30 Days - Family History Known Family History: Positive: None - reviewed & noncontributory, Unknown, Cardiac Disease, Hypertension, Other - stroke: mom; migraines Negative: Diabetes - Social History Alcohol Use: Rare Alcohol Amount: 1 GLASS/MONTH Hx Substance Use: Yes Substance Use Type: Reports: Prescribed, Other Substance Use Comment - Amount & Last Used: Valium - Anxiety Hx Tobacco Use: No Smoking Status (MU): Never Smoked Tobacco Have You Smoked in the Last Year: No Review of Systems Negative: Fever Positive: Chest Pain Positive: Shortness Of Breath, Cough Negative: Edema Positive: Headache - Migraine All Other Systems Reviewed And Are Negative: Yes Physical Exam - Summary Physical Exam Summary: Appearance: Well appearing, no pain distress Skin: warm, dry, reflects adequate perfusion Head/face: normal Eyes: EOMI, [place] ENT: normal Neck: supple, non-tender Respiratory: poor air entry bilaterally Cardiovascular: RRR, pulses symmetrical Abdomen: non-tender, soft Bowel: present Musculoskeletal: normal, strength/ROM intact Neuro: normal, sensory motor intact, A&Ox3 Triage Information Reviewed: Yes Vital Signs On Initial Exam: Initial Vitals Temp Pulse Resp BP Pulse Ox 97.8 F 56 17 89/57 98 02/23/18 18:01 02/23/18 18:01 02/23/18 18:01 02/23/18 18:01 02/23/18 18:01 Vital Signs Reviewed: Yes Diagnostics - Vital Signs Vital Signs Temp Pulse Resp BP Pulse Ox 02/23/18 18:01 97.8 F 56 17 89/57 98 - Laboratory Lab Results: Lab Results 02/23/18 02/23/18 02/23/18 Range/Units 19:16 19:16 19:16 WBC 8.3 (3.5-10.8) 10^3/ul RBC 3.55 L (4.00-5.40) 10^6/ul Hgb 12.5 (12.0-16.0) g/dl Hct 37 (35-47) % MCV 103 H (80-97) fL MCH 35 H (27-31) pg MCHC 34 (31-36) g/dl RDW 13 (10.5-15) % Plt Count 202 (150-450) 10^3/ul MPV 7.1 L (7.4-10.4) um3 Neut % (Auto) 56.4 (38-83) % Lymph % (Auto) 32.8 (25-47) % [place] % (Auto) 8.1 H (0-7) % Eos % (Auto) 2.0 (0-6) % Baso % (Auto) 0.7 (0-2) % Absolute Neuts (auto) 4.7 (1.5-7.7) 10^3/ul Absolute Lymphs (auto) 2.7 (1.0-4.8) 10^3/ul Absolute Monos (auto) 0.7 (0-0.8) 10^3/ul Absolute Eos (auto) 0.2 (0-0.6) 10^3/ul Absolute Basos (auto) 0.1 (0-0.2) 10^3/ul Absolute Nucleated RBC 0 10^3/ul Nucleated RBC % 0 INR (Anticoag Therapy) 0.87 (0.77-1.02) APTT 31.7 (26.0-36.3) seconds Sodium 138 (135-145) mmol/L Potassium 3.8 (3.5-5.0) mmol/L Chloride 107 (101-111) mmol/L Carbon Dioxide 22 (22-32) mmol/L Anion Gap 9 (2-11) mmol/L BUN 11 (6-24) mg/dL Creatinine 0.92 (0.51-0.95) mg/dL Est GFR ( Amer) 73.5 (>60) Est GFR (Non-Af Amer) 60.7 (>60) BUN/Creatinine Ratio 12.0 (8-20) Glucose 95 (70-100) mg/dL Calcium 9.1 (8.6-10.3) mg/dL Total Bilirubin 0.30 (0.2-1.0) mg/dL AST 16 (13-39) U/L ALT 14 (7-52) U/L Alkaline Phosphatase 64 (34-104) U/L Troponin I Pending B-Natriuretic Peptide ( - 100) pg/mL Total Protein 6.8 (6.4-8.9) g/dL Albumin 3.8 (3.2-5.2) g/dL Globulin 3.0 (2-4) g/dL Albumin/Globulin Ratio 1.3 (1-3) 02/23/ Range/Units 19:16 WBC (3.5-10.8) 10^3/ul RBC (4.00-5.40) 10^6/ul Hgb (12.0-16.0) g/dl Hct (35-47) % MCV (80-97) fL MCH (27-31) pg MCHC (31-36) g/dl RDW (10.5-15) % Plt Count (150-450) 10^3/ul MPV (7.4-10.4) um3 Neut % (Auto) (38-83) % Lymph % (Auto) (25-47) % [place] % (Auto) (0-7) % Eos % (Auto) (0-6) % Baso % (Auto) (0-2) % Absolute Neuts (auto) (1.5-7.7) 10^3/ul Absolute Lymphs (auto) (1.0-4.8) 10^3/ul Absolute Monos (auto) (0-0.8) 10^3/ul Absolute Eos (auto) (0-0.6) 10^3/ul Absolute Basos (auto) (0-0.2) 10^3/ul Absolute Nucleated RBC 10^3/ul Nucleated RBC % INR (Anticoag Therapy) (0.77-1.02) APTT (26.0-36.3) seconds Sodium (135-145) mmol/L Potassium (3.5-5.0) mmol/L Chloride (101-111) mmol/L Carbon Dioxide (22-32) mmol/L Anion Gap (2-11) mmol/L BUN (6-24) mg/dL Creatinine (0.51-0.95) mg/dL Est GFR ( Amer) (>60) Est GFR (Non-Af Amer) (>60) BUN/Creatinine Ratio (8-20) Glucose (70-100) mg/dL Calcium (8.6-10.3) mg/dL Total Bilirubin (0.2-1.0) mg/dL AST (13-39) U/L ALT (7-52) U/L Alkaline Phosphatase (34-104) U/L Troponin I B-Natriuretic Peptide 31 ( - 100) pg/mL Total Protein (6.4-8.9) g/dL Albumin (3.2-5.2) g/dL Globulin (2-4) g/dL Albumin/Globulin Ratio (1-3) Result Diagrams: 02/23/18 19:16 02/23/18 19:16 Lab Statement: Any lab studies that have been ordered have been reviewed, and results considered in the medical decision making process. - Radiology CXR Xray Interpretation: Positive (See Comments) Radiology Interpretation Completed By: Radiologist - Suggestion of probable inflammatory infiltrate at the LEFT lung base. Dr. Sims has reviewed this report. - EKG 1817 Cardiac Rate: Bradycardia - 58 EKG Rhythm: Sinus Bradycardia ST Segment: Normal EKG Comparison: No Significant Change Re-Evaluation - Re-Evaluation First Eval Re-Evaluation Time: 20:00 Change: Improved Comment: Pt feels better, amenable to d/c. Course/Dx - Course Course Of Treatment: A 67-year-old F presents to the ED with a CC of SOB for 1 week. (+) productive cough, CP secondary to cough, and a migraine. (-) fever, edema. Deep breaths aggravate sx. Pt denies smoking, PMHx heart problems. A CXR reveals Suggestion of probable inflammatory infiltrate at the LEFT lung base. An EKG reveals SB with no acute changes. In the ED course, pt was given Albuterol, Benadryl, Toradol, Solu-medrol, Reglan, and Ns. Blood work/UA obtained. - Diagnoses Differential Diagnosis/HQI/PQRI: Positive: Bronchitis, Pneumonia, Other - headache Provider Diagnoses: Pneumonia, Migraine Discharge - Sign-Out/Discharge Documenting (check all that apply): Discharge/Admit/Transfer - discharge - Discharge Plan Condition: Stable Disposition: HOME Prescriptions: Albuterol HFA INHALER* [Ventolin HFA Inhaler*] 2 puff INH Q6H PRN #1 mdi MDD 4 PRN Reason: Sob/Wheezing Levofloxacin TAB* [Levaquin TAB*] 500 mg PO DAILY #7 tab predniSONE TAB* [Deltasone 20 MG TAB*] 40 mg PO DAILY #3 tab Patient Education Materials: Migraine Headache (ED), Pneumonia (ED) Referrals: Sherron Hood MD [Primary Care Provider] - 3 Days Additional Instructions: RETURN TO EMERGENCY DEPARTMENT FOR ANY CHANGING OR WORSENING SYMPTOMS. - Billing Disposition and Condition Condition: STABLE Disposition: Home The documentation as recorded by the Briseyda ness Simon accurately reflects the service I personally performed and the decisions made by , Erik Sims.
[2018-02-23 20:50] VITALS: BP 133/65
== END 2018-02-23 20:49 | disposition home or self-care (01) ==
LOC: ED 17:48
DX: J18.9 Pneumonia, unspecified organism (principal); G43.909 Migraine, unspecified, not intractable, without status migrainosus; I10 Essential (primary) hypertension; K21.9 Gastro-esophageal reflux disease without esophagitis; Z79.899 Other long term (current) drug therapy; Z88.8 Allergy status to other drugs, medicaments and biological substances; Z88.3 Allergy status to other anti-infective agents; Z88.2 Allergy status to sulfonamides
CPT/HCPCS: 36415; 71045; 80053; 83605; 83880; 84484; 85025; 85610; 85730; 93005; 96361; 96374; 96375; 99282; J1200; J1885; J2765; J2930

== ENCOUNTER 2018-02-26 10:45 | Emergency (ER) | payer MEDICARE, BC ==
[2018-02-26] MEDS ORDERED: NS 0.9% 1000 ML* 1,000 ML IV ONE (12:09)
[2018-02-26] MEDS ORDERED: Metoclopramide IV* 5 MG/ML 2 ML VIAL IV ONE (12:09)
[2018-02-26] MEDS ORDERED: Ketorolac INJ* 30 MG/ML 1 ML VIAL IV PUSH ONE (12:09)
[2018-02-26] MEDS ORDERED: diPHENhydraMINE IV* 50 MG/ML 1 ml VIAL (BENADRYL) IV ONE (12:09)
[2018-02-26 15:07] VITALS: BP 137/86
--- NOTE | 2018-02-26 18:19 | ED ---
Bam Collado Angela, scribed for Dandre Olea MD on 02/26/18 at 1213 . Headache - HPI Summary HPI Summary: This pt is a 67 y/o female presenting to [facility] c/o migraine headache for the past couple of days. Pt reports she was seen 3 days ago on 02/23 and was diagnosed with pneumonia. She was placed on Levaquin and Tessalon Perles. Pt notes she also had a migraine then. She states she is still coughing now with more frequency. Denies chest pain, abd pain. Today she reports migraine and photophobia. Her migraine is aggravated with bright lights. Denies fever, nausea , vomiting. She notes "they have a pain management on file here at the hospital for me." - History Of Current Complaint Chief Complaint: EDGeneral Stated Complaint: HEADACHE Time Seen by Provider: 02/26/18 11:21 Hx Obtained From: Patient Hx Last Menstrual Period: post Onset/Duration: Started days ago, Still Present Currently Pain Is: Current Pain Scale(0-10)= - 7, Severe Timing: Days Character: Migraine Location of Headache: Diffuse Aggravating Factor: Bright Lights Allevating Factors: Nothing Associated Signs And Symptoms: Negative - Allergies/Home Medications Allergies/Adverse Reactions: Allergies Allergy/AdvReac Type Severity Reaction Status Date / Time divalproex sodium Allergy Hallucinati Verified 02/26/18 11:55 [From Depakote] ons heparin Allergy See Comment Verified 02/26/18 11:55 chlorpromazine AdvReac Intermediate Altered Verified 02/26/18 11:55 Mental Status erythromycin base AdvReac Intermediate Diarrhea Verified 02/26/18 11:55 sulfamethoxazole AdvReac Intermediate GI Upset Verified 02/26/18 11:55 [From Bactrim] trimethoprim [From Bactrim] AdvReac Intermediate GI Upset Verified 02/26/18 11: 55 valproic acid AdvReac Intermediate Altered Verified 02/26/18 11:55 Mental Status cephalexin AdvReac Mild Muscle Ache Verified 02/26/18 11:55 morphine AdvReac Headache Verified 02/26/18 11:55 PMH/Surg Hx/FS Hx/Imm Hx Endocrine/Hematology History: Denies: Hx Anticoagulant Therapy, Hx Diabetes, Hx Thyroid Disease Cardiovascular History: Reports: Hx Hypercholesterolemia, Hx Hypertension, Other Cardiovascular Problems/Disorders - heart burn Respiratory History: Denies: Hx Asthma, Hx Chronic Obstructive Pulmonary Disease (COPD) GI History: Reports: Hx Gastroesophageal Reflux Disease Denies: Hx Ulcer Musculoskeletal History: Reports: Hx Arthritis Sensory History: Reports: Hx Contacts or Glasses Denies: Hx Hearing Aid Opthamlomology History: Reports: Hx Contacts or Glasses Neurological History: Reports: Hx Migraine - Chronic migraine disease, Hx Seizures Psychiatric History: Reports: Hx Anxiety, Hx Depression - Cancer History Hx Chemotherapy: No Hx Radiation Therapy: No - Surgical History Surgery Procedure, Year, and Place: 1974, 1976, 1978 [facility] 1986 right elbow surgery [place]. [place] breast [place] [facility] [facility] [place] [place] appendectomy[place] [facility] bladder surgery ( spot in bladder[place] [facility] bilateral meniscus surgery, [facility] 2004 OVARY REMOVED [facility] 1980 HYSTERECTOMY,[place]. 07/2013 LEFT [place] [facility]; endoscopy left knee Hx Anesthesia Reactions: Yes - required mechanical ventilation for oversedation - Immunization History Date of Tetanus Vaccine: within the last 10 years Date of Influenza Vaccine: Fall 2014 Infectious Disease History: No Infectious Disease History: Reports: Hx Shingles - 2011 Denies: Hx Clostridium Difficile, Hx Hepatitis, Hx Human Immunodeficiency Virus (HIV), Hx of Known/Suspected MRSA, Hx Tuberculosis, Hx Known/Suspected VRE , Hx Known/Suspected VRSA, History Other Infectious Disease, Traveled Outside the in Last 30 Days - Family History Known Family History: Positive: Cardiac Disease, Hypertension, Other - stroke: mom; migraines Negative: Diabetes - Social History Alcohol Use: Rare Alcohol Amount: 1 GLASS/MONTH Hx Substance Use: Yes Substance Use Type: Reports: Prescribed, Other Substance Use Comment - Amount & Last Used: Valium - Anxiety Hx Tobacco Use: No Smoking Status (MU): Never Smoked Tobacco Have You Smoked in the Last Year: No Review of Systems Negative: Fever, Chills Positive: Photophobia Negative: Chest Pain Positive: Cough Negative: Abdominal Pain, Vomiting, Nausea Positive: Headache All Other Systems Reviewed And Are Negative: Yes Physical Exam - Summary Physical Exam Summary: Appearance: The patient is well-nourished in no acute distress and in no acute pain. Skin: The skin is warm and dry and skin color reflects adequate perfusion. HEENT: The head is normocephalic and atraumatic. The pupils are equal and reactive. The conjunctivae are clear and without drainage. Nares are patent and without drainage. Mouth reveals moist mucous membranes and the throat is without erythema and exudate. The external ears are intact. The ear canals are patent and without drainage. The tympanic membranes are intact. Neck: the neck is supple with full range of motion and non-tender. There are no carotid bruits. There is no neck vein distension. Respiratory: Chest is non-tender. Lungs are clear to auscultation and breath sounds are symmetrical and equal. Cardiovascular: Heart is regular rate and rhythm. There is no murmur or rub auscultated. There is no peripheral edema and pulses are symmetrical and equal. Abdomen: The abdomen is soft and non-tender. There are normal bowel sounds heard in all four quadrants and there is no organomegaly palpated. Musculoskeletal: There is no back tenderness noted. Extremities are non-tender with full range of motion. There is good capillary refill. There is no peripheral edema or calf tenderness elicited. Neurological: Patient is alert and oriented to person, place and time. Psychiatric: The patient has an appropriate affect and does not exhibit any anxiety or depression. Triage Information Reviewed: Yes Vital Signs On Initial Exam: Initial Vitals Temp Pulse Resp BP Pulse Ox 98.8 F 65 18 155/90 100 02/26/18 10:51 02/26/18 10:51 02/26/18 10:51 02/26/18 10:51 02/26/18 10:51 Vital Signs Reviewed: Yes Diagnostics - Vital Signs Vital Signs Temp Pulse Resp BP Pulse Ox 02/26/18 10:51 98.8 F 65 18 155/90 100 - Laboratory Lab Statement: Any lab studies that have been ordered have been reviewed, and results considered in the medical decision making process. - EKG 10:47 Cardiac Rate: NL - at 63 bpm EKG Rhythm: Sinus Rhythm Re-Evaluation - Re-Evaluation First Eval Re-Evaluation Time: 14:42 Change: Improved Comment: Pt is feeling better. She will be discharged home. Headache Course/Dx - Course Course Of Treatment: Ms. Ponce presented to the emergency department complaining of a migraine headache and a cough that has not been managed on Tessalon pearls. She has a diagnosis of pneumonia and chronic migraine headaches and and is primarily concerned with symptomatic treatment at this point. She is treated with her typical migraine regimen as determined by Dr. Mina and additionally given Tylenol with codeine for her cough. She is discharged in stable condition - Diagnoses Provider Diagnoses: Migraine, Pneumonia Discharge - Sign-Out/Discharge Documenting (check all that apply): Discharge/Admit/Transfer - Discharge - Discharge Plan Condition: Stable Disposition: HOME Prescriptions: Acetaminoph/Cod 120/12 mg LIQ* [Tylenol/Codeine 120/12 LIQ*] 5 ml PO Q4H PRN # 200 udc MDD 30 PRN Reason: Cough Patient Education Materials: Migraine Headache (ED), Pneumonia (ED) Referrals: Sherron Hood MD [Primary Care Provider] - Additional Instructions: Please follow up with your primary care provider in 2-3 days. RETURN TO THE ED FOR ANY WORSENING SYMPTOMS. - Billing Disposition and Condition Condition: STABLE Disposition: Home The documentation as recorded by the Bam ness Angela accurately reflects the service I personally performed and the decisions made by , Dandre Olea MD.
== END 2018-02-26 15:05 | disposition home or self-care (01) ==
LOC: ED 10:45
DX: G43.909 Migraine, unspecified, not intractable, without status migrainosus (principal); J18.9 Pneumonia, unspecified organism
CPT/HCPCS: 93005; 96360; 96374; 96375; 99283; J1200; J1885; J2765

== ENCOUNTER 2018-02-27 17:00 | Emergency (ER) | payer MEDICARE, BC ==
[2018-02-27] MEDS ORDERED: Metoclopramide IV* 5 MG/ML 2 ML VIAL IV SLOW PU ONE (18:03)
[2018-02-27] MEDS ORDERED: Ketorolac INJ* 30 MG/ML 1 ML VIAL IV ONE (18:03)
[2018-02-27] MEDS ORDERED: Acetaminop/Codeine 30 MG TAB* 1 TAB (300 MG/30 MG) PO ONE (18:04)
[2018-02-27] MEDS ORDERED: diPHENhydraMINE IV* 50 MG/ML 1 ml VIAL (BENADRYL) IV ONE (18:04)
[2018-02-27] MEDS: NS 0.9% 1000 ML* 2,000 ML IV ONE (18:37)
--- NOTE | 2018-02-27 18:51 | RAD ---
Indication: Increasing shortness of breath, cough. Single frontal view of the chest performed at 1820 hours was reviewed. Comparison is made with previous exam dated February 23, 2018. No mediastinal shift is noted. Heart is of normal size and configuration. Lung grace appear clear. IMPRESSION: NO ACTIVE CARDIOPULMONARY DISEASE IS NOTED.
--- NOTE | 2018-02-27 19:09 | ED ---
Bhupinder Collado Tariq, scribed for Abdias Agee MD on 02/27/18 at 1809 . Respiratory - HPI Summary HPI Summary: A 67 y/o female presents to the ED c/o migraine headache caused by productive cough. Additionally c/o worsening pneumonia. According to the pt, she was here yesterday with the same Sx, however she feels a lot worst today and her pneumonia has become worse. Additional Sx include SOB, productive cough of yellow/green sputum, and generalized weakness. Pt notes that she is currently on Tylenol with Codeine which helped alleviate Sx temporarily. No PMHx of COPD or asthma. - History of Current Complaint Chief Complaint: EDHeadache Stated Complaint: MIGRAINE Time Seen by Provider: 02/27/18 17:57 Hx Obtained From: Patient Onset/Duration: Sudden Onset, Lasting Days, Still Present, Worse Since - Yesterday Timing: Constant Initial Severity: Severe Current Severity: Severe Pain Intensity: 8 Character: Cough (Productive) - Yellow/Green sputum, Dyspnea at Rest Sputum Color: Yellow, Green Aggravating Factor(s): Nothing Alleviating Factor(s): Other - Tylenol with Codeine alleviates Sx temporarily Associated Signs and Symptoms: SOB - Allergy/Home Medications Allergies/Adverse Reactions: Allergies Allergy/AdvReac Type Severity Reaction Status Date / Time divalproex sodium Allergy Hallucinati Verified 02/27/18 17:18 [From Depakote] ons heparin Allergy See Comment Verified 02/27/18 17:18 chlorpromazine AdvReac Intermediate Altered Verified 02/27/18 17:18 Mental Status erythromycin base AdvReac Intermediate Diarrhea Verified 02/27/18 17:18 sulfamethoxazole AdvReac Intermediate GI Upset Verified 02/27/18 17:18 [From Bactrim] trimethoprim [From Bactrim] AdvReac Intermediate GI Upset Verified 02/27/18 17: 18 valproic acid AdvReac Intermediate Altered Verified 02/27/18 17:18 Mental Status cephalexin AdvReac Mild Muscle Ache Verified 02/27/18 17:18 morphine AdvReac Headache Verified 02/27/18 17:18 PMH/Surg Hx/FS Hx/Imm Hx Endocrine/Hematology History: Denies: Hx Anticoagulant Therapy, Hx Diabetes, Hx Thyroid Disease Cardiovascular History: Reports: Hx Hypercholesterolemia, Hx Hypertension, Other Cardiovascular Problems/Disorders - heart burn Respiratory History: Denies: Hx Asthma, Hx Chronic Obstructive Pulmonary Disease (COPD) GI History: Reports: Hx Gastroesophageal Reflux Disease Denies: Hx Ulcer Musculoskeletal History: Reports: Hx Arthritis Sensory History: Reports: Hx Contacts or Glasses Denies: Hx Hearing Aid Opthamlomology History: Reports: Hx Contacts or Glasses Neurological History: Reports: Hx Migraine - Chronic migraine disease, Hx Seizures Psychiatric History: Reports: Hx Anxiety, Hx Depression - Cancer History Hx Chemotherapy: No Hx Radiation Therapy: No - Surgical History Surgery Procedure, Year, and Place: 1974, 1976, 1978 3 C Sections [place]. 1986 right elbow surgery [place]. LEFT breast biopsy [facility] [place]. 1999s x2 sinus surgery [facility] [place] [facility] [place]. 2005 appendectomy, [facility] [place]. 2004 bladder surgery ( spot in bladder), [facility] [place]. 2005 bilateral meniscus surgery, [facility] [place]. 2004 OVARY REMOVED [facility] [place]. 1980 HYSTERECTOMY,PEDRITO. 07/2013 LEFT TOE SURGERY [facility] [place]. total replacement right knee; endoscopy left knee Hx Anesthesia Reactions: Yes - required mechanical ventilation for oversedation - Immunization History Date of Tetanus Vaccine: within the last 10 years Date of Influenza Vaccine: Fall 2014 Infectious Disease History: No Infectious Disease History: Reports: Hx Shingles - 2011 Denies: Hx Clostridium Difficile, Hx Hepatitis, Hx Human Immunodeficiency Virus (HIV), Hx of Known/Suspected MRSA, Hx Tuberculosis, Hx Known/Suspected VRE , Hx Known/Suspected VRSA, History Other Infectious Disease, Traveled Outside the in Last 30 Days - Family History Known Family History: Positive: Unknown, Cardiac Disease, Hypertension, Other - stroke: mom; migraines Negative: Diabetes - Social History Alcohol Use: Rare Alcohol Amount: 1 GLASS/MONTH Hx Substance Use: Yes Substance Use Type: Reports: Prescribed, Other Substance Use Comment - Amount & Last Used: Valium - Anxiety Hx Tobacco Use: No Smoking Status (MU): Never Smoked Tobacco Have You Smoked in the Last Year: No Review of Systems Negative: Fever Positive: Shortness Of Breath, Cough - Productive with yellow/green sputum, Other - POSITIVE: Pneumonia Neurological: Other - POSITIVE: Generalized weakness Positive: Headache - Migraine All Other Systems Reviewed And Are Negative: Yes Physical Exam - Summary Physical Exam Summary: General:well-appearing, no pain distress Skin:warm, color reflects adequate perfusion, dry Head:normal Eyes:EOMI, [place] ENT:normal Neck:supple, nontender Respiratory:CTA, breath sounds present. Pt has a cough. Cardiovascular:RRR Abdomen:soft, nontender Bowel:present Musculoskeletal:normal, strength/ROM intact Neurological:sensory/motor intact, A&O x3 Psychological:affect/mood appropriate Triage Information Reviewed: Yes Vital Signs On Initial Exam: Initial Vitals Temp Pulse Resp BP Pulse Ox 97.8 F 78 16 159/92 98 02/27/18 17:14 02/27/18 17:14 02/27/18 17:14 02/27/18 17:14 02/27/18 17:14 Vital Signs Reviewed: Yes Diagnostics - Vital Signs Vital Signs Temp Pulse Resp BP Pulse Ox 02/27/18 17:14 97.8 F 78 16 159/92 98 - Laboratory Lab Statement: Any lab studies that have been ordered have been reviewed, and results considered in the medical decision making process. - Radiology CXR Radiology Interpretation Completed By: Radiologist - NO ACTIVE CARDIOPULMONARY DISEASE IS NOTED. ED PHYSICIAN REVIEWED THIS RADIOLOGY REPORT. - EKG 1807 Cardiac Rate: NL - 66 BPM EKG Rhythm: Sinus Rhythm ST Segment: Normal Ectopy: None Disposition - Course Course Of Treatment: LABS AND DISPOSITION PENDING AT SHIFT CHANGE. - Diagnoses Provider Diagnoses: Headache, Dyspnea Discharge - Sign-Out/Discharge Documenting (check all that apply): Sign-Out Patient Signing out patient TO: Erik Sims - Discharge Plan Condition: Stable Referrals: Sherron Hood MD [Primary Care Provider] - - Billing Disposition and Condition Condition: STABLE The documentation as recorded by the Bhupinder ness Tariq accurately reflects the service I personally performed and the decisions made by me, Abdias Agee MD.
[2018-02-27 19:17] LABS: ABS Basophils 0 10^3/ul (0-0.2); ABS Eosinophils 0.2 10^3/ul (0-0.6); ABS Monocytes 0.4 10^3/ul (0-0.8); ABS Neutrophils 2.4 10^3/ul (1.5-7.7); ABS Nucleated RBC 0 10^3/ul; Eosinophil % 3.2 % (0-6); Hematocrit 34 % (35-47); Hemoglobin 11.5 g/dl (12.0-16.0); Lymphocyte % 49.4 % (25-47); Mean Corpuscular HGB Conc 34 g/dl (31-36); Mean Corpuscular Hemoglobin 35 pg (27-31); Mean Corpuscular Volume 103 fL (80-97); Nucleated Red Blood Cells % 0.1; Platelet Count 197 10^3/ul (150-450); Red Blood Count 3.34 10^6/ul (4.00-5.40); Red Cell Distribution Width 14 % (10.5-15); White Blood Count 6.1 10^3/ul (3.5-10.8)
[2018-02-27 19:21] LABS: INR 0.94 (0.77-1.02)
[2018-02-27 19:37] LABS: EGFR Non-African American 64.7 (>60)
[2018-02-27 20:25] VITALS: BP 143/82
--- NOTE | 2018-03-01 14:05 | ED ---
Randal Collado Rebecca, scribed for Erik Sims on 02/27/18 at 2006 . Progress - Progress Note Progress Note: Pt was signed out by Dr. Agee, pending dispo, awaiting labs. Re-Evaluation - Re-Evaluation First Eval Re-Evaluation Time: 20:05 Comment: Pt is doing well, discussed discharge. Course/Dx - Course Course Of Treatment: Pt was signed out by Dr. Agee, pending dispo, awaiting labs. Blood work was done with results including a troponin of 0.00. Upon revaluation, pt is doing well. She will be D/C to home with Dx of headache and cough. She understands and agrees. - Diagnoses Provider Diagnoses: Headache, Cough Discharge - Sign-Out/Discharge Documenting (check all that apply): Discharge/Admit/Transfer - Discharge, Receiving Sign-Out Receiving patient FROM: Abdias Agee - Discharge Plan Condition: Stable Disposition: HOME Patient Education Materials: Acute Headache (ED), Acute Cough (ED) Referrals: Sherron Hood MD [Primary Care Provider] - 2 Days Additional Instructions: RETURN TO ED FOR ANY NEW OR WORSENING SYMPTOMS. The documentation as recorded by the Ranadl ness Rebecca accurately reflects the service I personally performed and the decisions made by , Erik Sims.
== END 2018-02-27 20:25 | disposition home or self-care (01) ==
LOC: ED 17:00
DX: R51 Headache (principal); R06.00 Dyspnea, unspecified; E78.00 Pure hypercholesterolemia, unspecified; I10 Essential (primary) hypertension; K21.9 Gastro-esophageal reflux disease without esophagitis; G40.909 Epilepsy, unspecified, not intractable, without status epilepticus; F32.9 Major depressive disorder, single episode, unspecified; F41.9 Anxiety disorder, unspecified
CPT/HCPCS: 36415; 71045; 80053; 83605; 83880; 84484; 85025; 85610; 86140; 93005; 96360; 96374; 96375; 99284; A9270-GY; J1200; J1885; J2765